=== PATIENT | male | born 1935 | race Caucasian/White ===

== ENCOUNTER 2016-06-22 10:40 | Observation (INO) ==
[2016-06-22 11:25] LABS: Basophils # 0.1 K/mcL (0.0-0.2); Basophils % 0.8 %; Eosinophils # 0.2 K/mcL (0.0-0.6); Hemoglobin 16.1 g/dL (12.9-16.9); Immature Granulocytes % 0.3 % (0-4); Lymphocytes # 1.7 K/mcL (0.6-4.6); Lymphocytes % 19.3 %; Mean Corpuscular HGB Conc 32.9 g/dL (31.6-35.5); Mean Corpuscular Hemoglobin 30.7 pg (28.0-33.3); Mean Corpuscular Volume 93.3 fL (83.0-100.0); Mean Platelet Volume 8.8 fL (9.4-12.4); Monocytes # 0.8 K/mcL (0.0-1.3); Monocytes % 9.1 %; Platelet Count 219 K/mcL (140-400); Red Blood Count 5.25 M/mcL (4.19-5.50); Red Cell Distribution Width 11.6 % (11.5-14.5); Segmented Neutrophils % 68.5 %
[2016-06-22 11:36] LABS: BUN/Creatinine Ratio 17 (6-26); Blood Urea Nitrogen 17 mg/dL (8-26); Calcium 9.7 mg/dL (8.6-10.8); Carbon Dioxide 25 mEq/L (19-29); Chloride 101 mEq/L (98-109); Glucose 120 mg/dL (70-99); Osmolality,Calculated 287 (280-300); Potassium 4.3 mEq/L (3.5-4.5); Sodium 137 mEq/L (136-145); eGFR For African Americans > 60 (> 60); eGFR For Non-African Americans > 60 (> 60)
--- NOTE | 2016-06-22 12:37 | Emergency Department Note ---
Disposition Clinical Impression: Lower extremity edema Qualifiers: Laterality: bilateral Qualified Code(s): R60.0 - Localized edema COPD (chronic obstructive pulmonary disease) Qualifiers: COPD type: COPD with acute exacerbation Qualified Code(s): J44.1 - Chronic obstructive pulmonary disease with (acute) exacerbation Disposition: Admitted As Inpatient Condition: Good Time of Disposition: 12:46 General Adult HPI - General Chief complaint: ED Extremity Problem,Nontraumatic Stated complaint: leg swelling, chest pain Time Seen by Provider: 06/22/16 10:50 Source: EMS Limitations: no limitations Nursing Notes Reviewed: Yes Vital Signs Reviewed: Yes - History of Present Illness HPI Narrative: Male patient with a one-week history of swelling to his legs and increasing shortness of breath. Patient does have a history of COPD. He states he did have an episode yesterday of chest pain that was an ache in his chest. It is resolved at this time. He wears oxygen at home and has had an increasing demand for oxygen recently. He states he is also had a 9 pound weight gain over the past couple months. He has noticed that the swelling in his legs has been more predominantly in his left lower extremity. Pain Scale: 0 - Related Data Home Medications Medication Instructions Recorded Confirmed Albuterol Sulfate [Proair 2 puff IH Q4H PRN 03/03/15 06/22/16 Respiclick] Ascorbic Acid [Vitamin C] 500 mg PO DAILY 03/03/15 06/22/16 Beclomethasone Diprop 40mcg [QVAR 1 puff IH BID 03/03/15 06/22/16 40 mcg] Cholecalciferol (Vitamin D3) 1,000 unit PO DAILY 03/03/15 06/22/16 [Vitamin D3] Lisinopril [Zestril] 5 mg PO DAILY 03/03/15 06/22/16 Simvastatin [Zocor] 40 mg PO QPM 03/03/15 06/22/16 Tiotropium [Spiriva] 1 cap IH DAILY 03/03/15 06/22/16 Vitamin E (Dl,Tocopheryl Acet) 400 unit PO DAILY 03/03/15 06/22/16 [Vitamin E] Ciclopirox [Loprox] 1 appl TP 3XW 06/22/16 06/22/16 Clobetasol Propionate [Cormax] 1 drop TP DAILY 06/22/16 06/22/16 Previous Rx's Medication Instructions Recorded Carvedilol [Coreg] 25 mg PO BID #60 tablet 03/06/15 Fluticasone Propionate Nasal 50 mcg NS BID #1 bottle 03/06/15 [Flonase] Benzonatate [Tessalon] 200 mg PO TID PRN #30 capsule 03/20/16 PredniSONE [Prednisone] 60 mg PO DAILY 5 Days 03/20/16 Allergies Allergy/AdvReac Type Severity Reaction Status Date / Time Penicillins [PCN] Allergy Rash Verified 03/03/15 19:12 hydrocodone AdvReac Severe Agitated Verified 03/03/15 19:12 Constitutional: Denies: fever, chills, weakness ENT ED: Denies: ear pain, throat pain Cardiovascular: Reports: chest pain (1 episode yesterday of chest pressure in the center of his chest.). Denies: palpitations, syncope Respiratory: Reports: dyspnea (Increasing shortness of breath over the past week.). Denies: cough, wheezes Gastrointestinal: Denies: abdominal pain, nausea, vomiting, diarrhea, hematemesis, hematochezia Genitourinary: Denies: urgency, dysuria, frequency, hematuria, testicular mass Musculoskeletal: Reports: other (Swelling to lower extremities left greater than right.). Denies: back pain, neck pain Integumentary: Denies: rash, lesions Neurological: Denies: headache, weakness Past Medical History - Past Medical History Medical history: Reports: CHF, COPD, coronary artery disease, CVA, hyperlipidemia, hypertension, other Surgical history: Reports: cholecystectomy, other (pilonodal cyst) Psychiatric history: Reports: no psych history - Social History Smoking Status: Former smoker Smokeless Tobacco Status: No Alcohol use: Reports: occasionally Drug use: Reports: none Physical Exam - General Limitations: no limitations General appearance: alert, in no apparent distress - Head Head exam: atraumatic, normocephalic, normal inspection - Eye Eye exam: Present: normal appearance, PERRL, EOMI. Absent: scleral icterus - ENT ENT exam: normal exam, normal oropharynx, mucous membranes moist - Neck Neck exam: Present: normal inspection, full ROM, trachea midline. Absent: meningismus, lymphadenopathy - Chest Chest inspection: Present: normal inspection, symmetric chest wall rise. Absent : tenderness - Respiratory Respiratory exam: Present: normal lung sounds bilaterally. Absent: respiratory distress - Cardiovascular Cardiovascular exam: Present: regular rate, normal rhythm, normal heart sounds - Abdominal Exam Abdominal exam: Present: soft, Non-Tender, normal bowel sounds, other ( Increasing abdominal girth. No fluid wave.). Absent: organomegaly - Extremities Exam Extremities exam: Present: full ROM, normal capillary refill, pedal edema ( Bilaterally. Left greater than right.). Absent: tenderness, calf tenderness - Back Exam Back exam: Present: normal inspection, full ROM. Absent: tenderness, CVA tenderness (R), CVA tenderness (L) - Neurological Exam Neurological exam: Present: alert, oriented X3, normal gait - Psychiatric Psychiatric exam: Present: normal affect, normal mood - Skin Skin exam: Present: warm, dry, intact, normal color. Absent: rash, cyanosis, erythema Course Course Narrative: Well-appearing male patient resting comfortably in bed complaining of an increasing shortness of breath over the past week. He states that he does wear oxygen at home but has had to increase his amounts. He states that he gets increasing shortness of breath whenever he is walking at all. He states he has noted a recent 9 pound weight gain. He states that he was diagnosed at urgent care with possible CHF and was given Lasix. He does have an outpatient echo scheduled. He states that he has had increasing pedal edema. The daughter in the room states that his left leg was swollen about 3 times a size of his right leg yesterday. There is approximately the same size today however he does have bilateral pedal edema. His lung sounds are clear he denies any chest pain at this time states he did have one episode yesterday of chest pain while resting at home. Does have a history of stent placement. Patient's chest x-ray is clear. There are no signs of pneumonia. His lung sounds are clear as well. We will admit patient for COPD exacerbation possible new diagnosis of congestive heart failure. He is agreeable to this. He states he has not had any fevers or chills while he is at home. He states he does get pneumonia approximately once a year and was concerned that this was a pneumonia developing. Vital Signs Temperature 97.4 F L 06/22/16 10:42 Pulse Rate 58 06/22/16 10:42 Respiratory Rate 18 06/22/16 10:42 Blood Pressure 166/84 06/22/16 10:42 O2 Sat by Pulse Oximetry 94 06/22/16 10:42 Temperature 97.4 F L 06/22/16 10:42 Pulse Rate 53 06/22/16 12:15 Respiratory Rate 18 06/22/16 10:42 Blood Pressure 143/67 06/22/16 12:15 O2 Sat by Pulse Oximetry 95 06/22/16 12:15 Oxygen Delivery Oxygen Delivery Nasal Cannula Medical Decision Making - Medical Records Medical records reviewed: Yes I reviewed the patient's medical records. - Lab Data Lab results reviewed: Yes I reviewed the patient's lab results. Result diagrams: 06/22/16 11:19 06/22/16 11:19 Lab Results 06/22/16 06/22/16 06/22/16 Range/Units 11:19 11:19 11:19 WBC 8.8 (4.3-11.1) K/mcL RBC 5.25 (4.19-5.50) M/mcL Hgb 16.1 (12.9-16.9) g/dL Hct 49.0 (37.5-50.1) % MCV 93.3 (83.0-100.0) fL MCH 30.7 (28.0-33.3) pg MCHC 32.9 (31.6-35.5) g/dL RDW 11.6 (11.5-14.5) % Plt Count 219 (140-400) K/mcL MPV 8.8 L (9.4-12.4) fL Immature Gran % 0.3 (0-4) % Seg Neutrophils % 68.5 % Lymphocytes % 19.3 % Monocytes % 9.1 % Eosinophils % 2.0 % Basophils % 0.8 % Neutrophils # 6.0 (1.6-8.9) K/mcL Lymphocytes # 1.7 (0.6-4.6) K/mcL Monocytes # 0.8 (0.0-1.3) K/mcL Eosinophils # 0.2 (0.0-0.6) K/mcL Basophils # 0.1 (0.0-0.2) K/mcL Sodium 137 (136-145) mEq/L Potassium 4.3 (3.5-4.5) mEq/L Chloride 101 (98-109) mEq/L Carbon Dioxide 25 (19-29) mEq/L BUN 17 (8-26) mg/dL Creatinine 0.98 (0.72-1.25) mg/dL Est GFR ( Amer) > 60 (> 60) Est GFR (Non-Af Amer) > 60 (> 60) BUN/Creatinine Ratio 17 (6-26) Glucose 120 H (70-99) mg/dL Calculated Osmolality 287 (280-300) Calcium 9.7 (8.6-10.8) mg/dL Troponin I 0.00 (0-0.03) ng/mL B-Natriuretic Peptide (0-100) pg/mL 06/22/16 Range/Units 11:19 WBC (4.3-11.1) K/mcL RBC (4.19-5.50) M/mcL Hgb (12.9-16.9) g/dL Hct (37.5-50.1) % MCV (83.0-100.0) fL MCH (28.0-33.3) pg MCHC (31.6-35.5) g/dL RDW (11.5-14.5) % Plt Count (140-400) K/mcL MPV (9.4-12.4) fL Immature Gran % (0-4) % Seg Neutrophils % % Lymphocytes % % Monocytes % % Eosinophils % % Basophils % % Neutrophils # (1.6-8.9) K/mcL Lymphocytes # (0.6-4.6) K/mcL Monocytes # (0.0-1.3) K/mcL Eosinophils # (0.0-0.6) K/mcL Basophils # (0.0-0.2) K/mcL Sodium (136-145) mEq/L Potassium (3.5-4.5) mEq/L Chloride (98-109) mEq/L Carbon Dioxide (19-29) mEq/L BUN (8-26) mg/dL Creatinine (0.72-1.25) mg/dL Est GFR ( Amer) (> 60) Est GFR (Non-Af Amer) (> 60) BUN/Creatinine Ratio (6-26) Glucose (70-99) mg/dL Calculated Osmolality (280-300) Calcium (8.6-10.8) mg/dL Troponin I (0-0.03) ng/mL B-Natriuretic Peptide 129 H (0-100) pg/mL - Radiology Data Radiology results reviewed: Yes I reviewed the patient's radiology results. Chest X-Ray 06/22/16 11:09 IMPRESSION: Low lung volumes with bibasilar atelectasis. No acute cardiopulmonary disease. D/ / Nathen Robles MD / Nathen Robles MD Interpreting Provider: Nathen Robles MD - EKG Data EKG #1 EKG attestation: Yes I reviewed and interpreted this EKG. EKG results narrative: Sinus bradycardia at a rate of 57. There is a first-degree AV block. TX interval was 256. Tenriism is 85. QT is 417. QTC is 411. There is no ST elevation or depression noted. There are no significant changes from his previous EKG dated 03/03/2015. Attestation Statement - Attestation Attestation: I examined this patient and my medical decision-making was reviewed with the INDUSTRIAL ORGANIZATIONAL PSYCHOLOGIST/PA/Advanced Practice Nurse/Resident Physician. I agree with the documented findings, disposition and treatment plan as described except to the extent set forth below. Emergency department with any shortness of breath and leg swelling. Onset a few days ago. Patient recently diagnosed with CHF and is awaiting outpatient workup. No cough or fever. On examination he has some mild 1-2+ pitting edema in his legs. Lungs clear. Plan. Patient's EKG is unchanged. He does have some CHF but appears to be new. Patient admitted for further workup of this.
--- NOTE | 2016-06-22 15:54 | Internal Med History&Physical ---
Date of Encounter: 06/22/16 Time of Encounter: 15:47 Assessment and Plan (1) GARDUNO (dyspnea on exertion) Current visit: Yes Status: Acute He has h/o COPD however, reports worsening bilateral lower leg swelling . will order ECHO to r/o CHF, no echo in the system. will keep on IV lasix for now, was taking oral at home. On exam the left foot looks slightly more swollen than the right however it does not look that bad. Chest x-ray does not show any evidence of pulmonary edema. No calf tenderness,less likely DVT. Titrate oxygen to maintain saturation 90-92% (2) HTN (hypertension) Current visit: No Status: Chronic Blood pressure is stable, continue home medications. Qualifiers: Hypertension type: essential hypertension Qualified Code(s): I10 - Essential (primary) hypertension (3) Hyperlipidemia Current visit: No Status: Chronic Qualifiers: Hyperlipidemia type: unspecified Qualified Code(s): E78.5 - Hyperlipidemia , unspecified (4) CVA (cerebral vascular accident) Current visit: No Status: Chronic Qualifiers: CVA mechanism: unspecified Qualified Code(s): I63.9 - Cerebral infarction, unspecified (5) COPD (chronic obstructive pulmonary disease) Current visit: Yes Status: Acute Nontender acute respiratory distress, his symptoms has not look like COPD exacerbation. He takes spiriva daily, we will continue that. He reports that he has not needed rescue inhaler, will keep albuterol prn Qualifiers: COPD type: COPD with acute exacerbation Qualified Code(s): J44.1 - Chronic obstructive pulmonary disease with (acute) exacerbation Internal Medicine - H&P: HPI Chief complaint: sob and leg swelling Admitted From: Home Plans for Post Hospital Care: Home History of present illness: Mr. 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 Patient does have a history of COPD. He states he did have an episode yesterday of chest pain on the left side that was mild and went away by itself. He states he is also had a 9 pound weight gain over the past couple months. He has noticed that the swelling in his legs has been more predominantly in his left lower extremity, denies any pain or trauma. HE denies any chest pain now, the doctor by the bedside reports that the swelling isolated was much worse yesterday. He does take oral Lasix at home, has not had an echo for the last 7-8 years, and has no history of CHF given his recent symptoms, the family is concerned patient might have CHF. Past Med Surg Social Fam HX - Past Medical History Medical history: CHF, COPD, coronary artery disease, CVA, hyperlipidemia, hypertension, other Psychiatric history: no psych history - Past Surgical History Surgical History: cholecystectomy, other - Social History Smoking Status: Former smoker Smokeless Tobacco Status: No Alcohol use: occasionally Drug use: none - Family History Mother Family Member Ethnicity: Non- Living Status: Hx Family Cardiac Disorders: Yes Hx Family Cancer: Yes Internal Medicine - H&P: Meds Albuterol Sulfate [Proair Respiclick] 2 puff IH Q4H PRN 03/03/15 [History] Ascorbic Acid [Vitamin C] 500 mg PO DAILY 03/03/15 [History] Beclomethasone Diprop 40mcg [QVAR 40 mcg] 1 puff IH BID 03/03/15 [History] Cholecalciferol (Vitamin D3) [Vitamin D3] 1,000 unit PO DAILY 03/03/15 [History] Lisinopril [Zestril] 5 mg PO DAILY 03/03/15 [History] Simvastatin [Zocor] 40 mg PO QPM 03/03/15 [History] Tiotropium [Spiriva] 1 cap IH DAILY 03/03/15 [History] Vitamin E (Dl,Tocopheryl Acet) [Vitamin E] 400 unit PO DAILY 03/03/15 [History] Carvedilol [Coreg] 25 mg PO BID #60 tablet 03/06/15 [Rx] Fluticasone Propionate Nasal [Flonase] 50 mcg NS BID #1 bottle 03/06/15 [Rx] Benzonatate [Tessalon] 200 mg PO TID PRN #30 capsule 03/20/16 [Rx] PredniSONE [Prednisone] 60 mg PO DAILY 5 Days 03/20/16 [Rx] Ciclopirox [Loprox] 1 appl TP 3XW 06/22/16 [History] Clobetasol Propionate [Cormax] 1 drop TP DAILY 06/22/16 [History] Allergies Penicillins [PCN] Allergy (Verified 03/03/15 19:12) Rash hydrocodone Adverse Reaction (Severe, Verified 03/03/15 19:12) Agitated Family also states this makes patient act differently. All Systems PM: A 10-system review of systems was performed and is negative for pertinent findings except as documented above in the HPI. - Constitutional Vitals: Temp Pulse Resp BP Pulse Ox 97.7 F 61 18 116/63 90 06/22/16 15:10 06/22/16 15:10 06/22/16 15:10 06/22/16 15:10 06/22/16 15:10 General appearance: Present: A&O X 3, no acute distress Exam: - Head Head exam: atraumatic, normocephalic, normal inspection - Eye Eye exam: Present: normal appearance, PERRL, EOMI. Absent: scleral icterus - ENT ENT exam: normal exam, normal oropharynx, mucous membranes moist - Neck Neck exam: Present: normal inspection, full ROM, trachea midline. Absent: meningismus, lymphadenopathy - Respiratory Respiratory exam: Present: normal lung sounds bilaterally. Absent: respiratory distress - Cardiovascular Cardiovascular exam: Present: regular rate, normal rhythm, normal heart sounds - Abdominal Exam Abdominal exam: Present: soft, Non-Tender, normal bowel sounds, other ( Increasing abdominal girth. No fluid wave.). Absent: organomegaly - Extremities Exam Extremities exam: Present: full ROM, normal capillary refill, pedal edema ( Bilaterally. Left greater than right.). Absent: tenderness, calf tenderness - Back Exam Back exam: Present: normal inspection, full ROM. Absent: tenderness, CVA tenderness (R), CVA tenderness (L) - Neurological Exam Neurological exam: Present: alert, oriented X3, normal gait - Psychiatric Psychiatric exam: Present: normal affect, normal mood - Skin Skin exam: Present: warm, dry, intact, normal color. Absent: rash, cyanosis, erythema Internal Med - H&P Results - Labs CBC & Chem 7: 06/22/16 11:19 06/22/16 11:19
[2016-06-22] MEDS ORDERED: Naloxone 0.4 MG/ML INJ IVP PRN (16:15)
[2016-06-22] MEDS: Beclomethasone 40mcg MDI IH SCH (22:08)
[2016-06-22] MEDS ORDERED: Ibuprofen 600 MG TABLET PO ONE (23:01)
[2016-06-22] MEDS ORDERED: Melatonin 3 MG TABLET PO PRN (23:01)
[2016-06-23 05:36] LABS: Basophils # 0.1 K/mcL (0.0-0.2); Basophils % 0.9 %; Eosinophils # 0.3 K/mcL (0.0-0.6); Eosinophils % 3.3 %; Hematocrit 43.6 % (37.5-50.1); Hemoglobin 14.6 g/dL (12.9-16.9); Immature Granulocytes % 0.4 % (0-4); Lymphocytes % 21.6 %; Mean Corpuscular HGB Conc 33.5 g/dL (31.6-35.5); Mean Corpuscular Hemoglobin 31.5 pg (28.0-33.3); Mean Platelet Volume 9.3 fL (9.4-12.4); Monocytes # 0.8 K/mcL (0.0-1.3); Monocytes % 8.7 %; Platelet Count 213 K/mcL (140-400); Red Blood Count 4.64 M/mcL (4.19-5.50); Red Cell Distribution Width 11.9 % (11.5-14.5); Segmented Neutrophils % 65.1 %
[2016-06-23 06:00] LABS: BUN/Creatinine Ratio 21 (6-26); Blood Urea Nitrogen 18 mg/dL (8-26); Calcium 9.2 mg/dL (8.6-10.8); Carbon Dioxide 26 mEq/L (19-29); Chloride 102 mEq/L (98-109); Cholesterol 93 mg/dL (< 200); Glucose 104 mg/dL (70-99); HDL Cholesterol 31 mg/dL (40-59); LDL Cholesterol,Calculated 48 mg/dL (0-99); Magnesium 1.9 mg/dL (1.6-2.6); Osmolality,Calculated 288 (280-300); Phosphorous 4.5 mg/dL (2.3-4.7); Potassium 4.2 mEq/L (3.5-4.5); Sodium 138 mEq/L (136-145); Triglycerides 69 mg/dL (< 150); eGFR For African Americans > 60 (> 60); eGFR For Non-African Americans > 60 (> 60)
--- NOTE | 2016-06-23 06:53 | Electrocardiograph Report ---
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
[2016-06-23] MEDS: Beclomethasone 40mcg MDI IH SCH (07:49)
[2016-06-23] MEDS ORDERED: Furosemide 40 MG/4 ML VIAL IVP SCH (09:00)
[2016-06-23] MEDS ORDERED: Ascorbic Acid 500 MG TABLET PO SCH (09:00)
--- NOTE | 2016-06-23 09:04 | Internal Med Progress Note ---
Date of Encounter: 06/23/16 Time of Encounter: 08:50 - Assessment and plan (1) GARDUNO (dyspnea on exertion) Current Visit: Yes Status: Acute (2) COPD (chronic obstructive pulmonary disease) Current Visit: Yes Status: Acute Qualifiers: COPD type: COPD with acute exacerbation Qualified Code(s): J44.1 - Chronic obstructive pulmonary disease with (acute) exacerbation (3) HTN (hypertension) Current Visit: No Status: Chronic Qualifiers: Hypertension type: essential hypertension Qualified Code(s): I10 - Essential (primary) hypertension (4) CVA (cerebral vascular accident) Current Visit: No Status: Chronic Qualifiers: CVA mechanism: unspecified Qualified Code(s): I63.9 - Cerebral infarction, unspecified (5) Hyperlipidemia Current Visit: No Status: Chronic Qualifiers: Hyperlipidemia type: unspecified Qualified Code(s): E78.5 - Hyperlipidemia , unspecified - Time Spent With Patient less than 15 minutes - Constitutional Vitals: Temp Pulse Resp BP Pulse Ox 98.0 F 60 16 122/66 90 06/23/16 07:22 06/23/16 07:22 06/23/16 07:53 06/23/16 07:22 06/23/16 07:53 General appearance: Present: cooperative, A&O X 3, pleasant, no acute distress - Head Head exam: Present: normal inspection - Eye Eye exam: Present: normal appearance, conjuntiva pink - ENT ENT exam: Present: mucous membranes moist, normal exam, normal external ear exam - Neck Neck exam general surgery: Present: normal inspection. Absent: lymphadenopathy , tenderness - Respiratory Respiratory exam: Present: decreased breath sounds, rhonchi, wheezes. Absent: accessory muscle use, chest wall tenderness, respiratory distress - Cardiovascular Cardiovascular exam: Present: RRR, +S1, +S2. Absent: diastolic murmur, systolic murmur - Expanded Cardiovascular Exam Peripheral pulses: 1+: Dorsalis Pedis (L) PM, Dorsalis Pedis (R) PM - GI/Abdominal GI/Abdominal exam: Present: distended, firm, normal bowel sounds. Absent: tenderness - Extremities Exam Extremities exam: Present: pedal edema, warm, radial pulses palpable and symetrical. Absent: tenderness - Neurological Exam Neurological exam: Present: alert, oriented X3, no focal deficits, strengths equal and symetr throughout. Absent: facial droop, speech deficit Internal Medicine: Result - Labs CBC & Chem 7: 06/23/16 04:31 06/23/16 04:31 Labs: Short CBC 06/23/16 Range/Units 04:31 WBC 9.3 (4.3-11.1) K/mcL Hgb 14.6 D (12.9-16.9) g/dL Hct 43.6 (37.5-50.1) % Plt Count 213 (140-400) K/mcL Neutrophils # 6.0 (1.6-8.9) K/mcL BMP 06/23/16 04:31 Sodium 138 Potassium 4.2 Chloride 102 Carbon Dioxide 26 BUN 18 Creatinine 0.84 Glucose 104 H Calcium 9.2 Consult Discharge Plan - Plan Referrals: Mis Barrientos CNP [Partnered Physician] - 06/28/16 1:25 pm
[2016-06-23] MEDS ORDERED: Tiotropium 18 MCG inhalation IH SCH (10:00)
[2016-06-23] MEDS: Albuterol 2.5 MG/3 ML NEBULIZER IH SCH ×3 (10:12→15:45)
[2016-06-23 11:02] VITALS: BP 112/68
--- NOTE | 2016-06-23 13:08 | ECHO - Doppler Report ---
Echocardiogram Name: Elkin Sapp Date of Study: 06/22/2016 Date: 1935 Ht: 70.0 in Medical Record#: [id number] Age: 80 Wt: 220.0 lb Gender: Male BSA: 2.17 Order #: [id number] Location: [facility] Room #: 3B13 Reading Physician: Aris Waller DO, KORIN, KHUSHI FANG Float Builder: Darline Iyer Ordering Physician: Issa Finley MD Primary Physician: Dex Higuera MD Indications: Congestive heart failure Impressions: LVEF 55%. Not all LV segments were well visualized, but overall LV function appearss normal. Mild concentric left ventricular hypertrophy. Mild left ventricular diastolic dysfunction. Not well visualized. Grossly, right ventricular function appears normal. Moderate pulmonary hypertension. No significant valvular dysfunction. Findings: Study Quality * Technically sub-optimal due to poor echocardiographic windows. ECG Findings * Normal sinus rhythm. Left Ventricle * LVEF 55%. * Not all LV segments were well visualized, but overall LV function appearss normal. * Mild concentric left ventricular hypertrophy. * Mild left ventricular diastolic dysfunction. Right Ventricle * Not well visualized. Grossly, right ventricular function appears normal. Left Atrium * Mildly dilated left atrium. Right Atrium * Mildly dilated right atrium. Interatrial Septum * Interatrial septum not well evaluated. Aortic Valve * Trileaflet aortic valve with normal function. * No aortic stenosis. * Trace aortic regurgitation. Mitral Valve * Mildly thickened mitral valve leaflets. * Trace mitral regurgitation. * No mitral stenosis. Tricuspid Valve * Normal tricuspid valve structure and function. * Trace tricuspid regurgitation. * Moderate pulmonary hypertension. Pulmonic Valve * Pulmonic valve not well visualized. * Trace pulmonic regurgitation. Aorta * Normally sized aortic root. Pericardium * The pericardium appears normal. Pulmonary Artery * Pulmonary artery not well visualized. History Hypertension Hypercholesteremia Years 45 Packs 3 History of CAD/PTCA Measurements: BP: 116/ 63 2D Normal Values RVIDd: 4.50 cm <2.7 cm IVSd: 1.40 cm 0.6 - 1.0 cm LVIDd: 4.20 cm 3.7 - 5.6 cm LVPWd: 1.40 cm 0.6 - 1.1 cm LVIDs: 3.00 cm 1.5 - 3.6 cm AO: 3.10 cm < 4.0 cm LA: 5.10 cm 2.0 - 4.0cm %FS: 28.60 cm >25 % LA volume: 43 Mitral Valve Peak E:.70 m/sec Peak A:.74 m/sec E/A Ratio:1 Peak E' Lat Ari:4.78 cm/s Peak E' Med Ari:5.09 cm/s E/E' Lat Ratio:14.7 E/E' Med Ratio:13.8 Tricuspid Valve TV Regurg Peak Grad: 43.00mmHg TV Regurg Peak Ari: 3.26m/sec Updated by Aris Waller DO, KORIN, ANNALISA, KHUSHI on 06/23/2016 1:01:41 PM electronically signed on 06/23/2016 1:02:02 PM with status of Final Wall Motion Zhao: 1=Normal, 2=Hypokinesis, 3=Akinesis, 4=Dyskinesis, 5=Aneurysmal, 6=Hyperkinetic, X=Not Visualized (Blank)=Missing
--- NOTE | 2016-06-23 14:53 | Discharge Summary ---
Date of Encounter: 06/23/16 Time of Encounter: 08:15 - Discharge Diagnosis (1) GARDUNO (dyspnea on exertion) Priority: Primary Status: Acute Comments: Patient reports increasing shortness of breath over the last week with increased use of his home oxygen. He presented to the emergency room yesterday with increasing shortness of breath increasing lower extremity edema, left worse than right. He has COPD and was treated within the last week with Levaquin 500 mg by mouth, prednisone, and Lasix taper. He just finished his Levaquin yesterday. He says he is not any better. Chest x-ray is negative for any acute cardiopulmonary disease. His troponin was negative 1. He does have rhonchi and wheezing posteriorly in all proctor. I gave him albuterol treatment and said that he felt better afterwards. I asked him if he would like to have a nebulizer breathing treatments at home and he said he was not interested. The prescriptions were obtained and sent by the social work supervisor in case he changes his mind. His echocardiogram today shows normal LV function with ejection fraction of 55% . Mild left ventricular hypertrophy and mild diastolic dysfunction. With moderate pulmonary hypertension. I talked to the patient about spending the night for diuresis and he says that he needs to get home to his whom he cares for. They live in assisted living and he has had to make arrangements for her to be cared for. I will send him home on Lasix. He also has the prescription for the albuterol in case he needs it. His BNP is only slightly elevated at 129. He has no white count and has had no fever, no tachycardia, and is normotensive. (2) COPD (chronic obstructive pulmonary disease) Priority: Secondary Status: Chronic Comments: Patient has been treated with Lasix a tapering dose outpatient. He was also treated with prednisone and Levaquin. He did not feel that he is any better presented to the emergency room last night for increasing edema and increasing GARDUNO. He was somewhat wheezy posteriorly and I gave him albuterol treatment and he said that it did help, primary nurse said that the wheezing seemed better. I asked him. He interested in having a nebulizer and albuterol at home and he said he was not. The prescriptions are available to him if he should so desire and would like to start using them. Patient says that he has an albuterol inhaler at home that he does not use. He will continue his Spiriva and Qvar at home. He also wears home O2 2 L at night to sleep and if needed during the day. He reports he has been using his oxygen more frequently over the last week or so. Qualifiers: COPD type: COPD with acute exacerbation Qualified Code(s): J44.1 - Chronic obstructive pulmonary disease with (acute) exacerbation (3) HTN (hypertension) Priority: Secondary Status: Chronic Comments: Chronic. Continue home medications. Patient has been normotensive Qualifiers: Hypertension type: essential hypertension Qualified Code(s): I10 - Essential (primary) hypertension (4) CVA (cerebral vascular accident) Priority: Secondary Status: Chronic Comments: Chronic. Qualifiers: CVA mechanism: unspecified Qualified Code(s): I63.9 - Cerebral infarction, unspecified (5) Hyperlipidemia Priority: Secondary Status: Chronic Comments: Chronic. Continue Zocor Qualifiers: Hyperlipidemia type: unspecified Qualified Code(s): E78.5 - Hyperlipidemia , unspecified - Discharge Medications Prescriptions: Furosemide [Lasix] 20 mg PO DAILY #7 tablet Home Medications: Albuterol Sulfate [Proair Respiclick] 2 puff IH Q4H PRN 03/03/15 [History] Ascorbic Acid [Vitamin C] 500 mg PO DAILY 03/03/15 [History] Beclomethasone Diprop 40mcg [QVAR 40 mcg] 1 puff IH BID 03/03/15 [History] Cholecalciferol (Vitamin D3) [Vitamin D3] 1,000 unit PO DAILY 03/03/15 [History] Lisinopril [Zestril] 5 mg PO DAILY 03/03/15 [History] Simvastatin [Zocor] 40 mg PO QPM 03/03/15 [History] Tiotropium [Spiriva] 1 cap IH DAILY 03/03/15 [History] Vitamin E (Dl,Tocopheryl Acet) [Vitamin E] 400 unit PO DAILY 03/03/15 [History] Carvedilol [Coreg] 25 mg PO BID #60 tablet 03/06/15 [Rx] Fluticasone Propionate Nasal [Flonase] 50 mcg NS BID #1 bottle 03/06/15 [Rx] Benzonatate [Tessalon] 200 mg PO TID PRN #30 capsule 03/20/16 [Rx] PredniSONE 60 mg PO DAILY 5 Days 03/20/16 [Rx] Ciclopirox [Loprox] 1 appl TP 3XW 06/22/16 [History] Clobetasol Propionate [Cormax] 1 drop TP DAILY 06/22/16 [History] Furosemide [Lasix] 20 mg PO DAILY #7 tablet 06/23/16 [Rx] Allergies/Adverse Reactions: Allergies Penicillins [PCN] Allergy (Verified 03/03/15 19:12) Rash hydrocodone Adverse Reaction (Severe, Verified 03/03/15 19:12) Agitated Family also states this makes patient act differently. Procedures/tests Complete & Pending: Procedures Performed prior 72 hours Category Date Time Status EV echocardiogram Routine Y 06/22/16 16:16 Completed Date of admission: 06/22/16 12:58 Primary care physician: Dex Higuera Jr, MD Consults: 06/22/16 14:28 Consult to Crate Maker [CONS] Routine Reason for SW Consult: 80, primary caregiver of at home. Discharging clinician: Becki Roque Anticipated date of discharge: 06/23/16 - Patient Status Disposition: Home, Self-Care Condition: Good Functional capacity at discharge: independent ambulation Overall status at discharge: patient is progressing back to baseline - Discharge Instructions Follow Up With: Mis Barrientos CNP [Partnered Physician] - 06/28/16 1:25 pm Additional Instructions: Follow up with Kamila Barrientos within the next week for a follow up appointment Take your Lasix every morning Finish your prednisone if you have not already Return to the ER as needed for any other problems or concerns or if your condition changes for the worse. - Diet and Activity Activity: increase activity as tolerated, wear oxygen at night Diet: advance to your usual diet Hospital course: Mr. Sapp is a 80 year old male - Time Spent with Patient Total time spent providing and/or coordinating discharge services: - Constitutional Vitals: Temp Pulse Resp BP Pulse Ox 97.7 F 54 14 112/68 93 06/23/16 11:01 06/23/16 11:01 06/23/16 11:01 06/23/16 11:01 06/23/16 11:01 General appearance: Present: A&O X 3, no acute distress
--- NOTE | 2016-06-26 08:54 | Physician Discharge Referral ---
Home Health/Hosp Referral Info Transfer to: Home Health Provider in Charge Post Discharge: PCP - Diagnosis (1) GARDUNO (dyspnea on exertion) Priority: Secondary Status: Acute (2) COPD (chronic obstructive pulmonary disease) Priority: Primary Status: Chronic (3) HTN (hypertension) Priority: Secondary Status: Chronic (4) CVA (cerebral vascular accident) Priority: Secondary Status: Chronic (5) Hyperlipidemia Priority: Secondary Status: Chronic - Respiratory Orders Oxygen / L per min Smoking Cessation: Smoking cessation has been advised. For more information, call the [place] Tobacco Quit Line at 7-967-ZHAW-NOW. - Diet/Nutrition Diet/Nutrition Orders: Regular - Activity Activity Orders: Up ad marcela - Services Needed Following services are medically necessary services: Nursing, Home Health Aide, Physical Therapy, Occupational Therapy - Transfer Medications Prescriptions: Furosemide [Lasix] 20 mg PO DAILY #7 tablet Home Medications: Albuterol Sulfate [Proair Respiclick] 2 puff IH Q4H PRN 03/03/15 [History] Ascorbic Acid [Vitamin C] 500 mg PO DAILY 03/03/15 [History] Beclomethasone Diprop 40mcg [QVAR 40 mcg] 1 puff IH BID 03/03/15 [History] Cholecalciferol (Vitamin D3) [Vitamin D3] 1,000 unit PO DAILY 03/03/15 [History] Lisinopril [Zestril] 5 mg PO DAILY 03/03/15 [History] Simvastatin [Zocor] 40 mg PO QPM 03/03/15 [History] Tiotropium [Spiriva] 1 cap IH DAILY 03/03/15 [History] Vitamin E (Dl,Tocopheryl Acet) [Vitamin E] 400 unit PO DAILY 03/03/15 [History] Carvedilol [Coreg] 25 mg PO BID #60 tablet 03/06/15 [Rx] Fluticasone Propionate Nasal [Flonase] 50 mcg NS BID #1 bottle 03/06/15 [Rx] Benzonatate [Tessalon] 200 mg PO TID PRN #30 capsule 03/20/16 [Rx] PredniSONE 60 mg PO DAILY 5 Days 03/20/16 [Rx] Ciclopirox [Loprox] 1 appl TP 3XW 06/22/16 [History] Clobetasol Propionate [Cormax] 1 drop TP DAILY 04/13/17 [History] Furosemide [Lasix] 20 mg PO DAILY #7 tablet 06/23/16 [Rx] Allergies/Adverse Reactions: Allergies Penicillins [PCN] Allergy (Verified 03/03/15 19:12) Rash hydrocodone Adverse Reaction (Severe, Verified 03/03/15 19:12) Agitated Family also states this makes patient act differently. Certification: Further, I certify that my clinical findings support that this patient is homebound (i.e. absences from home require considerable and taxing effort and are for medical reasons or evangelical services or infrequently or short duration when for other reasons) because: Homebound Reason: Severity of cardiac or pulmonary status limits activity tolerance Attestation: My signature below is to certify that this patient is under my care and that I, or nurse practitioner, or a physician's purchasing administrative assistant working with me, has a face-to -face encounter with this patient.
== END 2016-06-23 16:22 | disposition home health service (06) ==
LOC: 3BNU 10:40 → EMEROO 10:40 → 3BNU 14:03
PROVIDERS: ADMIT Internal Medicine Endocrinology, Diabetes & Metabolism; ATTEND Registered Nurse

== ENCOUNTER 2017-04-27 10:49 | Inpatient (IN) ==
[2017-04-27] MEDS ORDERED: Ipratropium/Albuterol Neb 3 ML IH ONE (11:05)
--- NOTE | 2017-04-27 11:13 | Emergency Department Note ---
Disposition Clinical Impression: Community acquired pneumonia, Thoracic spine fracture, CHF exacerbation Disposition: Admitted As Inpatient Condition: Fair Referrals: Dex Higuera Jr, MD [Partnered Physician] - Forms: ED Satisfaction Letter General Adult HPI - General Chief complaint: ED Shortness of Breath/Dyspnea Stated complaint: shortness of breath Time Seen by Provider: 04/27/17 10:59 Source: EMS Limitations: no limitations Nursing Notes Reviewed: Yes Vital Signs Reviewed: Yes - History of Present Illness HPI Narrative: 81 y/o male who was diagnosed with pneumonia approximately 7 days ago. He denies improvement in his symptoms and has been worsening. He reports cough and shortness of breath with productive sputum. Hx of COPD, CHF, CAD. Hx of a stent many years ago. No blood thinners. Denies knowing if he has had a fever. Denies LE edema, but admits that he just feel "swollen". He admits to coughing fits at home which is causing pain in his ribs bilaterally and his back. No falls. No syncope. Radiation: non-radiation Pain Severity: moderate Pain Scale: 8 Consistency: intermittent Improves with: nothing Worsens with: other (coughing) Associated symptoms: Reports: denies other symptoms Treatments Prior to Arrival: none - Related Data Home Medications Medication Instructions Recorded Confirmed Albuterol Sulfate [Proair 2 puff IH Q4H PRN 03/03/15 12/20/16 Respiclick] Ascorbic Acid [Vitamin C] 500 mg PO DAILY 03/03/15 12/20/16 Cholecalciferol (Vitamin D3) 1,000 unit PO DAILY 03/03/15 12/20/16 [Vitamin D3] Simvastatin [Zocor] 40 mg PO QPM 03/03/15 12/20/16 Aspirin Enteric Coated [Aspirin EC] 81 mg PO 3XW 04/27/17 04/27/17 Cranberry 500 mg PO DAILY 04/27/17 04/27/17 Furosemide [Lasix] 40 mg PO BID 04/27/17 04/27/17 Losartan [Cozaar] 25 mg PO DAILY 04/27/17 04/27/17 Multivitamin [One Daily Essential] 1 each PO DAILY 04/27/17 04/27/17 Umeclidinium [place] [Incruse 62.5 mcg IH DAILY 04/27/17 04/27/17 Ellipta] Previous Rx's Medication Instructions Recorded Carvedilol [Coreg] 25 mg PO BID #60 tablet 03/06/15 Levofloxacin [Levaquin] 500 mg PO DAILY #7 tablet 12/22/16 Allergies Allergy/AdvReac Type Severity Reaction Status Date / Time Penicillins [PCN] Allergy Rash Verified 03/03/15 19:12 hydrocodone AdvReac Severe Agitated Verified 03/03/15 19:12 Oxycodone AdvReac See Verified 04/27/17 15:46 Comments All systems ED: reviewed and negative except as stated. ENT ED: Denies: throat pain Respiratory: Reports: cough, dyspnea Gastrointestinal: Denies: abdominal pain Integumentary: Denies: rash Past Medical History - Past Medical History Medical history: Reports: CHF, COPD, coronary artery disease, CVA, hypertension , other Surgical history: Reports: cholecystectomy, other Psychiatric history: Reports: no psych history - Social History Smoking Status: Former smoker Smokeless Tobacco Status: No Alcohol use: Reports: occasionally Drug use: Reports: none Physical Exam - General Limitations: no limitations General appearance: alert, in no apparent distress - Head Head exam: atraumatic - Eye Eye exam: Present: normal appearance, PERRL - ENT ENT exam: normal exam - Neck Neck exam: Present: normal inspection - Chest Chest inspection: Present: normal inspection - Respiratory Respiratory exam: Present: other (coarse rhonchi bilaterally). Absent: accessory muscle use - Cardiovascular Cardiovascular exam: Present: regular rate, normal rhythm - Abdominal Exam Abdominal exam: Present: soft, other (no pain on palpation, mild distension) - Extremities Exam Extremities exam: Present: pedal edema (1+ bilateral) - Neurological Exam Neurological exam: Present: alert, oriented X3 - Skin Skin exam: Present: warm, dry Course Course Narrative: He does wear O2 at home. 2liters as needed. EMS gave 125mg of Solumedrol. Will give duonebs here and get CXR and labs. His symptoms are not consistent with PE as he had initial URI onset which led to pneumonia, and he has just had no improvement after levaquin. CT shows potentially unstable acute thoracic spine fracture. I called and spoke with Dr Holloway who will come in and see the patient. He has no weakness or sensation changes in the LE. Able to ambulate. Dr Holloway requests an MRI and additional spine CT scan. He requests admission due to potential unstable fracture. Spoke with Dr Xie who accepts the patient for admission. Vital Signs Temperature 97.8 F 04/27/17 10:50 Pulse Rate 72 04/27/17 10:50 Respiratory Rate 24 04/27/17 10:50 Blood Pressure 136/108 04/27/17 10:50 O2 Sat by Pulse Oximetry 90 04/27/17 10:50 Temperature 97.8 F 04/27/17 10:50 Pulse Rate 72 04/27/17 10:50 Respiratory Rate 22 04/27/17 11:21 Blood Pressure 136/108 04/27/17 10:50 O2 Sat by Pulse Oximetry 95 04/27/17 13:25 Oxygen Delivery Oxygen Delivery Nasal Cannula Medical Decision Making - Medical Records Medical records reviewed: Yes I reviewed the patient's medical records. - Lab Data Lab results reviewed: Yes I reviewed the patient's lab results. Result diagrams: 04/27/17 11:15 04/27/17 11:15 Lab Results 04/27/17 04/27/17 04/27/17 Range/Units 11:15 11:15 11:15 WBC 10.9 (4.3-11.1) K/mcL RBC 5.07 (4.19-5.50) M/mcL Hgb 15.7 (12.9-16.9) g/dL Hct 48.2 (37.5-50.1) % MCV 95.1 (83.0-100.0) fL MCH 31.0 (28.0-33.3) pg MCHC 32.6 (31.6-35.5) g/dL RDW 11.9 (11.5-14.5) % Plt Count 286 (140-400) K/mcL MPV 8.9 L (9.4-12.4) fL Immature Gran % 0.7 (0-4) % Seg Neutrophils % 69.9 % Lymphocytes % 15.6 % Monocytes % 9.7 % Eosinophils % 3.4 % Basophils % 0.7 % Neutrophils # 7.6 (1.6-8.9) K/mcL Lymphocytes # 1.7 (0.6-4.6) K/mcL Monocytes # 1.1 (0.0-1.3) K/mcL Eosinophils # 0.4 (0.0-0.6) K/mcL Basophils # 0.1 (0.0-0.2) K/mcL Sodium 138 (136-145) mEq/L Potassium 4.1 (3.5-5.1) mEq/L Chloride 102 (98-107) mEq/L Carbon Dioxide 28 (23-29) mEq/L BUN 32 H (8-23) mg/dL Creatinine 1.18 (0.70-1.30) mg/dL Est GFR ( Amer) > 60 (> 60) Est GFR (Non-Af Amer) 59 L (> 60) BUN/Creatinine Ratio 27 H (6-26) Glucose 127 H (70-105) mg/dL Calculated Osmolality 294 (280-300) Calcium 9.8 (8.6-10.3) mg/dL Troponin I < 0.03 (< 0.04) ng/mL B-Natriuretic Peptide (Less than 100) pg/mL 04/27/17 Range/Units 11:15 WBC (4.3-11.1) K/mcL RBC (4.19-5.50) M/mcL Hgb (12.9-16.9) g/dL Hct (37.5-50.1) % MCV (83.0-100.0) fL MCH (28.0-33.3) pg MCHC (31.6-35.5) g/dL RDW (11.5-14.5) % Plt Count (140-400) K/mcL MPV (9.4-12.4) fL Immature Gran % (0-4) % Seg Neutrophils % % Lymphocytes % % Monocytes % % Eosinophils % % Basophils % % Neutrophils # (1.6-8.9) K/mcL Lymphocytes # (0.6-4.6) K/mcL Monocytes # (0.0-1.3) K/mcL Eosinophils # (0.0-0.6) K/mcL Basophils # (0.0-0.2) K/mcL Sodium (136-145) mEq/L Potassium (3.5-5.1) mEq/L Chloride (98-107) mEq/L Carbon Dioxide (23-29) mEq/L BUN (8-23) mg/dL Creatinine (0.70-1.30) mg/dL Est GFR ( Amer) (> 60) Est GFR (Non-Af Amer) (> 60) BUN/Creatinine Ratio (6-26) Glucose (70-105) mg/dL Calculated Osmolality (280-300) Calcium (8.6-10.3) mg/dL Troponin I (< 0.04) ng/mL B-Natriuretic Peptide 107 H (Less than 100) pg/mL - Radiology Data Radiology results reviewed: Yes I reviewed the patient's radiology results. - EKG Data EKG #1 EKG attestation: Yes I reviewed and interpreted this EKG. EKG shows normal: sinus rhythm Rate: normal Rhythm: NSR T wave inversions noted in: III Interpretation: other (T wave inversion is chronic. Unchanged)
--- NOTE | 2017-04-27 11:19 | Emergency Department Note ---
Disposition Clinical Impression: Thoracic spine fracture Community acquired pneumonia Qualifiers: Laterality: unspecified laterality Qualified Code(s): J18.9 - Pneumonia, unspecified organism Disposition: Admitted As Inpatient Condition: Fair Referrals: Dex Higuera Jr, MD [Primary Care Provider] - Forms: ED Satisfaction Letter General Adult HPI - General Chief complaint: ED Shortness of Breath/Dyspnea Stated complaint: shortness of breath Time Seen by Provider: 04/27/17 10:59 Source: EMS Limitations: no limitations Nursing Notes Reviewed: Yes Vital Signs Reviewed: Yes - History of Present Illness Pain Scale: 8 - Related Data Home Medications Medication Instructions Recorded Confirmed Albuterol Sulfate [Proair 2 puff IH Q4H PRN 03/03/15 12/20/16 Respiclick] Ascorbic Acid [Vitamin C] 500 mg PO DAILY 03/03/15 12/20/16 Beclomethasone Diprop 40mcg [QVAR 1 puff IH BID 03/03/15 12/20/16 40 mcg] Cholecalciferol (Vitamin D3) 1,000 unit PO DAILY 03/03/15 12/20/16 [Vitamin D3] Lisinopril [Zestril] 5 mg PO DAILY 03/03/15 12/20/16 Simvastatin [Zocor] 40 mg PO QPM 03/03/15 12/20/16 Tiotropium [Spiriva] 1 cap IH DAILY 03/03/15 12/20/16 Vitamin E (Dl,Tocopheryl Acet) 400 unit PO DAILY 03/03/15 12/20/16 [Vitamin E] Furosemide [Lasix] 40 mg PO BID 12/20/16 12/20/16 Previous Rx's Medication Instructions Recorded Carvedilol [Coreg] 25 mg PO BID #60 tablet 03/06/15 Aspirin Enteric Coated [Aspirin EC] 81 mg PO DAILY tablet.dr 12/22/16 GuaiFENesin ER [Mucinex] 600 mg PO BID PRN #60 tbbp.12hr 12/22/16 Levofloxacin [Levaquin] 500 mg PO DAILY #7 tablet 12/22/16 Allergies Allergy/AdvReac Type Severity Reaction Status Date / Time Penicillins [PCN] Allergy Rash Verified 03/03/15 19:12 hydrocodone AdvReac Severe Agitated Verified 03/03/15 19:12 Past Medical History - Past Medical History Medical history: Reports: CHF, COPD, coronary artery disease, CVA, hypertension , other Surgical history: Reports: cholecystectomy, other Psychiatric history: Reports: no psych history - Social History Smoking Status: Former smoker Smokeless Tobacco Status: No Alcohol use: Reports: occasionally Drug use: Reports: none Physical Exam - General Limitations: no limitations General appearance: alert, in no apparent distress Course Vital Signs Temperature 97.8 F 04/27/17 10:50 Pulse Rate 72 04/27/17 10:50 Respiratory Rate 24 04/27/17 10:50 Blood Pressure 136/108 04/27/17 10:50 O2 Sat by Pulse Oximetry 90 04/27/17 10:50 Temperature 97.8 F 04/27/17 10:50 Pulse Rate 72 04/27/17 10:50 Respiratory Rate 22 04/27/17 11:21 Blood Pressure 136/108 04/27/17 10:50 O2 Sat by Pulse Oximetry 95 04/27/17 13:25 Oxygen Delivery Oxygen Delivery Nasal Cannula Medical Decision Making - MDM Narrative Medical decision making narrative: This documentation is done with the assistance of Dragon dictation. Despite efforts made to ensure accuracy, there may be inaccuracies in frit mixer or spelling and typographical errors. I examined this patient and my medical decision-making was reviewed with the Resident Physician. I agree with the documented findings, disposition and treatment plan as described except to the extent set forth below. Patient seen and evaluated by Dr. Luna and myself, I agree with his evaluation and management plan, supervise care the patient's stay. Patient presents today with about 7 days of cough and shortness of breath. He is currently on Levaquin and finished his last pill today. I do not see any prednisone. He has breathing treatments at home with his family is not certain he uses. Uncertain if he had flu immunizations or not. He does have a history of CHF. We will rule him out for pneumonia and COPD which he does not have and CHF. He is in agreement with this plan. + Chest X-Ray 04/27/17 11:04 IMPRESSION: No acute process. Mild cardiomegaly with associated mild right lower lobe atelectasis D/ / Evan Pritchett MD / Evan Pritchett MD Interpreting Provider: Evan Pritchett MD Chest X-Ray 04/27/17 11:04 IMPRESSION: No acute process. Mild cardiomegaly with associated mild right lower lobe atelectasis D/ / Evan Pritchett MD / Evan Pritchett MD Interpreting Provider: Evan Pritchett MD Chest CTA 04/27/17 12:29 IMPRESSION: Motion compromised examination without evidence of pulmonary embolism, as discussed. No evidence of acute pulmonary process. New fracture of the thoracic spine involving the T7 and T8 vertebral bodies, also appearing to involve the posterior elements. There is associated disruption of the anterior longitudinal ligament and widening of the T7-8 intervertebral disc spacing. This potential critical result was called by Dr. Abel Dial MD to Froilan A Luna on 04/27/2017 at 14:23. The appearance of the thoracic spine raises question of ankylosing spondylitis. D/ / Abel Dial MD / Abel Dial MD Interpreting Provider: Abel Dial MD 1415 hrs.: Spoke with spine, to see the patient emergency department to determine best disposition. 1530 hrs.: Patient was seen by spine in the emergency department. They would like a dedicated CT of his thoracic spine and an MR. They want him admitted to hospital service with him consulting. Orders are placed. We will speak with hospitalist for admission. - Lab Data Result diagrams: 04/27/17 11:15 04/27/17 11:15 Lab Results 04/27/17 04/27/17 04/27/17 Range/Units 11:15 11:15 11:15 WBC 10.9 (4.3-11.1) K/mcL RBC 5.07 (4.19-5.50) M/mcL Hgb 15.7 (12.9-16.9) g/dL Hct 48.2 (37.5-50.1) % MCV 95.1 (83.0-100.0) fL MCH 31.0 (28.0-33.3) pg MCHC 32.6 (31.6-35.5) g/dL RDW 11.9 (11.5-14.5) % Plt Count 286 (140-400) K/mcL MPV 8.9 L (9.4-12.4) fL Immature Gran % 0.7 (0-4) % Seg Neutrophils % 69.9 % Lymphocytes % 15.6 % Monocytes % 9.7 % Eosinophils % 3.4 % Basophils % 0.7 % Neutrophils # 7.6 (1.6-8.9) K/mcL Lymphocytes # 1.7 (0.6-4.6) K/mcL Monocytes # 1.1 (0.0-1.3) K/mcL Eosinophils # 0.4 (0.0-0.6) K/mcL Basophils # 0.1 (0.0-0.2) K/mcL Sodium 138 (136-145) mEq/L Potassium 4.1 (3.5-5.1) mEq/L Chloride 102 (98-107) mEq/L Carbon Dioxide 28 (23-29) mEq/L BUN 32 H (8-23) mg/dL Creatinine 1.18 (0.70-1.30) mg/dL Est GFR ( Amer) > 60 (> 60) Est GFR (Non-Af Amer) 59 L (> 60) BUN/Creatinine Ratio 27 H (6-26) Glucose 127 H (70-105) mg/dL Calculated Osmolality 294 (280-300) Calcium 9.8 (8.6-10.3) mg/dL Troponin I < 0.03 (< 0.04) ng/mL B-Natriuretic Peptide (Less than 100) pg/mL 04/27/17 Range/Units 11:15 WBC (4.3-11.1) K/mcL RBC (4.19-5.50) M/mcL Hgb (12.9-16.9) g/dL Hct (37.5-50.1) % MCV (83.0-100.0) fL MCH (28.0-33.3) pg MCHC (31.6-35.5) g/dL RDW (11.5-14.5) % Plt Count (140-400) K/mcL MPV (9.4-12.4) fL Immature Gran % (0-4) % Seg Neutrophils % % Lymphocytes % % Monocytes % % Eosinophils % % Basophils % % Neutrophils # (1.6-8.9) K/mcL Lymphocytes # (0.6-4.6) K/mcL Monocytes # (0.0-1.3) K/mcL Eosinophils # (0.0-0.6) K/mcL Basophils # (0.0-0.2) K/mcL Sodium (136-145) mEq/L Potassium (3.5-5.1) mEq/L Chloride (98-107) mEq/L Carbon Dioxide (23-29) mEq/L BUN (8-23) mg/dL Creatinine (0.70-1.30) mg/dL Est GFR ( Amer) (> 60) Est GFR (Non-Af Amer) (> 60) BUN/Creatinine Ratio (6-26) Glucose (70-105) mg/dL Calculated Osmolality (280-300) Calcium (8.6-10.3) mg/dL Troponin I (< 0.04) ng/mL B-Natriuretic Peptide 107 H (Less than 100) pg/mL
[2017-04-27 11:32] LABS: Basophils # 0.1 K/mcL (0.0-0.2); Basophils % 0.7 %; Eosinophils # 0.4 K/mcL (0.0-0.6); Eosinophils % 3.4 %; Hematocrit 48.2 % (37.5-50.1); Hemoglobin 15.7 g/dL (12.9-16.9); Immature Granulocytes % 0.7 % (0-4); Lymphocytes # 1.7 K/mcL (0.6-4.6); Lymphocytes % 15.6 %; Mean Corpuscular HGB Conc 32.6 g/dL (31.6-35.5); Mean Corpuscular Volume 95.1 fL (83.0-100.0); Mean Platelet Volume 8.9 fL (9.4-12.4); Monocytes # 1.1 K/mcL (0.0-1.3); Monocytes % 9.7 %; Neutrophils # 7.6 K/mcL (1.6-8.9); Platelet Count 286 K/mcL (140-400); Red Blood Count 5.07 M/mcL (4.19-5.50); Red Cell Distribution Width 11.9 % (11.5-14.5); Segmented Neutrophils % 69.9 %
[2017-04-27 11:48] LABS: BUN/Creatinine Ratio 27 (6-26); Blood Urea Nitrogen 32 mg/dL (8-23); Calcium 9.8 mg/dL (8.6-10.3); Carbon Dioxide 28 mEq/L (23-29); Chloride 102 mEq/L (98-107); Glucose 127 mg/dL (70-105); Osmolality,Calculated 294 (280-300); Potassium 4.1 mEq/L (3.5-5.1); Sodium 138 mEq/L (136-145); eGFR For African Americans > 60 (> 60); eGFR For Non-African Americans 59 (> 60)
[2017-04-27] MEDS ORDERED: *HR* FentaNYL (PF) 100 MCG/2 ML VIAL IVP ONE ×5 (11:54→21:32)
[2017-04-27] MEDS ORDERED: 0.9 % Sodium Chloride 1,000 ML IVC ONE (12:23)
[2017-04-27] MEDS ORDERED: Furosemide 40 MG/4 ML VIAL IVP ONE (16:18)
[2017-04-27] MEDS ORDERED: Naloxone 0.4 MG/ML INJ IVP PRN ×2 (17:11)
[2017-04-27] MEDS ORDERED: Ipratropium/Albuterol Neb 3 ML IH PRN (17:22)
--- NOTE | 2017-04-27 18:20 | Internal Med History&Physical ---
Date of Encounter: 04/27/17 Time of Encounter: 16:30 Assessment and Plan (1) Community acquired pneumonia Current visit: Yes Status: Acute Pt has been treated recently and still on po levaquin to finish a 14 day course. No fever or leukocytosis now. Still cough with some sputum. - Closely monitor pt with oximetry - Finish the 14 day abx course - Robitusin DM for cough Qualifiers: Laterality: right Lung location: upper lobe of lung Qualified Code(s): J18.1 - Lobar pneumonia, unspecified organism (2) Thoracic spine fracture Current visit: Yes Status: Acute CTA shows T7 and T8 fracture. - Cont pain control - Orthopedic was consulted, recommendation will be followed. Qualifiers: Thoracic vertebra fracture level: T7 Fracture type: closed Fracture morphology: unspecified fracture morphology Fracture healing: with routine healing Qualified Code(s): S22.069D - Unspecified fracture of T7-T8 vertebra, subsequent encounter for fracture with routine healing (3) DVT prophylaxis Current visit: No Status: Acute EPCD (4) CAD (coronary artery disease) Current visit: No Status: Chronic Denies chest pain. Cont home med asa, coreg and statin Qualifiers: Coronary Disease-Associated Artery/Lesion type: [place] artery [place] vs. transplanted heart: [place] heart Associated angina: without angina Qualified Code(s): I25.10 - Atherosclerotic heart disease of [place] coronary artery without angina pectoris (5) COPD (chronic obstructive pulmonary disease) Current visit: No Status: Chronic No wheezing. Cont home medication, oxygen therapy and duoneb PRN Qualifiers: COPD type: emphysema Emphysema type: unspecified Qualified Code(s): J43.9 - Emphysema, unspecified (6) CVA (cerebral vascular accident) Current visit: No Status: Chronic Hx of hemorrhagic CVA. Careful for anticoagulation. Closely monitor BP. Qualifiers: CVA mechanism: unspecified Qualified Code(s): I63.9 - Cerebral infarction, unspecified (7) Chronic alcohol abuse Current visit: No Status: Chronic Pt said he drink 1-3 glasses of wine every day. Will place him on CIWA protocol (8) CHF (congestive heart failure) Current visit: Yes Status: Acute Appears euvolemic now. BNP 107. Will cont home meds. Qualifiers: Heart failure type: diastolic Heart failure chronicity: chronic Qualified Code(s): I50.32 - Chronic diastolic (congestive) heart failure Internal Medicine - H&P: HPI Chief complaint: SOB Admitted From: Home Plans for Post Hospital Care: Home History of present illness: Mr. Sapp is a 81 year old male with Hx of COPD, CHF, CAD s/p stent, HTN, Hx of hemorrhagic CVA, recent pneumonia still on po levaquin, present to ER for SOB. Pt actually has back pain for about 10 days which makes him hard to cough. Pt denies back injury. He said he has pain on back and ribs and shoulder blade whenever he has cough and sneeze. Pt denies fever or chest pain. He has chronic cough with COPD. He use oxygen during night at home. In ER, CTA has been done, which shows no PE but T7 and T8 compression fracture. Orthopedic consult was called by ER and Dr Holloway saw pt in ER. Recommend T-spine CT and MRI. Pt was admitted for further management. Past Med Surg Social Fam HX - Past Medical History Medical history: CHF, COPD, coronary artery disease, CVA, hypertension, other Psychiatric history: no psych history - Past Surgical History Surgical History: cholecystectomy, other - Social History Smoking Status: Former smoker Smokeless Tobacco Status: No Alcohol use: occasionally Drug use: none - Family History Father Family Member Ethnicity: Non- Living Status: Hx Family Cardiac Disorders: Yes ([place]) Brother Family Member Ethnicity: Non- Living Status: Still Living Sister Family Member Ethnicity: Non- Living Status: Still Living Mother Family Member Ethnicity: Non- Living Status: Hx Family Cardiac Disorders: Yes Hx Family Cancer: Yes Hx Family Neurologic Disorders: Yes (Alzheimer's disease) Internal Medicine - H&P: Meds Albuterol Sulfate [Proair Respiclick] 2 puff IH Q4H PRN 03/03/15 [History] Ascorbic Acid [Vitamin C] 500 mg PO DAILY 03/03/15 [History] Cholecalciferol (Vitamin D3) [Vitamin D3] 1,000 unit PO DAILY 03/03/15 [History] Simvastatin [Zocor] 40 mg PO QPM 03/03/15 [History] Carvedilol [Coreg] 25 mg PO BID #60 tablet 03/06/15 [Rx] Levofloxacin [Levaquin] 500 mg PO DAILY #7 tablet 12/22/16 [Rx] Aspirin Enteric Coated [Aspirin EC] 81 mg PO 3XW 04/27/17 [History] Cranberry 500 mg PO DAILY 04/27/17 [History] Furosemide [Lasix] 40 mg PO BID 04/27/17 [History] Losartan [Cozaar] 25 mg PO DAILY 04/27/17 [History] Multivitamin [One Daily Essential] 1 each PO DAILY 04/27/17 [History] Umeclidinium [place] [Incruse Ellipta] 62.5 mcg IH DAILY 04/27/17 [History] 3 Allergy/AdvReac Type Severity Reaction Status Date / Time Penicillins [PCN] Allergy Rash Verified 03/03/15 19:12 hydrocodone AdvReac Severe Agitated Verified 03/03/15 19:12 Oxycodone AdvReac See Verified 04/27/17 15:46 Comments All Systems PM: A 10-system review of systems was performed and is negative for pertinent findings except as documented above in the HPI. - Constitutional Vitals: Temp Pulse Resp BP Pulse Ox 97.8 F 72 20 157/82 95 04/27/17 10:50 04/27/17 10:50 04/27/17 17:00 04/27/17 17:00 04/27/17 13:25 General appearance: Present: A&O X 3, no acute distress, answers questions appropriately - Head Head exam: Present: atraumatic, normocephalic - Eye Eye exam: Present: PERRL, conjuntiva pink, sclera anicteric Pupils: Present: PERRL - Neck Neck exam general surgery: Present: supple, trachea midline. Absent: lymphadenopathy - Respiratory Respiratory exam: Present: CTAB. Absent: accessory muscle use, rales, rhonchi, wheezes Additional comments: Coarse breath sound B/L - Cardiovascular Cardiovascular exam: Present: RRR, +S1, +S2. Absent: diastolic murmur, gallop, rubs, systolic murmur - GI/Abdominal GI/Abdominal exam: Present: normal bowel sounds, soft, no peritoneal signs. Absent: distended, tenderness - Extremities Exam Extremities exam: Present: warm, radial pulses palpable and symmetrical. Absent : calf tenderness, cyanotic, pedal edema - Neurological Exam Neurological exam: Present: CN II-XII intact, oriented X3, no focal deficits. Absent: pronater drift, facial droop, speech deficit - Skin Skin exam: Present: dry, intact Internal Med - H&P Results - Labs CBC & Chem 7: 04/27/17 11:15 04/27/17 11:15 - EKG Data -: EKG Interpreted by Myself (Q wave on III and AVF. T inversion on lead III. unchanged with 12/20/16) EKG shows normal: sinus rhythm Rate: normal
[2017-04-27] MEDS: Furosemide 40 MG TABLET PO SCH (18:40)
[2017-04-27] MEDS: *HR* Morphine Immed Rel 30 MG TABLET PO PRN (18:42)
[2017-04-27] MEDS ORDERED: *HR* LORazepam 2 MG/ML VIAL IVP PRN (18:43)
--- NOTE | 2017-04-27 20:46 | Event Note ---
Date of Encounter: 04/27/17 Time of Encounter: 20:30 Pt has one episode of chest pain, pressure like, with nausea, subside by itself. EKG done, no significant change with previous one. - Cont cardiac monitoring - Will track 3 sets of troponin - Will repeat Echo in AM. - As pt possibly needs surgery, consult cardio for risk evaluation.
[2017-04-27] MEDS ORDERED: Lactulose Oral Soln 20 GM/30 ML UDC PO ONE (20:48)
[2017-04-28] MEDS: *HR* Morphine Immed Rel 30 MG TABLET PO PRN ×3 (00:54→21:08)
[2017-04-28 03:22] LABS: Basophils % 0.1 %; Hematocrit 45.8 % (37.5-50.1); Immature Granulocytes % 0.6 % (0-4); Lymphocytes % 6.8 %; Mean Corpuscular HGB Conc 32.8 g/dL (31.6-35.5); Mean Corpuscular Volume 94.6 fL (83.0-100.0); Monocytes % 6.7 %; Neutrophils # 12.6 K/mcL (1.6-8.9); Platelet Count 268 K/mcL (140-400); Red Blood Count 4.84 M/mcL (4.19-5.50); Red Cell Distribution Width 11.7 % (11.5-14.5); Segmented Neutrophils % 85.8 %
[2017-04-28 03:27] LABS: INR 1.1; Prothrombin Time 12.3 Seconds (9.4-12.1)
[2017-04-28 03:43] LABS: BUN/Creatinine Ratio 34 (6-26); Blood Urea Nitrogen 34 mg/dL (8-23); Calcium 9.4 mg/dL (8.6-10.3); Carbon Dioxide 27 mEq/L (23-29); Chloride 103 mEq/L (98-107); Glucose 177 mg/dL (70-105); Osmolality,Calculated 300 (280-300); Potassium 4.2 mEq/L (3.5-5.1); Sodium 139 mEq/L (136-145); eGFR For African Americans > 60 (> 60); eGFR For Non-African Americans > 60 (> 60)
[2017-04-28] MEDS ORDERED: Perflutren Lipid Microsphere 1.3 ML in 0.9 % Sodium Chloride 8.7 ML IVP ONE (09:01)
[2017-04-28] MEDS: (Umeclidinium Bromide [Incruse Ellipta] 62.5 MCG) IH SCH (10:02)
[2017-04-28] MEDS: levoFLOXacin 500 MG TABLET PO SCH ×2 (10:20→11:01)
[2017-04-28] MEDS: Ascorbic Acid 500 MG TABLET PO SCH (10:23)
[2017-04-28] MEDS: Multivit/Ca/Min/Fe/FA 1 TAB TABLET PO SCH (10:23)
[2017-04-28] MEDS: Cholecalciferol (D-3) 1,000 UNIT TABLET PO SCH (10:23)
[2017-04-28] MEDS: Thiamine (B-1) 100 MG TABLET PO SCH (10:24)
[2017-04-28] MEDS: Folic Acid 1 MG TABLET PO SCH (10:24)
[2017-04-28] MEDS: Furosemide 40 MG TABLET PO SCH ×3 (10:24→15:52)
--- NOTE | 2017-04-28 10:47 | Internal Med Progress Note ---
Date of Encounter: 04/28/17 Time of Encounter: 10:44 - Assessment and plan (1) Thoracic spine fracture Current Visit: Yes Status: Acute Assessment and plan: - CT and MR revealed T7-T8 compressive fracture. - Ortho consulted and back brace ordered and pt instructed to wear when out of bed. Qualifiers: Thoracic vertebra fracture level: T7 Fracture type: closed Fracture morphology: unspecified fracture morphology Fracture healing: with routine healing Qualified Code(s): S22.069D - Unspecified fracture of T7-T8 vertebra, subsequent encounter for fracture with routine healing (2) CAD (coronary artery disease) Current Visit: No Status: Chronic Assessment and plan: - had one time chest pain last night, troponin negative x2. EKG normal without acute changes. - likely related to thoracic spine fracture. - cardiology consulted and plan to repeat ECHO. risk evaluation for surgery. appreciate help. - continue home meds including asa for now. - Qualifiers: Coronary Disease-Associated Artery/Lesion type: [place] artery [place] vs. transplanted heart: [place] heart Associated angina: without angina Qualified Code(s): I25.10 - Atherosclerotic heart disease of [place] coronary artery without angina pectoris (3) Community acquired pneumonia Current Visit: No Status: Chronic Assessment and plan: - continue 14 day course of abx. Qualifiers: Laterality: right Lung location: upper lobe of lung Qualified Code(s): J18.1 - Lobar pneumonia, unspecified organism (4) Hyperlipidemia Current Visit: No Status: Chronic Assessment and plan: - continue home meds. Qualifiers: Hyperlipidemia type: unspecified Qualified Code(s): E78.5 - Hyperlipidemia , unspecified (5) CVA (cerebral vascular accident) Current Visit: No Status: Chronic Assessment and plan: - stable, no neuro deficit. Qualifiers: CVA mechanism: unspecified Qualified Code(s): I63.9 - Cerebral infarction, unspecified (6) COPD (chronic obstructive pulmonary disease) Current Visit: No Status: Chronic Assessment and plan: - stable and continue home meds. Qualifiers: COPD type: emphysema Emphysema type: unspecified Qualified Code(s): J43.9 - Emphysema, unspecified (7) Diastolic CHF Current Visit: No Status: Chronic Assessment and plan: - euvolemic, continue home meds. Qualifiers: Heart failure chronicity: chronic Qualified Code(s): I50.32 - Chronic diastolic (congestive) heart failure - Time Spent With Patient Greater than 35 minutes - Subjective Interval history: Pt resting in bed. He has no chest pain, sob, or cough. He has no fever, chills , or night sweats. - Constitutional Vitals: Temp Pulse Resp BP Pulse Ox 97.4 F L 72 18 157/90 90 04/28/17 07:02 04/28/17 07:02 04/28/17 07:02 04/28/17 07:02 04/28/17 09:55 General appearance: Present: A&O X 3, no acute distress, answers questions appropriately Exam: Gen.: Vitals noted. No acute distress. AAOx3. Hot to the touch and somewhat diaphoretic HEENT: PERRL/EOMI, oropharynx clear, Normocephalic, atraumatic Neck: Supple. No adenopathy. Cardiac: RRR but rapid, no murmur, +S1/S2 Pulmonary: CTA bilaterally, no wheezes, rales or rhonchi, equal chest expansion Abdomen: soft, nontender, BS noted, no guarding. Vertical incision scar present midline from prior partial colectomy Back: Nontender throughout. MSK: ROM intact, no joint swelling noted Skin: Erythema with excoriations present over her trunk which patient says is new at time of examination and is concerned about allergic reaction Extremities: no BLE edema, nontender calf, no cyanosis or clubbing Neuro: A&Ox3, moves all extremities, no focal deficits Internal Medicine: Result - Labs CBC & Chem 7: 04/28/17 03:00 04/28/17 03:00 Labs: Short CBC 04/28/17 Range/Units 03:00 WBC 14.7 H (4.3-11.1) K/mcL Hgb 15.0 (12.9-16.9) g/dL Hct 45.8 (37.5-50.1) % Plt Count 268 (140-400) K/mcL Neutrophils # 12.6 H (1.6-8.9) K/mcL BMP 04/28/17 03:00 Sodium 139 Potassium 4.2 Chloride 103 Carbon Dioxide 27 BUN 34 H Creatinine 0.99 Glucose 177 H Calcium 9.4 Cardiac Enzymes 04/27/17 04/28/17 04/28/17 Range/Units 21:06 03:00 09:11 Troponin I < 0.03 < 0.03 < 0.03 (< 0.04) ng/mL - ABG Interpretation ABG results: PT/INR, D-dimer PT 12.3 Seconds (9.4-12.1) H 04/28/17 03:00 - Impressions Impressions Pelvis X-Ray 04/27/17 17:53 IMPRESSION: No definite fracture on a limited exam. D/ / Nguyễn Tipton MD / Nguyễn Tipton MD Interpreting Provider: Nguyễn Tipton MD - VTE Documentation of Mechanical Device: Intermittent pneumatic compression device Consult Discharge Plan - Plan Referrals: Dex Higuera Jr, MD [Primary Care Provider] -
--- NOTE | 2017-04-28 12:34 | Cardiology Consult Note ---
Date of Encounter: 04/28/17 Time of Encounter: 12:30 Assessment and Plan (1) Preop cardiovascular exam Current Visit: Yes Status: Acute Patient represents at least a moderate risk candidate for this orthopedic/spine surgery (if it is to be done). He is elderly with reduced functional capacity and ECG is abnormal (but not unchanged from previous. ECG demonstrates an age indeterminate inferior MN and possible prior anterior MN. He denies prior cardiac issues. Prior TTE 06/2016 - normal LVEF. Repeat TTE pending. Recommend an ischemic evalution prior to surgery (if it is to be done, surgical consult pending). (2) Abnormal ECG Current Visit: Yes Status: Acute Discussion w patient/family: The assessment and plan as outlined above was discussed with the patient and/or family members who expressed understanding and agreement. All questions were answered. Thank you for involving us in the care of your patient. Please call with any questions. History of Present Illness Consult date: 04/28/17 Requesting physician: Terrance Duong Consult reason: Preop Chief complaint: Dyspnea History of present illness: Mr. Sapp is a 81 year old male who originally presented with complaints of dyspnea for about one week. Reports recently started on antibiotics for pneumonia. Reported pain with coughing. CT performed in ER - No acute process, T7/8 compression fracture noted. Consultation requested for possibly surgery. Patient lives at [place]. Reports able to do minor things, help with . No obvious exertional chest pain, but does report recent pain next to scapula with coughing. Denies prior history of heart disease - states he has never required a LHC. ECG abnormal - prior inferior infarct, possible prior anterior infarct. Past Med Surg Social Fam HX - Past Medical History Medical history: CHF, COPD, coronary artery disease, CVA, hypertension, other Psychiatric history: no psych history - Past Surgical History Surgical History: cholecystectomy, other - Social History Smoking Status: Former smoker Smokeless Tobacco Status: No Alcohol use: occasionally Drug use: none - Family History Father Family Member Ethnicity: Non- Living Status: Hx Family Cardiac Disorders: Yes ([place]) Brother Family Member Ethnicity: Non- Living Status: Still Living Sister Family Member Ethnicity: Non- Living Status: Still Living Mother Family Member Ethnicity: Non- Living Status: Hx Family Cardiac Disorders: Yes Hx Family Cancer: Yes Hx Family Neurologic Disorders: Yes (Alzheimer's disease) Medications and Allergies Albuterol Sulfate [Proair Respiclick] 2 puff IH Q4H PRN 03/03/15 [History] Ascorbic Acid [Vitamin C] 500 mg PO DAILY 03/03/15 [History] Cholecalciferol (Vitamin D3) [Vitamin D3] 1,000 unit PO DAILY 03/03/15 [History] Simvastatin [Zocor] 40 mg PO QPM 03/03/15 [History] Carvedilol [Coreg] 25 mg PO BID #60 tablet 03/06/15 [Rx] Levofloxacin [Levaquin] 500 mg PO DAILY #7 tablet 12/22/16 [Rx] Aspirin Enteric Coated [Aspirin EC] 81 mg PO 3XW 04/27/17 [History] Cranberry 500 mg PO DAILY 04/27/17 [History] Furosemide [Lasix] 40 mg PO BID 04/27/17 [History] Losartan [Cozaar] 25 mg PO DAILY 04/27/17 [History] Multivitamin [One Daily Essential] 1 each PO DAILY 04/27/17 [History] Umeclidinium [place] [Incruse Ellipta] 62.5 mcg IH DAILY 04/27/17 [History] 3 Allergy/AdvReac Type Severity Reaction Status Date / Time Penicillins [PCN] Allergy Rash Verified 03/03/15 19:12 hydrocodone AdvReac Severe Agitated Verified 03/03/15 19:12 Oxycodone AdvReac See Verified 04/27/17 15:46 Comments All Systems Review: A 10-system review of systems was performed and is negative for pertinent findings except as documented above in the HPI. - Cardiovascular Cardiovascular: as per HPI, chest pain at rest (Reproducible with coughing. ) Physical Examination Vital Signs, Last 4 Hours Pulse Ox 04/28/17 09:55 90 General: Conversant, No Apparent Distress, Other (Elderly) HEENT: Atraumatic, Normocephaly, Mucus Membranes Moist Neck: No JVD, Normal carotid pulses Cardiac: Other (Distant, no obvious murmurs) Lungs: Normal Breath Sounds, No Wheeze, Rales, Rhonchi, Other (Shallow) Neuro: Alert and responsive, No focal deficits noted Abdomen: Soft, Non-Tender, Other (Obese) Skin: No rashes noted on visualized skin Musculoskeletal: No Chest Wall Tenderness Extremities: No Clubbing, No Cyanosis, No Edema Results 04/28/17 03:00 04/28/17 03:00 Lab Results 04/27/17 04/28/17 04/28/17 21:06 03:00 03:00 WBC 14.7 H Hgb 15.0 Hct 45.8 Plt Count 268 INR 1.1 Sodium Potassium Chloride Carbon Dioxide BUN Creatinine Glucose Calcium Troponin I < 0.03 04/28/17 04/28/17 04/28/17 03:00 03:00 09:11 WBC Hgb Hct Plt Count INR Sodium 139 Potassium 4.2 Chloride 103 Carbon Dioxide 27 BUN 34 H Creatinine 0.99 Glucose 177 H Calcium 9.4 Troponin I < 0.03 < 0.03 - Imaging and Cardiology Echo: pending - EKG Interpretation EKG results cardiology: personally reviewed Consult Discharge Plan - Plan Referrals: Dex Higuera Jr, MD [Primary Care Provider] -
[2017-04-29 01:26] LABS: Basophils # 0.1 K/mcL (0.0-0.2); Basophils % 0.5 %; Eosinophils # 0.1 K/mcL (0.0-0.6); Eosinophils % 0.8 %; Hematocrit 45.6 % (37.5-50.1); Hemoglobin 14.5 g/dL (12.9-16.9); Immature Granulocytes % 0.6 % (0-4); Lymphocytes # 1.6 K/mcL (0.6-4.6); Mean Corpuscular HGB Conc 31.8 g/dL (31.6-35.5); Mean Corpuscular Volume 97.4 fL (83.0-100.0); Mean Platelet Volume 8.9 fL (9.4-12.4); Monocytes % 6.9 %; Neutrophils # 11.9 K/mcL (1.6-8.9); Platelet Count 257 K/mcL (140-400); Red Blood Count 4.68 M/mcL (4.19-5.50); Red Cell Distribution Width 11.9 % (11.5-14.5); Segmented Neutrophils % 80.2 %
[2017-04-29 01:35] LABS: INR 1.2; Prothrombin Time 12.6 Seconds (9.4-12.1)
[2017-04-29 01:44] LABS: BUN/Creatinine Ratio 38 (6-26); Blood Urea Nitrogen 42 mg/dL (8-23); Calcium 9.3 mg/dL (8.6-10.3); Carbon Dioxide 33 mEq/L (23-29); Chloride 102 mEq/L (98-107); Glucose 130 mg/dL (70-105); Osmolality,Calculated 300 (280-300); Potassium 4.3 mEq/L (3.5-5.1); Sodium 139 mEq/L (136-145); eGFR For African Americans > 60 (> 60); eGFR For Non-African Americans > 60 (> 60)
[2017-04-29] MEDS: *HR* Morphine Immed Rel 30 MG TABLET PO PRN ×2 (06:03→13:38)
[2017-04-29] MEDS: Furosemide 40 MG TABLET PO SCH ×2 (09:08→17:08)
[2017-04-29] MEDS: Folic Acid 1 MG TABLET PO SCH (09:08)
[2017-04-29] MEDS: levoFLOXacin 500 MG TABLET PO SCH (09:08)
[2017-04-29] MEDS: Ascorbic Acid 500 MG TABLET PO SCH (09:08)
[2017-04-29] MEDS: Thiamine (B-1) 100 MG TABLET PO SCH (09:08)
[2017-04-29] MEDS: Cholecalciferol (D-3) 1,000 UNIT TABLET PO SCH (09:08)
[2017-04-29] MEDS: Multivit/Ca/Min/Fe/FA 1 TAB TABLET PO SCH ×2 (09:08→09:16)
[2017-04-29] MEDS: (Umeclidinium Bromide [Incruse Ellipta] 62.5 MCG) IH SCH (09:09)
--- NOTE | 2017-04-29 11:46 | Cardiology Progress Note ---
Date of Encounter: 04/29/17 Time of Encounter: 08:45 Assessment and Plan (1) Preop cardiovascular exam Current Visit: Yes Status: Acute Per cardiology: -Patient represents at least a moderate risk candidate for this orthopedic/ spine surgery (if it is to be done). -He is elderly with reduced functional capacity and ECG is abnormal (but not unchanged from previous. -ECG demonstrates an age indeterminate inferior AK and possible prior anterior AK. -He denies prior cardiac issues. -Prior TTE 06/2016 - normal LVEF. -Repeat TTE with LVEf 60-65%, moderate concentric LVH, mild diastolic dysufnction, severely dilated left atrium, no significant valvular dysfunction, all wall segments with normal motion. -Recommend an ischemic evalution prior to surgery (if it is to be done, surgical consult pending). -Will make NPO after midnight for possible ischemic evaluation in am pending surgical evaluation. Discussion w patient/family: The assessment and plan as outlined above was discussed with the patient who expressed understanding and agreement. All questions were answered. Thank you for involving us in the care of your patient. Please call with any questions. Discussed and reviewed with Subjective Principal diagnosis: vertebral fracture Interval history: Patient denies chest pain. Reports shortness of breath. Objective Vital Signs, Last 4 Hours Temp Pulse Resp BP Pulse Ox 04/29/17 11:30 97.6 F 65 18 100/62 92 04/29/17 07:57 98.0 F 65 93 110/70 18 General: Conversant, No Apparent Distress HEENT: Atraumatic, Normocephaly, Mucus Membranes Moist Neck: No JVD, Normal carotid pulses Cardiac: Reg Rate and Rhythm, Normal S1 and S2, No Murmur Lungs: Other (Lung sounds coarse throughout) Neuro: Alert and responsive, No focal deficits noted Abdomen: Soft, Non-Tender Skin: No rashes noted on visualized skin Musculoskeletal: No Chest Wall Tenderness Extremities: No Clubbing, No Cyanosis, No Edema, Normal Pulses Results 04/29/17 01:13 04/29/17 01:13 Lab Results Impressions Echocardiogram 04/28/17 20:47 Impressions: LVEF 60-65%. Normal LV chamber size and function. Moderate concentric left ventricular hypertrophy. Mild left ventricular diastolic dysfunction. Right ventricle not well visualized. Grossly normal function. Severely dilated left atrium. No significant valvular dysfunction. No evidence of pulmonary hypertension. Left Ventricular Wall Motion: Rest Echo Findings All wall segments showed normal motion. Findings: Study Quality * Technically adequate exam. ECG Findings * Normal sinus rhythm. Left Ventricle * LVEF 60-65%. * Normal LV chamber size and function. * Moderate concentric left ventricular hypertrophy. * Mild left ventricular diastolic dysfunction. Right Ventricle * Right ventricle not well visualized. Grossly normal function. Left Atrium * Severely dilated left atrium. Right Atrium * Mildly dilated right atrium. Interatrial Septum * Interatrial septum not well evaluated. Aortic Valve * Trileaflet aortic valve with normal function. * No aortic regurgitation. * No aortic stenosis. Mitral Valve * Normal mitral valve structure and function. * No mitral regurgitation. * No mitral stenosis. Tricuspid Valve * Normal tricuspid valve structure and function. * Trace tricuspid regurgitation. * No evidence of pulmonary hypertension. Pulmonic Valve * Normal pulmonic valve structure and function. * No pulmonic regurgitation. Aorta * Normally sized aortic root. Pericardium * The pericardium appears normal. IVC * Normal IVC dimensions and inspiratory collapse. Pulmonary Artery * Normal visualized portions of the main pulmonary artery. Active Medications Acetaminophen (Tylenol) 650 mg PO Q6HR PRN PRN Reason: Mild Pain/Fever Stop: 10/27/17 17:12 Albuterol/Ipratropium (Duoneb) 3 ml IH [id number] PRN PRN Reason: Shortness Of Breath/Wheezing Stop: 10/27/17 17:23 Ascorbic Acid (Vitamin C) 500 mg PO DAILY [facility] Stop: 10/28/17 09:01 Last Admin: 04/29/17 09:08 Dose: 500 mg Aspirin (Aspirin Ec) 81 mg PO 3XW ROMAN Stop: 10/30/17 09:01 Carvedilol (Coreg) 25 mg PO BID [facility] PRN Reason: Protocol Stop: 10/27/17 21:01 Last Admin: 04/29/17 09:08 Dose: 25 mg Docusate Sodium (Colace) 100 mg PO BID [facility]AN PRN Reason: Protocol Stop: 10/27/17 21:01 Last Admin: 04/29/17 09:08 Dose: 100 mg Folic Acid (Folic Acid) 1 mg PO DAILY [facility] Stop: 10/28/17 09:01 Last Admin: 04/29/17 09:08 Dose: 1 mg Furosemide (Lasix) 40 mg PO BIDDIURETIC [facility]AN Stop: 10/27/17 17:31 Last Admin: 04/29/17 09:08 Dose: 40 mg Guaifenesin (Robitussin/Dm) 10 ml PO Q6HR [facility] Stop: 10/27/17 18:01 Last Admin: 04/29/17 06:02 Dose: 10 ml Hydralazine HCl (Hydralazine) 10 mg IVP Q6HR PRN PRN Reason: Hypertension Stop: 10/27/17 18:46 Levofloxacin (Levaquin) 500 mg PO DAILY [facility] PRN Reason: Protocol Stop: 05/02/17 09:01 Last Admin: 04/29/17 09:08 Dose: 500 mg Lorazepam (Ativan) 1 mg IVP Q1H PRN PRN Reason: Alcohol Withdrawal Stop: 10/27/17 18:44 Lorazepam (Ativan) 2 mg IVP Q4HR PRN PRN Reason: CIWA Score of 10-21 Stop: 10/27/17 18:44 Losartan Potassium (Cozaar) 25 mg PO DAILY [facility]AN PRN Reason: Protocol Stop: 10/27/17 17:31 Last Admin: 04/29/17 09:09 Dose: 25 mg Morphine Sulfate (Morphine Sulfate) 30 mg PO Q6HR PRN PRN Reason: Moderate to Severe Pain Stop: 10/27/17 17:19 Last Admin: 04/29/17 06:03 Dose: 30 mg Multivitamins/Calcium (Thera M Plus) 1 tab PO DAILY [facility] Stop: 10/28/17 09:01 Last Admin: 04/29/17 09:16 Dose: Not Given Naloxone HCl (Narcan) 0.4 mg IVP Q2MIN PRN PRN Reason: Opioid Reversal Stop: 10/27/17 17:12 Pharmacy Profile Note (Patient Taking Own Medication) 0 each IH DAILY [facility] Stop: 10/28/17 09:01 Last Admin: 04/29/17 09:09 Dose: Not Given Simvastatin (Zocor) 40 mg PO QPM ROMAN PRN Reason: Protocol Stop: 10/27/17 18:01 Last Admin: 04/28/17 15:52 Dose: 40 mg Thiamine HCl (Vitamin B-1) 100 mg PO DAILY [facility] Stop: 10/28/17 09:01 Last Admin: 04/29/17 09:08 Dose: 100 mg Vitamin D (Vitamin D) 1,000 unit PO DAILY [facility] Stop: 10/28/17 09:01 Last Admin: 04/29/17 09:08 Dose: 1,000 unit Laboratory Tests 04/27/17 04/27/17 04/28/17 11:15 21:06 03:00 WBC Hgb Creatinine Troponin I < 0.03 < 0.03 < 0.03 04/28/17 04/29/17 04/29/17 09:11 01:13 01:13 WBC 14.8 H Hgb 14.5 Creatinine 1.10 Troponin I < 0.03 - Imaging and Cardiology Chest Xray: report reviewed Echo: report reviewed - EKG Interpretation EKG results cardiology: other (Telemetry reviewed with average HR previous 12 hours noted to be 67, SR. PVCs and PACs noted.) - VTE Documentation of Mechanical Device: Intermittent pneumatic compression device Consult Discharge Plan - Plan Referrals: Dex Higuera Jr, MD [Primary Care Provider] -
[2017-04-29] MEDS: Lactulose Oral Soln 20 GM/30 ML UDC PO SCH (14:32)
--- NOTE | 2017-04-29 14:55 | Internal Med Progress Note ---
Date of Encounter: 04/29/17 Time of Encounter: 12:00 - Assessment and plan (1) Thoracic spine fracture Current Visit: Yes Status: Acute Assessment and plan: -CT and MR revealed T7-T8 compressive fracture. -Ortho consulted and back brace ordered and pt instructed to wear when out of bed. -Patient will be further evaluated for potential surgical intervention Qualifiers: Thoracic vertebra fracture level: T7 Fracture type: closed Fracture morphology: unspecified fracture morphology Fracture healing: with routine healing Qualified Code(s): S22.069D - Unspecified fracture of T7-T8 vertebra, subsequent encounter for fracture with routine healing (2) Community acquired pneumonia Current Visit: No Status: Chronic Assessment and plan: -Will continue IV Levaquin Qualifiers: Laterality: right Lung location: upper lobe of lung Qualified Code(s): J18.1 - Lobar pneumonia, unspecified organism (3) COPD (chronic obstructive pulmonary disease) Current Visit: No Status: Chronic Assessment and plan: -Stable; will continue DuoNeb's. Qualifiers: COPD type: emphysema Emphysema type: unspecified Qualified Code(s): J43.9 - Emphysema, unspecified (4) Diastolic CHF Current Visit: No Status: Chronic Assessment and plan: -Euvolemic; continue home dose of Lasix in addition to ARB, statin and aspirin Qualifiers: Heart failure chronicity: chronic Qualified Code(s): I50.32 - Chronic diastolic (congestive) heart failure (5) Chronic alcohol abuse Current Visit: No Status: Chronic Assessment and plan: -CIWA protocol (6) HTN (hypertension) Current Visit: No Status: Chronic Assessment and plan: -Controlled; continue Cozaar, hydralazine and carvedilol Qualifiers: Hypertension type: essential hypertension Qualified Code(s): I10 - Essential (primary) hypertension (7) HLD (hyperlipidemia) Current Visit: No Status: Chronic Assessment and plan: -Continue statin Qualifiers: Hyperlipidemia type: pure hypercholesterolemia Qualified Code(s): E78.00 - Pure hypercholesterolemia, unspecified; E78.0 - Pure hypercholesterolemia (8) Constipation due to opioid therapy Current Visit: Yes Status: Acute Assessment and plan: -An acute abdominal series ordered but patient unable to lie flat for testing. -Will increase dose of lactulose in addition to discontinuing IV opiate medication; pain control with IV Toradol - Subjective Interval history: Family member who is present at the bedside biggest complaint this morning is his constipation and abdominal distention Patient is a poor historian and unclear of last bowel movement Evaluation by orthopedic surgeon pending to decide management of thoracic fracture - Constitutional Vitals: Temp Pulse Resp BP Pulse Ox 97.6 F 65 18 100/62 92 04/29/17 11:30 04/29/17 11:30 04/29/17 11:30 04/29/17 11:30 04/29/17 11:30 General appearance: Present: A&O X 3, no acute distress, answers questions appropriately - Cardiovascular Cardiovascular exam: Present: RRR, +S1, +S2. Absent: diastolic murmur, gallop, rubs, systolic murmur - GI/Abdominal GI/Abdominal exam: Present: distended. Absent: tenderness Internal Medicine: Result - Labs CBC & Chem 7: 04/29/17 01:13 04/29/17 01:13 Labs: Short CBC 04/29/17 Range/Units 01:13 WBC 14.8 H (4.3-11.1) K/mcL Hgb 14.5 (12.9-16.9) g/dL Hct 45.6 (37.5-50.1) % Plt Count 257 (140-400) K/mcL Neutrophils # 11.9 H (1.6-8.9) K/mcL BMP 04/29/17 01:13 Sodium 139 Potassium 4.3 Chloride 102 Carbon Dioxide 33 H BUN 42 H Creatinine 1.10 Glucose 130 H Calcium 9.3 - ABG Interpretation ABG results: PT/INR, D-dimer PT 12.6 Seconds (9.4-12.1) H 04/29/17 01:13 - VTE Documentation of Mechanical Device: Intermittent pneumatic compression device Consult Discharge Plan - Plan Referrals: Dex Higuera Jr, MD [Primary Care Provider] -
[2017-04-29] MEDS: Ketorolac 30 MG/ML VIAL IVP PRN (17:05)
[2017-04-29] MEDS: *HR* Heparin 5,000 UNIT/ML VIAL SQ SCH (22:04)
[2017-04-30] MEDS: Lactulose Oral Soln 20 GM/30 ML UDC PO SCH (00:48)
[2017-04-30] MEDS ORDERED: Furosemide 20 MG/2 ML VIAL IVP ONE (04:31)
[2017-04-30] MEDS: Ketorolac 30 MG/ML VIAL IVP PRN ×3 (04:52→21:51)
[2017-04-30] MEDS: *HR* Heparin 5,000 UNIT/ML VIAL SQ SCH ×3 (06:36→21:51)
[2017-04-30 09:17] LABS: Basophils # 0.1 K/mcL (0.0-0.2); Basophils % 0.3 %; Eosinophils # 0.1 K/mcL (0.0-0.6); Eosinophils % 0.8 %; Hematocrit 46.9 % (37.5-50.1); Hemoglobin 14.9 g/dL (12.9-16.9); Immature Granulocytes % 0.4 % (0-4); Lymphocytes # 1.4 K/mcL (0.6-4.6); Lymphocytes % 8.5 %; Mean Corpuscular HGB Conc 31.8 g/dL (31.6-35.5); Mean Corpuscular Hemoglobin 31.2 pg (28.0-33.3); Mean Corpuscular Volume 98.1 fL (83.0-100.0); Mean Platelet Volume 8.9 fL (9.4-12.4); Monocytes # 1.1 K/mcL (0.0-1.3); Monocytes % 6.6 %; Neutrophils # 13.3 K/mcL (1.6-8.9); Platelet Count 271 K/mcL (140-400); Red Blood Count 4.78 M/mcL (4.19-5.50); Red Cell Distribution Width 11.8 % (11.5-14.5); Segmented Neutrophils % 83.4 %
[2017-04-30 09:34] LABS: Alanine Aminotransferase 47 Units/L (7-52); Albumin 3.9 g/dL (3.5-5.7); Albumin/Globulin Ratio 1.1 (1.1-2.2); Alkaline Phosphatase 71 Units/L (34-104); Aspartate Amino Transferase 31 Units/L (13-39); BUN/Creatinine Ratio 39 (6-26); Bilirubin,Direct 0.2 mg/dL (0.0-0.2); Bilirubin,Indirect 0.6 mg/dL (0.0-1.2); Bilirubin,Total 0.8 mg/dL (0.3-1.0); Blood Urea Nitrogen 50 mg/dL (8-23); Calcium 9.6 mg/dL (8.6-10.3); Carbon Dioxide 29 mEq/L (23-29); Chloride 100 mEq/L (98-107); Globulin 3.4 g/dL (2.4-3.5); Glucose 108 mg/dL (70-105); Osmolality,Calculated 294 (280-300); Potassium 4.3 mEq/L (3.5-5.1); Sodium 135 mEq/L (136-145); Total Protein 7.3 g/dL (6.4-8.9); eGFR For African Americans > 60 (> 60); eGFR For Non-African Americans 54 (> 60)
[2017-04-30] MEDS: Ascorbic Acid 500 MG TABLET PO SCH ×2 (09:37→10:25)
[2017-04-30] MEDS: Thiamine (B-1) 100 MG TABLET PO SCH ×2 (09:37→10:33)
[2017-04-30] MEDS: levoFLOXacin 500 MG TABLET PO SCH ×2 (09:37→10:03)
[2017-04-30] MEDS: Aspirin Enteric Coated 81 MG Tablet PO SCH ×2 (09:37→10:05)
[2017-04-30] MEDS: Multivit/Ca/Min/Fe/FA 1 TAB TABLET PO SCH (09:37)
[2017-04-30] MEDS: Cholecalciferol (D-3) 1,000 UNIT TABLET PO SCH (09:37)
[2017-04-30] MEDS: Folic Acid 1 MG TABLET PO SCH ×2 (09:37→10:08)
[2017-04-30] MEDS: Furosemide 40 MG TABLET PO SCH (10:24)
[2017-04-30] MEDS: (Umeclidinium Bromide [Incruse Ellipta] 62.5 MCG) IH SCH (11:57)
--- NOTE | 2017-04-30 12:12 | Cardiology Progress Note ---
Date of Encounter: 04/30/17 Time of Encounter: 10:00 Assessment and Plan (1) Preop cardiovascular exam Current Visit: Yes Status: Acute Per cardiology: -Patient represents at least a moderate risk candidate for this orthopedic/ spine surgery (if it is to be done). -He is elderly with reduced functional capacity and ECG is abnormal (but not unchanged from previous. -ECG demonstrates an age indeterminate inferior NV and possible prior anterior NV. -He denies prior cardiac issues. -Prior TTE 06/2016 - normal LVEF. -Repeat TTE with LVEf 60-65%, moderate concentric LVH, mild diastolic dysufnction, severely dilated left atrium, no significant valvular dysfunction, all wall segments with normal motion. -Recommend an ischemic evalution prior to surgery (if it is to be done, surgical consult pending). -Upon my exam this morning, patient was still unsure about surgery. And stated he did not feel that he could lay flat for stress test. Patient was given diet. Upon 's examination, surgery planned. -Will make NPO after midnight. -Will check non-excercise nuclear stress test in am. Of note, may need to be a 2 day stress test. Discussion w patient/family: The assessment and plan as outlined above was discussed with the patient who expressed understanding and agreement. All questions were answered. Thank you for involving us in the care of your patient. Please call with any questions. Discussed and reviewed with Subjective Principal diagnosis: vertebral fracture Interval history: Patient denies chest pain. Reports shortness of breath, states breathing is better today. Objective Vital Signs, Last 4 Hours Pulse Ox 04/30/17 11:17 93 Vital Signs Temperature 97.8 F 04/27/17 10:50 Pulse Rate 72 04/27/17 10:50 Respiratory Rate 24 04/27/17 10:50 Blood Pressure 136/108 04/27/17 10:50 O2 Sat by Pulse Oximetry 90 04/27/17 10:50 Temperature 97.8 F 04/30/17 06:30 Pulse Rate 87 04/30/17 06:30 Respiratory Rate 18 04/30/17 06:30 Blood Pressure 126/78 04/30/17 06:30 O2 Sat by Pulse Oximetry 93 04/30/17 11:17 Oxygen Delivery Oxygen Delivery Room Air General: Conversant, No Apparent Distress HEENT: Atraumatic, Normocephaly, Mucus Membranes Moist Neck: No JVD, Normal carotid pulses Cardiac: Reg Rate and Rhythm, Normal S1 and S2, No Murmur Lungs: Other (Lung sounds coarse throughout) Neuro: Alert and responsive, No focal deficits noted Abdomen: Soft, Non-Tender Skin: No rashes noted on visualized skin Musculoskeletal: No Chest Wall Tenderness Extremities: No Clubbing, No Cyanosis, No Edema, Normal Pulses Results 04/30/17 08:53 04/30/17 08:53 Lab Results Impressions Thoracic Spine X-Ray 04/29/17 15:26 IMPRESSION: 1. Partially visualized fracture through the T8 superior endplate better demonstrated on the recent CT. 2. Bridging syndesmotic fights throughout the thoracic spine. Ankylosis of the bilateral sacroiliac joints previously demonstrated on the PET-CT from 12/23/2014. Findings compatible with a spondyloarthropathy. D/ / Aris Preciado MD / Aris Preciado MD Interpreting Provider: Aris Preciado MD Active Medications Acetaminophen (Tylenol) 650 mg PO Q6HR PRN PRN Reason: Mild Pain/Fever Stop: 10/27/17 17:12 Albuterol/Ipratropium (Duoneb) 3 ml IH [id number] PRN PRN Reason: Shortness Of Breath/Wheezing Stop: 10/27/17 17:23 Last Admin: 04/30/17 04:19 Dose: 3 ml Ascorbic Acid (Vitamin C) 500 mg PO DAILY [facility] Stop: 10/28/17 09:01 Last Admin: 04/30/17 10:25 Dose: Not Given Aspirin (Aspirin Ec) 81 mg PO 3XW ROMAN Stop: 10/30/17 09:01 Last Admin: 04/30/17 10:05 Dose: Not Given Carvedilol (Coreg) 25 mg PO BID ROMAN PRN Reason: Protocol Stop: 10/27/17 21:01 Last Admin: 04/30/17 10:04 Dose: Not Given Docusate Sodium (Colace) 100 mg PO BID ROMAN PRN Reason: Protocol Stop: 10/27/17 21:01 Last Admin: 02/19/18 09:37 Dose: 100 mg Folic Acid (Folic Acid) 1 mg PO DAILY ROMAN Stop: 10/28/17 09:01 Last Admin: 04/30/17 10:08 Dose: Not Given Furosemide (Lasix) 40 mg PO BIDDIURETIC ROMAN Stop: 10/27/17 17:31 Last Admin: 04/30/17 10:24 Dose: Not Given Guaifenesin (Robitussin/Dm) 10 ml PO Q6HR ROMAN Stop: 10/27/17 18:01 Last Admin: 04/30/17 06:36 Dose: 10 ml Heparin Sodium (Porcine) (Heparin) 5,000 unit SQ Q8HCO ROMAN Stop: 10/29/17 22:01 Last Admin: 04/30/17 06:36 Dose: 5,000 unit Hydralazine HCl (Hydralazine) 10 mg IVP Q6HR PRN PRN Reason: Hypertension Stop: 10/27/17 18:46 Ketorolac Tromethamine (Toradol) 30 mg IVP Q6HR PRN PRN Reason: Mild Pain Stop: 05/04/17 14:20 Last Admin: 04/30/17 11:56 Dose: 30 mg Levofloxacin (Levaquin) 500 mg PO DAILY ROMAN PRN Reason: Protocol Stop: 05/02/17 09:01 Last Admin: 04/30/17 10:03 Dose: Not Given Lorazepam (Ativan) 1 mg IVP Q1H PRN PRN Reason: Alcohol Withdrawal Stop: 10/27/17 18:44 Lorazepam (Ativan) 2 mg IVP Q4HR PRN PRN Reason: CIWA Score of 10-21 Stop: 10/27/17 18:44 Losartan Potassium (Cozaar) 25 mg PO DAILY ROMAN PRN Reason: Protocol Stop: 10/27/17 17:31 Last Admin: 04/30/17 10:26 Dose: Not Given Multivitamins/Calcium (Thera M Plus) 1 tab PO DAILY ROMAN Stop: 10/28/17 09:01 Last Admin: 04/30/17 09:37 Dose: 1 tab Naloxone HCl (Narcan) 0.4 mg IVP Q2MIN PRN PRN Reason: Opioid Reversal Stop: 10/27/17 17:12 Pharmacy Profile Note (Patient Taking Own Medication) 0 each IH DAILY ROMAN Stop: 10/28/17 09:01 Last Admin: 04/30/17 11:57 Dose: 1 each Simvastatin (Zocor) 40 mg PO QPM [facility] PRN Reason: Protocol Stop: 10/27/17 18:01 Last Admin: 04/29/17 17:08 Dose: 40 mg Thiamine HCl (Vitamin B-1) 100 mg PO DAILY [facility] Stop: 10/28/17 09:01 Last Admin: 04/30/17 10:33 Dose: Not Given Vitamin D (Vitamin D) 1,000 unit PO DAILY [facility] Stop: 10/28/17 09:01 Last Admin: 04/30/17 09:37 Dose: 1,000 unit Laboratory Tests 04/30/17 04/30/17 08:53 08:53 WBC 15.9 H RBC 4.78 Hgb 14.9 Creatinine 1.27 - Imaging and Cardiology Chest Xray: report reviewed Stress Test: pending Echo: report reviewed - EKG Interpretation EKG results cardiology: other (Telemetry reviewed with average HR previous 12 hours noted to be 72,SR. PVCs and PACs noted.) - VTE Documentation of Mechanical Device: Intermittent pneumatic compression device Consult Discharge Plan - Plan Referrals: Dex Higuera Jr, MD [Primary Care Provider] -
--- NOTE | 2017-04-30 13:44 | Spinal Consult Note ---
Date of Encounter: 04/30/17 Time of Encounter: 07:50 Assessment and Plan (1) Ankylosing spondylitis Current Visit: Yes Status: Chronic On examination he is lying comfortably in bed and a thoracic lumbar orthotic as prescribed. Afebrile vital signs stable. Exam is notable for limited chest expansion, limited range of motion of the thoracic or lumbar spine, tenderness to palpation over the midthoracic region, and a protuberant abdomen which is distended but nontender. He is neurovascularly intact with regard to his bilateral upper and lower extremities. He has no clonus. CT examination of the chest reveals a 3 column T8 thoracic fracture extending from the T7-8 disc space through the pedicles through the posterior elements. There is osseous bridging throughout the thoracolumbar spine consistent with ankylosing spondylitis.. AP pelvis reveals degenerative changes and essentially fused sacroiliac joints consistent with ankylosing spondylitis . AP and lateral views of thoracic spine reveals multilevel degenerative changes in the thoracic fracture at T8 with 3 column involvement. MRI of the thoracic spine reveals a T8 fracture with no significant evidence of thoracic cord stenosis or hematoma. Impression: 1) ankylosing spondylitis 2) unstable thoracic vertebral fracture with 3 column involvement Plan: We are going to obtain additional markers for ankylosing spondylitis including an HLA B 27 marker. The patient has been placed in the thoracic lumbar orthotic and has had warnings and education regarding the unstable nature of his fracture. In this regard I find it reasonable to consider surgery in the form of a at least T5-T11 instrumented posterior thoracic fusion. He will need medical optimization and clearance prior to any surgical intervention. Plan was discussed with patient and 2 daughters present and they are agreeable at this time. Qualifiers: Ankylosing spondylitis location: multiple sites in spine Qualified Code(s) : M45.0 - Ankylosing spondylitis 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 History of Present Illness Chief complaint: Back pain traveling to front of chest HPI: Mr. Sapp is a 81 year old male Who significant the emergency department over the weekend complaining of severe back pain which was also radiating to the anterior thorax. He describes mild trauma only such as coughing and assisting with his spouse who is cared dependent. CT scan in the emergency department revealed a thoracic fractures so he was admitted for definitive management. Additional studies were ordered by the spine service including AP pelvis, MRI, and plain radiographs. Patient is ambulatory but has a number of medical comorbidities and states he has a long history of eye problems as well as limited range of motion in his spine. He denies any fevers or chills or neurologic deficits. Past Med Surg Social Fam HX - Past Medical History Medical history: CHF, COPD, coronary artery disease, CVA, hypertension, other Psychiatric history: no psych history - Past Surgical History Surgical History: cholecystectomy, other - Social History Smoking Status: Former smoker Smokeless Tobacco Status: No Alcohol use: occasionally Drug use: none - Family History Father Family Member Ethnicity: Non- Living Status: Hx Family Cardiac Disorders: Yes ([place]) Brother Family Member Ethnicity: Non- Living Status: Still Living Sister Family Member Ethnicity: Non- Living Status: Still Living Mother Family Member Ethnicity: Non- Living Status: Hx Family Cardiac Disorders: Yes Hx Family Cancer: Yes Hx Family Neurologic Disorders: Yes (Alzheimer's disease) Medications and Allergies Albuterol Sulfate [Proair Respiclick] 2 puff IH Q4H PRN 03/03/15 [History] Ascorbic Acid [Vitamin C] 500 mg PO DAILY 03/03/15 [History] Cholecalciferol (Vitamin D3) [Vitamin D3] 1,000 unit PO DAILY 03/03/15 [History] Simvastatin [Zocor] 40 mg PO QPM 03/03/15 [History] Carvedilol [Coreg] 25 mg PO BID #60 tablet 03/06/15 [Rx] Levofloxacin [Levaquin] 500 mg PO DAILY #7 tablet 12/22/16 [Rx] Aspirin Enteric Coated [Aspirin EC] 81 mg PO 3XW 04/27/17 [History] Cranberry 500 mg PO DAILY 04/27/17 [History] Furosemide [Lasix] 40 mg PO BID 04/27/17 [History] Losartan [Cozaar] 25 mg PO DAILY 04/27/17 [History] Multivitamin [One Daily Essential] 1 each PO DAILY 04/27/17 [History] Umeclidinium [place] [Incruse Ellipta] 62.5 mcg IH DAILY 04/27/17 [History] 3 Allergy/AdvReac Type Severity Reaction Status Date / Time Penicillins [PCN] Allergy Rash Verified 03/03/15 19:12 hydrocodone AdvReac Severe Agitated Verified 03/03/15 19:12 Oxycodone AdvReac See Verified 04/27/17 15:46 Comments Results - Labs Result Diagrams: 04/30/17 08:53 04/30/17 08:53 Labs: Abnormal lab results WBC 15.9 K/mcL (4.3-11.1) H 04/30/17 08:53 MPV 8.9 fL (9.4-12.4) L 04/30/17 08:53 Neutrophils # 13.3 K/mcL (1.6-8.9) H 04/30/17 08:53 ESR 30 mm/hr (0-10) H 04/29/17 15:58 PT 12.6 Seconds (9.4-12.1) H 04/29/17 01:13 Sodium 135 mEq/L (136-145) L 04/30/17 08:53 BUN 50 mg/dL (8-23) H 04/30/17 08:53 Est GFR (Non-Af Amer) 54 (> 60) L 04/30/17 08:53 BUN/Creatinine Ratio 39 (6-26) H 04/30/17 08:53 Glucose 108 mg/dL (70-105) H 04/30/17 08:53 POC Glucose 103 (58-89) H 04/30/17 12:29 B-Natriuretic Peptide 107 pg/mL (Less than 100) H 04/27/17 11:15 H & H 04/30/17 Range/Units 08:53 Hgb 14.9 (12.9-16.9) g/dL Hct 46.9 (37.5-50.1) % All other labs normal. Consult Discharge Plan - Plan Referrals: Dex Higuera Jr, MD [Primary Care Provider] -
[2017-04-30] MEDS ORDERED: Lactulose Oral Soln 20 GM/30 ML UDC PO ONE (15:23)
--- NOTE | 2017-04-30 19:24 | Internal Med Progress Note ---
Date of Encounter: 04/30/17 Time of Encounter: 11:00 - Assessment and plan (1) Thoracic spine fracture Current Visit: Yes Status: Acute Assessment and plan: -CT and MR revealed T7-T8 compressive fracture. -Ortho consulted and back brace ordered and pt instructed to wear when out of bed. -Patient will be further evaluated for potential surgical intervention Qualifiers: Thoracic vertebra fracture level: T7 Fracture type: closed Fracture morphology: unspecified fracture morphology Fracture healing: with routine healing Qualified Code(s): S22.069D - Unspecified fracture of T7-T8 vertebra, subsequent encounter for fracture with routine healing (2) Community acquired pneumonia Current Visit: No Status: Chronic Assessment and plan: -Will continue IV Levaquin Qualifiers: Laterality: right Lung location: upper lobe of lung Qualified Code(s): J18.1 - Lobar pneumonia, unspecified organism (3) COPD (chronic obstructive pulmonary disease) Current Visit: No Status: Chronic Assessment and plan: -Stable; will continue DuoNeb's. Qualifiers: COPD type: emphysema Emphysema type: unspecified Qualified Code(s): J43.9 - Emphysema, unspecified (4) Diastolic CHF Current Visit: No Status: Chronic Assessment and plan: -Euvolemic; continue home dose of Lasix in addition to ARB, statin and aspirin Qualifiers: Heart failure chronicity: chronic Qualified Code(s): I50.32 - Chronic diastolic (congestive) heart failure (5) Chronic alcohol abuse Current Visit: No Status: Chronic Assessment and plan: -CIWA protocol (6) HTN (hypertension) Current Visit: No Status: Chronic Assessment and plan: -Controlled; continue Cozaar, hydralazine and carvedilol Qualifiers: Hypertension type: essential hypertension Qualified Code(s): I10 - Essential (primary) hypertension (7) HLD (hyperlipidemia) Current Visit: No Status: Chronic Assessment and plan: -Continue statin Qualifiers: Hyperlipidemia type: pure hypercholesterolemia Qualified Code(s): E78.00 - Pure hypercholesterolemia, unspecified; E78.0 - Pure hypercholesterolemia (8) Constipation due to opioid therapy Current Visit: Yes Status: Acute Assessment and plan: -An acute abdominal series ordered but patient unable to lie flat for testing. -Acute abdominal series showed stool burden but no obstruction -Will continue lactulose in addition to discontinuing IV opiate medication; pain control with IV Toradol - Subjective Interval history: Patient continues to complain of constipation and abdominal distention Patient is a poor historian and unclear of last bowel movement Evaluation by orthopedic surgeon pending to decide management of thoracic fracture - Constitutional Vitals: Temp Pulse Resp BP Pulse Ox 97.9 F 78 16 147/63 93 04/30/17 16:23 04/30/17 16:23 04/30/17 16:23 04/30/17 16:23 04/30/17 16:23 General appearance: Present: A&O X 3, no acute distress, answers questions appropriately - Respiratory Respiratory exam: Present: CTAB. Absent: accessory muscle use, rales, rhonchi, wheezes - Cardiovascular Cardiovascular exam: Present: RRR, +S1, +S2. Absent: diastolic murmur, gallop, rubs, systolic murmur - GI/Abdominal GI/Abdominal exam: Present: distended Internal Medicine: Result - Labs CBC & Chem 7: 04/30/17 08:53 04/30/17 08:53 Labs: Short CBC 04/30/17 Range/Units 08:53 WBC 15.9 H (4.3-11.1) K/mcL Hgb 14.9 (12.9-16.9) g/dL Hct 46.9 (37.5-50.1) % Plt Count 271 (140-400) K/mcL Neutrophils # 13.3 H (1.6-8.9) K/mcL BMP 04/30/17 08:53 Sodium 135 L Potassium 4.3 Chloride 100 Carbon Dioxide 29 BUN 50 H Creatinine 1.27 Glucose 108 H Calcium 9.6 Liver Function 04/30/17 Range/Units 08:53 Total Bilirubin 0.8 (0.3-1.0) mg/dL Direct Bilirubin 0.2 (0.0-0.2) mg/dL AST 31 (13-39) Units/L ALT 47 (7-52) Units/L Alkaline Phosphatase 71 (34-104) Units/L Albumin 3.9 (3.5-5.7) g/dL - ABG Interpretation ABG results: PT/INR, D-dimer PT 12.6 Seconds (9.4-12.1) H 04/29/17 01:13 - Impressions Impressions KUB X-Ray 04/30/17 08:07 IMPRESSION: Moderate fecal material throughout the colon. No bowel obstruction or pneumoperitoneum. D/ / Perry Spears MD / Perry Spears MD Interpreting Provider: Perry Spears MD - VTE Documentation of Mechanical Device: Intermittent pneumatic compression device Consult Discharge Plan - Plan Referrals: Dex Higuera Jr, MD [Primary Care Provider] -
[2017-05-01] MEDS ORDERED: Ketorolac 30 MG/ML VIAL IVP ONE (01:37)
[2017-05-01] MEDS: *HR* Heparin 5,000 UNIT/ML VIAL SQ SCH ×3 (06:17→20:50)
[2017-05-01] MEDS: Cholecalciferol (D-3) 1,000 UNIT TABLET PO SCH (08:09)
[2017-05-01] MEDS: Multivit/Ca/Min/Fe/FA 1 TAB TABLET PO SCH (08:09)
[2017-05-01] MEDS: Furosemide 40 MG TABLET PO SCH ×2 (08:09→16:59)
[2017-05-01] MEDS: Folic Acid 1 MG TABLET PO SCH (08:09)
[2017-05-01] MEDS: (Umeclidinium Bromide [Incruse Ellipta] 62.5 MCG) IH SCH (08:09)
[2017-05-01] MEDS: levoFLOXacin 500 MG TABLET PO SCH (08:10)
[2017-05-01] MEDS: Thiamine (B-1) 100 MG TABLET PO SCH (08:10)
[2017-05-01] MEDS: Ascorbic Acid 500 MG TABLET PO SCH (08:10)
[2017-05-01] MEDS ORDERED: Ondansetron ODT 4 MG TAB.RAPDIS SL PRN (10:22)
[2017-05-01] MEDS: Ketorolac 30 MG/ML VIAL IVP PRN ×2 (10:32→16:59)
--- NOTE | 2017-05-01 10:43 | Cardiology Progress Note ---
Date of Encounter: 05/01/17 Time of Encounter: 09:30 Assessment and Plan (1) Preop cardiovascular exam Current Visit: Yes Status: Acute Per cardiology: -Patient represents at least a moderate risk candidate for this orthopedic/ spine surgery (if it is to be done). -He is elderly with reduced functional capacity and ECG is abnormal (but not unchanged from previous. -ECG demonstrates an age indeterminate inferior CA and possible prior anterior CA. -He denies prior cardiac issues. -Prior TTE 06/2016 - normal LVEF. -Repeat TTE with LVEf 60-65%, moderate concentric LVH, mild diastolic dysufnction, severely dilated left atrium, no significant valvular dysfunction, all wall segments with normal motion. -Recommend an ischemic evalution prior to surgery. Patient was scheduled for nuclear stress test today, however patient adamantly refused. -Discussed with patient regarding dobutamine stress echo, however patient adamantly refuses. -Again as above, patient is at least a moderate risk candidate for surgery. Discussed with . -Cardiology will sign off. Will set up outpatient follow up. Discussion w patient/family: The assessment and plan as outlined above was discussed with the patient who expressed understanding and agreement. All questions were answered. Thank you for involving us in the care of your patient. Please call with any questions. Discussed and reviewed with Subjective Principal diagnosis: vertebral fracture Interval history: Patient denies chest pain. Reports shortness of breath. Objective Vital Signs, Last 4 Hours Temp Pulse Resp BP Pulse Ox 05/01/17 08:23 91 05/01/17 07:00 97.8 F 64 20 135/72 91 General: Conversant, No Apparent Distress HEENT: Atraumatic, Normocephaly, Mucus Membranes Moist Neck: No JVD, Normal carotid pulses Cardiac: Reg Rate and Rhythm, Normal S1 and S2, No Murmur Lungs: Other (Lung sounds coarse throughout. ) Neuro: Alert and responsive Abdomen: Soft, Non-Tender Skin: No rashes noted on visualized skin Musculoskeletal: No Chest Wall Tenderness Extremities: No Clubbing, No Cyanosis, No Edema, Normal Pulses Results 04/30/17 08:53 04/30/17 08:53 Impressions KUB X-Ray 04/30/17 08:07 IMPRESSION: Moderate fecal material throughout the colon. No bowel obstruction or pneumoperitoneum. D/ / Perry Spears MD / Perry Spears MD Interpreting Provider: Perry Spears MD Active Medications Acetaminophen (Tylenol) 650 mg PO Q6HR PRN PRN Reason: Mild Pain/Fever Stop: 10/27/17 17:12 Albuterol/Ipratropium (Duoneb) 3 ml IH [id number] PRN PRN Reason: Shortness Of Breath/Wheezing Stop: 10/27/17 17:23 Last Admin: 04/30/17 04:19 Dose: 3 ml Ascorbic Acid (Vitamin C) 500 mg PO DAILY ROMAN Stop: 10/28/17 09:01 Last Admin: 05/01/17 08:10 Dose: 500 mg Aspirin (Aspirin Ec) 81 mg PO 3XW ROMAN Stop: 10/30/17 09:01 Last Admin: 04/30/17 10:05 Dose: Not Given Calcium Polycarbophil (Fibercon) 1,250 mg PO DAILY ROMAN Stop: 10/31/17 10:46 Carvedilol (Coreg) 25 mg PO BID ROMAN PRN Reason: Protocol Stop: 10/27/17 21:01 Last Admin: 05/01/17 08:09 Dose: 25 mg Docusate Sodium (Colace) 100 mg PO BID ROMAN PRN Reason: Protocol Stop: 10/27/17 21:01 Last Admin: 05/01/17 08:09 Dose: 100 mg Folic Acid (Folic Acid) 1 mg PO DAILY ROMAN Stop: 10/28/17 09:01 Last Admin: 05/01/17 08:09 Dose: 1 mg Furosemide (Lasix) 40 mg PO BIDDIURETIC ROMAN Stop: 10/27/17 17:31 Last Admin: 05/01/17 08:09 Dose: 40 mg Guaifenesin (Robitussin/Dm) 10 ml PO Q6HR ROMAN Stop: 10/27/17 18:01 Last Admin: 05/01/17 10:33 Dose: 10 ml Heparin Sodium (Porcine) (Heparin) 5,000 unit SQ Q8HCO ROMAN Stop: 10/29/17 22:01 Last Admin: 05/01/17 06:17 Dose: 5,000 unit Hydralazine HCl (Hydralazine) 10 mg IVP Q6HR PRN PRN Reason: Hypertension Stop: 10/27/17 18:46 Ketorolac Tromethamine (Toradol) 30 mg IVP Q6HR PRN PRN Reason: Mild Pain Stop: 05/04/17 14:20 Last Admin: 05/01/17 10:32 Dose: 30 mg Lactulose (Lactulose) 20 gm PO BID ROMAN Stop: 10/31/17 10:46 Levofloxacin (Levaquin) 500 mg PO DAILY ROMAN PRN Reason: Protocol Stop: 05/02/17 09:01 Last Admin: 05/01/17 08:10 Dose: 500 mg Lorazepam (Ativan) 1 mg IVP Q1H PRN PRN Reason: Alcohol Withdrawal Stop: 10/27/17 18:44 Lorazepam (Ativan) 2 mg IVP Q4HR PRN PRN Reason: CIWA Score of 10-21 Stop: 10/27/17 18:44 Losartan Potassium (Cozaar) 25 mg PO DAILY ROMAN PRN Reason: Protocol Stop: 10/27/17 17:31 Last Admin: 05/01/17 08:09 Dose: 25 mg Multivitamins/Calcium (Thera M Plus) 1 tab PO DAILY ROMAN Stop: 10/28/17 09:01 Last Admin: 05/01/17 08:09 Dose: 1 tab Naloxone HCl (Narcan) 0.4 mg IVP Q2MIN PRN PRN Reason: Opioid Reversal Stop: 10/27/17 17:12 Ondansetron HCl (Zofran Odt) 4 mg SL Q6HR PRN PRN Reason: Nausea And Vomiting Stop: 10/31/17 10:23 Last Admin: 05/01/17 10:32 Dose: 4 mg Pharmacy Profile Note (Patient Taking Own Medication) [address] [facility] Stop: 10/28/17 09:01 Last Admin: 05/01/17 08:09 Dose: 1 each Simvastatin (Zocor) 40 mg PO QPM ROMAN PRN Reason: Protocol Stop: 10/27/17 18:01 Last Admin: 04/30/17 16:50 Dose: 40 mg Thiamine HCl (Vitamin B-1) 100 mg PO DAILY ROMAN Stop: 10/28/17 09:01 Last Admin: 05/01/17 08:10 Dose: 100 mg Vitamin D (Vitamin D) 1,000 unit PO DAILY ROMAN Stop: 10/28/17 09:01 Last Admin: 05/01/17 08:09 Dose: 1,000 unit - Imaging and Cardiology Chest Xray: report reviewed Echo: report reviewed - EKG Interpretation EKG results cardiology: other (Telemetry reviewed with average HR previous 12 hours noted to be 71, SR. PVCs and PACs noted.) - VTE Documentation of Mechanical Device: Intermittent pneumatic compression device Consult Discharge Plan - Plan Referrals: Dex Higuera Jr, MD [Primary Care Provider] -
--- NOTE | 2017-05-01 10:44 | Gastroenterology Consult Note ---
<[place] kessler Boogie - Last Filed: 05/01/17 10:53> Date of Encounter: 05/01/17 Time of Encounter: 10:15 - Assessment and plan (2) Constipation due to opioid therapy Status: Acute Assessment and plan: No BM for 5-6 days. Has received one dose of Lactulose and was started on Docusate. Start Lactulose BID until BM, then change to PRN. Start daily fiber supplement. (3) Thoracic spine fracture Status: Acute Qualifiers: Thoracic vertebra fracture level: T7 Fracture type: closed Fracture morphology: unspecified fracture morphology Fracture healing: with routine healing Qualified Code(s): S22.069D - Unspecified fracture of T7-T8 vertebra, subsequent encounter for fracture with routine healing (4) Globus sensation Status: Acute Assessment and plan: Recommend EGD for possible dilation. Pt unwilling to sign consent at this time, states he will think about it. - Time Spent With Patient Total time spent is greater than 50% in coordination of care (as documented) at patient's floor/unit and/or counseling patient: GI History of Present Illness - Data of Consult Patient: new to practice Consult date: 05/01/17 Requesting Physician: Pranav Marte DO - Consult Narrative Reason for consult: Dysphagia History of present illness: Mr. Sapp is a 81 year old male with PMHx of CHF, COPD, CAD, hemorrhagic CVA, HTN, recent pneumonia on Leaquin who presented to the ED with SOB. In ER, CTA has been done, which shows no PE but T7 and T8 compression fracture. Orthopedics was consulted. Surgery has been recommended for thoracic fusion. Pt complains of constipation, and was given one dose of Lactulose, started on Docusate, and IV pain medication was DC'd. He states his last BM was 5-6 days ago. KUB showed moderate fecal material throughout the colon, no obstruction noted. We were consulted to evaluate his dysphagia. Pt reports a globus sensation in esophagus, and feels like food is getting stuck. Procedures: Colonoscopy 01/05/2015 Dr. 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 NSAIDs: ASA Anticoagulation: None Past Med Surg Social Fam HX - Past Medical History Medical history: CHF, COPD, coronary artery disease, CVA, hypertension, other Psychiatric history: no psych history - Past Surgical History Surgical History: cholecystectomy, other - Social History Smoking Status: Former smoker Smokeless Tobacco Status: No Alcohol use: occasionally Drug use: none - Family History Father Family Member Ethnicity: Non- Living Status: Hx Family Cardiac Disorders: Yes ([place]) Brother Family Member Ethnicity: Non- Living Status: Still Living Sister Family Member Ethnicity: Non- Living Status: Still Living Mother Family Member Ethnicity: Non- Living Status: Hx Family Cardiac Disorders: Yes Hx Family Cancer: Yes Hx Family Neurologic Disorders: Yes (Alzheimer's disease) - Gastrointestinal Gastrointestinal: Present: as per HPI - Constitutional Constitutional: as per HPI - EENT Eyes: as per HPI Ears: Present: as per HPI Nose, mouth and throat: Present: as per HPI - Cardiovascular Cardiovascular ROS: Present: as per HPI - Respiratory Respiratory IM: Present: as per HPI - Genitourinary Genitourinary: Absent: change in color, Urinary frequency - Neurological ROS Neurological GI: Present: as per HPI - Hematologic/Lymphatic Hematologic/Lymphatic pediatric: Present: as per HPI - Musculoskeletal Musculoskeletal ROS GI: Present: as per HPI - Integumentary Integumentary GI: Present: as per HPI - Psychiatric ROS Psychiatric GI: Present: as per HPI - Endocrine Endocrine IM: Present: as per HPI - Constitutional Vitals: Temp Pulse Resp BP Pulse Ox 97.8 F 64 20 135/72 91 05/01/17 07:00 05/01/17 07:00 05/01/17 07:00 05/01/17 07:00 05/01/17 08:23 General appearance: Present: cooperative, A&O X 3, no acute distress, answers questions appropriately - Head Head exam: Present: atraumatic, normocephalic - Eye Eye exam: Present: normal appearance, sclera anicteric - ENT ENT exam: Present: mucous membranes dry - Neck Neck exam general surgery: Present: normal inspection, trachea midline - Respiratory Additional comments: Lung sounds coarse throughout - Cardiovascular Cardiovascular exam: Present: RRR, +S1, +S2 - GI/Abdominal GI/Abdominal exam: Present: distended, soft, no peritoneal signs. Absent: firm , guarding, tenderness - Rectal Rectal exam: Present: deferred - Extremities Exam Extremities exam: Present: warm - Neurological Exam Neurological exam: Present: no focal deficits - Psychiatric Psychiatric exam: Present: normal affect, normal mood - Skin Skin exam: Present: dry, intact, normal color, warm Results - Labs CBC & Chem 7: 04/30/17 08:53 04/30/17 08:53 Labs: Last Result ESR 30 mm/hr (0-10) H 04/29/17 15:58 Calcium 9.6 mg/dL (8.6-10.3) 04/30/17 08:53 Troponin I < 0.03 ng/mL (< 0.04) 04/28/17 09:11 Entire Visit Hgb 14.9 g/dL (12.9-16.9) 04/30/17 08:53 Hct 46.9 % (37.5-50.1) 04/30/17 08:53 PT 12.6 Seconds (9.4-12.1) H 04/29/17 01:13 Total Bilirubin 0.8 mg/dL (0.3-1.0) 04/30/17 08:53 AST 31 Units/L (13-39) 04/30/17 08:53 ALT 47 Units/L (7-52) 04/30/17 08:53 - ABG ABG results: PT/INR, D-dimer PT 12.6 Seconds (9.4-12.1) H 04/29/17 01:13 - Impressions Impressions KUB X-Ray 04/30/17 08:07 IMPRESSION: Moderate fecal material throughout the colon. No bowel obstruction or pneumoperitoneum. D/ / Perry Spears MD / Perry Spears MD Interpreting Provider: Perry Spears MD Consult Discharge Plan - Plan Instructions: Heart Failure (DC), Acute Respiratory Distress Syndrome (DC), Chronic Obstructive Pulmonary Disease (DC), Sepsis (DC), Abuse of Alcohol (DC), Abuse of Alcohol (GEN), Chronic Hypertension (DC), Pneumonia (DC) Additional Instructions: Please follow up with Dr. Holloway in 2 weeks as scheduled Please take all medications as prescribed. Referrals: Eric Holloway Jr, MD [Partnered Physician] - Dex Higuera Jr, MD [Primary Care Provider] - 05/10/17 10:00 am Prescriptions: HYDROcodone/Acet 5/325 mg [[place] 5-325 mg] 1 tab PO Q6HR PRN 5 Days #20 tablet PRN Reason: Moderate Pain Docusate [Colace] 100 mg PO BID PRN #60 capsule PRN Reason: Constipation Levofloxacin [Levaquin] 750 mg PO DAILY #4 tablet Pantoprazole Sodium [Protonix] 40 mg PO DAILY #30 tablet. Polyethylene Glycol 3350 [MiraLAX] 17 gm PO BID #60 powd.pack predniSONE [PredniSONE] 40 mg PO TAPER #20 tablet <Ced Browne - Last Filed: 05/20/17 13:52> Date of Encounter: 05/01/17 - Time Spent With Patient Total time spent is greater than 50% in coordination of care (as documented) at patient's floor/unit and/or counseling patient: GI History of Present Illness - Data of Consult Patient: new to practice Requesting Physician: Pranav Marte DO - Consult Narrative History of present illness: Mr. Sapp is a 81 year old male - Constitutional Vitals: Temp Pulse Resp BP Pulse Ox 97.6 F 79 18 94/58 93 05/17/17 11:21 05/17/17 11:21 05/17/17 11:21 05/17/17 11:21 05/17/17 11:21 Results - Labs CBC & Chem 7: 05/16/17 06:08 05/16/17 06:08 Labs: Last Result ESR 30 mm/hr (0-10) H 04/29/17 15:58 Calcium 8.1 mg/dL (8.6-10.3) L 05/16/17 06:08 Troponin I < 0.03 ng/mL (< 0.04) 04/28/17 09:11 Entire Visit Hgb 9.2 g/dL (12.9-16.9) L 05/16/17 06:08 Hct 28.3 % (37.5-50.1) L 05/16/17 06:08 PT 11.1 Seconds (9.4-12.1) 05/08/17 05:33 Total Bilirubin 1.2 mg/dL (0.3-1.0) H 05/01/17 11:00 AST 25 Units/L (13-39) 05/01/17 11:00 ALT 37 Units/L (7-52) 05/01/17 11:00 - ABG ABG results: ABG ABG pH 7.46 pH Units (7.32-7.45) H 05/09/17 09:06 ABG pCO2 46 mmHg (35-45) H 05/09/17 09:06 ABG pO2 85 mmHg (85-104) 05/09/17 09:06 ABG O2 Saturation 97 % (95-98) 05/09/17 09:06 PT/INR, D-dimer PT 11.1 Seconds (9.4-12.1) 05/08/17 05:33 - Attending Attestation Mr. Sapp is a pleasant 81-year-old white male who comes in because of dysphagia and shortness of breath. Back in 2014 he had tubulovillous adenoma on colonoscopy I discussed with the upper endoscopy with him but he was not sure adding oral take some time to think so I told him that as soon as he decided to let his hospitalist know and then we will set him up for an upper endoscopy with dilation off anticoagulation. He will also need a colonoscopy given the fact that he had a tubular villous adenoma 3 years ago - I have personally performed a face to face evaluation on this patient. I have reviewed and agree with the care plan. History and Exam by me shows:a colonoscopy could be performed as an outpatient
[2017-05-01 11:23] LABS: Albumin 3.7 g/dL (3.5-5.7); Bilirubin,Direct 0.2 mg/dL (0.0-0.2); Bilirubin,Total 1.2 mg/dL (0.3-1.0); Globulin 3.6 g/dL (2.4-3.5); Total Protein 7.3 g/dL (6.4-8.9)
[2017-05-01] MEDS: Lactulose Oral Soln 20 GM/30 ML UDC PO SCH ×2 (11:29→20:50)
--- NOTE | 2017-05-01 13:32 | Internal Med Progress Note ---
<Domenico Cruz - Last Filed: 05/01/17 15:39> Date of Encounter: 05/01/17 Time of Encounter: 13:29 - Assessment and plan (1) Thoracic spine fracture Current Visit: Yes Status: Acute Assessment and plan: CT and MR revealed T7-T8 compressive fracture. Orthopedic spine has been consult. Patient has a back brace in place. Due to the patient having respiratory symptoms and becoming hypoxic the patient will be moved to [facility] for increased level of care. Qualifiers: Thoracic vertebra fracture level: T7 Fracture type: closed Fracture morphology: unspecified fracture morphology Fracture healing: with routine healing Qualified Code(s): S22.069D - Unspecified fracture of T7-T8 vertebra, subsequent encounter for fracture with routine healing (2) Hypoxia Current Visit: Yes Status: Acute Assessment and plan: Patient had episode of hypoxia down to 83%. Continue with DuoNeb therapy Continue with oxygen supplementation Chest x-ray showed: Bibasilar volume loss with possible bilateral pleural effusions. Otherwise, stable chest Pulmonology has been consulted. (3) Community acquired pneumonia Current Visit: Yes Status: Chronic Assessment and plan: Per pulmonology we will switch from Levaquin to doxycycline 100 twice a day Due nebs every 4 hours scheduled per pulm Qualifiers: Laterality: right Lung location: upper lobe of lung Qualified Code(s): J18.1 - Lobar pneumonia, unspecified organism (4) HTN (hypertension) Current Visit: No Status: Chronic Assessment and plan: Patient is currently normotensive continue Cozaar, hydralazine and carvedilol Qualifiers: Hypertension type: essential hypertension Qualified Code(s): I10 - Essential (primary) hypertension (5) Hyperlipidemia Current Visit: No Status: Chronic Assessment and plan: continue current medical management Qualifiers: Hyperlipidemia type: unspecified Qualified Code(s): E78.5 - Hyperlipidemia , unspecified (6) Chronic alcohol abuse Current Visit: No Status: Chronic Assessment and plan: Continue with CIWA protocol (7) COPD (chronic obstructive pulmonary disease) Current Visit: No Status: Chronic Assessment and plan: Per pulmonology we will start the patient on Solu-Medrol and schedule DuoNeb's. Continue with supplemental oxygen. Qualifiers: COPD type: emphysema Emphysema type: unspecified Qualified Code(s): J43.9 - Emphysema, unspecified (8) Diastolic CHF Current Visit: No Status: Chronic Assessment and plan: Most recent echo on 04/28/17 showed LVEF 60-65%. Normal LV chamber size and function. Moderate concentric left ventricular hypertrophy. Mild left ventricular diastolic dysfunction. Right ventricle not well visualized. Grossly normal function. Severely dilated left atrium. No significant valvular dysfunction. No evidence of pulmonary hypertension. continue home dose of Lasix in addition to ARB, statin and aspirin Qualifiers: Heart failure chronicity: chronic Qualified Code(s): I50.32 - Chronic diastolic (congestive) heart failure (9) Constipation due to opioid therapy Current Visit: Yes Status: Acute Assessment and plan: Patient has a significant amount of constipation with abdominal pain and distention. Patient has been receiving lactulose in attempt to help with the constipation. Patient will be given an enema in attempt to relieve the constipation. - Subjective Interval history: Patient states that he has having increased shortness of breath due to having bloating from his constipation. Says he feels like is pressing up under his rib cage and not allowing him to take a deep breath. Patient also states that he is having significant back pain related to his T7-T8 compression fracture. - Constitutional Vitals: Temp Pulse Resp BP Pulse Ox 98.0 F 73 18 117/78 91 05/01/17 11:00 05/01/17 11:00 05/01/17 11:00 05/01/17 11:00 05/01/17 11:00 General appearance: Present: A&O X 3, no acute distress, answers questions appropriately - Head Head exam: Present: atraumatic, normocephalic - Neck Neck exam general surgery: Present: full ROM, normal inspection, trachea midline - Respiratory Respiratory exam: Present: rales, wheezes - Cardiovascular Cardiovascular exam: Present: RRR, +S1, +S2. Absent: diastolic murmur, gallop, rubs, systolic murmur - Extremities Exam Extremities exam: Present: pedal edema (Mild peripheral edema) - Neurological Exam Neurological exam: Present: alert, oriented X3, no focal deficits. Absent: facial droop, speech deficit - Psychiatric Psychiatric exam: Present: normal affect, normal mood - Skin Skin exam: Present: dry, intact, warm Internal Medicine: Result - Labs CBC & Chem 7: 05/01/17 13:31 05/01/17 13:31 Labs: Liver Function 05/01/17 Range/Units 11:00 Total Bilirubin 1.2 H (0.3-1.0) mg/dL Direct Bilirubin 0.2 (0.0-0.2) mg/dL AST 25 (13-39) Units/L ALT 37 (7-52) Units/L Alkaline Phosphatase 68 (34-104) Units/L Albumin 3.7 (3.5-5.7) g/dL - ABG Interpretation ABG results: PT/INR, D-dimer PT 12.6 Seconds (9.4-12.1) H 04/29/17 01:13 - VTE Documentation of Mechanical Device: Intermittent pneumatic compression device Consult Discharge Plan - Plan Referrals: Dex Higuera Jr, MD [Primary Care Provider] - <Pranav Marte - Last Filed: 05/01/17 18:29> Date of Encounter: 05/01/17 - Assessment and plan (1) Acute respiratory failure Current Visit: No Status: Acute Qualifiers: Respiratory failure complication: hypoxia Qualified Code(s): J96.01 - Acute respiratory failure with hypoxia (2) Thoracic spine fracture Current Visit: Yes Status: Acute Qualifiers: Thoracic vertebra fracture level: T7 Fracture type: closed Fracture morphology: other fracture Fracture healing: with routine healing Qualified Code(s): S22.068D - Other fracture of T7-T8 thoracic vertebra, subsequent encounter for fracture with routine healing (3) CHF (congestive heart failure) Current Visit: Yes Status: Chronic Qualifiers: Heart failure type: diastolic Heart failure chronicity: chronic Qualified Code(s): I50.32 - Chronic diastolic (congestive) heart failure (4) Constipation due to opioid therapy Current Visit: Yes Status: Acute (5) Ankylosing spondylitis Current Visit: Yes Status: Suspected Qualifiers: Ankylosing spondylitis location: multiple sites in spine Qualified Code(s) : M45.0 - Ankylosing spondylitis 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 transplanted heart: [place] heart Associated angina: without angina Qualified Code(s): I25.10 - Atherosclerotic heart disease of [place] coronary artery without angina pectoris (7) HTN (hypertension) Current Visit: No Status: Chronic Qualifiers: Hypertension type: essential hypertension Qualified Code(s): I10 - Essential (primary) hypertension - Constitutional Vitals: Temp Pulse Resp BP Pulse Ox 97.7 F 78 18 135/75 90 05/01/17 15:47 05/01/17 15:47 05/01/17 15:47 05/01/17 15:47 05/01/17 15:47 Internal Medicine: Result - Labs CBC & Chem 7: 05/01/17 13:31 05/01/17 13:31 Labs: Short CBC 05/01/17 Range/Units 13:31 WBC 18.5 H (4.3-11.1) K/mcL Hgb 14.8 (12.9-16.9) g/dL Hct 45.9 (37.5-50.1) % Plt Count 280 (140-400) K/mcL Neutrophils # 17.4 H (1.6-8.9) K/mcL BMP 05/01/17 13:31 Sodium 135 L Potassium 4.4 Chloride 98 Carbon Dioxide 29 BUN 57 H Creatinine 1.10 Glucose 157 H Calcium 10.0 Liver Function 05/01/17 Range/Units 11:00 Total Bilirubin 1.2 H (0.3-1.0) mg/dL Direct Bilirubin 0.2 (0.0-0.2) mg/dL AST 25 (13-39) Units/L ALT 37 (7-52) Units/L Alkaline Phosphatase 68 (34-104) Units/L Albumin 3.7 (3.5-5.7) g/dL - ABG Interpretation ABG results: PT/INR, D-dimer PT 12.6 Seconds (9.4-12.1) H 04/29/17 01:13 - Impressions Impressions Chest X-Ray 05/01/17 13:15 IMPRESSION: Bibasilar volume loss with possible bilateral pleural effusions. Otherwise, stable chest D/ / Lake Nickerson MD / Lake Nickerson MD Interpreting Provider: [place] Nickerson MD - Attending Attestation I examined this patient and my medical decision-making was reviewed with the Resident Physician on 05/01/17. I agree with the documented findings, disposition and treatment plan as described except to the extent set forth below. Mr Sapp is currently admitted for acute thoracic spine fracture. His course is now complicated by constipation and hypoxia. He remains moderate to high risk due to potential for worsening clinical status. Mr Sapp is very distended. He is having more respiratory issues. No fever. Some pain persists. Feels he needs to have BM. Exam Alert. Mod distress at this time Mucus membranes dry Heart reg Lungs with diffuse wheeze Abd distended and soft. BS heard I/P 1. Hypoxic resp failure - appreciate pulm input. 2. Thoracic spine fracture 3. Constipation Further diagnoses and plan as above.
--- NOTE | 2017-05-01 13:38 | Pulmonology Consult Note ---
Date of Encounter: 05/01/17 Time of Encounter: 13:00 Assessment and Plan (1) Acute and chronic respiratory failure Current Visit: Yes Status: Acute Patient has worsening of Acute on chronic hypoxic respiratory failure multifactorial worsening V/Q mismatch due to COPD exacerbation complicated by splinting of diaphragm with atelectasis . will treat as COPD exacerbation and encouraged to use incentive spirometry as it help to reduce the risk of postoperative respiratory failure if this fails patient might benefit from BIPAP at night and during the day time sitting up doing incentive spirometry as able . Qualifiers: Qualified Code(s): J96.21 - Acute and chronic respiratory failure with hypoxia (2) COPD exacerbation Current Visit: Yes Status: Acute Patient has increased wheezing with worsening V/Q mismatch will do scheduled bronchodilators will add ICS/LABA will start on IV solumedrol if oxygenation or gas exchange worsens will need BIPAP . (3) Pneumonia Current Visit: Yes Status: Acute Will change antibiotic to IV Doxycycline Qualifiers: Lung location: unspecified part of lung Qualified Code(s): J18.9 - Pneumonia, unspecified organism History of Present Illness Consult date: 05/01/17 Requesting physician: Pranav Marte Reason for consult: dyspnea, COPD (hypoxic respiratory failure ), other Chief complaint: Back pain , shortness of breadth History of present illness: 81 year old male is a known patient to our outpatient Pulmonary service has severe O2 dependent COPD doesnt have frequent exacerbation initially he came to the hospital for for worsening for cough and sputum production treated as CAP with Levofloxacin he had a CTA to rule out PE which showed a unstable compression fracture of thoracic spine patient was medically optimized before surgery pulmonary was consulted as he developed worsening of his chronic hypoxic respiratory failure , according to patient he could not make a deep cough and constipation also making abdomen bloated , has severe back pain that prevents him to use incentive spirometry , also he is having increased shortness of breadth could not bring sputum out because of back pain , denies any chest pain or palpitations complains of bloating of abdomen and constipation . Past Med Surg Social Fam HX - Past Medical History Medical history: CHF, COPD, coronary artery disease, CVA, hypertension, other Psychiatric history: no psych history - Past Surgical History Surgical History: cholecystectomy, other - Social History Smoking Status: Former smoker Smokeless Tobacco Status: No Alcohol use: occasionally Drug use: none - Family History Father Family Member Ethnicity: Non- Living Status: Hx Family Cardiac Disorders: Yes (PR) Brother Family Member Ethnicity: Non- Living Status: Still Living Sister Family Member Ethnicity: Non- Living Status: Still Living Mother Family Member Ethnicity: Non- Living Status: Hx Family Cardiac Disorders: Yes Hx Family Cancer: Yes Hx Family Neurologic Disorders: Yes (Alzheimer's disease) Medications and Allergies Albuterol Sulfate [Proair Respiclick] 2 puff IH Q4H PRN 03/03/15 [History] Ascorbic Acid [Vitamin C] 500 mg PO DAILY 03/03/15 [History] Cholecalciferol (Vitamin D3) [Vitamin D3] 1,000 unit PO DAILY 03/03/15 [History] Simvastatin [Zocor] 40 mg PO QPM 03/03/15 [History] Carvedilol [Coreg] 25 mg PO BID #60 tablet 03/06/15 [Rx] Levofloxacin [Levaquin] 500 mg PO DAILY #7 tablet 12/22/16 [Rx] Aspirin Enteric Coated [Aspirin EC] 81 mg PO 3XW 04/27/17 [History] Cranberry 500 mg PO DAILY 04/27/17 [History] Furosemide [Lasix] 40 mg PO BID 04/27/17 [History] Losartan [Cozaar] 25 mg PO DAILY 04/27/17 [History] Multivitamin [One Daily Essential] 1 each PO DAILY 04/27/17 [History] Umeclidinium [place] [Incruse Ellipta] 62.5 mcg IH DAILY 04/27/17 [History] 3 Allergy/AdvReac Type Severity Reaction Status Date / Time Penicillins [PCN] Allergy Rash Verified 03/03/15 19:12 hydrocodone AdvReac Severe Agitated Verified 03/03/15 19:12 acetaminophen [From Percocet] AdvReac See Verified 04/30/17 18:53 Comments Oxycodone AdvReac See Verified 04/27/17 15:46 Comments All Systems: All other systems were reviewed found to be negative except mentioned in HPI Physical Examination Vital Signs: Vital Signs, Last 4 Hours Temp Pulse Resp BP Pulse Ox 05/01/17 11:00 98.0 F 73 18 117/78 91 Effort: mildly labored Auscultation: bilateral: diminished breath sounds (more on the left sided ), wheezes Gastrointestinal: hypoactive bowel sounds Musculoskeletal: no deformities Results - Laboratory Findings CBC and BMP: 05/01/17 13:31 05/01/17 13:31 PT/INR, D-dimer PT 12.6 Seconds (9.4-12.1) H 04/29/17 01:13 Abnormal lab findings: Abnormal lab results WBC 15.9 K/mcL (4.3-11.1) H 04/30/17 08:53 MPV 8.9 fL (9.4-12.4) L 04/30/17 08:53 Neutrophils # 13.3 K/mcL (1.6-8.9) H 04/30/17 08:53 ESR 30 mm/hr (0-10) H 04/29/17 15:58 PT 12.6 Seconds (9.4-12.1) H 04/29/17 01:13 Sodium 135 mEq/L (136-145) L 04/30/17 08:53 BUN 50 mg/dL (8-23) H 04/30/17 08:53 Est GFR (Non-Af Amer) 54 (> 60) L 04/30/17 08:53 BUN/Creatinine Ratio 39 (6-26) H 04/30/17 08:53 Glucose 108 mg/dL (70-105) H 04/30/17 08:53 POC Glucose 103 (58-89) H 04/30/17 12:29 Total Bilirubin 1.2 mg/dL (0.3-1.0) H 05/01/17 11:00 B-Natriuretic Peptide 107 pg/mL (Less than 100) H 04/27/17 11:15 Globulin 3.6 g/dL (2.4-3.5) H 05/01/17 11:00 Albumin/Globulin Ratio 1.0 (1.1-2.2) L 05/01/17 11:00 - Clinical Findings Intake & Output: Intake & Output 04/30/17 05/01/17 05/01/17 23:59 07:59 15:59 Intake Total 400 / 400 Output Total 750 / 750 100 / 100 Balance -350 / -350 -100 / -100 Consult Discharge Plan - Plan Referrals: Dex Higuera Jr, MD [Primary Care Provider] -
[2017-05-01 13:48] LABS: Basophils % 0.2 %; Eosinophils % 0.1 %; Hematocrit 45.9 % (37.5-50.1); Hemoglobin 14.8 g/dL (12.9-16.9); Immature Granulocytes % 0.6 % (0-4); Lymphocytes # 0.3 K/mcL (0.6-4.6); Lymphocytes % 1.8 %; Mean Corpuscular HGB Conc 32.2 g/dL (31.6-35.5); Mean Corpuscular Hemoglobin 30.9 pg (28.0-33.3); Mean Corpuscular Volume 95.8 fL (83.0-100.0); Monocytes # 0.7 K/mcL (0.0-1.3); Monocytes % 3.6 %; Neutrophils # 17.4 K/mcL (1.6-8.9); Platelet Count 280 K/mcL (140-400); Red Blood Count 4.79 M/mcL (4.19-5.50); Red Cell Distribution Width 11.6 % (11.5-14.5); Segmented Neutrophils % 93.7 %
[2017-05-01 14:01] LABS: BUN/Creatinine Ratio 52 (6-26); Blood Urea Nitrogen 57 mg/dL (8-23); Carbon Dioxide 29 mEq/L (23-29); Chloride 98 mEq/L (98-107); Glucose 157 mg/dL (70-105); Osmolality,Calculated 299 (280-300); Potassium 4.4 mEq/L (3.5-5.1); Sodium 135 mEq/L (136-145); eGFR For African Americans > 60 (> 60); eGFR For Non-African Americans > 60 (> 60)
[2017-05-01] MEDS ORDERED: Milk and Molasses Enema 200 ML RC ONE (14:23)
[2017-05-01] MEDS: Acetaminophen 325 MG TABLET PO PRN ×2 (14:46→20:50)
[2017-05-01] MEDS: MethylPREDNISolone 40 MG/ML VIAL IVP SCH (15:01)
[2017-05-01] MEDS: Ipratropium/Albuterol Neb 3 ML IH SCH ×2 (16:59→20:08)
[2017-05-01] MEDS: Doxycycline 100 MG in 0.9 % Sodium Chloride Mini Bag 100 ML IVPB SCH (17:00)
[2017-05-01] MEDS: Budesonide/Formoterol 160/4.5 MDI IH SCH (20:08)
[2017-05-02] MEDS: MethylPREDNISolone 40 MG/ML VIAL IVP SCH ×3 (00:01→16:32)
[2017-05-02] MEDS: Ketorolac 30 MG/ML VIAL IVP PRN ×4 (00:02→20:45)
[2017-05-02] MEDS: Ipratropium/Albuterol Neb 3 ML IH SCH ×7 (00:30→23:18)
[2017-05-02] MEDS: Acetaminophen 325 MG TABLET PO PRN ×2 (04:29→07:54)
[2017-05-02 05:10] LABS: Basophils % 0.2 %; Hematocrit 44.7 % (37.5-50.1); Hemoglobin 14.5 g/dL (12.9-16.9); Immature Granulocytes % 0.6 % (0-4); Lymphocytes # 0.3 K/mcL (0.6-4.6); Lymphocytes % 1.9 %; Mean Corpuscular HGB Conc 32.4 g/dL (31.6-35.5); Mean Corpuscular Hemoglobin 30.9 pg (28.0-33.3); Mean Corpuscular Volume 95.3 fL (83.0-100.0); Mean Platelet Volume 9.3 fL (9.4-12.4); Monocytes # 0.8 K/mcL (0.0-1.3); Monocytes % 4.9 %; Neutrophils # 14.4 K/mcL (1.6-8.9); Platelet Count 298 K/mcL (140-400); Red Blood Count 4.69 M/mcL (4.19-5.50); Red Cell Distribution Width 11.8 % (11.5-14.5); Segmented Neutrophils % 92.4 %
[2017-05-02 05:27] LABS: BUN/Creatinine Ratio 59 (6-26); Blood Urea Nitrogen 66 mg/dL (8-23); Calcium 9.9 mg/dL (8.6-10.3); Carbon Dioxide 29 mEq/L (23-29); Chloride 100 mEq/L (98-107); Glucose 179 mg/dL (70-105); Osmolality,Calculated 306 (280-300); Potassium 4.3 mEq/L (3.5-5.1); Sodium 136 mEq/L (136-145); eGFR For African Americans > 60 (> 60); eGFR For Non-African Americans > 60 (> 60)
[2017-05-02] MEDS ORDERED: Bacitracin 50,000 UNIT, Polymyxin B Sulfate 500,000 UNIT, Sodium Chloride IRRigation 1,... IR ONE (06:00)
[2017-05-02] MEDS: Doxycycline 100 MG in 0.9 % Sodium Chloride Mini Bag 100 ML IVPB SCH ×2 (06:40→16:33)
[2017-05-02] MEDS: *HR* Heparin 5,000 UNIT/ML VIAL SQ SCH ×3 (06:40→20:45)
[2017-05-02] MEDS: Folic Acid 1 MG TABLET PO SCH (07:54)
[2017-05-02] MEDS: Multivit/Ca/Min/Fe/FA 1 TAB TABLET PO SCH (07:54)
[2017-05-02] MEDS: Thiamine (B-1) 100 MG TABLET PO SCH (07:54)
[2017-05-02] MEDS: Cholecalciferol (D-3) 1,000 UNIT TABLET PO SCH (07:54)
[2017-05-02] MEDS: Lactulose Oral Soln 20 GM/30 ML UDC PO SCH ×2 (07:54→20:44)
[2017-05-02] MEDS: Aspirin Enteric Coated 81 MG Tablet PO SCH (07:54)
[2017-05-02] MEDS: Furosemide 40 MG TABLET PO SCH ×2 (07:55→16:33)
[2017-05-02] MEDS: Ascorbic Acid 500 MG TABLET PO SCH (07:55)
[2017-05-02] MEDS: Budesonide/Formoterol 160/4.5 MDI IH SCH ×2 (08:04→20:14)
--- NOTE | 2017-05-02 09:27 | Internal Med Progress Note ---
<Domenico Cruz - Last Filed: 05/02/17 13:11> Date of Encounter: 05/02/17 Time of Encounter: 09:25 - Assessment and plan (1) Thoracic spine fracture Current Visit: Yes Status: Acute Assessment and plan: CT and MR revealed T7-T8 compressive fracture. Orthopedic spine has been consulted. Once the patient is medically optimized we will notify orthopedic spine. Patient has a back brace in place. Qualifiers: Encounter type: subsequent encounter Thoracic vertebra fracture level: T7 Fracture type: closed Fracture morphology: other fracture Fracture healing : with routine healing Qualified Code(s): S22.068D - Other fracture of T7-T8 thoracic vertebra, subsequent encounter for fracture with routine healing (2) Hypoxia Current Visit: Yes Status: Acute Assessment and plan: Patient had episode of hypoxia down to 83%. Continue with DuoNeb therapy Continue with oxygen supplementation Chest x-ray showed: Bibasilar volume loss with possible bilateral pleural effusions. Otherwise, stable chest Pulmonology has been consulted. (3) Community acquired pneumonia Current Visit: Yes Status: Chronic Assessment and plan: Per pulmonology we will switch from Levaquin to doxycycline 100 twice a day Due nebs every 4 hours scheduled per pulm Qualifiers: Laterality: right Lung location: upper lobe of lung Qualified Code(s): J18.1 - Lobar pneumonia, unspecified organism (4) HTN (hypertension) Current Visit: No Status: Chronic Assessment and plan: Patient is currently normotensive continue Cozaar, hydralazine and carvedilol Qualifiers: Hypertension type: essential hypertension Qualified Code(s): I10 - Essential (primary) hypertension (5) Hyperlipidemia Current Visit: No Status: Chronic Assessment and plan: continue current medical management Qualifiers: Hyperlipidemia type: unspecified Qualified Code(s): E78.5 - Hyperlipidemia , unspecified (6) Chronic alcohol abuse Current Visit: No Status: Chronic Assessment and plan: Continue with CIWA protocol (7) COPD (chronic obstructive pulmonary disease) Current Visit: No Status: Chronic Assessment and plan: Per pulmonology we will start the patient on Solu-Medrol and schedule DuoNeb's. Continue with supplemental oxygen. Qualifiers: COPD type: emphysema Emphysema type: unspecified Qualified Code(s): J43.9 - Emphysema, unspecified (8) Diastolic CHF Current Visit: No Status: Chronic Assessment and plan: Most recent echo on 04/28/17 showed LVEF 60-65%. Normal LV chamber size and function. Moderate concentric left ventricular hypertrophy. Mild left ventricular diastolic dysfunction. Right ventricle not well visualized. Grossly normal function. Severely dilated left atrium. No significant valvular dysfunction. No evidence of pulmonary hypertension. continue home dose of Lasix in addition to ARB, statin and aspirin Qualifiers: Heart failure chronicity: chronic Qualified Code(s): I50.32 - Chronic diastolic (congestive) heart failure (9) Constipation due to opioid therapy Current Visit: Yes Status: Acute Assessment and plan: Patient has a significant amount of constipation with abdominal pain and distention. Patient has been receiving lactulose in attempt to help with the constipation. KUB will be obtained Possible mag cit to help with passage of stool. - Subjective Interval history: Patient states that he has having increased shortness of breath due to having bloating from his constipation. States that he had a bowel movement yesterday and during that night which seemed to helps a little bit. However he states that his abdomen still feels distended. Patient also states that he is having significant back pain related to his T7-T8 compression fracture. - Constitutional Vitals: Temp Pulse Resp BP Pulse Ox 97.8 F 77 16 103/92 88 05/02/17 07:15 05/02/17 07:15 05/02/17 08:06 05/02/17 07:15 05/02/17 08:06 General appearance: Present: mild distress, A&O X 3, answers questions appropriately - Neck Neck exam general surgery: Present: full ROM, normal inspection, trachea midline - Respiratory Respiratory exam: Present: rhonchi (On the right) - Cardiovascular Cardiovascular exam: Present: RRR, +S1, +S2. Absent: diastolic murmur, gallop, rubs, systolic murmur - GI/Abdominal GI/Abdominal exam: Present: distended, tenderness (mild diffuse tenderness) - Extremities Exam Extremities exam: Present: pedal edema (1+ pitting edema in bilateral lower extremities ) - Back Exam Additional comments: Patient is currently in a back brace. - Neurological Exam Neurological exam: Present: alert, oriented X3, no focal deficits. Absent: facial droop, speech deficit - Psychiatric Psychiatric exam: Present: normal affect, normal mood - Skin Skin exam: Present: dry, intact, warm Internal Medicine: Result - Labs CBC & Chem 7: 05/02/17 04:32 05/02/17 04:32 Labs: Short CBC 05/01/17 05/02/17 Range/Units 13:31 04:32 WBC 18.5 H 15.6 H (4.3-11.1) K/mcL Hgb 14.8 14.5 (12.9-16.9) g/dL Hct 45.9 44.7 (37.5-50.1) % Plt Count 280 298 (140-400) K/mcL Neutrophils # 17.4 H 14.4 H (1.6-8.9) K/mcL BMP 05/01/17 05/02/17 13:31 04:32 Sodium 135 L 136 Potassium 4.4 4.3 Chloride 98 100 Carbon Dioxide 29 29 BUN 57 H 66 H Creatinine 1.10 1.12 Glucose 157 H 179 H Calcium 10.0 9.9 Liver Function 05/01/17 Range/Units 11:00 Total Bilirubin 1.2 H (0.3-1.0) mg/dL Direct Bilirubin 0.2 (0.0-0.2) mg/dL AST 25 (13-39) Units/L ALT 37 (7-52) Units/L Alkaline Phosphatase 68 (34-104) Units/L Albumin 3.7 (3.5-5.7) g/dL - ABG Interpretation ABG results: PT/INR, D-dimer PT 12.6 Seconds (9.4-12.1) H 04/29/17 01:13 - Impressions Impressions Chest X-Ray 05/01/17 13:15 IMPRESSION: Bibasilar volume loss with possible bilateral pleural effusions. Otherwise, stable chest D/ / Lake Nickerson MD / Lake Nickerson MD Interpreting Provider: Lake Nickerson MD - VTE Documentation of Mechanical Device: Intermittent pneumatic compression device Consult Discharge Plan - Plan Instructions: Heart Failure (DC), Acute Respiratory Distress Syndrome (DC), Chronic Obstructive Pulmonary Disease (DC), Sepsis (DC), Abuse of Alcohol (DC), Abuse of Alcohol (GEN), Chronic Hypertension (DC), Pneumonia (DC) Referrals: Dex Higuera Jr, MD [Primary Care Provider] - 05/10/17 10:00 am <Pranav Marte - Last Filed: 05/02/17 18:20> Date of Encounter: 05/02/17 - Assessment and plan (1) Acute respiratory failure Current Visit: No Status: Acute Qualifiers: Respiratory failure complication: hypoxia Qualified Code(s): J96.01 - Acute respiratory failure with hypoxia (2) Thoracic spine fracture Current Visit: Yes Status: Acute Qualifiers: Encounter type: subsequent encounter Thoracic vertebra fracture level: T7 Fracture type: closed Fracture morphology: other fracture Fracture healing : with routine healing Qualified Code(s): S22.068D - Other fracture of T7-T8 thoracic vertebra, subsequent encounter for fracture with routine healing (3) CHF (congestive heart failure) Current Visit: Yes Status: Chronic Qualifiers: Heart failure type: diastolic Heart failure chronicity: chronic Qualified Code(s): I50.32 - Chronic diastolic (congestive) heart failure (4) Constipation due to opioid therapy Current Visit: Yes Status: Acute (5) Ankylosing spondylitis Current Visit: Yes Status: Suspected Qualifiers: Ankylosing spondylitis location: multiple sites in spine Qualified Code(s) : M45.0 - Ankylosing spondylitis 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 transplanted heart: [place] heart Associated angina: without angina Qualified Code(s): I25.10 - Atherosclerotic heart disease of [place] coronary artery without angina pectoris (7) HTN (hypertension) Current Visit: No Status: Chronic Qualifiers: Hypertension type: essential hypertension Qualified Code(s): I10 - Essential (primary) hypertension - Constitutional Vitals: Temp Pulse Resp BP Pulse Ox 97.6 F 74 18 151/76 89 05/02/17 15:32 05/02/17 15:32 05/02/17 15:44 05/02/17 15:32 05/02/17 15:44 Internal Medicine: Result - Labs CBC & Chem 7: 05/02/17 04:32 05/02/17 04:32 Labs: Short CBC 05/02/17 Range/Units 04:32 WBC 15.6 H (4.3-11.1) K/mcL Hgb 14.5 (12.9-16.9) g/dL Hct 44.7 (37.5-50.1) % Plt Count 298 (140-400) K/mcL Neutrophils # 14.4 H (1.6-8.9) K/mcL BMP 05/02/17 04:32 Sodium 136 Potassium 4.3 Chloride 100 Carbon Dioxide 29 BUN 66 H Creatinine 1.12 Glucose 179 H Calcium 9.9 - ABG Interpretation ABG results: PT/INR, D-dimer PT 12.6 Seconds (9.4-12.1) H 04/29/17 01:13 - Impressions Impressions KUB X-Ray 05/02/17 09:33 IMPRESSION: Nonobstructed bowel-gas pattern. D/ /02/2017 14:49:42 Britni Barton MD / [email or web address] Interpreting Provider: Britni Barton MD - Attending Attestation I examined this patient and my medical decision-making was reviewed with the Resident Physician on 05/02/17. I agree with the documented findings, disposition and treatment plan as described except to the extent set forth below. Mr Sapp is currently admitted for acute thoracic fracture. He continues to have significant respiratory issues and constipation. He remains moderate to high risk due to potential for worsening clinical and respiratory status. Mr Sapp continues to have abdominal bloating. He has had some bowel movement but not significant. No fever or chills. Having pain in his back but not taking pain meds due to constipation. He is unable to take a deep breath due to pain and abdominal bloating. No cough. Exam Alert. Mod distress due to dyspnea and bloating Mucus membranes dry Heart reg and distant Lungs diminished. No wheeze Abd distended. Soft. Nontender KUB - no obstructive pattern. I/P 1. Constipation - try magnesium citrate today 2. hypoxia Further diagnoses and plan as above. Try Ultram for pain.
[2017-05-02] MEDS: (Umeclidinium Bromide [Incruse Ellipta] 62.5 MCG) IH SCH (09:50)
[2017-05-02] MEDS: traMADol 50 MG TABLET PO PRN (16:39)
[2017-05-02 18:11] LABS: ABG Base Excess 4 mEq/L (-2 to 3); ABG HCO3 30 mEq/L (21-27); ABG Oxygen Saturation 91 % (95-98); ABG PCO2 49 mmHg (35-45); ABG PO2 62 mmHg (85-104); ABG TCO2 32 mEq/L (20-26)
[2017-05-02] MEDS: *HR* LORazepam 2 MG/ML VIAL IVP PRN (20:46)
--- NOTE | 2017-05-02 23:55 | Pulmonology Progress Note ---
Date of Encounter: 05/02/17 Time of Encounter: 16:00 Assessment and Plan (1) Acute and chronic respiratory failure Current Visit: Yes Status: Acute Patient has worsening of Acute on chronic hypoxic respiratory failure multifactorial worsening V/Q mismatch due to COPD exacerbation complicated by splinting of diaphragm with atelectasis . will treat as COPD exacerbation and encouraged to use incentive spirometry as it help to reduce the risk of postoperative respiratory failure if this fails patient might benefit from BIPAP at night and during the day time sitting up doing incentive spirometry as able . 05/02 will add BIPAP 02/14 if he tolerates will add more pressure support with EPAP with ABG shows Chronic hypercapnia Because of his extensive pulmonary history he has moderate to High risk for postoperative respiratory failure Qualifiers: Respiratory failure complication: hypoxia and hypercapnia Qualified Code(s) : J96.21 - Acute and chronic respiratory failure with hypoxia; J96.22 - Acute and chronic respiratory failure with hypercapnia; J96.22 - Acute and chronic respiratory failure with hypercapnia; J96.22 - Acute and chronic respiratory failure with hypercapnia (2) COPD exacerbation Current Visit: Yes Status: Acute To continue to treat with bronchodilators and steroids (3) Pneumonia Current Visit: Yes Status: Acute To continue current regimen of antibiotics Qualifiers: Lung location: unspecified part of lung Qualified Code(s): J18.9 - Pneumonia, unspecified organism Subjective Principal diagnosis: vertebral fracture Objective PUL Vital signs: Last Vital Signs Temp 97.5 F L 05/02/17 20:31 Pulse 85 05/02/17 20:31 Resp 22 05/02/17 23:18 BP 130/99 05/02/17 20:31 Pulse Ox 92 05/02/17 23:18 Results - Laboratory Findings CBC and BMP: 05/02/17 04:32 05/02/17 04:32 ABG ABG pH 7.40 pH Units (7.32-7.45) 05/02/17 17:53 ABG pCO2 49 mmHg (35-45) H 05/02/17 17:53 ABG pO2 62 mmHg (85-104) L 05/02/17 17:53 ABG O2 Saturation 91 % (95-98) L 05/02/17 17:53 PT/INR, D-dimer PT 12.6 Seconds (9.4-12.1) H 04/29/17 01:13 Abnormal lab findings: Abnormal lab results WBC 15.6 K/mcL (4.3-11.1) H 05/02/17 04:32 MPV 9.3 fL (9.4-12.4) L 05/02/17 04:32 Neutrophils # 14.4 K/mcL (1.6-8.9) H 05/02/17 04:32 Lymphocytes # 0.3 K/mcL (0.6-4.6) L 05/02/17 04:32 ESR 30 mm/hr (0-10) H 04/29/17 15:58 PT 12.6 Seconds (9.4-12.1) H 04/29/17 01:13 ABG pCO2 49 mmHg (35-45) H 05/02/17 17:53 ABG pO2 62 mmHg (85-104) L 05/02/17 17:53 ABG HCO3 30 mEq/L (21-27) H 05/02/17 17:53 ABG Total CO2 32 mEq/L (20-26) H 05/02/17 17:53 ABG O2 Saturation 91 % (95-98) L 05/02/17 17:53 ABG Base Excess 4 mEq/L (-2 to 3) H 05/02/17 17:53 BUN 66 mg/dL (8-23) H 05/02/17 04:32 BUN/Creatinine Ratio 59 (6-26) H 05/02/17 04:32 Glucose 179 mg/dL (70-105) H 05/02/17 04:32 POC Glucose 103 (58-89) H 04/30/17 12:29 Calculated Osmolality 306 (280-300) H 05/02/17 04:32 Total Bilirubin 1.2 mg/dL (0.3-1.0) H 05/01/17 11:00 B-Natriuretic Peptide 198 pg/mL (Less than 100) H 05/01/17 13:31 Globulin 3.6 g/dL (2.4-3.5) H 05/01/17 11:00 Albumin/Globulin Ratio 1.0 (1.1-2.2) L 05/01/17 11:00 - Microbiology Findings Microbiology Findings: Microbiology, Last 48 Hours 05/01/17 15:08 Sputum Culture - Preliminary Sputum - Clinical Findings Intake & Output: Intake & Output 05/02/17 05/02/17 05/02/17 07:59 15:59 23:59 Intake Total 100 / 100 0 / 0 Output Total 125 / 125 Balance -25 / -25 0 / 0 - VTE Documentation of Mechanical Device: Graduated compression elastic hosiery Consult Discharge Plan - Plan Instructions: Heart Failure (DC), Acute Respiratory Distress Syndrome (DC), Chronic Obstructive Pulmonary Disease (DC), Sepsis (DC), Abuse of Alcohol (DC), Abuse of Alcohol (GEN), Chronic Hypertension (DC), Pneumonia (DC) Referrals: Dex Higuera Jr, MD [Primary Care Provider] - 05/10/17 10:00 am
[2017-05-03] MEDS: MethylPREDNISolone 40 MG/ML VIAL IVP SCH ×3 (00:12→17:43)
[2017-05-03 03:39] LABS: Basophils % 0.1 %; Hematocrit 42.7 % (37.5-50.1); Hemoglobin 13.9 g/dL (12.9-16.9); Immature Granulocytes % 0.7 % (0-4); Lymphocytes # 0.8 K/mcL (0.6-4.6); Lymphocytes % 4.6 %; Mean Corpuscular HGB Conc 32.6 g/dL (31.6-35.5); Mean Corpuscular Volume 95.1 fL (83.0-100.0); Mean Platelet Volume 9.1 fL (9.4-12.4); Monocytes % 6.2 %; Neutrophils # 14.5 K/mcL (1.6-8.9); Platelet Count 291 K/mcL (140-400); Red Blood Count 4.49 M/mcL (4.19-5.50); Red Cell Distribution Width 11.9 % (11.5-14.5); Segmented Neutrophils % 88.4 %
[2017-05-03 04:00] LABS: BUN/Creatinine Ratio 73 (6-26); Blood Urea Nitrogen 71 mg/dL (8-23); Calcium 9.5 mg/dL (8.6-10.3); Carbon Dioxide 29 mEq/L (23-29); Chloride 103 mEq/L (98-107); Glucose 179 mg/dL (70-105); Osmolality,Calculated 313 (280-300); Potassium 4.2 mEq/L (3.5-5.1); Sodium 139 mEq/L (136-145); eGFR For African Americans > 60 (> 60); eGFR For Non-African Americans > 60 (> 60)
[2017-05-03] MEDS: Ipratropium/Albuterol Neb 3 ML IH SCH ×6 (04:19→23:32)
[2017-05-03] MEDS: Doxycycline 100 MG in 0.9 % Sodium Chloride Mini Bag 100 ML IVPB SCH ×2 (06:54→17:42)
[2017-05-03] MEDS: traMADol 50 MG TABLET PO PRN ×3 (06:54→21:31)
[2017-05-03] MEDS: *HR* Heparin 5,000 UNIT/ML VIAL SQ SCH ×3 (06:54→21:32)
[2017-05-03] MEDS: Budesonide/Formoterol 160/4.5 MDI IH SCH ×2 (07:39→20:35)
--- NOTE | 2017-05-03 08:02 | Internal Med Progress Note ---
<Domenico Cruz - Last Filed: 05/03/17 09:30> Date of Encounter: 05/03/17 Time of Encounter: 08:00 - Assessment and plan (1) Thoracic spine fracture Current Visit: Yes Status: Acute Assessment and plan: CT and MR revealed T7-T8 compressive fracture. Orthopedic spine has been consulted. Once the patient is medically optimized we will notify orthopedic spine. Patient has a back brace in place. Qualifiers: Encounter type: subsequent encounter Thoracic vertebra fracture level: T7 Fracture type: closed Fracture morphology: other fracture Fracture healing : with routine healing Qualified Code(s): S22.068D - Other fracture of T7-T8 thoracic vertebra, subsequent encounter for fracture with routine healing (2) Hypoxia Current Visit: Yes Status: Acute Assessment and plan: Patient had episode of hypoxia down to 83%. Continue with DuoNeb therapy Continue with oxygen supplementation Chest x-ray showed: Bibasilar volume loss with possible bilateral pleural effusions. Otherwise, stable chest Pulmonology has been consulted. Pulmonology has recommended BiPAP for this patient. Patient has improved from a respiratory standpoint since being on the BiPAP. (3) COPD (chronic obstructive pulmonary disease) Current Visit: No Status: Chronic Assessment and plan: Per pulmonology we will start the patient on Solu-Medrol and schedule DuoNeb's. Continue with supplemental oxygen. Continue with BiPAP per pulmonology recommendations. Qualifiers: COPD type: emphysema Emphysema type: unspecified Qualified Code(s): J43.9 - Emphysema, unspecified (4) Community acquired pneumonia Current Visit: Yes Status: Chronic Assessment and plan: Continue doxycycline 100 twice a day Continue Duonebs every 4 hours scheduled Qualifiers: Laterality: right Lung location: upper lobe of lung Qualified Code(s): J18.1 - Lobar pneumonia, unspecified organism (5) HTN (hypertension) Current Visit: No Status: Chronic Assessment and plan: Patient is currently normotensive continue Cozaar, hydralazine and carvedilol Qualifiers: Hypertension type: essential hypertension Qualified Code(s): I10 - Essential (primary) hypertension (6) Hyperlipidemia Current Visit: No Status: Chronic Assessment and plan: continue current medical management Qualifiers: Hyperlipidemia type: unspecified Qualified Code(s): E78.5 - Hyperlipidemia , unspecified (7) Chronic alcohol abuse Current Visit: No Status: Chronic Assessment and plan: Continue with CIWA protocol (8) Diastolic CHF Current Visit: No Status: Chronic Assessment and plan: Most recent echo on 04/28/17 showed LVEF 60-65%. Normal LV chamber size and function. Moderate concentric left ventricular hypertrophy. Mild left ventricular diastolic dysfunction. Right ventricle not well visualized. Grossly normal function. Severely dilated left atrium. No significant valvular dysfunction. No evidence of pulmonary hypertension. continue home dose of Lasix in addition to ARB, statin and aspirin Qualifiers: Heart failure chronicity: chronic Qualified Code(s): I50.32 - Chronic diastolic (congestive) heart failure (9) Constipation due to opioid therapy Current Visit: Yes Status: Acute Assessment and plan: Patient has a significant amount of constipation with abdominal pain and distention. Patient has been receiving lactulose in attempt to help with the constipation. KUB showed nonobstructive bowel gas pattern without significant stool burden. Magnesium citrate was given yesterday which provided some relief to the patient and states that he did have a bowel movement after receiving the magnesium citrate. Will be given methylnaltrexone to help with opiod induced contipation. (10) DVT prophylaxis Current Visit: Yes Status: Acute Assessment and plan: Patient is receiving heparin 5000 units SQ q8h - Subjective Interval history: Patient states that he is feeling somewhat better today. States that being on the BiPAP seemed to help his breathing. He is still having some abdominal discomfort and distention. However he does state that he has had a small bowel movement which has mildly improved his abdominal symptoms. Patient's states that he is still having back discomfort due to his thoracic spine fracture. - Constitutional Vitals: Temp Pulse Resp BP Pulse Ox 98.1 F 73 26 135/84 92 05/03/17 07:16 05/03/17 07:16 05/03/17 07:40 05/03/17 07:40 05/03/17 07:40 General appearance: Present: A&O X 3, no acute distress, answers questions appropriately - Head Head exam: Present: atraumatic, normocephalic - Neck Neck exam general surgery: Present: full ROM, normal inspection, trachea midline - Respiratory Respiratory exam: Present: wheezes (Bilaterally) Additional comments: Patient was currently on BiPAP - Cardiovascular Cardiovascular exam: Present: RRR, +S1, +S2. Absent: diastolic murmur, gallop, rubs, systolic murmur - GI/Abdominal GI/Abdominal exam: Present: distended, tenderness (Diffuse mild), no peritoneal signs - Extremities Exam Extremities exam: Present: pedal edema (1+ pitting edema bilateral lower extremities) Additional comments: SCDs were in place. - Back Exam Additional comments: Patient is currently in a back brace due to thoracic spine fracture. - Neurological Exam Neurological exam: Present: alert, oriented X3, no focal deficits. Absent: facial droop, speech deficit - Psychiatric Psychiatric exam: Present: normal affect, normal mood - Skin Skin exam: Present: dry, intact, warm Internal Medicine: Result - Labs CBC & Chem 7: 05/03/17 03:17 05/03/17 03:17 Labs: Short CBC 05/03/17 Range/Units 03:17 WBC 16.4 H (4.3-11.1) K/mcL Hgb 13.9 (12.9-16.9) g/dL Hct 42.7 (37.5-50.1) % Plt Count 291 (140-400) K/mcL Neutrophils # 14.5 H (1.6-8.9) K/mcL BMP 05/03/17 03:17 Sodium 139 Potassium 4.2 Chloride 103 Carbon Dioxide 29 BUN 71 H Creatinine 0.97 Glucose 179 H Calcium 9.5 - ABG Interpretation ABG results: ABG ABG pH 7.40 pH Units (7.32-7.45) 05/02/17 17:53 ABG pCO2 49 mmHg (35-45) H 05/02/17 17:53 ABG pO2 62 mmHg (85-104) L 05/02/17 17:53 ABG O2 Saturation 91 % (95-98) L 05/02/17 17:53 PT/INR, D-dimer PT 12.6 Seconds (9.4-12.1) H 04/29/17 01:13 - Impressions Impressions KUB X-Ray 05/02/17 09:33 IMPRESSION: Nonobstructed bowel-gas pattern. D/ / 05/02/2017 14:49:42 Britni Barton MD / earnold Interpreting Provider: Britni Barton MD - VTE Documentation of Mechanical Device: Graduated compression elastic hosiery Consult Discharge Plan - Plan Instructions: Heart Failure (DC), Acute Respiratory Distress Syndrome (DC), Chronic Obstructive Pulmonary Disease (DC), Sepsis (DC), Abuse of Alcohol (DC), Abuse of Alcohol (GEN), Chronic Hypertension (DC), Pneumonia (DC) Referrals: Dex Higuera Jr, MD [Primary Care Provider] - 05/10/17 10:00 am <Pranav Marte - Last Filed: 05/03/17 19:03> Date of Encounter: 05/03/17 - Assessment and plan (1) Acute respiratory failure Current Visit: No Status: Acute Qualifiers: Respiratory failure complication: hypoxia Qualified Code(s): J96.01 - Acute respiratory failure with hypoxia (2) Constipation due to opioid therapy Current Visit: Yes Status: Acute (3) CHF (congestive heart failure) Current Visit: Yes Status: Chronic Qualifiers: Heart failure type: diastolic Heart failure chronicity: chronic Qualified Code(s): I50.32 - Chronic diastolic (congestive) heart failure (4) Thoracic spine fracture Current Visit: Yes Status: Acute Qualifiers: Encounter type: subsequent encounter Thoracic vertebra fracture level: T7 Fracture type: closed Fracture morphology: other fracture Fracture healing : with routine healing Qualified Code(s): S22.068D - Other fracture of T7-T8 thoracic vertebra, subsequent encounter for fracture with routine healing (5) Ankylosing spondylitis Current Visit: Yes Status: Suspected Qualifiers: Ankylosing spondylitis location: multiple sites in spine Qualified Code(s) : M45.0 - 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 transplanted heart: [place] heart Associated angina: without angina Qualified Code(s): I25.10 - Atherosclerotic heart disease of [place] coronary artery without angina pectoris (7) HTN (hypertension) Current Visit: No Status: Chronic Qualifiers: Hypertension type: essential hypertension Qualified Code(s): I10 - Essential (primary) hypertension - Constitutional Vitals: Temp Pulse Resp BP Pulse Ox 98.6 F 69 16 126/81 95 05/03/17 15:15 05/03/17 15:15 05/03/17 15:15 05/03/17 15:15 05/03/17 15:15 Internal Medicine: Result - Labs CBC & Chem 7: 05/03/17 03:17 05/03/17 03:17 Labs: Short CBC 05/03/17 Range/Units 03:17 WBC 16.4 H (4.3-11.1) K/mcL Hgb 13.9 (12.9-16.9) g/dL Hct 42.7 (37.5-50.1) % Plt Count 291 (140-400) K/mcL Neutrophils # 14.5 H (1.6-8.9) K/mcL BMP 05/03/17 03:17 Sodium 139 Potassium 4.2 Chloride 103 Carbon Dioxide 29 BUN 71 H Creatinine 0.97 Glucose 179 H Calcium 9.5 - ABG Interpretation ABG results: ABG ABG pH 7.40 pH Units (7.32-7.45) 05/02/17 17:53 ABG pCO2 49 mmHg (35-45) H 05/02/17 17:53 ABG pO2 62 mmHg (85-104) L 05/02/17 17:53 ABG O2 Saturation 91 % (95-98) L 05/02/17 17:53 PT/INR, D-dimer PT 12.6 Seconds (9.4-12.1) H 04/29/17 01:13 - Attending Attestation I examined this patient and my medical decision-making was reviewed with the Resident Physician on 05/03/17. I agree with the documented findings, disposition and treatment plan as described except to the extent set forth below. Mr Sapp is currently admitted for thoracic fracture and respiratory failure. He is beginning to have some issues with alcohol withdrawal. He remains moderate to high risk due to potential for worsening clinical status. Mr Sapp just got Ativan and is resting. He has had some bowel movements but not significant. No CP. Still on high flow oxygen. No fever or chills. Exam Alert Comfortable Mucus membranes dry Heart distant Lungs with rhonchi Abd distended but soft I/P 1. Resp failure 2. Constipation - try Relistor Further diagnoses and plan as above.
[2017-05-03] MEDS: Lactulose Oral Soln 20 GM/30 ML UDC PO SCH ×2 (08:59→21:32)
[2017-05-03] MEDS: Acetaminophen 325 MG TABLET PO PRN (08:59)
[2017-05-03] MEDS: Folic Acid 1 MG TABLET PO SCH (08:59)
[2017-05-03] MEDS: Cholecalciferol (D-3) 1,000 UNIT TABLET PO SCH (09:00)
[2017-05-03] MEDS: Multivit/Ca/Min/Fe/FA 1 TAB TABLET PO SCH (09:00)
[2017-05-03] MEDS: Thiamine (B-1) 100 MG TABLET PO SCH (09:00)
[2017-05-03] MEDS: Ascorbic Acid 500 MG TABLET PO SCH (09:00)
[2017-05-03] MEDS: Furosemide 40 MG TABLET PO SCH ×2 (09:00→17:43)
[2017-05-03] MEDS: (Umeclidinium Bromide [Incruse Ellipta] 62.5 MCG) IH SCH (09:01)
[2017-05-03] MEDS ORDERED: Methylnaltrexone 12 MG/0.6 ML SYRINGE SQ ONE (09:18)
--- NOTE | 2017-05-03 11:47 | Pulmonology Progress Note ---
Date of Encounter: 05/03/17 Time of Encounter: 11:30 Assessment and Plan (1) Acute and chronic respiratory failure Current Visit: Yes Status: Acute Patient has worsening of Acute on chronic hypoxic respiratory failure multifactorial worsening V/Q mismatch due to COPD exacerbation complicated by splinting of diaphragm with atelectasis . will treat as COPD exacerbation and encouraged to use incentive spirometry as it help to reduce the risk of postoperative respiratory failure if this fails patient might benefit from BIPAP at night and during the day time sitting up doing incentive spirometry as able . 05/02 will add BIPAP 02/14 if he tolerates will add more pressure support with EPAP with ABG shows Chronic hypercapnia Because of his extensive pulmonary history he has moderate to High risk for postoperative respiratory failure 05/03 Patient tolerated the BIPAP ok will continue tonight and day time prn , encouraged him to do the incentive spirometry Continue O2 supplementation to keep SPO2 around 90% Qualifiers: Respiratory failure complication: hypoxia and hypercapnia Qualified Code(s) : J96.21 - Acute and chronic respiratory failure with hypoxia; J96.22 - Acute and chronic respiratory failure with hypercapnia; J96.22 - Acute and chronic respiratory failure with hypercapnia; J96.22 - Acute and chronic respiratory failure with hypercapnia (2) COPD exacerbation Current Visit: Yes Status: Acute To continue to treat with bronchodilators and steroids . Counseled the family he can be cleared under moderate to high risk for post operative respiratory failure high might need post operative mechanical ventilation . (3) Pneumonia Current Visit: Yes Status: Acute To continue current regimen of antibiotics . Discussed with family answered all questions discussed the plan with the primary team. Qualifiers: Lung location: unspecified part of lung Qualified Code(s): J18.9 - Pneumonia, unspecified organism Subjective Principal diagnosis: vertebral fracture Interval history: Patient says symptoms are not much different he passed bowel movements he feels the tummy feels less tight , his breathing is the same he is not able to cough much because of the pain due to vertebral fracture denies any chest pain or tightness . Wore BIPAP that helped little bit but says he didnt like the BIPAP but willing to try . Objective PUL Vital signs: Last Vital Signs Temp 98.1 F 05/03/17 07:16 Pulse 73 05/03/17 07:16 Resp 22 05/03/17 11:06 BP 135/84 05/03/17 07:40 Pulse Ox 91 05/03/17 11:06 Auscultation: bilateral: diminished breath sounds, rales (scattered ) Gastrointestinal: hypoactive bowel sounds, other (slightly distended ) Gait: other (sitting in the bed has a spinal brace ) Results - Laboratory Findings CBC and BMP: 05/03/17 03:17 05/03/17 03:17 ABG ABG pH 7.40 pH Units (7.32-7.45) 05/02/17 17:53 ABG pCO2 49 mmHg (35-45) H 05/02/17 17:53 ABG pO2 62 mmHg (85-104) L 05/02/17 17:53 ABG O2 Saturation 91 % (95-98) L 05/02/17 17:53 PT/INR, D-dimer PT 12.6 Seconds (9.4-12.1) H 04/29/17 01:13 Abnormal lab findings: Abnormal lab results WBC 16.4 K/mcL (4.3-11.1) H 05/03/17 03:17 MPV 9.1 fL (9.4-12.4) L 05/03/17 03:17 Neutrophils # 14.5 K/mcL (1.6-8.9) H 05/03/17 03:17 ESR 30 mm/hr (0-10) H 04/29/17 15:58 PT 12.6 Seconds (9.4-12.1) H 04/29/17 01:13 ABG pCO2 49 mmHg (35-45) H 05/02/17 17:53 ABG pO2 62 mmHg (85-104) L 05/02/17 17:53 ABG HCO3 30 mEq/L (21-27) H 05/02/17 17:53 ABG Total CO2 32 mEq/L (20-26) H 05/02/17 17:53 ABG O2 Saturation 91 % (95-98) L 05/02/17 17:53 ABG Base Excess 4 mEq/L (-2 to 3) H 05/02/17 17:53 BUN 71 mg/dL (8-23) H 05/03/17 03:17 BUN/Creatinine Ratio 73 (6-26) H 05/03/17 03:17 Glucose 179 mg/dL (70-105) H 05/03/17 03:17 POC Glucose 103 (58-89) H 04/30/17 12:29 Calculated Osmolality 313 (280-300) H 05/03/17 03:17 Total Bilirubin 1.2 mg/dL (0.3-1.0) H 05/01/17 11:00 B-Natriuretic Peptide 198 pg/mL (Less than 100) H 05/01/17 13:31 Globulin 3.6 g/dL (2.4-3.5) H 05/01/17 11:00 Albumin/Globulin Ratio 1.0 (1.1-2.2) L 05/01/17 11:00 - Microbiology Findings Microbiology Findings: Microbiology, Last 48 Hours 05/01/17 15:08 Sputum Culture - Preliminary Sputum - Clinical Findings Intake & Output: Intake & Output 05/02/17 05/03/17 05/03/17 23:59 07:59 15:59 Intake Total 100 / 100 120 / 120 Output Total 200 / 200 Balance 100 / 100 -80 / -80 - VTE Documentation of Mechanical Device: Intermittent pneumatic compression device Consult Discharge Plan - Plan Instructions: Heart Failure (DC), Acute Respiratory Distress Syndrome (DC), Chronic Obstructive Pulmonary Disease (DC), Sepsis (DC), Abuse of Alcohol (DC), Abuse of Alcohol (GEN), Chronic Hypertension (DC), Pneumonia (DC) Referrals: Dex Higuera Jr, MD [Primary Care Provider] - 05/10/17 10:00 am
[2017-05-03] MEDS: *HR* LORazepam 2 MG/ML VIAL IVP PRN (13:37)
--- NOTE | 2017-05-03 21:26 | Spine Progress Note ---
Date of Encounter: 05/03/17 Time of Encounter: 21:24 - Assessment and Plan (1) Ankylosing spondylitis Current Visit: Yes Status: Suspected On examination he is lying comfortably in bed and a thoracic lumbar orthotic as prescribed. Afebrile vital signs stable. Exam is notable for limited chest expansion, limited range of motion of the thoracic or lumbar spine, tenderness to palpation over the midthoracic region, and a protuberant abdomen which is distended but nontender. He is neurovascularly intact with regard to his bilateral upper and lower extremities. He has no clonus. CT examination of the chest reveals a 3 column T8 thoracic fracture extending from the T7-8 disc space through the pedicles through the posterior elements. There is osseous bridging throughout the thoracolumbar spine consistent with ankylosing spondylitis.. AP pelvis reveals degenerative changes and essentially fused sacroiliac joints consistent with ankylosing spondylitis . AP and lateral views of thoracic spine reveals multilevel degenerative changes in the thoracic fracture at T8 with 3 column involvement. MRI of the thoracic spine reveals a T8 fracture with no significant evidence of thoracic cord stenosis or hematoma. Impression: 1) ankylosing spondylitis 2) unstable thoracic vertebral fracture with 3 column involvement Plan: We are going to obtain additional markers for ankylosing spondylitis including an HLA B 27 marker. The patient has been placed in the thoracic lumbar orthotic and has had warnings and education regarding the unstable nature of his fracture. In this regard I find it reasonable to consider surgery in the form of a at least T5-T11 instrumented posterior thoracic fusion. He will need medical optimization and clearance prior to any surgical intervention. Plan was discussed with patient and 2 daughters present and they are agreeable at this time. Qualifiers: Ankylosing spondylitis location: multiple sites in spine Qualified Code(s) : M45.0 - Ankylosing spondylitis 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 Subjective Principal diagnosis: vertebral fracture Interval history: The patient has known ankylosing spondylitis with a chance type fracture which is unstable. Recommendations been surgical intervention but we are awaiting medical optimization and clearance. The Cardiology service has been consult today and does not feel the patient needs any urgent cardiac intervention. Patient is now trying to get improvement in his pulmonary status prior to elective surgery. His baseline oxygenation required treatments have gone from a room air to now 6 L via nasal cannula. He is he is being treated for pneumonia. Pulmonary services on board. If his respiratory status improves over the weekend we will plan elective multilevel thoracic fusion on Sunday. This will presume his white count is no longer trending upward and his respiratory status remains stable and/or improved. Objective Vital signs: Vital Signs Temp Pulse Resp BP Pulse Ox 05/03/17 20:00 97.9 F 71 16 165/88 94 05/03/17 19:58 18 92 05/03/17 15:15 98.6 F 69 16 126/81 95 05/03/17 15:00 23 97 05/03/17 11:48 97.9 F 67 15 118/77 92 05/03/17 11:06 22 91 05/03/17 09:24 92 05/03/17 07:40 26 135/84 92 05/03/17 07:16 98.1 F 73 16 135/84 92 05/03/17 04:48 98.2 F 70 16 148/79 93 05/03/17 04:20 25 113/95 94 05/02/17 23:49 98.7 F 79 16 113/95 97 05/02/17 23:18 22 92 Intake and Output 05/03/17 05/03/17 05/03/17 07:59 15:59 23:59 Intake Total 220 / 220 280 / 280 Output Total 200 / 200 800 / 800 Balance -520 / -520 Intake: IV Fluids 100 / 100 100 / 100 Doxycycline 100 MG In 0.9 % 100 / 100 100 / 100 Sodium Chloride (Mini-Bag +) 100 ML @ 100 mls/hr IVPB Q12HR [facility] Rx#:[id number] Oral 120 / 120 180 / 180 Output: Urine 200 / 200 800 / 800 Other: Meal Breakfast Percent of Meal Consumed 0% Stool Size Small Large Stool Consistency loose loose liquid Stool Color Brown Brown # Bowel Movements 1 # Bowel Movement Diapers 1 1 - Labs CBC & BMP: 05/03/17 03:17 05/03/17 03:17 Labs: Abnormal lab results WBC 16.4 K/mcL (4.3-11.1) H 05/03/17 03:17 MPV 9.1 fL (9.4-12.4) L 05/03/17 03:17 Neutrophils # 14.5 K/mcL (1.6-8.9) H 05/03/17 03:17 ESR 30 mm/hr (0-10) H 04/29/17 15:58 PT 12.6 Seconds (9.4-12.1) H 04/29/17 01:13 ABG pCO2 49 mmHg (35-45) H 05/02/17 17:53 ABG pO2 62 mmHg (85-104) L 05/02/17 17:53 ABG HCO3 30 mEq/L (21-27) H 05/02/17 17:53 ABG Total CO2 32 mEq/L (20-26) H 05/02/17 17:53 ABG O2 Saturation 91 % (95-98) L 05/02/17 17:53 ABG Base Excess 4 mEq/L (-2 to 3) H 05/02/17 17:53 BUN 71 mg/dL (8-23) H 05/03/17 03:17 BUN/Creatinine Ratio 73 (6-26) H 05/03/17 03:17 Glucose 179 mg/dL (70-105) H 05/03/17 03:17 POC Glucose 103 (58-89) H 04/30/17 12:29 Calculated Osmolality 313 (280-300) H 05/03/17 03:17 Total Bilirubin 1.2 mg/dL (0.3-1.0) H 05/01/17 11:00 B-Natriuretic Peptide 198 pg/mL (Less than 100) H 05/01/17 13:31 Globulin 3.6 g/dL (2.4-3.5) H 05/01/17 11:00 Albumin/Globulin Ratio 1.0 (1.1-2.2) L 05/01/17 11:00 Consult Discharge Plan - Plan Instructions: Heart Failure (DC), Acute Respiratory Distress Syndrome (DC), Chronic Obstructive Pulmonary Disease (DC), Sepsis (DC), Abuse of Alcohol (DC), Abuse of Alcohol (GEN), Chronic Hypertension (DC), Pneumonia (DC) Referrals: Dex Higuera Jr, MD [Primary Care Provider] - 05/10/17 10:00 am
[2017-05-04] MEDS: Acetaminophen 325 MG TABLET PO PRN ×4 (00:40→21:23)
[2017-05-04] MEDS: MethylPREDNISolone 40 MG/ML VIAL IVP SCH ×3 (00:47→15:18)
[2017-05-04] MEDS: Ipratropium/Albuterol Neb 3 ML IH SCH ×6 (03:26→23:34)
[2017-05-04] MEDS: traMADol 50 MG TABLET PO PRN ×3 (04:42→18:29)
[2017-05-04 05:29] LABS: Basophils % 0.1 %; Hematocrit 40.7 % (37.5-50.1); Hemoglobin 13.2 g/dL (12.9-16.9); Immature Granulocytes % 0.9 % (0-4); Lymphocytes # 0.6 K/mcL (0.6-4.6); Lymphocytes % 3.5 %; Mean Corpuscular HGB Conc 32.4 g/dL (31.6-35.5); Mean Corpuscular Volume 95.5 fL (83.0-100.0); Mean Platelet Volume 9.4 fL (9.4-12.4); Monocytes # 1.1 K/mcL (0.0-1.3); Monocytes % 6.8 %; Neutrophils # 14.4 K/mcL (1.6-8.9); Platelet Count 317 K/mcL (140-400); Red Blood Count 4.26 M/mcL (4.19-5.50); Red Cell Distribution Width 12.2 % (11.5-14.5); Segmented Neutrophils % 88.7 %
[2017-05-04 05:44] LABS: BUN/Creatinine Ratio 68 (6-26); Blood Urea Nitrogen 53 mg/dL (8-23); Calcium 9.2 mg/dL (8.6-10.3); Carbon Dioxide 33 mEq/L (23-29); Chloride 102 mEq/L (98-107); Glucose 150 mg/dL (70-105); Osmolality,Calculated 309 (280-300); Potassium 4.1 mEq/L (3.5-5.1); Sodium 141 mEq/L (136-145); eGFR For African Americans > 60 (> 60); eGFR For Non-African Americans > 60 (> 60)
[2017-05-04] MEDS: *HR* Heparin 5,000 UNIT/ML VIAL SQ SCH ×3 (06:22→20:07)
[2017-05-04] MEDS: Doxycycline 100 MG in 0.9 % Sodium Chloride Mini Bag 100 ML IVPB SCH ×2 (06:23→18:07)
--- NOTE | 2017-05-04 07:48 | Electrocardiograph Report ---
[place] [id number] Test Date: 2017-04-27 Pat Name: Elkin Sapp Department: 104 Room: 2NE24 Gender: M [employer] Aide: : 1935 Requested By: Javier Anderson Order Number: [id number] Reading MD: Aris Waller DO Measurements Intervals [place] Rate: 72 P: IA: 0 QRS: 18 QRSD: 79 T: -7 QT: 389 QTc: 413 Interpretive Statements SINUS RHYTHM LOW QRS VOLTAGE IN PRECORDIAL LEADS POSSIBLE ANTERIOR MYOCARDIAL INFARCTION, OF INDETERMINATE AGE NONSPECIFIC INFERIOR ST-T CHANGES Electronically Signed On 05-04-2017 7:46:42 EST by Aris Waller DO
[2017-05-04] MEDS: Budesonide/Formoterol 160/4.5 MDI IH SCH ×2 (08:06→19:46)
[2017-05-04] MEDS: Furosemide 40 MG TABLET PO SCH ×2 (08:11→18:08)
--- NOTE | 2017-05-04 09:09 | Internal Med Progress Note ---
<Domenico Cruz - Last Filed: 05/04/17 13:29> Date of Encounter: 05/04/17 Time of Encounter: 09:07 - Assessment and plan (1) Thoracic spine fracture Current Visit: Yes Status: Acute Assessment and plan: CT and MR revealed T7-T8 compressive fracture. Orthopedic spine has been consulted. I called and spoke with Dr. Baron yesterday and he stated that due to the patient's respiratory status patient is high risk and does not feel that surgery is appropriate at this time. We will update Dr. Baron if the patient has any interval improvement from a respiratory standpoint. Patient has a back brace in place. Qualifiers: Encounter type: subsequent encounter Thoracic vertebra fracture level: T7 Fracture type: closed Fracture morphology: other fracture Fracture healing : with routine healing Qualified Code(s): S22.068D - Other fracture of T7-T8 thoracic vertebra, subsequent encounter for fracture with routine healing (2) Hypoxia Current Visit: Yes Status: Acute Assessment and plan: Patient had episode of hypoxia down to 83%. Continue with DuoNeb therapy Continue with oxygen supplementation Chest x-ray showed: Bibasilar volume loss with possible bilateral pleural effusions. Otherwise, stable chest Pulmonology has been consulted. Pulmonology has recommended BiPAP for this patient. Patient has improved from a respiratory standpoint since being on the BiPAP. (3) COPD (chronic obstructive pulmonary disease) Current Visit: No Status: Chronic Assessment and plan: Per pulmonology we will start the patient on Solu-Medrol and schedule DuoNeb's. Continue with supplemental oxygen. Continue with BiPAP per pulmonology recommendations. Qualifiers: COPD type: emphysema Emphysema type: unspecified Qualified Code(s): J43.9 - Emphysema, unspecified (4) Community acquired pneumonia Current Visit: Yes Status: Chronic Assessment and plan: Continue doxycycline 100 twice a day Continue Duonebs every 4 hours scheduled Qualifiers: Laterality: right Lung location: upper lobe of lung Qualified Code(s): J18.1 - Lobar pneumonia, unspecified organism (5) HTN (hypertension) Current Visit: No Status: Chronic Assessment and plan: Patient is currently normotensive continue Cozaar, hydralazine and carvedilol Qualifiers: Hypertension type: essential hypertension Qualified Code(s): I10 - Essential (primary) hypertension (6) Hyperlipidemia Current Visit: No Status: Chronic Assessment and plan: continue current medical management Qualifiers: Hyperlipidemia type: unspecified Qualified Code(s): E78.5 - Hyperlipidemia , unspecified (7) Chronic alcohol abuse Current Visit: No Status: Chronic Assessment and plan: Continue with CIWA protocol If the patient becomes more agitated he may need to be paced on a precedex drip and transfered to for a higher level of care (8) Diastolic CHF Current Visit: No Status: Chronic Assessment and plan: Most recent echo on 04/28/17 showed LVEF 60-65%. Normal LV chamber size and function. Moderate concentric left ventricular hypertrophy. Mild left ventricular diastolic dysfunction. Right ventricle not well visualized. Grossly normal function. Severely dilated left atrium. No significant valvular dysfunction. No evidence of pulmonary hypertension. continue home dose of Lasix in addition to ARB, statin and aspirin Qualifiers: Heart failure chronicity: chronic Qualified Code(s): I50.32 - Chronic diastolic (congestive) heart failure (9) Constipation due to opioid therapy Current Visit: Yes Status: Acute Assessment and plan: Patient has a significant amount of constipation with abdominal pain and distention. Patient has been receiving lactulose in attempt to help with the constipation. KUB showed nonobstructive bowel gas pattern without significant stool burden. Was methylnaltrexone to help with opiod induced contipation. Patient did have a large bowel movement per nursing. Patient states that he has had minimal relief of his distention. We will repeat a KUB today due to the patient being unable to lay flat for a CT scan. (10) Abdominal discomfort Current Visit: Yes Status: Acute Assessment and plan: Likely secondary to pain referred from back pain vs constipation Patient is unable to lay flat for a ct scan. Repeat KUB will be obtained. (11) Leukocytosis Current Visit: Yes Status: Acute Assessment and plan: Likely secondary to being on steroids. WBC was trending downward until placed on for his COPD Qualifiers: Leukocytosis type: unspecified Qualified Code(s): D72.829 - Elevated white blood cell count, unspecified (12) DVT prophylaxis Current Visit: Yes Status: Acute Assessment and plan: Patient is receiving heparin 5000 units SQ q8h - Subjective Interval history: Patient states that he is feeling somewhat better today. States that his breathing has improved a little bit. He is still having some abdominal discomfort and distention. However he does state that he has had a small bowel movement which has provided minimal relief of his distention and discomfort. Patient's states that he is still having back discomfort due to his thoracic spine fracture. - Constitutional Vitals: Temp Pulse Resp BP Pulse Ox 97.8 F 77 20 147/67 96 05/04/17 06:36 05/04/17 06:36 05/04/17 08:08 05/04/17 06:36 05/04/17 08:08 General appearance: Present: A&O X 3, no acute distress, answers questions appropriately - Head Head exam: Present: atraumatic, normocephalic - Neck Neck exam general surgery: Present: full ROM, normal inspection, trachea midline - Respiratory Respiratory exam: Present: CTAB Additional comments: Patient has mildly increased work of breathing, still on high flow nasal cannula oxygen. - Cardiovascular Cardiovascular exam: Present: RRR, +S1, +S2. Absent: diastolic murmur, gallop, rubs, systolic murmur - GI/Abdominal GI/Abdominal exam: Present: diminished bowel sounds, distended, soft, tenderness (Patient describes as diffuse discomfort but not really tender to palpation.), no peritoneal signs - Extremities Exam Extremities exam: Present: pedal edema (1+ pitting edema in bilateral lower extremities.) - Back Exam Additional comments: Patient is currently in a back brace due to a T7-T8 fracture. - Neurological Exam Neurological exam: Present: alert, oriented X3, no focal deficits. Absent: facial droop, speech deficit - Psychiatric Psychiatric exam: Present: normal affect, normal mood - Skin Skin exam: Present: dry, intact, warm Internal Medicine: Result - Labs CBC & Chem 7: 05/04/17 04:24 05/04/17 04:24 Labs: Short CBC 05/04/17 Range/Units 04:24 WBC 16.2 H (4.3-11.1) K/mcL Hgb 13.2 (12.9-16.9) g/dL Hct 40.7 (37.5-50.1) % Plt Count 317 (140-400) K/mcL Neutrophils # 14.4 H (1.6-8.9) K/mcL BMP 05/04/17 04:24 Sodium 141 Potassium 4.1 Chloride 102 Carbon Dioxide 33 H BUN 53 H Creatinine 0.78 Glucose 150 H Calcium 9.2 - ABG Interpretation ABG results: ABG ABG pH 7.40 pH Units (7.32-7.45) 05/02/17 17:53 ABG pCO2 49 mmHg (35-45) H 05/02/17 17:53 ABG pO2 62 mmHg (85-104) L 05/02/17 17:53 ABG O2 Saturation 91 % (95-98) L 05/02/17 17:53 PT/INR, D-dimer PT 12.6 Seconds (9.4-12.1) H 04/29/17 01:13 - VTE Documentation of Mechanical Device: Intermittent pneumatic compression device Consult Discharge Plan - Plan Instructions: Heart Failure (DC), Acute Respiratory Distress Syndrome (DC), Chronic Obstructive Pulmonary Disease (DC), Sepsis (DC), Abuse of Alcohol (DC), Abuse of Alcohol (GEN), Chronic Hypertension (DC), Pneumonia (DC) Referrals: Dex Higuera Jr, MD [Primary Care Provider] - 05/10/17 10:00 am <Pranav Marte - Last Filed: 05/04/17 17:15> Date of Encounter: 05/04/17 - Assessment and plan (1) Acute respiratory failure Current Visit: No Status: Acute Qualifiers: Respiratory failure complication: hypoxia Qualified Code(s): J96.01 - Acute respiratory failure with hypoxia (2) Constipation due to opioid therapy Current Visit: Yes Status: Acute (3) CHF (congestive heart failure) Current Visit: Yes Status: Chronic Qualifiers: Heart failure type: diastolic Heart failure chronicity: chronic Qualified Code(s): I50.32 - Chronic diastolic (congestive) heart failure (4) Thoracic spine fracture Current Visit: Yes Status: Acute Qualifiers: Encounter type: subsequent encounter Thoracic vertebra fracture level: T7 Fracture type: closed Fracture morphology: other fracture Fracture healing : with routine healing Qualified Code(s): S22.068D - Other fracture of T7-T8 thoracic vertebra, subsequent encounter for fracture with routine healing (5) Ankylosing spondylitis Current Visit: Yes Status: Suspected Qualifiers: Ankylosing spondylitis location: multiple sites in spine Qualified Code(s) : M45.0 - Ankylosing 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 transplanted heart: [place] heart Associated angina: without angina Qualified Code(s): I25.10 - Atherosclerotic heart disease of [place] coronary artery without angina pectoris (7) HTN (hypertension) Current Visit: No Status: Chronic Qualifiers: Hypertension type: essential hypertension Qualified Code(s): I10 - Essential (primary) hypertension - Constitutional Vitals: Temp Pulse Resp BP Pulse Ox 97.8 F 83 16 140/79 92 05/04/17 16:16 05/04/17 16:16 05/04/17 16:59 05/04/17 16:16 05/04/17 16:59 Internal Medicine: Result - Labs CBC & Chem 7: 05/04/17 04:24 05/04/17 04:24 Labs: Short CBC 05/04/17 Range/Units 04:24 WBC 16.2 H (4.3-11.1) K/mcL Hgb 13.2 (12.9-16.9) g/dL Hct 40.7 (37.5-50.1) % Plt Count 317 (140-400) K/mcL Neutrophils # 14.4 H (1.6-8.9) K/mcL BMP 05/04/17 04:24 Sodium 141 Potassium 4.1 Chloride 102 Carbon Dioxide 33 H BUN 53 H Creatinine 0.78 Glucose 150 H Calcium 9.2 - ABG Interpretation ABG results: ABG ABG pH 7.40 pH Units (7.32-7.45) 05/02/17 17:53 ABG pCO2 49 mmHg (35-45) H 05/02/17 17:53 ABG pO2 62 mmHg (85-104) L 05/02/17 17:53 ABG O2 Saturation 91 % (95-98) L 05/02/17 17:53 PT/INR, D-dimer PT 12.6 Seconds (9.4-12.1) H 04/29/17 01:13 - Impressions Impressions KUB X-Ray 05/04/17 10:06 IMPRESSION: Limited examination secondary to patient positioning. Nonobstructive bowel gas pattern. D/ / Nathen Robles MD / Nathen Robles MD Interpreting Provider: Nathen Robles MD - Attending Attestation I examined this patient and my medical decision-making was reviewed with the Resident Physician on 05/04/17. I agree with the documented findings, disposition and treatment plan as described except to the extent set forth below. Mr Sapp is currently admitted for hypoxia and thoracic spine fracture. He remains moderate to high risk due to potential for worsening clinical status. Mr Sapp has had some anxiety today and has responded to Ativan for CIWA. Still with abd distention but has had BMs. No fever or chills. WBC elevated but on steroids. Still on intermittent bipap. Exam Alert. Mod resp distress at times. Mucus membranes dry Heart distant Lungs diminished Abd distended and soft. Nontender I/P 1. Hypoxia 2. Thoracic spine fracture Further diagnoses and plan as above. He has had 7 days of IV abx - stopped today. Recheck labs in AM
[2017-05-04] MEDS: Lactulose Oral Soln 20 GM/30 ML UDC PO SCH ×2 (09:34→20:07)
[2017-05-04] MEDS: Multivit/Ca/Min/Fe/FA 1 TAB TABLET PO SCH (09:35)
[2017-05-04] MEDS: Thiamine (B-1) 100 MG TABLET PO SCH (09:35)
[2017-05-04] MEDS: Aspirin Enteric Coated 81 MG Tablet PO SCH (09:35)
[2017-05-04] MEDS: Folic Acid 1 MG TABLET PO SCH (09:36)
[2017-05-04] MEDS: Ascorbic Acid 500 MG TABLET PO SCH (09:36)
[2017-05-04] MEDS: Cholecalciferol (D-3) 1,000 UNIT TABLET PO SCH (09:36)
[2017-05-04] MEDS: (Umeclidinium Bromide [Incruse Ellipta] 62.5 MCG) IH SCH ×2 (10:13→18:28)
[2017-05-04] MEDS: *HR* LORazepam 2 MG/ML VIAL IVP PRN ×2 (13:30→21:18)
--- NOTE | 2017-05-04 22:11 | Pulmonology Progress Note ---
Date of Encounter: 05/04/17 Time of Encounter: 16:30 Assessment and Plan (1) Acute and chronic respiratory failure Current Visit: Yes Status: Acute Patient has worsening of Acute on chronic hypoxic respiratory failure multifactorial worsening V/Q mismatch due to COPD exacerbation complicated by splinting of diaphragm with atelectasis . will treat as COPD exacerbation and encouraged to use incentive spirometry as it help to reduce the risk of postoperative respiratory failure if this fails patient might benefit from BIPAP at night and during the day time sitting up doing incentive spirometry as able . 05/02 will add BIPAP 02/14 if he tolerates will add more pressure support with EPAP with ABG shows Chronic hypercapnia Because of his extensive pulmonary history he has moderate to High risk for postoperative respiratory failure 05/03 Patient tolerated the BIPAP ok will continue tonight and day time prn , encouraged him to do the incentive spirometry Continue O2 supplementation to keep SPO2 around 90% 05/04 To continue BIPAP encouraged to use Incentive spirometry after he gets a dose of pain medication Qualifiers: Respiratory failure complication: hypoxia and hypercapnia Qualified Code(s) : J96.21 - Acute and chronic respiratory failure with hypoxia; J96.22 - Acute and chronic respiratory failure with hypercapnia; J96.22 - Acute and chronic respiratory failure with hypercapnia; J96.22 - Acute and chronic respiratory failure with hypercapnia (2) COPD exacerbation Current Visit: Yes Status: Acute To continue to treat with bronchodilators and steroids . Counseled the family he can be cleared under moderate to high risk for post operative respiratory failure high might need post operative mechanical ventilation . (3) Pneumonia Current Visit: Yes Status: Acute To continue current regimen of antibiotics . Discussed with family answered all questions discussed the plan with the primary team. 05/04 To complete 7 day course of antibiotics Qualifiers: Lung location: unspecified part of lung Qualified Code(s): J18.9 - Pneumonia, unspecified organism Subjective Principal diagnosis: vertebral fracture Interval history: Patient says symptoms are not much different he passed bowel movements he feels the tummy feels less tight , his breathing is the same he is not able to cough much because of the pain due to vertebral fracture denies any chest pain or tightness . Wore BIPAP that helped little bit but says he didnt like the BIPAP but willing to try . 05/04 . Patient says his breathing still the same , his cough causes back pain able to use BIPAP in the night Objective PUL Vital signs: Last Vital Signs Temp 97.7 F 05/04/17 18:57 Pulse 80 05/04/17 18:57 Resp 18 05/04/17 19:46 BP 145/64 05/04/17 18:57 Pulse Ox 92 05/04/17 19:46 General appearance: other (some back pain ) Effort: mildly labored Auscultation: bilateral: diminished breath sounds (bilateral bibasilar diminished breadth s) Gastrointestinal: hypoactive bowel sounds Results - Laboratory Findings CBC and BMP: 05/04/17 04:24 05/04/17 04:24 ABG ABG pH 7.40 pH Units (7.32-7.45) 05/02/17 17:53 ABG pCO2 49 mmHg (35-45) H 05/02/17 17:53 ABG pO2 62 mmHg (85-104) L 05/02/17 17:53 ABG O2 Saturation 91 % (95-98) L 05/02/17 17:53 PT/INR, D-dimer PT 12.6 Seconds (9.4-12.1) H 04/29/17 01:13 Abnormal lab findings: Abnormal lab results WBC 16.2 K/mcL (4.3-11.1) H 05/04/17 04:24 Neutrophils # 14.4 K/mcL (1.6-8.9) H 05/04/17 04:24 ESR 30 mm/hr (0-10) H 04/29/17 15:58 PT 12.6 Seconds (9.4-12.1) H 04/29/17 01:13 ABG pCO2 49 mmHg (35-45) H 05/02/17 17:53 ABG pO2 62 mmHg (85-104) L 05/02/17 17:53 ABG HCO3 30 mEq/L (21-27) H 05/02/17 17:53 ABG Total CO2 32 mEq/L (20-26) H 05/02/17 17:53 ABG O2 Saturation 91 % (95-98) L 05/02/17 17:53 ABG Base Excess 4 mEq/L (-2 to 3) H 05/02/17 17:53 Carbon Dioxide 33 mEq/L (23-29) H 05/04/17 04:24 BUN 53 mg/dL (8-23) H 05/04/17 04:24 BUN/Creatinine Ratio 68 (6-26) H 05/04/17 04:24 Glucose 150 mg/dL (70-105) H 05/04/17 04:24 POC Glucose 103 (58-89) H 04/30/17 12:29 Calculated Osmolality 309 (280-300) H 05/04/17 04:24 Total Bilirubin 1.2 mg/dL (0.3-1.0) H 05/01/17 11:00 B-Natriuretic Peptide 198 pg/mL (Less than 100) H 05/01/17 13:31 Globulin 3.6 g/dL (2.4-3.5) H 05/01/17 11:00 Albumin/Globulin Ratio 1.0 (1.1-2.2) L 05/01/17 11:00 - Microbiology Findings Microbiology Findings: Microbiology, Last 48 Hours 05/01/17 15:08 Sputum Culture - Final Sputum - Clinical Findings Intake & Output: Intake & Output 05/04/17 05/04/17 05/04/17 07:59 15:59 23:59 Intake Total 220 / 220 240 / 240 1158 / 1158 Output Total 595 / 595 425 / 425 300 / 300 Balance -375 / -375 -185 / -185 858 / 858 Weight 103.5 kg 103.5 kg - VTE Documentation of Mechanical Device: Intermittent pneumatic compression device Consult Discharge Plan - Plan Instructions: Heart Failure (DC), Acute Respiratory Distress Syndrome (DC), Chronic Obstructive Pulmonary Disease (DC), Sepsis (DC), Abuse of Alcohol (DC), Abuse of Alcohol (GEN), Chronic Hypertension (DC), Pneumonia (DC) Referrals: Dex Higuera Jr, MD [Primary Care Provider] - 05/10/17 10:00 am
[2017-05-05] MEDS: MethylPREDNISolone 40 MG/ML VIAL IVP SCH ×3 (01:00→16:49)
[2017-05-05] MEDS: Ipratropium/Albuterol Neb 3 ML IH SCH ×6 (03:56→23:31)
[2017-05-05] MEDS: Acetaminophen 325 MG TABLET PO PRN ×2 (04:28→15:44)
[2017-05-05] MEDS: Doxycycline 100 MG in 0.9 % Sodium Chloride Mini Bag 100 ML IVPB SCH ×2 (04:58→16:49)
[2017-05-05 04:59] LABS: Basophils % 0.2 %; Hematocrit 43.2 % (37.5-50.1); Immature Granulocytes % 1.4 % (0-4); Lymphocytes # 0.7 K/mcL (0.6-4.6); Mean Corpuscular HGB Conc 32.4 g/dL (31.6-35.5); Mean Corpuscular Volume 95.8 fL (83.0-100.0); Mean Platelet Volume 9.3 fL (9.4-12.4); Monocytes % 5.8 %; Platelet Count 311 K/mcL (140-400); Red Blood Count 4.51 M/mcL (4.19-5.50); Segmented Neutrophils % 88.6 %
[2017-05-05] MEDS: *HR* Heparin 5,000 UNIT/ML VIAL SQ SCH ×3 (05:00→23:01)
[2017-05-05 05:20] LABS: BUN/Creatinine Ratio 54 (6-26); Blood Urea Nitrogen 37 mg/dL (8-23); Calcium 9.4 mg/dL (8.6-10.3); Carbon Dioxide 31 mEq/L (23-29); Chloride 100 mEq/L (98-107); Glucose 199 mg/dL (70-105); Osmolality,Calculated 302 (280-300); Sodium 139 mEq/L (136-145); eGFR For African Americans > 60 (> 60); eGFR For Non-African Americans > 60 (> 60)
[2017-05-05] MEDS: Budesonide/Formoterol 160/4.5 MDI IH SCH ×2 (07:43→20:21)
[2017-05-05] MEDS: Ascorbic Acid 500 MG TABLET PO SCH (09:08)
[2017-05-05] MEDS: Cholecalciferol (D-3) 1,000 UNIT TABLET PO SCH (09:08)
[2017-05-05] MEDS: Folic Acid 1 MG TABLET PO SCH (09:08)
[2017-05-05] MEDS: Thiamine (B-1) 100 MG TABLET PO SCH (09:08)
[2017-05-05] MEDS: Multivit/Ca/Min/Fe/FA 1 TAB TABLET PO SCH (09:09)
[2017-05-05] MEDS: Furosemide 40 MG TABLET PO SCH ×2 (09:09→15:44)
[2017-05-05] MEDS: Lactulose Oral Soln 20 GM/30 ML UDC PO SCH (09:09)
--- NOTE | 2017-05-05 12:06 | Internal Med Progress Note ---
Date of Encounter: 05/05/17 Time of Encounter: 10:50 - Assessment and plan (1) Acute respiratory failure Current Visit: No Status: Acute Assessment and plan: Starting to wean down oxygen amount - currently on 8 liters Will most likely remain on ventilator following surgery due to restrictive lung disease and current issues. Qualifiers: Respiratory failure complication: hypoxia Qualified Code(s): J96.01 - Acute respiratory failure with hypoxia (2) Constipation due to opioid therapy Current Visit: Yes Status: Acute Assessment and plan: Now having some loose stools with the lactulose Will hold lactulose for now (3) CHF (congestive heart failure) Current Visit: Yes Status: Chronic Assessment and plan: Currently asymptomatic Continue current meds Qualifiers: Heart failure type: diastolic Heart failure chronicity: chronic Qualified Code(s): I50.32 - Chronic diastolic (congestive) heart failure (4) Thoracic spine fracture Current Visit: Yes Status: Acute Assessment and plan: CT and MR revealed T7-T8 compressive fracture. Orthopedic spine has been consulted. Awaiting final plans regarding surgery. 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 transplanted heart: [place] heart Associated angina: without angina Qualified Code(s): I25.10 - Atherosclerotic heart disease of [place] coronary artery without angina pectoris (7) HTN (hypertension) Current Visit: No Status: Chronic Assessment and plan: Patient is currently normotensive continue Cozaar, hydralazine and carvedilol Qualifiers: Hypertension type: essential hypertension Qualified Code(s): I10 - Essential (primary) hypertension - Subjective Interval history: Mr Sapp is currently admitted for acute fracture T7-8. He now has issues with respiratory status and abdominal distention. He remains moderate to high risk due to potential for worsening clinical status. Mr Sapp is resting comfortably at this time. His oxygen has decreased to 8liters at this time and he is 90%. Continues to have pain in his back. Has had some loose stool as well. No fever or chills. WBC elevated but on steroids. - Constitutional Vitals: Temp Pulse Resp BP Pulse Ox 97.9 F 68 20 151/90 93 05/05/17 11:01 05/05/17 11:01 05/05/17 11:45 05/05/17 11:01 05/05/17 11:45 General appearance: Present: A&O X 3, answers questions appropriately - Head Head exam: Present: normocephalic - Eye Eye exam: Present: conjuntiva pink - ENT ENT exam: Present: mucous membranes dry - Respiratory Respiratory exam: Present: decreased breath sounds, rhonchi. Absent: wheezes - Cardiovascular Cardiovascular exam: Present: distant heart sounds, RRR - GI/Abdominal GI/Abdominal exam: Present: distended, hypoactive bowel sounds, soft. Absent: tenderness - Extremities Exam Extremities exam: Present: warm. Absent: tenderness - Neurological Exam Neurological exam: Present: alert, oriented X3 - Skin Skin exam: Present: warm. Absent: rash Internal Medicine: Result - Labs CBC & Chem 7: 05/05/17 04:16 05/05/17 04:16 Labs: Short CBC 05/05/17 Range/Units 04:16 WBC 16.9 H (4.3-11.1) K/mcL Hgb 14.0 (12.9-16.9) g/dL Hct 43.2 (37.5-50.1) % Plt Count 311 (140-400) K/mcL Neutrophils # 15.0 H (1.6-8.9) K/mcL BMP 05/05/17 04:16 Sodium 139 Potassium 4.0 Chloride 100 Carbon Dioxide 31 H BUN 37 H Creatinine 0.69 L Glucose 199 H Calcium 9.4 - ABG Interpretation ABG results: ABG ABG pH 7.40 pH Units (7.32-7.45) 05/02/17 17:53 ABG pCO2 49 mmHg (35-45) H 05/02/17 17:53 ABG pO2 62 mmHg (85-104) L 05/02/17 17:53 ABG O2 Saturation 91 % (95-98) L 05/02/17 17:53 PT/INR, D-dimer PT 12.6 Seconds (9.4-12.1) H 04/29/17 01:13 - Impressions Impressions KUB X-Ray 05/04/17 10:06 IMPRESSION: Limited examination secondary to patient positioning. Nonobstructive bowel gas pattern. D/ / Nathen Robles MD / Nathen Robles MD Interpreting Provider: Nathen Robles MD - VTE Documentation of Mechanical Device: Intermittent pneumatic compression device Consult Discharge Plan - Plan Instructions: Heart Failure (DC), Acute Respiratory Distress Syndrome (DC), Chronic Obstructive Pulmonary Disease (DC), Sepsis (DC), Abuse of Alcohol (DC), Abuse of Alcohol (GEN), Chronic Hypertension (DC), Pneumonia (DC) Referrals: Dex Higuera Jr, MD [Primary Care Provider] - 05/10/17 10:00 am
--- NOTE | 2017-05-05 12:11 | Pulmonology Progress Note ---
Date of Encounter: 05/05/17 Time of Encounter: 12:00 Assessment and Plan (1) Acute and chronic respiratory failure Current Visit: Yes Status: Acute Patient has worsening of Acute on chronic hypoxic respiratory failure multifactorial worsening V/Q mismatch due to COPD exacerbation complicated by splinting of diaphragm with atelectasis . will treat as COPD exacerbation and encouraged to use incentive spirometry as it help to reduce the risk of postoperative respiratory failure if this fails patient might benefit from BIPAP at night and during the day time sitting up doing incentive spirometry as able . 05/02 will add BIPAP 02/14 if he tolerates will add more pressure support with EPAP with ABG shows Chronic hypercapnia Because of his extensive pulmonary history he has moderate to High risk for postoperative respiratory failure 05/03 Patient tolerated the BIPAP ok will continue tonight and day time prn , encouraged him to do the incentive spirometry Continue O2 supplementation to keep SPO2 around 90% 05/04 To continue BIPAP encouraged to use Incentive spirometry after he gets a dose of pain medication 05/05 -To continue diuresis patient O2 requirements coming down encourage sitting and to use incentive Spirometry after 1/2 hr after pain medications . Qualifiers: Respiratory failure complication: hypoxia and hypercapnia Qualified Code(s) : J96.21 - Acute and chronic respiratory failure with hypoxia; J96.22 - Acute and chronic respiratory failure with hypercapnia; J96.22 - Acute and chronic respiratory failure with hypercapnia; J96.22 - Acute and chronic respiratory failure with hypercapnia (2) COPD exacerbation Current Visit: Yes Status: Acute To continue to treat with bronchodilators and steroids . Counseled the family he can be cleared under moderate to high risk for post operative respiratory failure high might need post operative mechanical ventilation . If Patient is scheduled for OR sunday will recommend scheduled Q4 bronchodilators , need RT to encourage patient incentive spirometry with pain control this will reduce the risk of Post operative respiratory failure . To continue steroids . Will continue diuresis as tolerated (3) Pneumonia Current Visit: Yes Status: Acute To continue current regimen of antibiotics . Discussed with family answered all questions discussed the plan with the primary team. 05/04 To complete 7 day course of antibiotics 05/05 To complete the course of antibiotics Qualifiers: Pneumonia type: due to unspecified organism Lung location: unspecified part of lung Qualified Code(s): J18.9 - Pneumonia, unspecified organism Subjective Principal diagnosis: vertebral fracture Interval history: Patient says symptoms are not much different he passed bowel movements he feels the tummy feels less tight , his breathing is the same he is not able to cough much because of the pain due to vertebral fracture denies any chest pain or tightness . Wore BIPAP that helped little bit but says he didnt like the BIPAP but willing to try . 05/04 . Patient says his breathing still the same , his cough causes back pain able to use BIPAP in the night 05/05 sitting in the chair feeling better his O2 requirements are coming down , still has back pain , tummy feeling less tight denies any chest pain , still not able to take a deep breadth because of back pain . Objective PUL Vital signs: Last Vital Signs Temp 97.9 F 05/05/17 11:01 Pulse 68 05/05/17 11:01 Resp 20 05/05/17 11:45 BP 151/90 05/05/17 11:01 Pulse Ox 93 05/05/17 11:45 Auscultation: bilateral: diminished breath sounds (bilateral basilar diminished breadth sounds ), wheezes (minimal scattered wheezes ) Results - Laboratory Findings CBC and BMP: 05/05/17 04:16 05/05/17 04:16 ABG ABG pH 7.40 pH Units (7.32-7.45) 05/02/17 17:53 ABG pCO2 49 mmHg (35-45) H 05/02/17 17:53 ABG pO2 62 mmHg (85-104) L 05/02/17 17:53 ABG O2 Saturation 91 % (95-98) L 05/02/17 17:53 PT/INR, D-dimer PT 12.6 Seconds (9.4-12.1) H 04/29/17 01:13 Abnormal lab findings: Abnormal lab results WBC 16.9 K/mcL (4.3-11.1) H 05/05/17 04:16 MPV 9.3 fL (9.4-12.4) L 05/05/17 04:16 Neutrophils # 15.0 K/mcL (1.6-8.9) H 05/05/17 04:16 ESR 30 mm/hr (0-10) H 04/29/17 15:58 PT 12.6 Seconds (9.4-12.1) H 04/29/17 01:13 ABG pCO2 49 mmHg (35-45) H 05/02/17 17:53 ABG pO2 62 mmHg (85-104) L 05/02/17 17:53 ABG HCO3 30 mEq/L (21-27) H 05/02/17 17:53 ABG Total CO2 32 mEq/L (20-26) H 05/02/17 17:53 ABG O2 Saturation 91 % (95-98) L 05/02/17 17:53 ABG Base Excess 4 mEq/L (-2 to 3) H 05/02/17 17:53 Carbon Dioxide 31 mEq/L (23-29) H 05/05/17 04:16 BUN 37 mg/dL (8-23) H 05/05/17 04:16 Creatinine 0.69 mg/dL (0.70-1.30) L 05/05/17 04:16 BUN/Creatinine Ratio 54 (6-26) H 05/05/17 04:16 Glucose 199 mg/dL (70-105) H 05/05/17 04:16 POC Glucose 103 (58-89) H 04/30/17 12:29 Calculated Osmolality 302 (280-300) H 05/05/17 04:16 Total Bilirubin 1.2 mg/dL (0.3-1.0) H 05/01/17 11:00 B-Natriuretic Peptide 198 pg/mL (Less than 100) H 05/01/17 13:31 Globulin 3.6 g/dL (2.4-3.5) H 05/01/17 11:00 Albumin/Globulin Ratio 1.0 (1.1-2.2) L 05/01/17 11:00 - Microbiology Findings Microbiology Findings: Microbiology, Last 48 Hours 05/01/17 15:08 Sputum Culture - Final Sputum - Clinical Findings Intake & Output: Intake & Output 05/04/17 05/05/17 05/05/17 23:59 07:59 15:59 Intake Total 1277 / 1277 360 / 360 0 / 0 Output Total 300 / 300 400 / 400 375 / 375 Balance 977 / 977 -40 / -40 -375 / -375 - VTE Documentation of Mechanical Device: Intermittent pneumatic compression device Consult Discharge Plan - Plan Instructions: Heart Failure (DC), Acute Respiratory Distress Syndrome (DC), Chronic Obstructive Pulmonary Disease (DC), Sepsis (DC), Abuse of Alcohol (DC), Abuse of Alcohol (GEN), Chronic Hypertension (DC), Pneumonia (DC) Referrals: Dex Higuera Jr, MD [Primary Care Provider] - 05/10/17 10:00 am
[2017-05-05] MEDS: traMADol 50 MG TABLET PO PRN ×2 (13:27→23:01)
[2017-05-05] MEDS: *HR* LORazepam 2 MG/ML VIAL IVP PRN (15:44)
[2017-05-05] MEDS: *HR* FentaNYL (PF) 100 MCG/2 ML VIAL IVP PRN (16:51)
[2017-05-06] MEDS: Acetaminophen 325 MG TABLET PO PRN ×2 (00:32→15:11)
[2017-05-06] MEDS: MethylPREDNISolone 40 MG/ML VIAL IVP SCH ×3 (01:05→18:13)
[2017-05-06] MEDS: *HR* LORazepam 2 MG/ML VIAL IVP PRN ×2 (01:33→12:54)
[2017-05-06] MEDS: Ipratropium/Albuterol Neb 3 ML IH SCH ×5 (04:06→20:55)
[2017-05-06] MEDS: Doxycycline 100 MG in 0.9 % Sodium Chloride Mini Bag 100 ML IVPB SCH ×2 (05:53→18:13)
[2017-05-06] MEDS: *HR* Heparin 5,000 UNIT/ML VIAL SQ SCH ×3 (05:54→20:25)
[2017-05-06] MEDS: Budesonide/Formoterol 160/4.5 MDI IH SCH ×2 (07:42→20:55)
[2017-05-06 07:55] LABS: BUN/Creatinine Ratio 45 (6-26); Blood Urea Nitrogen 31 mg/dL (8-23); Calcium 9.1 mg/dL (8.6-10.3); Carbon Dioxide 33 mEq/L (23-29); Chloride 99 mEq/L (98-107); Glucose 182 mg/dL (70-105); Osmolality,Calculated 297 (280-300); Sodium 138 mEq/L (136-145); eGFR For African Americans > 60 (> 60); eGFR For Non-African Americans > 60 (> 60)
[2017-05-06 07:58] LABS: Hematocrit 41.6 % (37.5-50.1); Hemoglobin 13.3 g/dL (12.9-16.9); Mean Corpuscular Hemoglobin 30.6 pg (28.0-33.3); Mean Corpuscular Volume 95.6 fL (83.0-100.0); Mean Platelet Volume 9.5 fL (9.4-12.4); Platelet Count 306 K/mcL (140-400); Red Blood Count 4.35 M/mcL (4.19-5.50); Red Cell Distribution Width 11.9 % (11.5-14.5)
[2017-05-06] MEDS: Ascorbic Acid 500 MG TABLET PO SCH (08:54)
[2017-05-06] MEDS: *HR* FentaNYL (PF) 100 MCG/2 ML VIAL IVP PRN ×3 (08:55→18:14)
[2017-05-06] MEDS: Cholecalciferol (D-3) 1,000 UNIT TABLET PO SCH (08:55)
[2017-05-06] MEDS: Furosemide 40 MG TABLET PO SCH (08:55)
[2017-05-06] MEDS: Thiamine (B-1) 100 MG TABLET PO SCH (08:55)
[2017-05-06] MEDS: Folic Acid 1 MG TABLET PO SCH (08:55)
[2017-05-06] MEDS: Multivit/Ca/Min/Fe/FA 1 TAB TABLET PO SCH (08:55)
[2017-05-06] MEDS: (Umeclidinium Bromide [Incruse Ellipta] 62.5 MCG) IH SCH (09:06)
[2017-05-06] MEDS: traMADol 50 MG TABLET PO PRN ×2 (12:26→20:43)
--- NOTE | 2017-05-06 12:56 | Internal Med Progress Note ---
Date of Encounter: 05/06/17 Time of Encounter: 10:30 - Assessment and plan (1) Acute respiratory failure Current Visit: No Status: Acute Assessment and plan: Weaning oxygen down. On steroids at this time Will increase diuresis to see if this helps as well. Qualifiers: Respiratory failure complication: hypoxia Qualified Code(s): J96.01 - Acute respiratory failure with hypoxia (2) Constipation due to opioid therapy Current Visit: Yes Status: Acute Assessment and plan: Lactulose on hold Monitor bowel movements - may need restarted. (3) CHF (congestive heart failure) Current Visit: Yes Status: Chronic Assessment and plan: Will increase lasix to push diuresis and see if this helps respiratory status. Qualifiers: Heart failure type: diastolic Heart failure chronicity: acute on chronic Qualified Code(s): I50.33 - Acute on chronic diastolic (congestive) heart failure (4) Thoracic spine fracture Current Visit: Yes Status: Acute Assessment and plan: CT and MR revealed T7-T8 compressive fracture. Orthopedic spine has been consulted. Awaiting final plans regarding surgery. Qualifiers: Encounter type: subsequent encounter Thoracic vertebra fracture level: T7 Fracture type: closed Fracture morphology: other fracture Fracture healing : with routine healing Qualified Code(s): S22.068D - Other fracture of T7-T8 thoracic vertebra, subsequent encounter for fracture with routine healing (5) Ankylosing spondylitis Current Visit: Yes Status: Suspected Assessment and plan: Chronic issue Qualifiers: Ankylosing spondylitis location: multiple sites in spine Qualified Code(s) : M45.0 - Ankylosing spondylitis 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 (6) CAD (coronary artery disease) Current Visit: No Status: Chronic Assessment and plan: Chronic issue Qualifiers: Coronary Disease-Associated Artery/Lesion type: [place] artery [place] vs. transplanted heart: [place] heart Associated angina: without angina Qualified Code(s): I25.10 - Atherosclerotic heart disease of [place] coronary artery without angina pectoris (7) HTN (hypertension) Current Visit: No Status: Chronic Assessment and plan: Patient is currently normotensive continue Cozaar, hydralazine and carvedilol Qualifiers: Hypertension type: essential hypertension Qualified Code(s): I10 - Essential (primary) hypertension (8) Neutrophilic leukocytosis Current Visit: Yes Status: Acute Assessment and plan: Related to steroids. - Subjective Interval history: Mr Sapp is currently admitted for acute fracture T7-8. He now has issues with respiratory status and abdominal distention. He remains moderate to high risk due to potential for worsening clinical status. Mr Sapp is comfortable currently. Having more pain today and getting pain meds. Breathing has been up and down - was down to 6 liters yesterday and back up to 10 today. No fever or chills. No CP. Abd still distended but bowels moving. - Constitutional Vitals: Temp Pulse Resp BP Pulse Ox 98.5 F 68 16 161/93 90 05/06/17 11:53 05/06/17 11:53 05/06/17 11:53 05/06/17 11:53 05/06/17 11:53 General appearance: Present: A&O X 3, answers questions appropriately - Head Head exam: Present: normocephalic - Eye Eye exam: Present: conjuntiva pink - ENT ENT exam: Present: mucous membranes dry - Respiratory Respiratory exam: Present: decreased breath sounds, rhonchi, wheezes. Absent: rales - Cardiovascular Cardiovascular exam: Present: RRR. Absent: tachycardia - GI/Abdominal GI/Abdominal exam: Present: distended, soft. Absent: tenderness - Extremities Exam Extremities exam: Present: warm. Absent: tenderness - Neurological Exam Neurological exam: Present: alert, oriented X3 - Skin Skin exam: Present: warm. Absent: rash Internal Medicine: Result - Labs CBC & Chem 7: 05/06/17 06:33 05/06/17 06:33 Labs: Short CBC 05/06/17 Range/Units 06:33 WBC 17.3 H (4.3-11.1) K/mcL Hgb 13.3 (12.9-16.9) g/dL Hct 41.6 (37.5-50.1) % Plt Count 306 (140-400) K/mcL BMP 05/06/17 06:33 Sodium 138 Potassium 4.0 Chloride 99 Carbon Dioxide 33 H BUN 31 H Creatinine 0.69 L Glucose 182 H Calcium 9.1 - ABG Interpretation ABG results: ABG ABG pH 7.40 pH Units (7.32-7.45) 05/02/17 17:53 ABG pCO2 49 mmHg (35-45) H 05/02/17 17:53 ABG pO2 62 mmHg (85-104) L 05/02/17 17:53 ABG O2 Saturation 91 % (95-98) L 05/02/17 17:53 PT/INR, D-dimer PT 12.6 Seconds (9.4-12.1) H 04/29/17 01:13 - Impressions Impressions KUB X-Ray 05/02/17 09:33 IMPRESSION: Nonobstructed bowel-gas pattern. D/ / 05/02/2017 14:49:42 Britni Barton MD / earnold Interpreting Provider: Britni Barton MD - VTE Documentation of Mechanical Device: Intermittent pneumatic compression device Consult Discharge Plan - Plan Instructions: Heart Failure (DC), Acute Respiratory Distress Syndrome (DC), Chronic Obstructive Pulmonary Disease (DC), Sepsis (DC), Abuse of Alcohol (DC), Abuse of Alcohol (GEN), Chronic Hypertension (DC), Pneumonia (DC) Referrals: Dex Higuera Jr, MD [Primary Care Provider] - 05/10/17 10:00 am
[2017-05-06] MEDS: Furosemide 40 MG/4 ML VIAL IVP SCH ×2 (13:18→20:25)
--- NOTE | 2017-05-06 15:24 | Pulmonology Progress Note ---
Date of Encounter: 05/06/17 Time of Encounter: 11:30 Assessment and Plan (1) Acute and chronic respiratory failure Current Visit: Yes Status: Acute Patient has worsening of Acute on chronic hypoxic respiratory failure multifactorial worsening V/Q mismatch due to COPD exacerbation complicated by splinting of diaphragm with atelectasis . will treat as COPD exacerbation and encouraged to use incentive spirometry as it help to reduce the risk of postoperative respiratory failure if this fails patient might benefit from BIPAP at night and during the day time sitting up doing incentive spirometry as able . 05/02 will add BIPAP 02/14 if he tolerates will add more pressure support with EPAP with ABG shows Chronic hypercapnia Because of his extensive pulmonary history he has moderate to High risk for postoperative respiratory failure 05/03 Patient tolerated the BIPAP ok will continue tonight and day time prn , encouraged him to do the incentive spirometry Continue O2 supplementation to keep SPO2 around 90% 05/04 To continue BIPAP encouraged to use Incentive spirometry after he gets a dose of pain medication 05/05 -To continue diuresis patient O2 requirements coming down encourage sitting and to use incentive Spirometry after 1/2 hr after pain medications . 05/06 -To continue diuresis according to primary team to continue schedule bronchodilators before surgery . Qualifiers: Respiratory failure complication: hypoxia and hypercapnia Qualified Code(s) : J96.21 - Acute and chronic respiratory failure with hypoxia; J96.22 - Acute and chronic respiratory failure with hypercapnia; J96.22 - Acute and chronic respiratory failure with hypercapnia; J96.22 - Acute and chronic respiratory failure with hypercapnia (2) COPD exacerbation Current Visit: Yes Status: Acute To continue to treat with bronchodilators and steroids . Counseled the family he can be cleared under moderate to high risk for post operative respiratory failure high might need post operative mechanical ventilation . If Patient is scheduled for OR sunday will recommend scheduled Q4 bronchodilators , need RT to encourage patient incentive spirometry with pain control this will reduce the risk of Post operative respiratory failure . To continue steroids . Will continue diuresis as tolerated Patient is cleared for surgery under Moderate to High risk of Postoperative respiratory failure . Explained patient and family he might need the BIPAP or Invaseive ventilation after the surgery (3) Pneumonia Current Visit: Yes Status: Acute To continue current regimen of antibiotics . Discussed with family answered all questions discussed the plan with the primary team. 05/04 To complete 7 day course of antibiotics 05/05 To complete the course of antibiotics 05/06 Can stop the antibitoics after today's dose Qualifiers: Pneumonia type: due to unspecified organism Laterality: unspecified laterality Lung location: unspecified part of lung Qualified Code(s): J18.9 - Pneumonia, unspecified organism Subjective Principal diagnosis: vertebral fracture Interval history: Patient says symptoms are not much different he passed bowel movements he feels the tummy feels less tight , his breathing is the same he is not able to cough much because of the pain due to vertebral fracture denies any chest pain or tightness . Wore BIPAP that helped little bit but says he didnt like the BIPAP but willing to try . 05/04 . Patient says his breathing still the same , his cough causes back pain able to use BIPAP in the night 05/05 sitting in the chair feeling better his O2 requirements are coming down , still has back pain , tummy feeling less tight denies any chest pain , still not able to take a deep breadth because of back pain . 05/06 Patient says he is slightly better he is lying in bed says his back pain adequately controlled Objective PUL Vital signs: Last Vital Signs Temp 98.5 F 05/06/17 11:53 Pulse 68 05/06/17 11:53 Resp 16 05/06/17 11:53 BP 161/93 05/06/17 11:53 Pulse Ox 90 05/06/17 11:53 Auscultation: bilateral: diminished breath sounds (basilar diminished ), wheezes (scattered wheezes ) Results - Laboratory Findings CBC and BMP: 05/06/17 06:33 05/06/17 06:33 ABG ABG pH 7.40 pH Units (7.32-7.45) 05/02/17 17:53 ABG pCO2 49 mmHg (35-45) H 05/02/17 17:53 ABG pO2 62 mmHg (85-104) L 05/02/17 17:53 ABG O2 Saturation 91 % (95-98) L 05/02/17 17:53 PT/INR, D-dimer PT 12.6 Seconds (9.4-12.1) H 04/29/17 01:13 Abnormal lab findings: Abnormal lab results WBC 17.3 K/mcL (4.3-11.1) H 05/06/17 06:33 Neutrophils # 15.0 K/mcL (1.6-8.9) H 05/05/17 04:16 ESR 30 mm/hr (0-10) H 04/29/17 15:58 PT 12.6 Seconds (9.4-12.1) H 04/29/17 01:13 ABG pCO2 49 mmHg (35-45) H 05/02/17 17:53 ABG pO2 62 mmHg (85-104) L 05/02/17 17:53 ABG HCO3 30 mEq/L (21-27) H 05/02/17 17:53 ABG Total CO2 32 mEq/L (20-26) H 05/02/17 17:53 ABG O2 Saturation 91 % (95-98) L 05/02/17 17:53 ABG Base Excess 4 mEq/L (-2 to 3) H 05/02/17 17:53 Carbon Dioxide 33 mEq/L (23-29) H 05/06/17 06:33 BUN 31 mg/dL (8-23) H 05/06/17 06:33 Creatinine 0.69 mg/dL (0.70-1.30) L 05/06/17 06:33 BUN/Creatinine Ratio 45 (6-26) H 05/06/17 06:33 Glucose 182 mg/dL (70-105) H 05/06/17 06:33 POC Glucose 103 (58-89) H 04/30/17 12:29 Total Bilirubin 1.2 mg/dL (0.3-1.0) H 05/01/17 11:00 B-Natriuretic Peptide 198 pg/mL (Less than 100) H 05/01/17 13:31 Globulin 3.6 g/dL (2.4-3.5) H 05/01/17 11:00 Albumin/Globulin Ratio 1.0 (1.1-2.2) L 05/01/17 11:00 - Clinical Findings Intake & Output: Intake & Output 05/05/17 05/06/17 05/06/17 23:59 07:59 15:59 Intake Total 2357 / 2357 350 / 350 120 / 120 Output Total 300 / 300 320 / 320 775 / 775 Balance 2056 / 2056 30 / 30 -655 / -655 - VTE Documentation of Mechanical Device: Intermittent pneumatic compression device Consult Discharge Plan - Plan Instructions: Heart Failure (DC), Acute Respiratory Distress Syndrome (DC), Chronic Obstructive Pulmonary Disease (DC), Sepsis (DC), Abuse of Alcohol (DC), Abuse of Alcohol (GEN), Chronic Hypertension (DC), Pneumonia (DC) Referrals: Dex Higuera Jr, MD [Primary Care Provider] - 05/10/17 10:00 am
[2017-05-07] MEDS: MethylPREDNISolone 40 MG/ML VIAL IVP SCH ×4 (00:05→23:34)
[2017-05-07] MEDS: *HR* FentaNYL (PF) 100 MCG/2 ML VIAL IVP PRN ×2 (00:06→09:20)
[2017-05-07] MEDS: Ipratropium/Albuterol Neb 3 ML IH SCH ×6 (00:40→22:08)
[2017-05-07 05:09] LABS: BUN/Creatinine Ratio 44 (6-26); Blood Urea Nitrogen 33 mg/dL (8-23); Calcium 9.3 mg/dL (8.6-10.3); Carbon Dioxide 32 mEq/L (23-29); Chloride 97 mEq/L (98-107); Glucose 198 mg/dL (70-105); Osmolality,Calculated 295 (280-300); Sodium 136 mEq/L (136-145); eGFR For African Americans > 60 (> 60); eGFR For Non-African Americans > 60 (> 60)
[2017-05-07 05:54] LABS: Hematocrit 42.6 % (37.5-50.1); Hemoglobin 13.9 g/dL (12.9-16.9); Mean Corpuscular HGB Conc 32.6 g/dL (31.6-35.5); Mean Corpuscular Hemoglobin 30.5 pg (28.0-33.3); Mean Corpuscular Volume 93.6 fL (83.0-100.0); Mean Platelet Volume 9.2 fL (9.4-12.4); Platelet Count 309 K/mcL (140-400); Red Blood Count 4.55 M/mcL (4.19-5.50); Red Cell Distribution Width 11.9 % (11.5-14.5)
[2017-05-07] MEDS: *HR* Heparin 5,000 UNIT/ML VIAL SQ SCH ×3 (06:23→20:47)
[2017-05-07] MEDS: Budesonide/Formoterol 160/4.5 MDI IH SCH ×2 (07:50→22:09)
--- NOTE | 2017-05-07 09:26 | Internal Med Progress Note ---
<Tali Cruzn - Last Filed: 05/07/17 13:09> Date of Encounter: 05/07/17 Time of Encounter: 09:24 - Assessment and plan (1) Acute respiratory failure Current Visit: No Status: Acute Assessment and plan: Weaning oxygen as tolerated Continue steroids Continue diuresis to see if this will help the respiratory status Qualifiers: Respiratory failure complication: hypoxia Qualified Code(s): J96.01 - Acute respiratory failure with hypoxia (2) COPD (chronic obstructive pulmonary disease) Current Visit: No Status: Chronic Assessment and plan: Continue Solu-Medrol and scheduled DuoNeb's. Continue with supplemental oxygen. Continue with BiPAP per pulmonology recommendations. Qualifiers: COPD type: emphysema Emphysema type: unspecified Qualified Code(s): J43.9 - Emphysema, unspecified (3) Thoracic spine fracture Current Visit: Yes Status: Acute Assessment and plan: CT and MR revealed T7-T8 compressive fracture. Orthopedic spine has been consulted. Awaiting final plans regarding surgery. Qualifiers: Encounter type: subsequent encounter Thoracic vertebra fracture level: T7 Fracture type: closed Fracture morphology: other fracture Fracture healing : with routine healing Qualified Code(s): S22.068D - Other fracture of T7-T8 thoracic vertebra, subsequent encounter for fracture with routine healing (4) Ankylosing spondylitis Current Visit: Yes Status: Suspected Assessment and plan: Chronic issue Likely contributory to the patients thoracic spine fracture Qualifiers: Ankylosing spondylitis location: multiple sites in spine Qualified Code(s) : M45.0 - Ankylosing spondylitis 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 (5) Diastolic CHF Current Visit: Yes Status: Chronic Assessment and plan: Most recent echo on 04/28/17 showed LVEF 60-65%. Normal LV chamber size and function. Moderate concentric left ventricular hypertrophy. Mild left ventricular diastolic dysfunction. Right ventricle not well visualized. Grossly normal function. Severely dilated left atrium. No significant valvular dysfunction. No evidence of pulmonary hypertension. Will continue with increased lasix dosing to increased diurese to help with respiratory status Qualifiers: Heart failure chronicity: chronic Qualified Code(s): I50.32 - Chronic diastolic (congestive) heart failure (6) Community acquired pneumonia Current Visit: Yes Status: Chronic Assessment and plan: Antibiotics have been discontinued. Qualifiers: Laterality: right Lung location: upper lobe of lung Qualified Code(s): J18.1 - Lobar pneumonia, unspecified organism (7) HTN (hypertension) Current Visit: No Status: Chronic Assessment and plan: Patient is currently normotensive continue Cozaar, hydralazine and carvedilol Qualifiers: Hypertension type: essential hypertension Qualified Code(s): I10 - Essential (primary) hypertension (8) Hyperlipidemia Current Visit: No Status: Chronic Assessment and plan: continue current medical management Qualifiers: Hyperlipidemia type: unspecified Qualified Code(s): E78.5 - Hyperlipidemia , unspecified (9) Chronic alcohol abuse Current Visit: No Status: Chronic Assessment and plan: Continue with CIWA protocol If the patient becomes more agitated he may need to be paced on a precedex drip and transfered to for a higher level of care (10) Constipation due to opioid therapy Current Visit: Yes Status: Acute Assessment and plan: Lactulose on hold Monitor bowel movements - may need restarted. (11) Neutrophilic leukocytosis Current Visit: Yes Status: Acute Assessment and plan: Likely secondary to Steroids (12) CAD (coronary artery disease) Current Visit: No Status: Chronic Assessment and plan: Chronic issue Qualifiers: Coronary Disease-Associated Artery/Lesion type: mcgrath artery [place] vs. transplanted heart: mcgrath heart Associated angina: without angina Qualified Code(s): I25.10 - Atherosclerotic heart disease of mcgrath coronary artery without angina pectoris (13) DVT prophylaxis Current Visit: Yes Status: Acute Assessment and plan: Patient is receiving heparin 5000 units SQ q8h - Subjective Interval history: Patient states that he has improved some. States that he feels like his breathing has improved however he has not been paying attention to how much oxygen he is requiring. Patient states that his abdomen is feeling better but is still somewhat distended. Upon seeing this patient today he felt like he was about ready to have a bowel movement this morning. It is brought to my attention by nursing that the family may wish to have the patient transferred to another facility. Upon talking to the patient he said that Dr. Holloway was his doctor and was waiting for him to decide whether or not he needed to be transferred or not. We will await the recommendations of Dr. Holloway. - Constitutional Vitals: Temp Pulse Resp BP Pulse Ox 97.7 F 72 18 173/93 92 05/07/17 07:34 05/07/17 07:34 05/07/17 07:52 05/07/17 07:34 05/07/17 07:52 General appearance: Present: A&O X 3, answers questions appropriately - Head Head exam: Present: atraumatic, normocephalic - Neck Neck exam general surgery: Present: full ROM, normal inspection, trachea midline - Respiratory Respiratory exam: Present: rales (bilaterally) - Cardiovascular Cardiovascular exam: Present: RRR, +S1, +S2. Absent: diastolic murmur, gallop, rubs, systolic murmur - GI/Abdominal GI/Abdominal exam: Present: distended, soft, no peritoneal signs. Absent: tenderness - Extremities Exam Extremities exam: Present: pedal edema (1+ pitting edema bilateral lower extremities.) - Back Exam Additional comments: Patient is currently in a back brace. - Neurological Exam Neurological exam: Present: alert, oriented X3, no focal deficits. Absent: facial droop, speech deficit - Psychiatric Psychiatric exam: Present: normal affect, normal mood - Skin Skin exam: Present: dry, intact, warm Internal Medicine: Result - Labs CBC & Chem 7: 05/07/17 04:32 05/07/17 04:32 Labs: Short CBC 05/07/17 Range/Units 04:32 WBC 18.4 H (4.3-11.1) K/mcL Hgb 13.9 (12.9-16.9) g/dL Hct 42.6 (37.5-50.1) % Plt Count 309 (140-400) K/mcL [facility] 05/07/17 04:32 Sodium 136 Potassium 4.0 Chloride 97 L Carbon Dioxide 32 H BUN 33 H Creatinine 0.75 Glucose 198 H Calcium 9.3 - ABG Interpretation ABG results: ABG ABG pH 7.40 pH Units (7.32-7.45) 05/02/17 17:53 ABG pCO2 49 mmHg (35-45) H 05/02/17 17:53 ABG pO2 62 mmHg (85-104) L 05/02/17 17:53 ABG O2 Saturation 91 % (95-98) L 05/02/17 17:53 PT/INR, D-dimer PT 12.6 Seconds (9.4-12.1) H 04/29/17 01:13 - Impressions Impressions Chest X-Ray 05/06/17 17:55 IMPRESSION: Stable small layering bilateral pleural effusions with bibasilar opacity may reflect atelectasis or pneumonia if the patient has fever or leukocytosis. D/ / Mic Paramr / Mic Parmar Interpreting Provider: Mic Parmar - VTE Documentation of Mechanical Device: Intermittent pneumatic compression device Consult Discharge Plan - Plan Instructions: Heart Failure (DC), Acute Respiratory Distress Syndrome (DC), Chronic Obstructive Pulmonary Disease (DC), Sepsis (DC), Abuse of Alcohol (DC), Abuse of Alcohol (GEN), Chronic Hypertension (DC), Pneumonia (DC) Referrals: Dex Higuera Jr, MD [Primary Care Provider] - 05/10/17 10:00 am <Pranav Marte - Last Filed: 05/07/17 18:14> Date of Encounter: 05/07/17 - Assessment and plan (1) Acute respiratory failure Current Visit: No Status: Acute Qualifiers: Respiratory failure complication: hypoxia Qualified Code(s): J96.01 - Acute respiratory failure with hypoxia (2) Constipation due to opioid therapy Current Visit: Yes Status: Acute (3) CHF (congestive heart failure) Current Visit: Yes Status: Chronic Qualifiers: Heart failure type: diastolic Heart failure chronicity: acute on chronic Qualified Code(s): I50.33 - Acute on chronic diastolic (congestive) heart failure (4) Thoracic spine fracture Current Visit: Yes Status: Acute Qualifiers: Encounter type: subsequent encounter Thoracic vertebra fracture level: T7 Fracture type: closed Fracture morphology: other fracture Fracture healing : with routine healing Qualified Code(s): S22.068D - Other fracture of T7-T8 thoracic vertebra, subsequent encounter for fracture with routine healing (5) Ankylosing spondylitis Current Visit: Yes Status: Suspected Qualifiers: Ankylosing spondylitis location: multiple sites in spine Qualified Code(s) : M45.0 - Ankylosing spondylitis 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 (6) CAD (coronary artery disease) Current Visit: No Status: Chronic Qualifiers: Coronary Disease-Associated Artery/Lesion type: mcgrath artery [place] vs. transplanted heart: mcgrath heart Associated angina: without angina Qualified Code(s): I25.10 - Atherosclerotic heart disease of [place] coronary artery without angina pectoris (7) HTN (hypertension) Current Visit: No Status: Chronic Qualifiers: Hypertension type: essential hypertension Qualified Code(s): I10 - Essential (primary) hypertension (8) Neutrophilic leukocytosis Current Visit: Yes Status: Acute - Constitutional Vitals: Temp Pulse Resp BP Pulse Ox 98 F 71 18 177/89 91 05/07/17 14:52 05/07/17 14:52 05/07/17 16:11 05/07/17 14:52 05/07/17 16:11 Internal Medicine: Result - Labs CBC & Chem 7: 05/07/17 04:32 05/07/17 04:32 Labs: Short CBC 05/07/17 Range/Units 04:32 WBC 18.4 H (4.3-11.1) K/mcL Hgb 13.9 (12.9-16.9) g/dL Hct 42.6 (37.5-50.1) % Plt Count 309 (140-400) K/mcL [facility] 05/07/17 04:32 Sodium 136 Potassium 4.0 Chloride 97 L Carbon Dioxide 32 H BUN 33 H Creatinine 0.75 Glucose 198 H Calcium 9.3 - ABG Interpretation ABG results: ABG ABG pH 7.40 pH Units (7.32-7.45) 05/02/17 17:53 ABG pCO2 49 mmHg (35-45) H 05/02/17 17:53 ABG pO2 62 mmHg (85-104) L 05/02/17 17:53 ABG O2 Saturation 91 % (95-98) L 05/02/17 17:53 PT/INR, D-dimer PT 12.6 Seconds (9.4-12.1) H 04/29/17 01:13 - Impressions Impressions Chest X-Ray 05/06/17 17:55 IMPRESSION: Stable small layering bilateral pleural effusions with bibasilar opacity may reflect atelectasis or pneumonia if the patient has fever or leukocytosis. D/ / Mic Parmar / Mic Parmar Interpreting Provider: Mic Parmar - Attending Attestation I examined this patient and my medical decision-making was reviewed with the Resident Physician on 05/07/17. I agree with the documented findings, disposition and treatment plan as described except to the extent set forth below. Mr Sapp is currently admitted for thoracic fracture and hypoxemia. He remains moderate to high risk due to potential for worsening clinical status. Mr Sapp is sitting on edge of bed. No fever or chills. Says he is breathing somewhat better today. Still with a lot of pain. Exam alert Mod distress Mucus membranes dry Heart reg Decreased breath sounds Abd distended but soft I/P 1. Hypoxia 2. Thoracic fracture Further diagnoses and plan as above.
[2017-05-07] MEDS: Cholecalciferol (D-3) 1,000 UNIT TABLET PO SCH (09:34)
[2017-05-07] MEDS: Aspirin Enteric Coated 81 MG Tablet PO SCH (09:34)
[2017-05-07] MEDS: Thiamine (B-1) 100 MG TABLET PO SCH (09:34)
[2017-05-07] MEDS: Multivit/Ca/Min/Fe/FA 1 TAB TABLET PO SCH (09:34)
[2017-05-07] MEDS: traMADol 50 MG TABLET PO PRN ×3 (09:34→20:56)
[2017-05-07] MEDS: Ascorbic Acid 500 MG TABLET PO SCH (09:34)
[2017-05-07] MEDS: Furosemide 40 MG/4 ML VIAL IVP SCH ×2 (09:35→17:49)
[2017-05-07] MEDS: Folic Acid 1 MG TABLET PO SCH (09:35)
[2017-05-07] MEDS: (Umeclidinium Bromide [Incruse Ellipta] 62.5 MCG) IH SCH (09:36)
--- NOTE | 2017-05-07 09:50 | Pulmonology Progress Note ---
Date of Encounter: 05/07/17 Time of Encounter: 08:00 Assessment and Plan (1) Acute and chronic respiratory failure Current Visit: Yes Status: Resolved Patient is feeling much better and to continue noninvasive ventilation when necessary and she is tolerating that at night and patient qualified. Keep SPO2 around 90%. Qualifiers: Respiratory failure complication: hypoxia and hypercapnia Qualified Code(s) : J96.21 - Acute and chronic respiratory failure with hypoxia; J96.22 - Acute and chronic respiratory failure with hypercapnia; J96.22 - Acute and chronic respiratory failure with hypercapnia; J96.22 - Acute and chronic respiratory failure with hypercapnia (2) COPD exacerbation Current Visit: Yes Status: Resolved Patient is feeling better and can be on oral taper steroids with bronchodilators. Patient was advised to follow up with her primary care and she is discharged and offered to her outpatient follow-up if she is interested with pulmonary clinic. Please call for any questions on follow-up when necessary. (3) Pneumonia Current Visit: Yes Status: Acute Patient can be changed to oral antibiotic when she is discharged. Qualifiers: Pneumonia type: due to unspecified organism Laterality: unspecified laterality Lung location: unspecified part of lung Qualified Code(s): J18.9 - Pneumonia, unspecified organism (4) Suspected sleep apnea Current Visit: Yes Status: Suspected I have advised patient she probably will need a sleep study as outpatient, but she is not interested. Patient will be on noninvasive ventilation. Subjective Principal diagnosis: vertebral fracture Interval history: Patient is feeling much better and she is feeling her breathing has improved Objective PUL Vital signs: Last Vital Signs Temp 97.7 F 05/07/17 07:34 Pulse 72 05/07/17 07:34 Resp 18 05/07/17 07:52 BP 173/93 05/07/17 07:34 Pulse Ox 92 05/07/17 07:52 General appearance: no acute distress Eyes: nonicteric ENT: oropharynx moist Mallampati (class): 4 Neck: supple Effort: normal Auscultation: bilateral: diminished breath sounds Percussion: bilateral: not dull Cardiovascular: regular rate and rhythm Gastrointestinal: normoactive bowel sounds, non-distended Extremities: no cyanosis, edema normal mental status, non-focal exam mood appropriate Results - Laboratory Findings CBC and BMP: 05/07/17 04:32 05/07/17 04:32 ABG ABG pH 7.40 pH Units (7.32-7.45) 05/02/17 17:53 ABG pCO2 49 mmHg (35-45) H 05/02/17 17:53 ABG pO2 62 mmHg (85-104) L 05/02/17 17:53 ABG O2 Saturation 91 % (95-98) L 05/02/17 17:53 PT/INR, D-dimer PT 12.6 Seconds (9.4-12.1) H 04/29/17 01:13 Abnormal lab findings: Abnormal lab results WBC 18.4 K/mcL (4.3-11.1) H 05/07/17 04:32 MPV 9.2 fL (9.4-12.4) L 05/07/17 04:32 Neutrophils # 15.0 K/mcL (1.6-8.9) H 05/05/17 04:16 ESR 30 mm/hr (0-10) H 04/29/17 15:58 PT 12.6 Seconds (9.4-12.1) H 04/29/17 01:13 ABG pCO2 49 mmHg (35-45) H 05/02/17 17:53 ABG pO2 62 mmHg (85-104) L 05/02/17 17:53 ABG HCO3 30 mEq/L (21-27) H 05/02/17 17:53 ABG Total CO2 32 mEq/L (20-26) H 05/02/17 17:53 ABG O2 Saturation 91 % (95-98) L 05/02/17 17:53 ABG Base Excess 4 mEq/L (-2 to 3) H 05/02/17 17:53 Chloride 97 mEq/L (98-107) L 05/07/17 04:32 Carbon Dioxide 32 mEq/L (23-29) H 05/07/17 04:32 BUN 33 mg/dL (8-23) H 05/07/17 04:32 BUN/Creatinine Ratio 44 (6-26) H 05/07/17 04:32 Glucose 198 mg/dL (70-105) H 05/07/17 04:32 POC Glucose 103 (58-89) H 04/30/17 12:29 Total Bilirubin 1.2 mg/dL (0.3-1.0) H 05/01/17 11:00 B-Natriuretic Peptide 198 pg/mL (Less than 100) H 05/01/17 13:31 Globulin 3.6 g/dL (2.4-3.5) H 05/01/17 11:00 Albumin/Globulin Ratio 1.0 (1.1-2.2) L 05/01/17 11:00 - Clinical Findings Intake & Output: Intake & Output 05/06/17 05/07/17 05/07/17 23:59 07:59 15:59 Intake Total 480 / 480 360 / 360 Output Total 1200 / 1200 300 / 300 Balance -720 / -720 -300 / -300 360 / 360 Weight 104.2 kg - VTE Documentation of Mechanical Device: Intermittent pneumatic compression device Consult Discharge Plan - Plan Instructions: Heart Failure (DC), Acute Respiratory Distress Syndrome (DC), Chronic Obstructive Pulmonary Disease (DC), Sepsis (DC), Abuse of Alcohol (DC), Abuse of Alcohol (GEN), Chronic Hypertension (DC), Pneumonia (DC) Referrals: Dex Higuera Jr, MD [Primary Care Provider] - 05/10/17 10:00 am
--- NOTE | 2017-05-07 11:08 | Spine Progress Note ---
Date of Encounter: 05/07/17 Time of Encounter: 11:04 - Assessment and Plan (1) Ankylosing spondylitis Current Visit: Yes Status: Suspected On examination he is lying comfortably in bed and a thoracic lumbar orthotic as prescribed. Afebrile vital signs stable. Exam is notable for limited chest expansion, limited range of motion of the thoracic or lumbar spine, tenderness to palpation over the midthoracic region, and a protuberant abdomen which is distended but nontender. He is neurovascularly intact with regard to his bilateral upper and lower extremities. He has no clonus. CT examination of the chest reveals a 3 column T8 thoracic fracture extending from the T7-8 disc space through the pedicles through the posterior elements. There is osseous bridging throughout the thoracolumbar spine consistent with ankylosing spondylitis.. AP pelvis reveals degenerative changes and essentially fused sacroiliac joints consistent with ankylosing spondylitis . AP and lateral views of thoracic spine reveals multilevel degenerative changes in the thoracic fracture at T8 with 3 column involvement. MRI of the thoracic spine reveals a T8 fracture with no significant evidence of thoracic cord stenosis or hematoma. Impression: 1) ankylosing spondylitis 2) unstable thoracic vertebral fracture with 3 column involvement Plan: We are going to obtain additional markers for ankylosing spondylitis including an HLA B 27 marker. The patient has been placed in the thoracic lumbar orthotic and has had warnings and education regarding the unstable nature of his fracture. In this regard I find it reasonable to consider surgery in the form of a at least T5-T11 instrumented posterior thoracic fusion. He will need medical optimization and clearance prior to any surgical intervention. Plan was discussed with patient and 2 daughters present and they are agreeable at this time. Qualifiers: Ankylosing spondylitis location: multiple sites in spine Qualified Code(s) : M45.0 - Ankylosing spondylitis 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 Subjective Principal diagnosis: vertebral fracture Interval history: The patient has known ankylosing spondylitis with a chance type fracture which is unstable. Recommendations been surgical intervention but we are awaiting medical optimization and clearance. Clinically, the patient has improved and is the best I have seen him since admission. He has gone from 12 L oxygen requirement down to 6 L. He seems much less labored and he is trending towards his baseline status. There was no interval worsening of his chest x-ray. Pulmonology notes also confirms he is improving. Therefore I find it reasonable to consider surgical intervention for his unstable 3 column fracture of the thoracic spine in the form of an instrumented posterior spinal fusion T4- T11. Levels may change or be expanded intraoperatively depending on the stability of his fixation. Risks benefits possible complications and alternatives were fully discussed and the patient would like to proceed. The patient is aware that he may require extended stay in the intensive care unit and prolonged intubation. He understands there are significant risks with the procedure including but would like to proceed. The option of continued bracing was discussed that he would prefer operative treatment. Objective Vital signs: Vital Signs Temp Pulse Resp BP Pulse Ox 05/07/17 07:52 18 92 05/07/17 07:34 97.7 F 72 18 173/93 92 05/07/17 05:41 97.6 F 74 17 170/89 93 05/07/17 04:53 16 92 05/07/17 00:40 19 172/87 95 05/06/17 23:43 97.8 F 68 18 172/87 93 05/06/17 21:30 97.5 F L 69 17 155/88 92 05/06/17 21:00 93 05/06/17 20:55 18 91 05/06/17 20:40 93 05/06/17 18:11 81 18 155/81 90 05/06/17 15:54 16 93 05/06/17 11:53 98.5 F 68 16 161/93 90 05/06/17 11:08 16 91 Intake and Output 05/06/17 05/07/17 05/07/17 23:59 07:59 15:59 Intake Total 480 / 480 360 / 360 Output Total 1200 / 1200 300 / 300 150 / 150 Balance -720 / -720 -300 / -300 210 / 210 Intake: Oral 480 / 480 360 / 360 Output: Urine 1200 / 1200 300 / 300 150 / 150 Other: Meal Dinner Breakfast Percent of Meal Consumed 50% 5% Weight 104.2 kg Patient Weight 05/07/17 23:59 Weight 104.2 kg - Labs CBC & BMP: 05/07/17 04:32 05/07/17 04:32 Labs: Abnormal lab results WBC 18.4 K/mcL (4.3-11.1) H 05/07/17 04:32 MPV 9.2 fL (9.4-12.4) L 05/07/17 04:32 Neutrophils # 15.0 K/mcL (1.6-8.9) H 05/05/17 04:16 ESR 30 mm/hr (0-10) H 04/29/17 15:58 PT 12.6 Seconds (9.4-12.1) H 04/29/17 01:13 ABG pCO2 49 mmHg (35-45) H 05/02/17 17:53 ABG pO2 62 mmHg (85-104) L 05/02/17 17:53 ABG HCO3 30 mEq/L (21-27) H 05/02/17 17:53 ABG Total CO2 32 mEq/L (20-26) H 05/02/17 17:53 ABG O2 Saturation 91 % (95-98) L 05/02/17 17:53 ABG Base Excess 4 mEq/L (-2 to 3) H 05/02/17 17:53 Chloride 97 mEq/L (98-107) L 05/07/17 04:32 Carbon Dioxide 32 mEq/L (23-29) H 05/07/17 04:32 BUN 33 mg/dL (8-23) H 05/07/17 04:32 BUN/Creatinine Ratio 44 (6-26) H 05/07/17 04:32 Glucose 198 mg/dL (70-105) H 05/07/17 04:32 POC Glucose 103 (58-89) H 04/30/17 12:29 Total Bilirubin 1.2 mg/dL (0.3-1.0) H 05/01/17 11:00 B-Natriuretic Peptide 198 pg/mL (Less than 100) H 05/01/17 13:31 Globulin 3.6 g/dL (2.4-3.5) H 05/01/17 11:00 Albumin/Globulin Ratio 1.0 (1.1-2.2) L 05/01/17 11:00 Consult Discharge Plan - Plan Instructions: Heart Failure (DC), Acute Respiratory Distress Syndrome (DC), Chronic Obstructive Pulmonary Disease (DC), Sepsis (DC), Abuse of Alcohol (DC), Abuse of Alcohol (GEN), Chronic Hypertension (DC), Pneumonia (DC) Referrals: Dex Higuera Jr, MD [Primary Care Provider] - 05/10/17 10:00 am
[2017-05-07] MEDS ORDERED: *HR* FentaNYL (PF) 100 MCG/2 ML VIAL IVP PRN (11:59)
[2017-05-07] MEDS: *HR* HYDROmorphone 2 MG TABLET PO PRN ×2 (13:15→21:47)
--- NOTE | 2017-05-07 19:24 | Anesthesia Evaluation PreOp ---
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,RUE and RLE), Other (suspected ankylosing spondylitis) Other Medical History: Denies Any Significant HX Anesthesia History: No Prior Anesthetic Complications, Past Anesthesia Alcohol Use: occasionally (H/O heavy use in past) Drug use: none Medications and Allergies Albuterol Sulfate [Proair Respiclick] 2 puff IH Q4H PRN 03/03/15 [History] Ascorbic Acid [Vitamin C] 500 mg PO DAILY 03/03/15 [History] Cholecalciferol (Vitamin D3) [Vitamin D3] 1,000 unit PO DAILY 03/03/15 [History] Simvastatin [Zocor] 40 mg PO QPM 03/03/15 [History] Carvedilol [Coreg] 25 mg PO BID #60 tablet 03/06/15 [Rx] Levofloxacin [Levaquin] 500 mg PO DAILY #7 tablet 12/22/16 [Rx] Aspirin Enteric Coated [Aspirin EC] 81 mg PO 3XW 04/27/17 [History] Cranberry 500 mg PO DAILY 04/27/17 [History] Furosemide [Lasix] 40 mg PO BID 04/27/17 [History] Losartan [Cozaar] 25 mg PO DAILY 04/27/17 [History] Multivitamin [One Daily Essential] 1 each PO DAILY 04/27/17 [History] Umeclidinium [place] [Incruse Ellipta] 62.5 mcg IH DAILY 04/27/17 [History] 3 Allergy/AdvReac Type Severity Reaction Status Date / Time Penicillins [PCN] Allergy Rash Verified 03/03/15 19:12 hydrocodone AdvReac Severe Agitated Verified 03/03/15 19:12 acetaminophen [From Percocet] AdvReac See Verified 04/30/17 18:53 Comments Oxycodone AdvReac See Verified 04/27/17 15:46 Comments - Meds/Allergy Pre-op Review Medications Reviewed: Yes Allergies Reviewed: Yes Beta Blockers on Current Med List: Yes If Beta Blockers taken, Date/Time (Last Dose taken): 05/07/2017 at 1749 Anesthesia Results - Labs 05/07/17 04:32 05/07/17 04:32 - Imaging EKG: report reviewed (04/27/2017 SINUS RHYTHM LOW QRS VOLTAGE IN PRECORDIAL LEADS POSSIBLE ANTERIOR MYOCARDIAL INFARCTION, OF INDETERMINATE AGE NONSPECIFIC INFERIOR ST-T CHANGES) Additional studies: 05/06/2017 SINGLE VIEW OF THE CHEST FINDINGS: There stable small layering bilateral pleural effusions with bibasilar opacity. No pneumothorax is seen. Cardiac and mediastinal contours are stable. No acute osseous abnormality is identified. XR/XR chest 1V IMPRESSION: Stable small layering bilateral pleural effusions with bibasilar opacity may reflect atelectasis or pneumonia if the patient has fever or leukocytosis. 04/28/2017 Echo Impressions: LVEF 60-65%. Normal LV chamber size and function. Moderate concentric left ventricular hypertrophy. Mild left ventricular diastolic dysfunction. Right ventricle not well visualized. Grossly normal function. Severely dilated left atrium. No significant valvular dysfunction. No evidence of pulmonary hypertension. Anesthesia Exam Vital Signs/O2 Sat/Glucose, Most Recent Temp Pulse Resp BP Pulse Ox 98 F 71 18 177/89 91 05/07/17 14:52 05/07/17 14:52 05/07/17 16:11 05/07/17 14:52 05/07/17 16:11 Blood Glucose* 103 Height: 5'8''/1.73 m Weight: 229 lbs/104.2 kg NPO (# of Hours): 8 - HEENT Pupil (Motor): EOMI Mallampati: III (limited neck ROM) Teeth: Normal Oral Opening: Greater than 3 - SEWER INSPECTOR LOC: Oriented SEWER INSPECTOR Motor: Normal LUE, Normal LLE, Deficit RUE, Deficit RLE, Deficit Face ( right side) SEWER INSPECTOR Sensory: Normal: LUE, LLE, Face, Deficit: RUE (numbness/tingling in hand), RLE (numbness/tingling in foot) - Cardiac Rhythm: Regular Murmur: None - Pulmonary Breath Sounds: bilateral Rales (diminished BS) Respiratory Effort: Symmetrical Anesthesia Assess/Plan ASA Score: 4 (Patient and family understand that pt is at increased risk for perioperative complications including myocardial infarct, arrhythmias, CVA, post op vent support/ICU stay, and . Patient and family wish to proceed.) Modified M[place]he Scale for Level of Consciousness: Cooperative, oriented, and tranquil Anesthetic Plan: General Monitoring Plan: Standard Monitors Recovery Plan: ICU
[2017-05-07] MEDS: Acetaminophen 325 MG TABLET PO PRN (20:47)
[2017-05-08] MEDS: Ipratropium/Albuterol Neb 3 ML IH SCH ×8 (00:27→23:20)
[2017-05-08] MEDS: *HR* Heparin 5,000 UNIT/ML VIAL SQ SCH ×3 (05:16→20:16)
[2017-05-08] MEDS ORDERED: Bacitracin 50,000 UNIT, Polymyxin B Sulfate 500,000 UNIT, Sodium Chloride IRRigation 1,... IR ONE (06:00)
[2017-05-08 06:29] LABS: Prothrombin Time 11.1 Seconds (9.4-12.1)
[2017-05-08 06:31] LABS: Activated Partial Thrombo Time 23.1 Seconds (26.0-36.0)
[2017-05-08 06:42] LABS: BUN/Creatinine Ratio 46 (6-26); Blood Urea Nitrogen 33 mg/dL (8-23); Calcium 9.4 mg/dL (8.6-10.3); Carbon Dioxide 33 mEq/L (23-29); Chloride 97 mEq/L (98-107); Glucose 184 mg/dL (70-105); Osmolality,Calculated 296 (280-300); Potassium 4.2 mEq/L (3.5-5.1); Sodium 137 mEq/L (136-145); eGFR For African Americans > 60 (> 60); eGFR For Non-African Americans > 60 (> 60)
[2017-05-08 06:43] LABS: Basophils # 0.1 K/mcL (0.0-0.2); Basophils % 0.4 %; Hematocrit 43.4 % (37.5-50.1); Hemoglobin 14.1 g/dL (12.9-16.9); Immature Granulocytes % 2.7 % (0-4); Lymphocytes # 0.9 K/mcL (0.6-4.6); Lymphocytes % 4.7 %; Mean Corpuscular HGB Conc 32.5 g/dL (31.6-35.5); Mean Corpuscular Hemoglobin 30.8 pg (28.0-33.3); Mean Corpuscular Volume 94.8 fL (83.0-100.0); Mean Platelet Volume 9.2 fL (9.4-12.4); Monocytes # 0.7 K/mcL (0.0-1.3); Monocytes % 3.6 %; Neutrophils # 17.2 K/mcL (1.6-8.9); Platelet Count 323 K/mcL (140-400); Red Blood Count 4.58 M/mcL (4.19-5.50); Red Cell Distribution Width 11.8 % (11.5-14.5); Segmented Neutrophils % 88.6 %
[2017-05-08] MEDS: Budesonide/Formoterol 160/4.5 MDI IH SCH ×2 (08:02→20:31)
[2017-05-08] MEDS: *HR* HYDROmorphone 2 MG TABLET PO PRN ×5 (09:44→23:03)
[2017-05-08] MEDS: Thiamine (B-1) 100 MG TABLET PO SCH (09:44)
[2017-05-08] MEDS: Folic Acid 1 MG TABLET PO SCH (09:45)
[2017-05-08] MEDS: Furosemide 40 MG/4 ML VIAL IVP SCH (09:45)
[2017-05-08] MEDS: Multivit/Ca/Min/Fe/FA 1 TAB TABLET PO SCH (09:45)
[2017-05-08] MEDS: Ascorbic Acid 500 MG TABLET PO SCH (09:45)
[2017-05-08] MEDS: MethylPREDNISolone 40 MG/ML VIAL IVP SCH ×3 (09:46→23:03)
[2017-05-08] MEDS: Cholecalciferol (D-3) 1,000 UNIT TABLET PO SCH (09:47)
[2017-05-08] MEDS: (Umeclidinium Bromide [Incruse Ellipta] 62.5 MCG) IH SCH (10:08)
[2017-05-08] MEDS: traMADol 50 MG TABLET PO PRN (11:56)
[2017-05-08] MEDS: Acetaminophen 325 MG TABLET PO PRN (11:56)
--- NOTE | 2017-05-08 16:11 | Internal Med Progress Note ---
Date of Encounter: 05/08/17 Time of Encounter: 16:09 - Assessment and plan (1) Acute respiratory failure Current Visit: No Status: Acute Assessment and plan: Weaning oxygen as tolerated Continue steroids Will discontinue IV Lasix 40 mg BID and change to PO Lasix 40 mg BID. 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 transplanted heart: [place] heart Associated angina: without angina Qualified Code(s): I25.10 - Atherosclerotic heart disease of [place] coronary artery without angina pectoris (4) Chronic alcohol abuse Current Visit: No Status: Chronic Assessment and plan: Continue with CIWA protocol If the patient becomes more agitated he may need to be paced on a precedex drip and transfered to for a higher level of care (5) Community acquired pneumonia Current Visit: Yes Status: Chronic Assessment and plan: Antibiotics have been discontinued. Qualifiers: Laterality: right Lung location: upper lobe of lung Qualified Code(s): J18.1 - Lobar pneumonia, unspecified organism (6) Constipation due to opioid therapy Current Visit: Yes Status: Acute Assessment and plan: Lactulose on hold Monitor bowel movements - may need restarted. (7) COPD (chronic obstructive pulmonary disease) Current Visit: No Status: Chronic Assessment and plan: Continue Solu-Medrol and scheduled DuoNeb's. Continue with supplemental oxygen. Continue with BiPAP per pulmonology recommendations. Qualifiers: COPD type: emphysema Emphysema type: unspecified Qualified Code(s): J43.9 - Emphysema, unspecified (8) Diastolic CHF Current Visit: Yes Status: Chronic Assessment and plan: Most recent echo on 04/28/17 showed LVEF 60-65%. Normal LV chamber size and function. Moderate concentric left ventricular hypertrophy. Mild left ventricular diastolic dysfunction. Right ventricle not well visualized. Grossly normal function. Severely dilated left atrium. No significant valvular dysfunction. No evidence of pulmonary hypertension. Will continue with increased lasix dosing to increased diurese to help with respiratory status. Currently on 40 mg IV BID. Home dose is 40 mg PO BID. Qualifiers: Heart failure chronicity: chronic Qualified Code(s): I50.32 - Chronic diastolic (congestive) heart failure (9) HTN (hypertension) Current Visit: No Status: Chronic Assessment and plan: Patient is currently normotensive continue Cozaar, hydralazine and carvedilol Qualifiers: Hypertension type: essential hypertension Qualified Code(s): I10 - Essential (primary) hypertension (10) Hyperlipidemia Current Visit: No Status: Chronic Assessment and plan: continue current medical management Qualifiers: Hyperlipidemia type: unspecified Qualified Code(s): E78.5 - Hyperlipidemia , unspecified (11) Neutrophilic leukocytosis Current Visit: Yes Status: Acute Assessment and plan: Likely secondary to Steroids (12) Thoracic spine fracture Current Visit: Yes Status: Acute Assessment and plan: CT and MR revealed T7-T8 compressive fracture. Orthopedic spine has been consulted. Surgery scheduled for tomorrow AM Qualifiers: Encounter type: subsequent encounter Thoracic vertebra fracture level: T7 Fracture type: closed Fracture morphology: other fracture Fracture healing : with routine healing Qualified Code(s): S22.068D - Other fracture of T7-T8 thoracic vertebra, subsequent encounter for fracture with routine healing (13) DVT prophylaxis Current Visit: Yes Status: Acute Assessment and plan: Patient is receiving heparin 5000 units SQ q8h - Subjective Interval history: No complaints, no acute events. - Constitutional Vitals: Temp Pulse Resp BP Pulse Ox 97.9 F 66 17 145/74 92 05/08/17 15:00 05/08/17 15:00 05/08/17 15:00 05/08/17 15:00 05/08/17 15:00 General appearance: Present: A&O X 3, answers questions appropriately Exam: - Head Head exam: Present: atraumatic, normocephalic - Neck Neck exam general surgery: Present: full ROM, normal inspection, trachea midline - Respiratory Respiratory exam: Present: rales (bilaterally) - Cardiovascular Cardiovascular exam: Present: RRR, +S1, +S2. Absent: diastolic murmur, gallop, rubs, systolic murmur - GI/Abdominal GI/Abdominal exam: Present: distended, soft, no peritoneal signs. Absent: tenderness - Extremities Exam Extremities exam: Present: pedal edema (1+ pitting edema bilateral lower extremities.) - Back Exam Additional comments: Patient is currently in a back brace. - Neurological Exam Neurological exam: Present: alert, oriented X3, no focal deficits. Absent: facial droop, speech deficit - Psychiatric Psychiatric exam: Present: normal affect, normal mood - Skin Skin exam: Present: dry, intact, warm Internal Medicine: Result - Labs CBC & Chem 7: 05/08/17 05:33 05/08/17 05:33 Labs: Short CBC 05/08/17 Range/Units 05:33 WBC 19.4 H (4.3-11.1) K/mcL Hgb 14.1 (12.9-16.9) g/dL Hct 43.4 (37.5-50.1) % Plt Count 323 (140-400) K/mcL Neutrophils # 17.2 H (1.6-8.9) K/mcL BMP 05/08/17 05:33 Sodium 137 Potassium 4.2 Chloride 97 L Carbon Dioxide 33 H BUN 33 H Creatinine 0.71 Glucose 184 H Calcium 9.4 - ABG Interpretation ABG results: ABG ABG pH 7.40 pH Units (7.32-7.45) 05/02/17 17:53 ABG pCO2 49 mmHg (35-45) H 05/02/17 17:53 ABG pO2 62 mmHg (85-104) L 05/02/17 17:53 ABG O2 Saturation 91 % (95-98) L 05/02/17 17:53 PT/INR, D-dimer PT 11.1 Seconds (9.4-12.1) 05/08/17 05:33 - VTE Documentation of Mechanical Device: Intermittent pneumatic compression device Consult Discharge Plan - Plan Instructions: Heart Failure (DC), Acute Respiratory Distress Syndrome (DC), Chronic Obstructive Pulmonary Disease (DC), Sepsis (DC), Abuse of Alcohol (DC), Abuse of Alcohol (GEN), Chronic Hypertension (DC), Pneumonia (DC) Referrals: Dex Higuera Jr, MD [Primary Care Provider] - 05/10/17 10:00 am
[2017-05-08] MEDS ORDERED: Furosemide 40 MG TABLET PO SCH (17:00)
[2017-05-09] MEDS: *HR* HYDROmorphone 2 MG TABLET PO PRN (01:12)
[2017-05-09] MEDS: Ipratropium/Albuterol Neb 3 ML IH SCH ×6 (03:36→23:21)
[2017-05-09] MEDS: *HR* Heparin 5,000 UNIT/ML VIAL SQ SCH (05:29)
[2017-05-09] MEDS ORDERED: Bacitracin 50,000 UNIT, Polymyxin B Sulfate 500,000 UNIT, Sodium Chloride IRRigation 1,... IR ONE ×2 (06:00→12:15)
[2017-05-09 06:03] LABS: Basophils # 0.1 K/mcL (0.0-0.2); Basophils % 0.4 %; Hematocrit 44.1 % (37.5-50.1); Hemoglobin 14.5 g/dL (12.9-16.9); Immature Granulocytes % 2.7 % (0-4); Lymphocytes % 4.7 %; Mean Corpuscular HGB Conc 32.9 g/dL (31.6-35.5); Mean Corpuscular Hemoglobin 30.7 pg (28.0-33.3); Mean Corpuscular Volume 93.2 fL (83.0-100.0); Mean Platelet Volume 8.9 fL (9.4-12.4); Monocytes # 0.7 K/mcL (0.0-1.3); Monocytes % 3.5 %; Neutrophils # 18.6 K/mcL (1.6-8.9); Platelet Count 336 K/mcL (140-400); Red Blood Count 4.73 M/mcL (4.19-5.50); Red Cell Distribution Width 11.8 % (11.5-14.5); Segmented Neutrophils % 88.7 %
[2017-05-09 06:08] LABS: BUN/Creatinine Ratio 47 (6-26); Blood Urea Nitrogen 35 mg/dL (8-23); Calcium 9.2 mg/dL (8.6-10.3); Carbon Dioxide 36 mEq/L (23-29); Chloride 96 mEq/L (98-107); Glucose 181 mg/dL (70-105); Osmolality,Calculated 295 (280-300); Potassium 4.8 mEq/L (3.5-5.1); Sodium 136 mEq/L (136-145); eGFR For African Americans > 60 (> 60); eGFR For Non-African Americans > 60 (> 60)
[2017-05-09] MEDS ORDERED: Heparin 1,000 UNITS/500 mL 500 ML ONE (06:55)
[2017-05-09] MEDS ORDERED: Ondansetron 4 MG/2 ML VIAL ONE (06:57)
[2017-05-09] MEDS ORDERED: Dexamethasone 4 MG/ML VIAL ONE ×2 (06:57→11:21)
[2017-05-09] MEDS ORDERED: Lidocaine -MPF 2% 2 ML VIAL ONE (06:57)
[2017-05-09] MEDS ORDERED: *HR* Succinylcholine 200 MG/10 ML VIAL IVP ONE (06:57)
[2017-05-09] MEDS ORDERED: *HR* Rocuronium Bromide 50 MG/5 ML VIAL ONE (06:57)
[2017-05-09] MEDS ORDERED: *HR* Phenylephrine 10 MG/ML VIAL ONE (06:57)
[2017-05-09] MEDS ORDERED: *HR* Propofol 200 MG/20 ML VIAL IVP ONE (07:01)
[2017-05-09] MEDS ORDERED: *HR* FentaNYL (PF) 100 MCG/2 ML VIAL ONE (07:02)
[2017-05-09] MEDS ORDERED: *HR* Remifentanil 2 MG VIAL IVP ONE ×2 (07:19→11:58)
[2017-05-09] MEDS ORDERED: Ipratropium/Albuterol Neb 3 ML ONE (08:22)
[2017-05-09] MEDS ORDERED: Ketamine *HR* 500 MG/10 ML MDV ONE (08:31)
[2017-05-09 09:08] LABS: ABG Base Excess 7 mEq/L (-2 to 3); ABG HCO3 32 mEq/L (21-27); ABG Oxygen Saturation 97 % (95-98); ABG PCO2 46 mmHg (35-45); ABG PH 7.46 pH Units (7.32-7.45); ABG PO2 85 mmHg (85-104); ABG TCO2 34 mEq/L (20-26)
[2017-05-09] MEDS ORDERED: EPHEDrine 50 MG/ML VIAL ONE (09:29)
[2017-05-09] MEDS ORDERED: Albumin Human 5% 25.0 GM/500 ML VIAL ONE (10:01)
[2017-05-09] MEDS ORDERED: *HR* FentaNYL PATCH 25 MCG PATCH TD ONE (10:45)
[2017-05-09] MEDS ORDERED: *HR* EPINEPHrine 1 MG/ML AMPUL ONE (10:58)
[2017-05-09] MEDS ORDERED: SUGAMMADEX SODIUM 500 MG/5 ML VIAL IV ONE (11:00)
[2017-05-09] MEDS: Budesonide/Formoterol 160/4.5 MDI IH SCH (11:13)
[2017-05-09] MEDS ORDERED: Vancomycin 1,000 MG VIAL ONE (12:30)
[2017-05-09] MEDS ORDERED: Furosemide 40 MG/4 ML VIAL ONE (13:25)
[2017-05-09] MEDS ORDERED: Albuterol 2.5 MG/3 ML NEBULIZER IH PRN (13:41)
[2017-05-09] MEDS ORDERED: MORPHINE SUL Oral CONC 10 MG/0.5 ML ORAL.SYG SL PRN (13:41)
[2017-05-09] MEDS ORDERED: Ondansetron 4 MG/2 ML VIAL IVP PRN ×2 (13:41→15:07)
--- NOTE | 2017-05-09 14:42 | Orthopedic Operative Note ---
Date of procedure: 05/09/17 Pre-op diagnosis: Ankylosing spondylitis, unstable 3 column fracture T8 Post-op diagnosis: same Operation/Findings: Instrumented posterior spinal fusion T5-T12: The patient successfully underwent general endotracheal anesthesia. The patient was given antibiotics prior to the start of the procedure. Compression boots and stockings were used for deep vein thrombosis prophylaxis. A Dawkins catheter was placed. Leads for neuro monitoring were placed on the upper and lower extremities. This included the cranium. The neuro monitoring personnel confirmed there were satisfactory readings prior to the start of the procedure. The patient was carefully turned prone on the Ian table. The back was prepped and draped in the usual sterile fashion including the entire thoracic spine.. An incision was was marked and centered over the involved proximal thoracic extending to distal thoracic levels in the mid line. The incision was deepened through the thoracic fascia. Bovie cautery and Espinosa elevators were used to reflect the paraspinal musculature at the lateral extent of the costovertebral joints of the involved levels. Aleah clamps were placed over the spinous processes. An intraoperative lateral fluoroscopy graft was obtained. A conversation was held between the surgeon and radiologist and both confirmed we had the correct operative levels. We then placed pedicle screws in standard fashion with the aid of fluoroscopy and anatomic landmarks. Briefly a starter awl was used. A gearshift was subsequently used to enter the towboat pilot hole via a transpedicular route into the vertebral body. The towboat pilot hole was tapped with an undersized instrument, and subsequently 5.5 x 40 mm pedicle screws were placed bilaterally at the indicated levels. Pedicle screws were placed bilaterally at T5, T6, T7, T9, T10, T11 and T12. We omitted the T8 level secondary to the fracture extending into 3 columns at this level including the pedicle. The screws were tested with the aid of the neurologic monitoring staff via pedicle screw stimulation. All reading suggested there was no significant cortical wall breech. The screws were also evaluated fluoro- graphically and appeared to be in satisfactory position. We obtained some autogenous bone graft from the posterior elements spanning T5-T12.. This bone was minced into fine pieces. We then copiously irrigated the wound. We then decorticated the facet joints of the involved thoracic levels spanning T5-T12 to aid in the posterolateral fusion. We also decorticated the lamina and facet joints of the fracture site to aid and prepare the fusion mass. We placed autograft bone in the facet joints over these regions spanning T5-T12. We then placed contoured rods building in some kyphosis, within the screw heads of the involved T5-T12 levels and locked the lisset/screw construct in standard fashion.. We then closed the wound in layers with 1 Vicryl for the fascia, 2-0 Vicryl. Subcutaneous tissue, and Dermabond was used for skin closure. Sterile dressings were placed over the wound. The patient was turned supine on a hospital bed and extubated. All sponge instruments and needle counts were correct at the end of the procedure. The patient tolerated the procedure well Anesthesia: GETA Surgeon: Eric Holloway Jr Was there an interior design assistant present: No Estimated blood loss (cc): 700 (250 mL Cell Saver returned) Specimen: None Condition: stable Disposition: ICU
[2017-05-09] MEDS ORDERED: Naloxone 0.4 MG/ML INJ IVP PRN (15:07)
[2017-05-09] MEDS ORDERED: Acetaminophen 325 MG TABLET PO PRN (15:07)
[2017-05-09] MEDS ORDERED: *HR* HYDROcodone/Acet 5/325 mg TABLET PO PRN (15:07)
[2017-05-09] MEDS ORDERED: Ipratropium/Albuterol Neb 3 ML IH SCH (16:00)
[2017-05-09] MEDS ORDERED: *HR* OxyCODONE Immed Rel 5 MG TABLET PO PRN (16:00)
[2017-05-09] MEDS ORDERED: Dexmedetomidine HCl 400 MCG/100 ML MLS IVC SCH (16:15)
--- NOTE | 2017-05-09 16:40 | Pulmonology Progress Note ---
<Ron Gomez - Last Filed: 05/09/17 16:55> Date of Encounter: 05/09/17 Time of Encounter: 16:38 Assessment and Plan (1) Acute respiratory failure Current Visit: No Status: Acute Secondary to community acquired pneumonia, COPD exacerbation. Completed antibiotic course for CAP. CXR overall improved from previous however shows Requires BiPap resupiratory support. [place]ine DuoNebs, Symbicort, SoluMedrol, Incentive spirometry Qualifiers: Respiratory failure complication: hypoxia Qualified Code(s): J96.01 - Acute respiratory failure with hypoxia (2) Community acquired pneumonia Current Visit: Yes Status: Chronic Patient completed antibiotic course. Continue to monitor. Plan as above. Qualifiers: Laterality: right Lung location: upper lobe of lung Qualified Code(s): J18.1 - Lobar pneumonia, unspecified organism (3) COPD (chronic obstructive pulmonary disease) Current Visit: No Status: Chronic Plan as above. Qualifiers: COPD type: emphysema Emphysema type: unspecified Qualified Code(s): J43.9 - Emphysema, unspecified (4) Post-op pain Current Visit: Yes Status: Acute Subjective Principal diagnosis: vertebral fracture Interval history: Mr. Sapp returns to the ICU after his T5-T12 spinal fusion surgery. He was a difficult extubation. He arrived to the ICU extubated, on BiPap. Clinically appears to be at his baseline respiratory status. His primary complaint is pain "everywhere." He was admitted 12 days ago is in acute respiratory failure secondary to pneumonia, persistently on BiPap while an inpatient. PMH: CAD, COPD, hx hemorrhagic CVA, EtOH abuse (previously on CIWA protocol), EF preserved CHF Objective PUL Vital signs: Last Vital Signs Temp 98.3 F 05/09/17 15:30 Pulse 80 05/09/17 16:00 Resp 28 05/09/17 16:00 BP 120/60 05/09/17 16:00 Pulse Ox 98 05/09/17 16:00 General appearance: alert, appears uncomfortable Eyes: nonicteric ENT: oropharynx moist Neck: supple Effort: mildly labored Auscultation: bilateral: diminished breath sounds, wheezes, rales Cardiovascular: regular rate and rhythm Gastrointestinal: normoactive bowel sounds, soft, non-tender, non-distended Integumentary: normal Extremities: no cyanosis, no clubbing, pink and warm, pulses normal, no ischemia or petechiae, edema (1+ pitting pedal edema bilaterally) Musculoskeletal: no deformities normal mental status mood appropriate Results - Laboratory Findings CBC and BMP: 05/09/17 05:38 05/09/17 05:38 ABG ABG pH 7.46 pH Units (7.32-7.45) H 05/09/17 09:06 ABG pCO2 46 mmHg (35-45) H 05/09/17 09:06 ABG pO2 85 mmHg (85-104) 05/09/17 09:06 ABG O2 Saturation 97 % (95-98) 05/09/17 09:06 PT/INR, D-dimer PT 11.1 Seconds (9.4-12.1) 05/08/17 05:33 Abnormal lab findings: Abnormal lab results WBC 21.0 K/mcL (4.3-11.1) H 05/09/17 05:38 MPV 8.9 fL (9.4-12.4) L 05/09/17 05:38 Neutrophils # 18.6 K/mcL (1.6-8.9) H 05/09/17 05:38 ESR 30 mm/hr (0-10) H 04/29/17 15:58 APTT 23.1 Seconds (26.0-36.0) L 05/08/17 05:33 ABG pH 7.46 pH Units (7.32-7.45) H 05/09/17 09:06 ABG pCO2 46 mmHg (35-45) H 05/09/17 09:06 ABG HCO3 32 mEq/L (21-27) H 05/09/17 09:06 ABG Total CO2 34 mEq/L (20-26) H 05/09/17 09:06 ABG Base Excess 7 mEq/L (-2 to 3) H 05/09/17 09:06 Chloride 96 mEq/L (98-107) L 05/09/17 05:38 Carbon Dioxide 36 mEq/L (23-29) H 05/09/17 05:38 BUN 35 mg/dL (8-23) H 05/09/17 05:38 BUN/Creatinine Ratio 47 (6-26) H 05/09/17 05:38 Glucose 181 mg/dL (70-105) H 05/09/17 05:38 POC Glucose 199 (58-89) H 05/09/17 16:21 Total Bilirubin 1.2 mg/dL (0.3-1.0) H 05/01/17 11:00 B-Natriuretic Peptide 198 pg/mL (Less than 100) H 05/01/17 13:31 Globulin 3.6 g/dL (2.4-3.5) H 05/01/17 11:00 Albumin/Globulin Ratio 1.0 (1.1-2.2) L 05/01/17 11:00 - Clinical Findings Intake & Output: Intake & Output 05/09/17 05/09/17 05/09/17 07:59 15:59 23:59 Intake Total 500 / 500 Output Total 300 / 300 1650 / 1650 Balance -300 / -300 -1150 / -1150 - VTE Documentation of Mechanical Device: Intermittent pneumatic compression device Consult Discharge Plan - Plan Instructions: Heart Failure (DC), Acute Respiratory Distress Syndrome (DC), Chronic Obstructive Pulmonary Disease (DC), Sepsis (DC), Abuse of Alcohol (DC), Abuse of Alcohol (GEN), Chronic Hypertension (DC), Pneumonia (DC) Referrals: Dex Higuera Jr, MD [Primary Care Provider] - 05/10/17 10:00 am <Craig Acuna - Last Filed: 05/09/17 17:46> Date of Encounter: 05/09/17 Assessment and Plan (1) Acute and chronic respiratory failure Current Visit: Yes Status: Resolved Qualifiers: Respiratory failure complication: hypoxia and hypercapnia Qualified Code(s) : J96.21 - Acute and chronic respiratory failure with hypoxia; J96.22 - Acute and chronic respiratory failure with hypercapnia; J96.22 - Acute and chronic respiratory failure with hypercapnia; J96.22 - Acute and chronic respiratory failure with hypercapnia (2) COPD exacerbation Current Visit: Yes Status: Resolved (3) Pneumonia Current Visit: Yes Status: Acute Qualifiers: Pneumonia type: due to unspecified organism Laterality: unspecified laterality Lung location: unspecified part of lung Qualified Code(s): J18.9 - Pneumonia, unspecified organism (4) Suspected sleep apnea Current Visit: Yes Status: Suspected Objective PUL Vital signs: Last Vital Signs Temp 98.3 F 05/09/17 17:00 Pulse 87 05/09/17 17:00 Resp 28 05/09/17 17:00 BP 92/52 05/09/17 17:00 Pulse Ox 93 05/09/17 17:00 Results - Laboratory Findings CBC and BMP: 05/09/17 05:38 05/09/17 05:38 ABG ABG pH 7.46 pH Units (7.32-7.45) H 05/09/17 09:06 ABG pCO2 46 mmHg (35-45) H 05/09/17 09:06 ABG pO2 85 mmHg (85-104) 05/09/17 09:06 ABG O2 Saturation 97 % (95-98) 05/09/17 09:06 PT/INR, D-dimer PT 11.1 Seconds (9.4-12.1) 05/08/17 05:33 Abnormal lab findings: Abnormal lab results WBC 21.0 K/mcL (4.3-11.1) H 05/09/17 05:38 MPV 8.9 fL (9.4-12.4) L 05/09/17 05:38 Neutrophils # 18.6 K/mcL (1.6-8.9) H 05/09/17 05:38 ESR 30 mm/hr (0-10) H 04/29/17 15:58 APTT 23.1 Seconds (26.0-36.0) L 05/08/17 05:33 ABG pH 7.46 pH Units (7.32-7.45) H 05/09/17 09:06 ABG pCO2 46 mmHg (35-45) H 05/09/17 09:06 ABG HCO3 32 mEq/L (21-27) H 05/09/17 09:06 ABG Total CO2 34 mEq/L (20-26) H 05/09/17 09:06 ABG Base Excess 7 mEq/L (-2 to 3) H 05/09/17 09:06 Chloride 96 mEq/L (98-107) L 05/09/17 05:38 Carbon Dioxide 36 mEq/L (23-29) H 05/09/17 05:38 BUN 35 mg/dL (8-23) H 05/09/17 05:38 BUN/Creatinine Ratio 47 (6-26) H 05/09/17 05:38 Glucose 181 mg/dL (70-105) H 05/09/17 05:38 POC Glucose 199 (58-89) H 05/09/17 16:21 Total Bilirubin 1.2 mg/dL (0.3-1.0) H 05/01/17 11:00 B-Natriuretic Peptide 198 pg/mL (Less than 100) H 05/01/17 13:31 Globulin 3.6 g/dL (2.4-3.5) H 05/01/17 11:00 Albumin/Globulin Ratio 1.0 (1.1-2.2) L 05/01/17 11:00 - Clinical Findings Intake & Output: Intake & Output 05/09/17 05/09/17 05/09/17 07:59 15:59 23:59 Intake Total 500 / 500 Output Total 300 / 300 1650 / 1650 Balance -300 / -300 -1150 / -1150 - Attending Attestation I examined this patient and my medical decision-making was reviewed with the Resident Physician. I agree with the documented findings, disposition and treatment plan as described except to the extent set forth below. Patient seen and examined. Labs, radiology, chart personally reviewed. 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 I have discussed with the anesthesiologist prior to surgery about increasing systemic steroid and checking chest x-ray and postoperatively in ICU patient is doing reasonably well to continue incentive spirometry and noninvasive ventilation with bronchodilators. Pain Control is important. Cardiovascular: stable GI: Nutrition per dietary and GI prophylaxis per routine Heme: DVT prophylaxis per routine ID: Continue antibiotics and plan to de-escalation Renal; urine out put and renal funtion reviewed Endorcine: blood glucose is monitored Lines: all lines checked and no evidence of infections Skin: skin care to prevent pressure ulcers per nursing routine care
[2017-05-09] MEDS: FentaNYL (PF) 1,000 MCG in 0.9 % Sodium Chloride 80 ML IVC SCH (16:46)
[2017-05-09] MEDS: Ringers Solution, Lactated 1,000 ML IVC SCH (16:48)
[2017-05-09] MEDS: Budesonide/Formoterol 80/4.5 MDI IH SCH (19:57)
[2017-05-10] MEDS: methylPREDNISolone 125 MG/2 ML VIAL IVP SCH ×3 (01:26→16:48)
[2017-05-10] MEDS: Ipratropium/Albuterol Neb 3 ML IH SCH ×6 (03:26→23:59)
[2017-05-10 03:57] LABS: Basophils % 0.2 %; Hematocrit 32.6 % (37.5-50.1); Immature Granulocytes % 2.4 % (0-4); Lymphocytes # 0.7 K/mcL (0.6-4.6); Lymphocytes % 3.1 %; Mean Corpuscular HGB Conc 32.8 g/dL (31.6-35.5); Mean Corpuscular Hemoglobin 31.1 pg (28.0-33.3); Mean Corpuscular Volume 94.8 fL (83.0-100.0); Mean Platelet Volume 9.4 fL (9.4-12.4); Monocytes # 1.2 K/mcL (0.0-1.3); Monocytes % 5.4 %; Neutrophils # 20.3 K/mcL (1.6-8.9); Platelet Count 273 K/mcL (140-400); Red Blood Count 3.44 M/mcL (4.19-5.50); Red Cell Distribution Width 11.7 % (11.5-14.5); Segmented Neutrophils % 88.9 %
[2017-05-10 03:58] LABS: Hemoglobin 10.7 g/dL (12.9-16.9)
[2017-05-10 04:03] LABS: BUN/Creatinine Ratio 45 (6-26); Blood Urea Nitrogen 50 mg/dL (8-23); Calcium 8.2 mg/dL (8.6-10.3); Carbon Dioxide 29 mEq/L (23-29); Chloride 102 mEq/L (98-107); Glucose 164 mg/dL (70-105); Osmolality,Calculated 303 (280-300); Potassium 4.2 mEq/L (3.5-5.1); Sodium 138 mEq/L (136-145); eGFR For African Americans > 60 (> 60); eGFR For Non-African Americans > 60 (> 60)
[2017-05-10] MEDS: Ringers Solution, Lactated 1,000 ML IVC SCH ×3 (04:15→12:56)
[2017-05-10] MEDS: FentaNYL (PF) 1,000 MCG in 0.9 % Sodium Chloride 80 ML IVC SCH (08:02)
--- NOTE | 2017-05-10 08:06 | Pulmonology Progress Note ---
<Ron Gomez - Last Filed: 05/10/17 08:12> Date of Encounter: 05/10/17 Time of Encounter: 07:00 Assessment and Plan (1) Acute respiratory failure Current Visit: No Status: Acute Secondary to community acquired pneumonia, COPD exacerbation. Completed antibiotic course for CAP. Weaning BiPap. 6L NC when not on BiPap. Overall improving from yesterday. [place] DuoNebs, Symbicort, SoluMedrol, Incentive spirometry. Qualifiers: Respiratory failure complication: hypoxia Qualified Code(s): J96.01 - Acute respiratory failure with hypoxia (2) Community acquired pneumonia Current Visit: Yes Status: Chronic Patient completed antibiotic course. Continue to monitor. Plan as above. Qualifiers: Laterality: right Lung location: upper lobe of lung Qualified Code(s): J18.1 - Lobar pneumonia, unspecified organism (3) COPD (chronic obstructive pulmonary disease) Current Visit: No Status: Chronic Plan as above. Qualifiers: COPD type: emphysema Emphysema type: unspecified Qualified Code(s): J43.9 - Emphysema, unspecified (4) Post-op pain Current Visit: Yes Status: Acute Wean fentanyl drip to post-op pain regimen per Dr. Baron. Subjective Principal diagnosis: vertebral fracture Interval history: Mr. Sapp is day 1 s/p T5-T12 spinal fusion surgery. He was a difficult extubation post-op. He was admitted 12 days ago is in acute respiratory failure secondary to pneumonia, persistently on BiPap while an inpatient. Hospital day 13/ ICU day 2 No acute events overnight. Patient is being weaned from BiPap; as needed at this time. Currently on 6L NC and without respiratory distress. He is feeling better and without complaints at this time. Post op pain is well controlled. Plan to continue his current regimen and transfer to step down today. Objective PUL Vital signs: Last Vital Signs Temp 98.3 F 05/10/17 05:26 Pulse 77 05/10/17 07:00 Resp 16 05/10/17 06:00 BP 109/60 05/10/17 06:00 Pulse Ox 95 05/10/17 06:00 General appearance: no acute distress, alert Eyes: nonicteric ENT: oropharynx moist Neck: supple Effort: normal Auscultation: bilateral: wheezes (scattered), rales (faint) Cardiovascular: regular rate and rhythm Gastrointestinal: normoactive bowel sounds, soft, non-tender, non-distended Integumentary: normal Extremities: no cyanosis, no edema, no clubbing, pink and warm, pulses normal, no ischemia or petechiae Musculoskeletal: no deformities normal mental status, non-focal exam, pupils equal and round, motor strength normal and symmetric mood appropriate Results - Laboratory Findings CBC and BMP: 05/10/17 03:38 05/10/17 03:38 ABG ABG pH 7.46 pH Units (7.32-7.45) H 05/09/17 09:06 ABG pCO2 46 mmHg (35-45) H 05/09/17 09:06 ABG pO2 85 mmHg (85-104) 05/09/17 09:06 ABG O2 Saturation 97 % (95-98) 05/09/17 09:06 PT/INR, D-dimer PT 11.1 Seconds (9.4-12.1) 05/08/17 05:33 Abnormal lab findings: Abnormal lab results WBC 22.8 K/mcL (4.3-11.1) H 05/10/17 03:38 RBC 3.44 M/mcL (4.19-5.50) L 05/10/17 03:38 Hgb 10.7 g/dL (12.9-16.9) L D 05/10/17 03:38 Hct 32.6 % (37.5-50.1) L 05/10/17 03:38 Neutrophils # 20.3 K/mcL (1.6-8.9) H 05/10/17 03:38 ESR 30 mm/hr (0-10) H 04/29/17 15:58 APTT 23.1 Seconds (26.0-36.0) L 05/08/17 05:33 ABG pH 7.46 pH Units (7.32-7.45) H 05/09/17 09:06 ABG pCO2 46 mmHg (35-45) H 05/09/17 09:06 ABG HCO3 32 mEq/L (21-27) H 05/09/17 09:06 ABG Total CO2 34 mEq/L (20-26) H 05/09/17 09:06 ABG Base Excess 7 mEq/L (-2 to 3) H 05/09/17 09:06 BUN 50 mg/dL (8-23) H 05/10/17 03:38 BUN/Creatinine Ratio 45 (6-26) H 05/10/17 03:38 Glucose 164 mg/dL (70-105) H 05/10/17 03:38 POC Glucose 199 (58-89) H 05/09/17 16:21 Calculated Osmolality 303 (280-300) H 05/10/17 03:38 Calcium 8.2 mg/dL (8.6-10.3) L 05/10/17 03:38 Total Bilirubin 1.2 mg/dL (0.3-1.0) H 05/01/17 11:00 B-Natriuretic Peptide 198 pg/mL (Less than 100) H 05/01/17 13:31 Globulin 3.6 g/dL (2.4-3.5) H 05/01/17 11:00 Albumin/Globulin Ratio 1.0 (1.1-2.2) L 05/01/17 11:00 - Clinical Findings Intake & Output: Intake & Output 05/09/17 05/10/17 05/10/17 23:59 07:59 15:59 Intake Total 1060 / 1060 40 / 40 Output Total 375 / 375 225 / 225 Balance -375 / -375 835 / 835 40 / 40 Weight 97.7 kg - VTE Documentation of Mechanical Device: Graduated compression elastic hosiery Consult Discharge Plan - Plan Instructions: Heart Failure (DC), Acute Respiratory Distress Syndrome (DC), Chronic Obstructive Pulmonary Disease (DC), Sepsis (DC), Abuse of Alcohol (DC), Abuse of Alcohol (GEN), Chronic Hypertension (DC), Pneumonia (DC) Referrals: Dex Higuera Jr, MD [Primary Care Provider] - 05/10/17 10:00 am <Craig Acuna - Last Filed: 05/10/17 17:11> Date of Encounter: 05/10/17 Assessment and Plan (1) Acute and chronic respiratory failure Current Visit: Yes Status: Resolved Qualifiers: Respiratory failure complication: hypoxia and hypercapnia Qualified Code(s) : J96.21 - Acute and chronic respiratory failure with hypoxia; J96.22 - Acute and chronic respiratory failure with hypercapnia; J96.22 - Acute and chronic respiratory failure with hypercapnia; J96.22 - Acute and chronic respiratory failure with hypercapnia (2) COPD exacerbation Current Visit: Yes Status: Resolved (3) Pneumonia Current Visit: Yes Status: Acute Qualifiers: Pneumonia type: due to unspecified organism Laterality: unspecified laterality Lung location: unspecified part of lung Qualified Code(s): J18.9 - Pneumonia, unspecified organism (4) Suspected sleep apnea Current Visit: Yes Status: Suspected Objective PUL Vital signs: Last Vital Signs Temp 97.9 F 05/10/17 15:05 Pulse 61 05/10/17 15:05 Resp 18 05/10/17 15:05 BP 140/64 05/10/17 15:05 Pulse Ox 93 05/10/17 15:05 Results - Laboratory Findings CBC and BMP: 05/10/17 03:38 05/10/17 03:38 ABG ABG pH 7.46 pH Units (7.32-7.45) H 05/09/17 09:06 ABG pCO2 46 mmHg (35-45) H 05/09/17 09:06 ABG pO2 85 mmHg (85-104) 05/09/17 09:06 ABG O2 Saturation 97 % (95-98) 05/09/17 09:06 PT/INR, D-dimer PT 11.1 Seconds (9.4-12.1) 05/08/17 05:33 Abnormal lab findings: Abnormal lab results WBC 22.8 K/mcL (4.3-11.1) H 05/10/17 03:38 RBC 3.44 M/mcL (4.19-5.50) L 05/10/17 03:38 Hgb 10.7 g/dL (12.9-16.9) L D 05/10/17 03:38 Hct 32.6 % (37.5-50.1) L 05/10/17 03:38 Neutrophils # 20.3 K/mcL (1.6-8.9) H 05/10/17 03:38 ESR 30 mm/hr (0-10) H 04/29/17 15:58 APTT 23.1 Seconds (26.0-36.0) L 05/08/17 05:33 ABG pH 7.46 pH Units (7.32-7.45) H 05/09/17 09:06 ABG pCO2 46 mmHg (35-45) H 05/09/17 09:06 ABG HCO3 32 mEq/L (21-27) H 05/09/17 09:06 ABG Total CO2 34 mEq/L (20-26) H 05/09/17 09:06 ABG Base Excess 7 mEq/L (-2 to 3) H 05/09/17 09:06 BUN 50 mg/dL (8-23) H 05/10/17 03:38 BUN/Creatinine Ratio 45 (6-26) H 05/10/17 03:38 Glucose 164 mg/dL (70-105) H 05/10/17 03:38 POC Glucose 221 (58-89) H 05/10/17 11:25 Calculated Osmolality 303 (280-300) H 05/10/17 03:38 Calcium 8.2 mg/dL (8.6-10.3) L 05/10/17 03:38 Total Bilirubin 1.2 mg/dL (0.3-1.0) H 05/01/17 11:00 B-Natriuretic Peptide 198 pg/mL (Less than 100) H 05/01/17 13:31 Globulin 3.6 g/dL (2.4-3.5) H 05/01/17 11:00 Albumin/Globulin Ratio 1.0 (1.1-2.2) L 05/01/17 11:00 - Clinical Findings Intake & Output: Intake & Output 05/10/17 05/10/17 05/10/17 07:59 15:59 23:59 Intake Total 1060 / 1060 1601 / 1601 Output Total 525 / 525 300 / 300 Balance 535 / 535 1301 / 1301 - Attending Attestation I examined this patient and my medical decision-making was reviewed with the Resident Physician. I agree with the documented findings, disposition and treatment plan as described except to the extent set forth below. Patient seen and examined. Labs, radiology, chart personally reviewed. Agree with resident's history and physical, assessment, plan with following comments: UX UI DESIGNER: Patient follows commands, Pulmonary: Acceptable oxygenation and ventilation and continue encouraging incentive spirometry with bronchodilators and systemic steroid. Physical therapy and early mobilization is extremely important. Noninvasive ventilation when necessary and at night if possible. Cardiovascular: stable GI: Nutrition per dietary and GI prophylaxis per routine Heme: DVT prophylaxis per routine Renal; urine out put and renal funtion reviewed Endorcine: blood glucose is monitored Lines: all lines checked and no evidence of infections Skin: skin care to prevent pressure ulcers per nursing routine care Patient remained hemodynamically stable and transferred to the floor
[2017-05-10] MEDS: Budesonide/Formoterol 80/4.5 MDI IH SCH ×2 (08:21→20:32)
[2017-05-10] MEDS ORDERED: (Cranberry [Cranberry] 500 MG) PO SCH (09:00)
[2017-05-10] MEDS ORDERED: D5% in Water 1,000 ML IVC PRN ×2 (10:34→11:23)
[2017-05-10] MEDS ORDERED: *HR* Dextrose 50 % in Water (Syg) 50 ML SYRINGE IVP PRN ×2 (10:34→11:23)
[2017-05-10] MEDS ORDERED: Dextrose Gel 15 GM/37.5 ML TUBE PO PRN ×4 (10:34→11:23)
[2017-05-10] MEDS ORDERED: Naloxone 0.4 MG/ML INJ IVP PRN (11:23)
[2017-05-10] MEDS ORDERED: Ondansetron 4 MG/2 ML VIAL IVP PRN (11:23)
[2017-05-10] MEDS ORDERED: Insulin LISPRO 300 UNITS/3 ML VIAL SQ SCH ×2 (11:30→12:00)
[2017-05-10] MEDS: Insulin LISPRO 300 UNITS/3 ML VIAL SQ SCH ×4 (11:40→16:49)
[2017-05-10] MEDS: *HR* OxyCODONE Immed Rel 5 MG TABLET PO PRN ×3 (12:56→23:04)
--- NOTE | 2017-05-10 13:52 | Spine Progress Note ---
Date of Encounter: 05/10/17 Time of Encounter: 08:10 - Assessment and Plan (1) Ankylosing spondylitis Current Visit: Yes Status: Suspected On examination he is lying comfortably in bed and a thoracic lumbar orthotic as prescribed. Afebrile vital signs stable. Exam is notable for limited chest expansion, limited range of motion of the thoracic or lumbar spine, tenderness to palpation over the midthoracic region, and a protuberant abdomen which is distended but nontender. He is neurovascularly intact with regard to his bilateral upper and lower extremities. He has no clonus. CT examination of the chest reveals a 3 column T8 thoracic fracture extending from the T7-8 disc space through the pedicles through the posterior elements. There is osseous bridging throughout the thoracolumbar spine consistent with ankylosing spondylitis.. AP pelvis reveals degenerative changes and essentially fused sacroiliac joints consistent with ankylosing spondylitis . AP and lateral views of thoracic spine reveals multilevel degenerative changes in the thoracic fracture at T8 with 3 column involvement. MRI of the thoracic spine reveals a T8 fracture with no significant evidence of thoracic cord stenosis or hematoma. Impression: 1) ankylosing spondylitis 2) unstable thoracic vertebral fracture with 3 column involvement Plan: We are going to obtain additional markers for ankylosing spondylitis including an HLA B 27 marker. The patient has been placed in the thoracic lumbar orthotic and has had warnings and education regarding the unstable nature of his fracture. In this regard I find it reasonable to consider surgery in the form of a at least T5-T11 instrumented posterior thoracic fusion. He will need medical optimization and clearance prior to any surgical intervention. Plan was discussed with patient and 2 daughters present and they are agreeable at this time. Qualifiers: Ankylosing spondylitis location: multiple sites in spine Qualified Code(s) : M45.0 - Ankylosing spondylitis 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 Subjective Principal diagnosis: vertebral fracture Interval history: Patient did well overnight from surgery. He is extubated on 6 L O2. Pain is well controlled on fentanyl patch. On physical exam dressing is clean dry and intact. He remains neurovascularly intact with regard to his bilateral upper extremities and lower extremities. He is going to be likely transferred to of regular nursing floor today. Continue antibiotics, mobilization, pain control. Objective Vital signs: Vital Signs Temp Pulse Resp BP Pulse Ox 05/10/17 11:33 98.7 F 82 18 120/85 94 05/10/17 08:24 16 95 05/10/17 08:00 97.4 F L 77 20 154/65 94 05/10/17 07:40 97.6 F 05/10/17 07:00 77 05/10/17 06:00 79 16 109/60 95 05/10/17 05:26 98.3 F 05/10/17 05:00 79 18 135/63 94 05/10/17 04:00 78 18 133/67 92 05/10/17 03:28 18 91 05/10/17 03:00 81 18 119/56 92 05/10/17 02:00 81 16 130/60 92 05/10/17 01:00 78 18 118/56 93 05/10/17 00:00 78 18 109/56 93 05/09/17 23:56 97.6 F 05/09/17 23:24 18 90 05/09/17 23:00 76 18 108/58 90 05/09/17 22:00 74 18 116/74 90 05/09/17 21:03 97.8 F 05/09/17 21:00 84 18 117/55 90 05/09/17 20:02 25 125/109 95 05/09/17 20:00 84 24 133/73 96 05/09/17 19:00 78 22 104/55 94 05/09/17 18:00 82 24 105/56 93 05/09/17 17:00 98.3 F 87 28 92/52 93 05/09/17 16:00 76 28 120/60 98 05/09/17 15:30 98.3 F 78 28 120/64 98 05/09/17 15:15 98.3 F 78 40 115/62 98 05/09/17 15:00 98.3 F 79 39 93/73 98 Intake and Output 05/09/17 05/10/17 05/10/17 23:59 07:59 15:59 Intake Total 1060 / 1060 1601 / 1601 Output Total 375 / 375 525 / 525 300 / 300 Balance -375 / -375 535 / 535 1301 / 1301 Intake: IV Fluids 1060 / 1060 1005 / 1005 FentaNYL (PF) 1,000 MCG In 0.9 60 / 60 40 / 40 % Sodium Chloride 80 ML @ 25 MCG/HR 2.5 mls/hr IVC CONT ROMAN Rx#:[id number] Lactated Ringers 1,000 ML @ 100 1000 / 1000 965 / 965 mls/hr IVC .Q10H ROMAN Rx#: [id number] Oral 596 / 596 Output: Catheter 375 / 375 525 / 525 300 / 300 Urethral ([place]) 300 / 300 Other: Meal Breakfast Percent of Meal Consumed 25% Weight 97.7 kg Blood Glucose* 199 - Labs CBC & BMP: 05/10/17 03:38 05/10/17 03:38 Labs: Abnormal lab results WBC 22.8 K/mcL (4.3-11.1) H 05/10/17 03:38 RBC 3.44 M/mcL (4.19-5.50) L 05/10/17 03:38 Hgb 10.7 g/dL (12.9-16.9) L D 05/10/17 03:38 Hct 32.6 % (37.5-50.1) L 05/10/17 03:38 Neutrophils # 20.3 K/mcL (1.6-8.9) H 05/10/17 03:38 ESR 30 mm/hr (0-10) H 04/29/17 15:58 APTT 23.1 Seconds (26.0-36.0) L 05/08/17 05:33 ABG pH 7.46 pH Units (7.32-7.45) H 05/09/17 09:06 ABG pCO2 46 mmHg (35-45) H 05/09/17 09:06 ABG HCO3 32 mEq/L (21-27) H 05/09/17 09:06 ABG Total CO2 34 mEq/L (20-26) H 05/09/17 09:06 ABG Base Excess 7 mEq/L (-2 to 3) H 05/09/17 09:06 BUN 50 mg/dL (8-23) H 05/10/17 03:38 BUN/Creatinine Ratio 45 (6-26) H 05/10/17 03:38 Glucose 164 mg/dL (70-105) H 05/10/17 03:38 POC Glucose 221 (58-89) H 05/10/17 11:25 Calculated Osmolality 303 (280-300) H 05/10/17 03:38 Calcium 8.2 mg/dL (8.6-10.3) L 05/10/17 03:38 Total Bilirubin 1.2 mg/dL (0.3-1.0) H 05/01/17 11:00 B-Natriuretic Peptide 198 pg/mL (Less than 100) H 05/01/17 13:31 Globulin 3.6 g/dL (2.4-3.5) H 05/01/17 11:00 Albumin/Globulin Ratio 1.0 (1.1-2.2) L 05/01/17 11:00 Consult Discharge Plan - Plan Instructions: Heart Failure (DC), Acute Respiratory Distress Syndrome (DC), Chronic Obstructive Pulmonary Disease (DC), Sepsis (DC), Abuse of Alcohol (DC), Abuse of Alcohol (GEN), Chronic Hypertension (DC), Pneumonia (DC) Referrals: Dex Higuera Jr, MD [Primary Care Provider] - 05/10/17 10:00 am
[2017-05-11] MEDS: methylPREDNISolone 125 MG/2 ML VIAL IVP SCH ×3 (01:50→16:26)
[2017-05-11] MEDS: *HR* HYDROcodone/Acet 5/325 mg TABLET PO PRN (01:51)
[2017-05-11] MEDS: Ipratropium/Albuterol Neb 3 ML IH SCH ×5 (04:44→20:35)
[2017-05-11] MEDS: *HR* OxyCODONE Immed Rel 5 MG TABLET PO PRN ×4 (06:27→22:54)
[2017-05-11] MEDS: Insulin LISPRO 300 UNITS/3 ML VIAL SQ SCH ×6 (07:54→16:26)
[2017-05-11] MEDS: Budesonide/Formoterol 80/4.5 MDI IH SCH ×2 (08:14→20:36)
[2017-05-11] MEDS: Ringers Solution, Lactated 1,000 ML IVC SCH ×2 (09:45→20:21)
[2017-05-11] MEDS: Acetaminophen 325 MG TABLET PO PRN ×2 (09:58→16:33)
--- NOTE | 2017-05-11 09:58 | Internal Med Progress Note ---
Date of Encounter: 05/11/17 Time of Encounter: 09:56 - Assessment and plan (1) Thoracic spine fracture Current Visit: Yes Status: Acute Assessment and plan: CT and MR revealed T7-T8 compressive fracture. Orthopedic spine has been consulted. back fusion on 05/09 Qualifiers: Encounter type: subsequent encounter Thoracic vertebra fracture level: T7 Fracture type: closed Fracture morphology: other fracture Fracture healing : with routine healing Qualified Code(s): S22.068D - Other fracture of T7-T8 thoracic vertebra, subsequent encounter for fracture with routine healing (2) Community acquired pneumonia Current Visit: Yes Status: Chronic Assessment and plan: Antibiotics have been discontinued. Qualifiers: Laterality: right Lung location: upper lobe of lung Qualified Code(s): J18.1 - Lobar pneumonia, unspecified organism (3) HTN (hypertension) Current Visit: No Status: Chronic Assessment and plan: Patient is currently normotensive continue Cozaar, hydralazine and carvedilol Qualifiers: Hypertension type: essential hypertension Qualified Code(s): I10 - Essential (primary) hypertension (4) COPD (chronic obstructive pulmonary disease) Current Visit: No Status: Chronic Assessment and plan: Continue Solu-Medrol and scheduled DuoNeb's. Continue with supplemental oxygen. Continue with BiPAP per pulmonology recommendations. Qualifiers: COPD type: emphysema Emphysema type: unspecified Qualified Code(s): J43.9 - Emphysema, unspecified (5) CAD (coronary artery disease) Current Visit: No Status: Chronic Assessment and plan: Chronic issue Qualifiers: Coronary Disease-Associated Artery/Lesion type: [place] artery [place] vs. transplanted heart: [place] heart Associated angina: without angina Qualified Code(s): I25.10 - Atherosclerotic heart disease of [place] coronary artery without angina pectoris (6) Borderline type 2 diabetes mellitus Current Visit: No Status: Acute (7) Diastolic CHF Current Visit: Yes Status: Chronic Assessment and plan: Most recent echo on 04/28/17 showed LVEF 60-65%. Normal LV chamber size and function. Moderate concentric left ventricular hypertrophy. Mild left ventricular diastolic dysfunction. Right ventricle not well visualized. Grossly normal function. Severely dilated left atrium. No significant valvular dysfunction. No evidence of pulmonary hypertension. Will continue with increased lasix dosing to increased diurese to help with respiratory status. Currently on 40 mg IV BID. Home dose is 40 mg PO BID. Qualifiers: Heart failure chronicity: chronic Qualified Code(s): I50.32 - Chronic diastolic (congestive) heart failure (8) Constipation due to opioid therapy Current Visit: Yes Status: Acute Assessment and plan: check KUB miralax scheduled (9) Ankylosing spondylitis Current Visit: Yes Status: Suspected Assessment and plan: Chronic issue Likely contributory to the patients thoracic spine fracture Qualifiers: Ankylosing spondylitis location: multiple sites in spine Qualified Code(s) : M45.0 - Ankylosing spondylitis 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 (10) Acute and chronic respiratory failure Current Visit: Yes Status: Resolved Assessment and plan: patient has COPD on 3.5 L NC at night and with exertion, at home Qualifiers: Respiratory failure complication: hypoxia and hypercapnia Qualified Code(s) : J96.21 - Acute and chronic respiratory failure with hypoxia; J96.22 - Acute and chronic respiratory failure with hypercapnia; J96.22 - Acute and chronic respiratory failure with hypercapnia; J96.22 - Acute and chronic respiratory failure with hypercapnia (11) Neutrophilic leukocytosis Current Visit: Yes Status: Acute Assessment and plan: Likely secondary to Steroids - Time Spent With Patient 25 - 35 minutes - Subjective Interval history: Mr. Sapp is a 81 year old male with Hx of COPD, CHF, CAD s/p stent, HTN, Hx of hemorrhagic CVA, recent pneumonia still on po levaquin, present to ER for SOB. Pt actually has back pain for about 10 days which makes him hard to cough. Pt denies back injury. He said he has pain on back and ribs and shoulder blade whenever he has cough and sneeze. Pt denies fever or chest pain. He has chronic cough with COPD. He use oxygen during night at home. In ER, CTA has been done, which shows no PE but T7 and T8 compression fracture. Orthopedic consult was called by ER and Dr Holloway saw pt in ER. Recommend T-spine CT and MRI. Pt was admitted for further management. Patient was admitted on April 27 for pneumonia and back pain. He was found T7-T8 fracture. After all medical problem stabilized he went through back surgery on 05/09. He is doing okay on 5 L nasal cannula, he complains pain 7 out of 10 from back. he has no BM for many days - Constitutional Vitals: Temp Pulse Resp BP Pulse Ox 98.0 F 77 18 131/60 95 03/02/18 07:05 05/11/17 07:05 05/11/17 07:05 05/11/17 07:05 05/11/17 07:05 General appearance: Present: A&O X 3, answers questions appropriately Exam: CONSTITUTIONAL: patient appears as an age appropriate male in no acute distress. EYES Clear sclerae, bilateral pupils are equal, reactive to light. EMOI. RESPIRATORY: No accessory muscle use, bilateral clear to auscultation, no wheezing, no crackles/rales. CARDIOVASCULAR: Regular heart rate, normal S1 and S2, no murmurs GASTROINTESTINAL: bowel sounds present, soft, no tenderness. MUSCULOSKELETAL: Joints in normal range of motion, no clubbing, no edema, no cyanosis. Bilateral peripheral pulses 2+. NEUROLOGIC: CN II to XII are grossly intact, no focal neurological deficit. Internal Medicine: Result - Labs CBC & Chem 7: 05/10/17 03:38 05/10/17 03:38 - ABG Interpretation ABG results: ABG ABG pH 7.46 pH Units (7.32-7.45) H 05/09/17 09:06 ABG pCO2 46 mmHg (35-45) H 05/09/17 09:06 ABG pO2 85 mmHg (85-104) 05/09/17 09:06 ABG O2 Saturation 97 % (95-98) 05/09/17 09:06 PT/INR, D-dimer PT 11.1 Seconds (9.4-12.1) 05/08/17 05:33 - VTE Documentation of Mechanical Device: Intermittent pneumatic compression device Consult Discharge Plan - Plan Instructions: Heart Failure (DC), Acute Respiratory Distress Syndrome (DC), Chronic Obstructive Pulmonary Disease (DC), Sepsis (DC), Abuse of Alcohol (DC), Abuse of Alcohol (GEN), Chronic Hypertension (DC), Pneumonia (DC) Referrals: Dex Higuera Jr, MD [Primary Care Provider] - 05/10/17 10:00 am
[2017-05-11 12:05] LABS: Hemoglobin A1C 6.9 %
--- NOTE | 2017-05-11 12:11 | Spine Progress Note ---
Date of Encounter: 05/11/17 Time of Encounter: 12:09 - Assessment and Plan (1) Ankylosing spondylitis Current Visit: Yes Status: Suspected On examination he is lying comfortably in bed and a thoracic lumbar orthotic as prescribed. Afebrile vital signs stable. Exam is notable for limited chest expansion, limited range of motion of the thoracic or lumbar spine, tenderness to palpation over the midthoracic region, and a protuberant abdomen which is distended but nontender. He is neurovascularly intact with regard to his bilateral upper and lower extremities. He has no clonus. CT examination of the chest reveals a 3 column T8 thoracic fracture extending from the T7-8 disc space through the pedicles through the posterior elements. There is osseous bridging throughout the thoracolumbar spine consistent with ankylosing spondylitis.. AP pelvis reveals degenerative changes and essentially fused sacroiliac joints consistent with ankylosing spondylitis . AP and lateral views of thoracic spine reveals multilevel degenerative changes in the thoracic fracture at T8 with 3 column involvement. MRI of the thoracic spine reveals a T8 fracture with no significant evidence of thoracic cord stenosis or hematoma. Impression: 1) ankylosing spondylitis 2) unstable thoracic vertebral fracture with 3 column involvement Plan: We are going to obtain additional markers for ankylosing spondylitis including an HLA B 27 marker. The patient has been placed in the thoracic lumbar orthotic and has had warnings and education regarding the unstable nature of his fracture. In this regard I find it reasonable to consider surgery in the form of a at least T5-T11 instrumented posterior thoracic fusion. He will need medical optimization and clearance prior to any surgical intervention. Plan was discussed with patient and 2 daughters present and they are agreeable at this time. Qualifiers: Ankylosing spondylitis location: multiple sites in spine Qualified Code(s) : M45.0 - Ankylosing spondylitis 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 Subjective Principal diagnosis: vertebral fracture Interval history: Patient doing well. He complains of some back pain which is well controlled. He is not mobilized in some time and is progressing slowly with therapy and needs significant assistance ambulating.. He is extubated and down to 4 L O2 via nasal cannula. On physical exam incision is clean dry and intact. He remains neurovascularly intact with regard to his bilateral upper extremities and lower extremities. Continue antibiotics, mobilization, pain control, plan AP and lateral views of the thoracic spine. Objective Vital signs: Vital Signs Temp Pulse Resp BP Pulse Ox 05/11/17 11:00 98.7 F 87 18 140/82 95 05/11/17 07:05 98.0 F 77 18 131/60 95 05/11/17 04:44 16 96 05/11/17 01:11 98.1 F 74 18 120/72 94 05/11/17 00:35 23 140/65 95 05/11/17 00:00 20 95 05/10/17 20:32 17 93 05/10/17 19:43 98.1 F 79 16 140/65 92 05/10/17 16:44 18 94 05/10/17 15:05 97.9 F 61 18 140/64 93 Intake and Output 05/10/17 05/11/17 05/11/17 23:59 07:59 15:59 Intake Total 1200 / 1200 0 / 0 Output Total 300 / 300 1200 / 1200 Balance 900 / 900 -1200 / -1200 Intake: IV Fluids 1000 / 1000 Lactated Ringers 1,000 ML @ 100 1000 / 1000 mls/hr IVC .Q10H ROMAN Rx#: [id number] Oral 200 / 200 0 / 0 Output: Catheter 300 / 300 1200 / 1200 Other: Meal Dinner Breakfast Percent of Meal Consumed 80% 0% Blood Glucose* 182 178 177 - Labs CBC & BMP: 05/10/17 03:38 05/10/17 03:38 Labs: Abnormal lab results WBC 22.8 K/mcL (4.3-11.1) H 05/10/17 03:38 RBC 3.44 M/mcL (4.19-5.50) L 05/10/17 03:38 Hgb 10.7 g/dL (12.9-16.9) L D 05/10/17 03:38 Hct 32.6 % (37.5-50.1) L 05/10/17 03:38 Neutrophils # 20.3 K/mcL (1.6-8.9) H 05/10/17 03:38 ESR 30 mm/hr (0-10) H 04/29/17 15:58 APTT 23.1 Seconds (26.0-36.0) L 05/08/17 05:33 ABG pH 7.46 pH Units (7.32-7.45) H 05/09/17 09:06 ABG pCO2 46 mmHg (35-45) H 05/09/17 09:06 ABG HCO3 32 mEq/L (21-27) H 05/09/17 09:06 ABG Total CO2 34 mEq/L (20-26) H 05/09/17 09:06 ABG Base Excess 7 mEq/L (-2 to 3) H 05/09/17 09:06 BUN 50 mg/dL (8-23) H 05/10/17 03:38 BUN/Creatinine Ratio 45 (6-26) H 05/10/17 03:38 Glucose 164 mg/dL (70-105) H 05/10/17 03:38 POC Glucose 177 (58-89) H 05/11/17 11:28 Calculated Osmolality 303 (280-300) H 05/10/17 03:38 Calcium 8.2 mg/dL (8.6-10.3) L 05/10/17 03:38 Total Bilirubin 1.2 mg/dL (0.3-1.0) H 05/01/17 11:00 B-Natriuretic Peptide 198 pg/mL (Less than 100) H 05/01/17 13:31 Globulin 3.6 g/dL (2.4-3.5) H 05/01/17 11:00 Albumin/Globulin Ratio 1.0 (1.1-2.2) L 05/01/17 11:00 Consult Discharge Plan - Plan Instructions: Heart Failure (DC), Acute Respiratory Distress Syndrome (DC), Chronic Obstructive Pulmonary Disease (DC), Sepsis (DC), Abuse of Alcohol (DC), Abuse of Alcohol (GEN), Chronic Hypertension (DC), Pneumonia (DC) Referrals: Dex Higuera Jr, MD [Primary Care Provider] - 05/10/17 10:00 am
[2017-05-12] MEDS: Ipratropium/Albuterol Neb 3 ML IH SCH ×7 (00:08→23:55)
[2017-05-12] MEDS: methylPREDNISolone 125 MG/2 ML VIAL IVP SCH ×2 (01:27→08:58)
[2017-05-12] MEDS: Budesonide/Formoterol 80/4.5 MDI IH SCH ×2 (07:31→20:35)
--- NOTE | 2017-05-12 08:26 | Orthopedics Progress Note ---
Date of Encounter: 05/12/17 Time of Encounter: 08:25 Subjective Principal diagnosis: vertebral fracture Interval history: S: Resting in bed comfortably. Pain is well controlled. O: Afebrile, VSS Back dressing is clean, dry, and intact He can grossly flex and extend his ankle and toes The foot is sensate and well perfused A: Posterior thoracic fusion, multilevel (T5 to T12) P: Resume postoperative care Supportive treatment per primary team. Objective Vital signs: Vital Signs Temp Pulse Resp BP Pulse Ox 05/12/17 07:35 98.8 F 73 16 156/63 93 05/12/17 07:34 16 92 05/12/17 04:22 19 95 05/12/17 03:24 97.4 F L 73 16 146/77 95 05/12/17 00:08 17 92 05/12/17 00:00 97.9 F 74 18 129/60 91 05/11/17 20:35 16 91 05/11/17 18:45 97.9 F 71 17 127/75 89 05/11/17 16:19 74 17 99/50 92 05/11/17 15:51 20 89 05/11/17 15:00 98.2 F 65 16 120/48 93 05/11/17 11:00 98.7 F 87 18 140/82 95 Intake and Output 05/11/17 05/12/17 05/12/17 23:59 07:59 15:59 Intake Total 1000 / 1000 Output Total 375 / 375 450 / 450 Balance 625 / 625 -450 / -450 Intake: IV Fluids 1000 / 1000 Lactated Ringers 1,000 ML @ 100 1000 / 1000 mls/hr IVC .Q10H ROMAN Rx#: [id number] Output: Urine 375 / 375 450 / 450 Other: # Voids 2 Blood Glucose* 207 190 - Labs CBC & BMP: 05/10/17 03:38 05/10/17 03:38 Labs: Abnormal lab results WBC 22.8 K/mcL (4.3-11.1) H 05/10/17 03:38 RBC 3.44 M/mcL (4.19-5.50) L 05/10/17 03:38 Hgb 10.7 g/dL (12.9-16.9) L D 05/10/17 03:38 Hct 32.6 % (37.5-50.1) L 05/10/17 03:38 Neutrophils # 20.3 K/mcL (1.6-8.9) H 05/10/17 03:38 ESR 30 mm/hr (0-10) H 04/29/17 15:58 APTT 23.1 Seconds (26.0-36.0) L 05/08/17 05:33 ABG pH 7.46 pH Units (7.32-7.45) H 05/09/17 09:06 ABG pCO2 46 mmHg (35-45) H 05/09/17 09:06 ABG HCO3 32 mEq/L (21-27) H 05/09/17 09:06 ABG Total CO2 34 mEq/L (20-26) H 05/09/17 09:06 ABG Base Excess 7 mEq/L (-2 to 3) H 05/09/17 09:06 BUN 50 mg/dL (8-23) H 05/10/17 03:38 BUN/Creatinine Ratio 45 (6-26) H 05/10/17 03:38 Glucose 164 mg/dL (70-105) H 05/10/17 03:38 POC Glucose 190 (58-89) H 05/12/17 07:37 Hemoglobin A1c 6.9 % (-5.6) H 05/10/17 03:38 Calculated Osmolality 303 (280-300) H 05/10/17 03:38 Calcium 8.2 mg/dL (8.6-10.3) L 05/10/17 03:38 Total Bilirubin 1.2 mg/dL (0.3-1.0) H 05/01/17 11:00 B-Natriuretic Peptide 198 pg/mL (Less than 100) H 05/01/17 13:31 Globulin 3.6 g/dL (2.4-3.5) H 05/01/17 11:00 Albumin/Globulin Ratio 1.0 (1.1-2.2) L 05/01/17 11:00 - VTE Documentation of Mechanical Device: Graduated compression elastic hosiery Consult Discharge Plan - Plan Instructions: Heart Failure (DC), Acute Respiratory Distress Syndrome (DC), Chronic Obstructive Pulmonary Disease (DC), Sepsis (DC), Abuse of Alcohol (DC), Abuse of Alcohol (GEN), Chronic Hypertension (DC), Pneumonia (DC) Referrals: Dex Higuera Jr, MD [Primary Care Provider] - 05/10/17 10:00 am
[2017-05-12 08:42] LABS: BUN/Creatinine Ratio 46 (6-26); Blood Urea Nitrogen 32 mg/dL (8-23); Calcium 8.3 mg/dL (8.6-10.3); Carbon Dioxide 29 mEq/L (23-29); Chloride 104 mEq/L (98-107); Glucose 194 mg/dL (70-105); Magnesium 2.1 mg/dL (1.6-2.6); Osmolality,Calculated 296 (280-300); Potassium 4.8 mEq/L (3.5-5.1); Sodium 137 mEq/L (136-145); eGFR For African Americans > 60 (> 60); eGFR For Non-African Americans > 60 (> 60)
[2017-05-12] MEDS: Insulin LISPRO 300 UNITS/3 ML VIAL SQ SCH ×6 (08:57→17:37)
[2017-05-12 09:57] LABS: Basophils % 0.1 %; Hematocrit 29.6 % (37.5-50.1); Hemoglobin 9.7 g/dL (12.9-16.9); Immature Granulocytes % 2.5 % (0-4); Lymphocytes # 0.6 K/mcL (0.6-4.6); Lymphocytes % 2.3 %; Mean Corpuscular HGB Conc 32.8 g/dL (31.6-35.5); Mean Corpuscular Hemoglobin 30.7 pg (28.0-33.3); Mean Corpuscular Volume 93.7 fL (83.0-100.0); Monocytes % 4.7 %; Neutrophils # 22.1 K/mcL (1.6-8.9); Platelet Count 314 K/mcL (140-400); Red Blood Count 3.16 M/mcL (4.19-5.50); Red Cell Distribution Width 11.6 % (11.5-14.5); Segmented Neutrophils % 90.4 %
[2017-05-12 10:09] LABS: Monocytes # 1.2 K/mcL (0.0-1.3)
[2017-05-12] MEDS ORDERED: Furosemide 20 MG/2 ML VIAL IVP ONE (10:11)
--- NOTE | 2017-05-12 10:19 | Internal Med Progress Note ---
Date of Encounter: 05/12/17 Time of Encounter: 10:14 - Assessment and plan (1) Thoracic spine fracture Current Visit: Yes Status: Acute Assessment and plan: CT and MR revealed T7-T8 compressive fracture. Orthopedic spine has been consulted. back fusion on 05/09 continue pT and OT Qualifiers: Encounter type: subsequent encounter Thoracic vertebra fracture level: T7 Fracture type: closed Fracture morphology: other fracture Fracture healing : with routine healing Qualified Code(s): S22.068D - Other fracture of T7-T8 thoracic vertebra, subsequent encounter for fracture with routine healing (2) Community acquired pneumonia Current Visit: Yes Status: Acute Assessment and plan: Antibiotics have been discontinued. Qualifiers: Laterality: right Lung location: upper lobe of lung Qualified Code(s): J18.1 - Lobar pneumonia, unspecified organism (3) HTN (hypertension) Current Visit: No Status: Chronic Qualifiers: Hypertension type: essential hypertension Qualified Code(s): I10 - Essential (primary) hypertension (4) COPD (chronic obstructive pulmonary disease) Current Visit: No Status: Chronic Assessment and plan: Continue scheduled DuoNeb's. Continue with supplemental oxygen. Continue with BiPAP per pulmonology recommendations. change to oral prednisone no wheezing Qualifiers: COPD type: emphysema Emphysema type: unspecified Qualified Code(s): J43.9 - Emphysema, unspecified (5) CAD (coronary artery disease) Current Visit: No Status: Chronic Assessment and plan: Chronic issue Qualifiers: Coronary Disease-Associated Artery/Lesion type: [place] artery [place] vs. transplanted heart: [place] heart Associated angina: without angina Qualified Code(s): I25.10 - Atherosclerotic heart disease of [place] coronary artery without angina pectoris (6) Borderline type 2 diabetes mellitus Current Visit: No Status: Acute Assessment and plan: on SSI (7) Diastolic CHF Current Visit: Yes Status: Chronic Assessment and plan: Most recent echo on 04/28/17 showed LVEF 60-65%. Normal LV chamber size and function. Moderate concentric left ventricular hypertrophy. Mild left ventricular diastolic dysfunction. Right ventricle not well visualized. Grossly normal function. Severely dilated left atrium. No significant valvular dysfunction. No evidence of pulmonary hypertension. d/c IVF, give IV lasix, resume home dose lasix Qualifiers: Heart failure chronicity: chronic Qualified Code(s): I50.32 - Chronic diastolic (congestive) heart failure (8) Constipation due to opioid therapy Current Visit: Yes Status: Acute Assessment and plan: check KUB miralax scheduled (9) Ankylosing spondylitis Current Visit: Yes Status: Suspected Assessment and plan: Chronic issue Likely contributory to the patients thoracic spine fracture Qualifiers: Ankylosing spondylitis location: multiple sites in spine Qualified Code(s) : M45.0 - Ankylosing spondylitis 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 (10) Acute and chronic respiratory failure Current Visit: Yes Status: Resolved Assessment and plan: patient has COPD on 3.5 L NC at night and with exertion, at home Qualifiers: Respiratory failure complication: hypoxia and hypercapnia Qualified Code(s) : J96.21 - Acute and chronic respiratory failure with hypoxia; J96.22 - Acute and chronic respiratory failure with hypercapnia; J96.22 - Acute and chronic respiratory failure with hypercapnia; J96.22 - Acute and chronic respiratory failure with hypercapnia (11) Neutrophilic leukocytosis Current Visit: Yes Status: Acute Assessment and plan: Likely secondary to Steroids - Subjective Interval history: Mr. Sapp is a 81 year old male with Hx of COPD, CHF, CAD s/p stent, HTN, Hx of hemorrhagic CVA, recent pneumonia still on po levaquin, present to ER for SOB. Pt actually has back pain for about 10 days which makes him hard to cough. Pt denies back injury. He said he has pain on back and ribs and shoulder blade whenever he has cough and sneeze. Pt denies fever or chest pain. He has chronic cough with COPD. He use oxygen during night at home. In ER, CTA has been done, which shows no PE but T7 and T8 compression fracture. Orthopedic consult was called by ER and Dr Holloway saw pt in ER. Recommend T-spine CT and MRI. Pt was admitted for further management. Patient was admitted on April 27 for pneumonia and back pain. He was found T7-T8 fracture. After all medical problem stabilized he went through back surgery on 05/09. He is doing okay on 5 L nasal cannula, he complains pain 7 out of 10 from back. he has no BM for many days KUB reviewed, right sided solid stool patient c/o leg hands and feet swellig, discussed with nurse, d/c IVF, start lasix - Constitutional Vitals: Temp Pulse Resp BP Pulse Ox 98.8 F 73 16 156/63 93 05/12/17 07:35 05/12/17 07:35 05/12/17 07:35 05/12/17 07:35 05/12/17 07:35 General appearance: Present: A&O X 3, pleasant, answers questions appropriately Exam: CONSTITUTIONAL: patient appears as an age appropriate male in no acute distress. EYES Clear sclerae, bilateral pupils are equal, reactive to light. EMOI. RESPIRATORY: No accessory muscle use, bilateral clear to auscultation, no wheezing, no crackles/rales. CARDIOVASCULAR: Regular heart rate, normal S1 and S2, no murmurs GASTROINTESTINAL: bowel sounds present, soft, no tenderness. MUSCULOSKELETAL: Joints in normal range of motion, no clubbing, no edema, no cyanosis. Bilateral peripheral pulses 2+. NEUROLOGIC: CN II to XII are grossly intact, no focal neurological deficit. Internal Medicine: Result - Labs CBC & Chem 7: 05/12/17 08:18 05/12/17 08:18 Labs: Short CBC 05/12/17 Range/Units 08:18 WBC 24.4 H (4.3-11.1) K/mcL Hgb 9.7 L (12.9-16.9) g/dL Hct 29.6 L (37.5-50.1) % Plt Count 314 (140-400) K/mcL BMP 05/12/17 08:18 Sodium 137 Potassium 4.8 Chloride 104 Carbon Dioxide 29 BUN 32 H Creatinine 0.70 Glucose 194 H Calcium 8.3 L - ABG Interpretation ABG results: ABG ABG pH 7.46 pH Units (7.32-7.45) H 05/09/17 09:06 ABG pCO2 46 mmHg (35-45) H 05/09/17 09:06 ABG pO2 85 mmHg (85-104) 05/09/17 09:06 ABG O2 Saturation 97 % (95-98) 05/09/17 09:06 PT/INR, D-dimer PT 11.1 Seconds (9.4-12.1) 05/08/17 05:33 - Impressions Impressions KUB X-Ray 05/11/17 10:23 IMPRESSION: Few mildly dilated loops of small bowel in the left abdomen which are nonspecific and may reflect ileus. Free air . D/ / 05/11/2017 11:15:50 Chrissie Barton MD / audie Interpreting Provider: Chrissie Barton MD - VTE Documentation of Mechanical Device: Graduated compression elastic hosiery Consult Discharge Plan - Plan Instructions: Heart Failure (DC), Acute Respiratory Distress Syndrome (DC), Chronic Obstructive Pulmonary Disease (DC), Sepsis (DC), Abuse of Alcohol (DC), Abuse of Alcohol (GEN), Chronic Hypertension (DC), Pneumonia (DC) Referrals: Dex Higuera Jr, MD [Primary Care Provider] - 05/10/17 10:00 am
[2017-05-12 10:24] LABS: Platelet Estimate Normal (Normal); Toxic Granulation Present (Not Present)
[2017-05-12] MEDS: predniSONE 20 MG TABLET PO SCH (11:00)
[2017-05-12] MEDS: *HR* HYDROcodone/Acet 5/325 mg TABLET PO PRN ×2 (11:13→20:38)
[2017-05-12] MEDS: Furosemide 40 MG TABLET PO SCH (17:38)
[2017-05-13 02:28] LABS: BUN/Creatinine Ratio 44 (6-26); Blood Urea Nitrogen 35 mg/dL (8-23); Calcium 8.6 mg/dL (8.6-10.3); Carbon Dioxide 26 mEq/L (23-29); Chloride 104 mEq/L (98-107); Glucose 131 mg/dL (70-105); Magnesium 2.2 mg/dL (1.6-2.6); Osmolality,Calculated 298 (280-300); Potassium 4.9 mEq/L (3.5-5.1); Sodium 139 mEq/L (136-145); eGFR For African Americans > 60 (> 60); eGFR For Non-African Americans > 60 (> 60)
[2017-05-13] MEDS: Ipratropium/Albuterol Neb 3 ML IH SCH ×5 (04:32→20:29)
[2017-05-13] MEDS: *HR* OxyCODONE Immed Rel 5 MG TABLET PO PRN (04:39)
[2017-05-13] MEDS: Budesonide/Formoterol 80/4.5 MDI IH SCH ×2 (07:24→20:29)
[2017-05-13] MEDS: Insulin LISPRO 300 UNITS/3 ML VIAL SQ SCH ×6 (08:05→17:26)
[2017-05-13] MEDS: predniSONE 20 MG TABLET PO SCH (08:16)
[2017-05-13] MEDS: Furosemide 40 MG TABLET PO SCH ×2 (08:16→17:27)
--- NOTE | 2017-05-13 08:38 | Orthopedics Progress Note ---
Date of Encounter: 05/13/17 Time of Encounter: 08:37 Subjective Principal diagnosis: vertebral fracture Interval history: S: Resting in bed comfortably. Pain is well controlled. O: Afebrile, VSS Back dressing is clean, dry, and intact He can grossly flex and extend his ankle and toes The foot is sensate and well perfused A: Posterior thoracic fusion, multilevel (T5 to T12) P: Resume postoperative care Supportive treatment per primary team. Objective Vital signs: Vital Signs Temp Pulse Resp BP Pulse Ox 05/13/17 07:24 18 92 05/13/17 06:34 98.0 F 75 18 143/67 93 05/13/17 04:46 98.9 F 87 19 152/84 96 05/13/17 04:32 18 95 05/13/17 01:07 98.7 F 91 14 143/86 96 05/12/17 23:55 22 91 05/12/17 20:35 18 94 05/12/17 19:48 98.2 F 56 17 130/87 93 05/12/17 17:10 97.9 F 67 16 138/85 91 05/12/17 15:58 15 99 05/12/17 12:26 98.3 F 78 15 141/60 92 05/12/17 11:15 16 93 Intake and Output 05/12/17 05/13/17 05/13/17 23:59 07:59 15:59 Output Total 1100 / 1100 150 / 150 Balance -1100 / -1100 -150 / -150 Output: Urine 1100 / 1100 150 / 150 Other: Meal Dinner Percent of Meal Consumed 25% # Voids 1 1 Blood Glucose* 285 128 - Labs CBC & BMP: 05/12/17 08:18 05/13/17 00:46 Labs: Abnormal lab results WBC 24.4 K/mcL (4.3-11.1) H 05/12/17 08:18 RBC 3.16 M/mcL (4.19-5.50) L 05/12/17 08:18 Hgb 9.7 g/dL (12.9-16.9) L 05/12/17 08:18 Hct 29.6 % (37.5-50.1) L 05/12/17 08:18 Neutrophils # 22.1 K/mcL (1.6-8.9) H 05/12/17 08:18 Toxic Granulation Present (Not Present) A 05/12/17 08:18 ESR 30 mm/hr (0-10) H 04/29/17 15:58 APTT 23.1 Seconds (26.0-36.0) L 05/08/17 05:33 ABG pH 7.46 pH Units (7.32-7.45) H 05/09/17 09:06 ABG pCO2 46 mmHg (35-45) H 05/09/17 09:06 ABG HCO3 32 mEq/L (21-27) H 05/09/17 09:06 ABG Total CO2 34 mEq/L (20-26) H 05/09/17 09:06 ABG Base Excess 7 mEq/L (-2 to 3) H 05/09/17 09:06 BUN 35 mg/dL (8-23) H 05/13/17 00:46 BUN/Creatinine Ratio 44 (6-26) H 05/13/17 00:46 Glucose 131 mg/dL (70-105) H 05/13/17 00:46 POC Glucose 128 (58-89) H 05/13/17 07:21 Hemoglobin A1c 6.9 % (-5.6) H 05/10/17 03:38 Total Bilirubin 1.2 mg/dL (0.3-1.0) H 05/01/17 11:00 B-Natriuretic Peptide 198 pg/mL (Less than 100) H 05/01/17 13:31 Globulin 3.6 g/dL (2.4-3.5) H 05/01/17 11:00 Albumin/Globulin Ratio 1.0 (1.1-2.2) L 05/01/17 11:00 - VTE Documentation of Mechanical Device: Intermittent pneumatic compression device Consult Discharge Plan - Plan Instructions: Heart Failure (DC), Acute Respiratory Distress Syndrome (DC), Chronic Obstructive Pulmonary Disease (DC), Sepsis (DC), Abuse of Alcohol (DC), Abuse of Alcohol (GEN), Chronic Hypertension (DC), Pneumonia (DC) Referrals: Dex Higuera Jr, MD [Primary Care Provider] - 05/10/17 10:00 am
[2017-05-13] MEDS ORDERED: Furosemide 40 MG TABLET PO SCH (09:00)
[2017-05-13] MEDS: *HR* HYDROcodone/Acet 5/325 mg TABLET PO PRN ×2 (11:43→19:49)
[2017-05-13] MEDS ORDERED: Furosemide 40 MG/4 ML VIAL IVP ONE (17:08)
--- NOTE | 2017-05-13 17:12 | Internal Med Progress Note ---
Date of Encounter: 05/13/17 Time of Encounter: 17:09 - Assessment and plan (1) Thoracic spine fracture Current Visit: Yes Status: Acute Assessment and plan: CT and MR revealed T7-T8 compressive fracture. Orthopedic spine has been consulted. back fusion on 05/09 continue pT and OT SNF placement when ortho is ok doing well, pain is beter controlled Qualifiers: Encounter type: subsequent encounter Thoracic vertebra fracture level: T7 Fracture type: closed Fracture morphology: other fracture Fracture healing : with routine healing Qualified Code(s): S22.068D - Other fracture of T7-T8 thoracic vertebra, subsequent encounter for fracture with routine healing (2) Community acquired pneumonia Current Visit: Yes Status: Acute Assessment and plan: Antibiotics have been discontinued. Qualifiers: Laterality: right Lung location: upper lobe of lung Qualified Code(s): J18.1 - Lobar pneumonia, unspecified organism (3) HTN (hypertension) Current Visit: No Status: Chronic Assessment and plan: Patient is currently normotensive continue Cozaar, hydralazine and carvedilol Qualifiers: Hypertension type: essential hypertension Qualified Code(s): I10 - Essential (primary) hypertension (4) COPD (chronic obstructive pulmonary disease) Current Visit: No Status: Chronic Assessment and plan: Continue scheduled DuoNeb's. Continue with supplemental oxygen. Continue with BiPAP per pulmonology recommendations. change to oral prednisone no wheezing Qualifiers: COPD type: emphysema Emphysema type: unspecified Qualified Code(s): J43.9 - Emphysema, unspecified (5) CAD (coronary artery disease) Current Visit: No Status: Chronic Qualifiers: Coronary Disease-Associated Artery/Lesion type: [place] artery [place] vs. transplanted heart: [place] heart Associated angina: without angina Qualified Code(s): I25.10 - Atherosclerotic heart disease of [place] coronary artery without angina pectoris (6) Borderline type 2 diabetes mellitus Current Visit: No Status: Acute Assessment and plan: on SSI (7) Diastolic CHF Current Visit: Yes Status: Chronic Assessment and plan: Most recent echo on 04/28/17 showed LVEF 60-65%. Normal LV chamber size and function. Moderate concentric left ventricular hypertrophy. Mild left ventricular diastolic dysfunction. Right ventricle not well visualized. Grossly normal function. Severely dilated left atrium. No significant valvular dysfunction. No evidence of pulmonary hypertension. continue home lasix 40 mg BID give extra dose Iv lasix 40 mg today Qualifiers: Heart failure chronicity: chronic Qualified Code(s): I50.32 - Chronic diastolic (congestive) heart failure (8) Constipation due to opioid therapy Current Visit: Yes Status: Acute Assessment and plan: miralax scheduled patient refused to take laxatives, he said he is not eating, he only eats 10-25 % meals (9) Ankylosing spondylitis Current Visit: Yes Status: Suspected Assessment and plan: Chronic issue Likely contributory to the patients thoracic spine fracture Qualifiers: Ankylosing spondylitis location: multiple sites in spine Qualified Code(s) : M45.0 - Ankylosing spondylitis 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 (10) Acute and chronic respiratory failure Current Visit: Yes Status: Resolved Assessment and plan: patient has COPD on 3.5 L NC at night and with exertion, at home Qualifiers: Respiratory failure complication: hypoxia and hypercapnia Qualified Code(s) : J96.21 - Acute and chronic respiratory failure with hypoxia; J96.22 - Acute and chronic respiratory failure with hypercapnia; J96.22 - Acute and chronic respiratory failure with hypercapnia; J96.22 - Acute and chronic respiratory failure with hypercapnia (11) Neutrophilic leukocytosis Current Visit: Yes Status: Acute Assessment and plan: Likely secondary to Steroids - Subjective Interval history: Mr. Sapp is a 81 year old male with Hx of COPD, CHF, CAD s/p stent, HTN, Hx of hemorrhagic CVA, recent pneumonia still on po levaquin, present to ER for SOB. Pt actually has back pain for about 10 days which makes him hard to cough. Pt denies back injury. He said he has pain on back and ribs and shoulder blade whenever he has cough and sneeze. Pt denies fever or chest pain. He has chronic cough with COPD. He use oxygen during night at home. In ER, CTA has been done, which shows no PE but T7 and T8 compression fracture. Orthopedic consult was called by ER and Dr Holloway saw pt in ER. Recommend T-spine CT and MRI. Pt was admitted for further management. Patient was admitted on April 27 for pneumonia and back pain. He was found T7-T8 fracture. After all medical problem stabilized he went through back surgery spine fusion on 05/09. He is doing better, O2 down to 3-4 L nasal cannula, he complains pain 5 out of 10 from back, improved. patient c/o leg hands and feet swelling, discussed with nurse, home lasix was restarted will give extra one dose IV lasix 40 mg, Cr is normal now - Constitutional Vitals: Temp Pulse Resp BP Pulse Ox 98.4 F 61 18 152/80 98 05/13/17 15:39 05/13/17 15:39 05/13/17 15:39 05/13/17 15:39 05/13/17 15:39 General appearance: Present: A&O X 3, pleasant, answers questions appropriately Exam: CONSTITUTIONAL: patient appears as an age appropriate male in no acute distress. EYES Clear sclerae, bilateral pupils are equal, reactive to light. EMOI. RESPIRATORY: No accessory muscle use, bilateral crackles/rales. CARDIOVASCULAR: Regular heart rate, normal S1 and S2, no murmurs GASTROINTESTINAL: bowel sounds present, soft, no tenderness. MUSCULOSKELETAL: Joints in normal range of motion, no clubbing, no edema, no cyanosis. Bilateral peripheral pulses 2+. NEUROLOGIC: CN II to XII are grossly intact, no focal neurological deficit. Internal Medicine: Result - Labs CBC & Chem 7: 05/12/17 08:18 05/13/17 00:46 Labs: BMP 05/13/17 00:46 Sodium 139 Potassium 4.9 Chloride 104 Carbon Dioxide 26 BUN 35 H Creatinine 0.80 Glucose 131 H Calcium 8.6 - ABG Interpretation ABG results: ABG ABG pH 7.46 pH Units (7.32-7.45) H 05/09/17 09:06 ABG pCO2 46 mmHg (35-45) H 05/09/17 09:06 ABG pO2 85 mmHg (85-104) 05/09/17 09:06 ABG O2 Saturation 97 % (95-98) 05/09/17 09:06 PT/INR, D-dimer PT 11.1 Seconds (9.4-12.1) 05/08/17 05:33 - Impressions Impressions Thoracic Spine X-Ray 05/13/17 08:00 IMPRESSION: 1. Fusion hardware in the thoracic spine. 2. Bilateral pleural effusions and cardiomegaly are suggested however sensitivity of this examination is quite limited. D/ / Guille Daniel / Guille Daniel Interpreting Provider: Guille Daniel - VTE Documentation of Mechanical Device: Intermittent pneumatic compression device Consult Discharge Plan - Plan Instructions: Heart Failure (DC), Acute Respiratory Distress Syndrome (DC), Chronic Obstructive Pulmonary Disease (DC), Sepsis (DC), Abuse of Alcohol (DC), Abuse of Alcohol (GEN), Chronic Hypertension (DC), Pneumonia (DC) Referrals: Dex Higuera Jr, MD [Primary Care Provider] - 05/10/17 10:00 am
[2017-05-13] MEDS: Acetaminophen 325 MG TABLET PO PRN (22:21)
[2017-05-14] MEDS: Ipratropium/Albuterol Neb 3 ML IH SCH ×7 (00:19→23:39)
[2017-05-14] MEDS: *HR* HYDROcodone/Acet 5/325 mg TABLET PO PRN ×3 (02:43→21:42)
[2017-05-14] MEDS: Acetaminophen 325 MG TABLET PO PRN (05:54)
[2017-05-14 06:00] LABS: Basophils # 0.1 K/mcL (0.0-0.2); Basophils % 0.3 %; Eosinophils # 0.1 K/mcL (0.0-0.6); Eosinophils % 0.4 %; Hematocrit 29.8 % (37.5-50.1); Hemoglobin 9.9 g/dL (12.9-16.9); Immature Granulocytes % 2.1 % (0-4); Lymphocytes # 1.9 K/mcL (0.6-4.6); Lymphocytes % 7.9 %; Mean Corpuscular HGB Conc 33.2 g/dL (31.6-35.5); Mean Corpuscular Volume 93.4 fL (83.0-100.0); Mean Platelet Volume 9.6 fL (9.4-12.4); Monocytes # 1.8 K/mcL (0.0-1.3); Monocytes % 7.3 %; Neutrophils # 19.5 K/mcL (1.6-8.9); Platelet Count 354 K/mcL (140-400); Red Blood Count 3.19 M/mcL (4.19-5.50); Red Cell Distribution Width 11.6 % (11.5-14.5)
[2017-05-14 06:15] LABS: BUN/Creatinine Ratio 42 (6-26); Blood Urea Nitrogen 38 mg/dL (8-23); Calcium 8.5 mg/dL (8.6-10.3); Carbon Dioxide 30 mEq/L (23-29); Chloride 99 mEq/L (98-107); Glucose 112 mg/dL (70-105); Magnesium 1.9 mg/dL (1.6-2.6); Osmolality,Calculated 292 (280-300); Sodium 136 mEq/L (136-145); eGFR For African Americans > 60 (> 60); eGFR For Non-African Americans > 60 (> 60)
[2017-05-14] MEDS: Insulin LISPRO 300 UNITS/3 ML VIAL SQ SCH ×6 (08:14→17:50)
[2017-05-14] MEDS: Furosemide 40 MG TABLET PO SCH (08:19)
[2017-05-14] MEDS: predniSONE 20 MG TABLET PO SCH (08:20)
[2017-05-14] MEDS: Budesonide/Formoterol 80/4.5 MDI IH SCH ×2 (08:23→20:34)
[2017-05-14] MEDS ORDERED: D5% in 0.45% NACL w KCl 10 MEQ/1,000 ML MLS IVC SCH (09:15)
--- NOTE | 2017-05-14 11:22 | Gastroenterology Progress Note ---
Date of Encounter: 05/14/17 Time of Encounter: 10:35 - Assessment and plan (1) Duodenitis Current Visit: Yes Status: Acute Assessment and plan: CT A/P shows inflammation in the 2nd portion of the duodenum which could represent an ulcer or duodenitis. Plan for EGD tomorrow to r/o esophagitis, gastritis, duodenitis, PUD, MW tear, or AVM. Keep NPO at midnight. (2) Constipation due to opioid therapy Current Visit: Yes Status: Acute Assessment and plan: Continue Miralax BID. Recommend daily fiber supplement. (3) Thoracic spine fracture Current Visit: Yes Status: Acute Qualifiers: Encounter type: subsequent encounter Thoracic vertebra fracture level: T7 Fracture type: closed Fracture morphology: other fracture Fracture healing : with routine healing Qualified Code(s): S22.068D - Other fracture of T7-T8 thoracic vertebra, subsequent encounter for fracture with routine healing - Time Spent With Patient Total time spent is greater than 50% in coordination of care (as documented) at patient's floor/unit and/or counseling patient: - Subjective Interval history: Pt reporting abdominal pain. CT A/P shows inflammation in the 2nd portion of the duodenum which could represent an ulcer or duodenitis. - Constitutional Vitals: Temp Pulse Resp BP Pulse Ox 98.0 F 79 28 106/66 90 05/14/17 10:55 05/14/17 10:55 05/14/17 10:55 05/14/17 10:55 05/14/17 10:55 General appearance: Present: cooperative, A&O X 3, no acute distress, answers questions appropriately - Head Head exam: Present: atraumatic, normocephalic - Eye Eye exam: Present: normal appearance, sclera anicteric - ENT ENT exam: Present: mucous membranes dry - Neck Neck exam general surgery: Present: normal inspection, trachea midline - Respiratory Respiratory exam: Present: decreased breath sounds, rhonchi - Cardiovascular Cardiovascular exam: Present: RRR, +S1, +S2 - GI/Abdominal GI/Abdominal exam: Present: soft, no peritoneal signs. Absent: distended, firm , guarding, tenderness - Rectal Rectal exam: Present: deferred - Extremities Exam Extremities exam: Present: warm - Neurological Exam Neurological exam: Present: no focal deficits - Psychiatric Psychiatric exam: Present: normal affect, normal mood - Skin Skin exam: Present: dry, intact, normal color, warm Results - Labs CBC & Chem 7: 05/14/17 04:30 05/14/17 04:30 Labs: Last Result ESR 30 mm/hr (0-10) H 04/29/17 15:58 Calcium 8.5 mg/dL (8.6-10.3) L 05/14/17 04:30 Troponin I < 0.03 ng/mL (< 0.04) 04/28/17 09:11 Entire Visit Hgb 9.9 g/dL (12.9-16.9) L 05/14/17 04:30 Hct 29.8 % (37.5-50.1) L 05/14/17 04:30 PT 11.1 Seconds (9.4-12.1) 05/08/17 05:33 Total Bilirubin 1.2 mg/dL (0.3-1.0) H 05/01/17 11:00 AST 25 Units/L (13-39) 05/01/17 11:00 ALT 37 Units/L (7-52) 05/01/17 11:00 - ABG ABG results: ABG ABG pH 7.46 pH Units (7.32-7.45) H 05/09/17 09:06 ABG pCO2 46 mmHg (35-45) H 05/09/17 09:06 ABG pO2 85 mmHg (85-104) 05/09/17 09:06 ABG O2 Saturation 97 % (95-98) 05/09/17 09:06 PT/INR, D-dimer PT 11.1 Seconds (9.4-12.1) 05/08/17 05:33 - Impressions Impressions Thoracic Spine X-Ray 05/13/17 08:00 IMPRESSION: 1. Fusion hardware in the thoracic spine. 2. Bilateral pleural effusions and cardiomegaly are suggested however sensitivity of this examination is quite limited. D/ / Guille Daniel / Guille Daniel Interpreting Provider: Guille Daniel Abdomen/Pelvis CT 05/14/17 04:38 IMPRESSION: 1. Inflammation in the 2nd portion of the duodenum could represent ulcer disease or duodenitis. 2. Colonic diverticulosis without scan evidence for diverticulitis. 3. Bibasilar atelectasis versus pneumonia. D/ / Nguyễn Tipton MD / Nguyễn Tipton MD Interpreting Provider: Nguyễn Tipton MD - VTE Documentation of Mechanical Device: Intermittent pneumatic compression device Consult Discharge Plan - Plan Instructions: Heart Failure (DC), Acute Respiratory Distress Syndrome (DC), Chronic Obstructive Pulmonary Disease (DC), Sepsis (DC), Abuse of Alcohol (DC), Abuse of Alcohol (GEN), Chronic Hypertension (DC), Pneumonia (DC) Referrals: Dex Higuera Jr, MD [Primary Care Provider] - 05/10/17 10:00 am
--- NOTE | 2017-05-14 11:56 | Spine Progress Note ---
Date of Encounter: 05/14/17 Time of Encounter: 11:54 - Assessment and Plan (1) Ankylosing spondylitis Current Visit: Yes Status: Suspected On examination he is lying comfortably in bed and a thoracic lumbar orthotic as prescribed. Afebrile vital signs stable. Exam is notable for limited chest expansion, limited range of motion of the thoracic or lumbar spine, tenderness to palpation over the midthoracic region, and a protuberant abdomen which is distended but nontender. He is neurovascularly intact with regard to his bilateral upper and lower extremities. He has no clonus. CT examination of the chest reveals a 3 column T8 thoracic fracture extending from the T7-8 disc space through the pedicles through the posterior elements. There is osseous bridging throughout the thoracolumbar spine consistent with ankylosing spondylitis.. AP pelvis reveals degenerative changes and essentially fused sacroiliac joints consistent with ankylosing spondylitis . AP and lateral views of thoracic spine reveals multilevel degenerative changes in the thoracic fracture at T8 with 3 column involvement. MRI of the thoracic spine reveals a T8 fracture with no significant evidence of thoracic cord stenosis or hematoma. Impression: 1) ankylosing spondylitis 2) unstable thoracic vertebral fracture with 3 column involvement Plan: We are going to obtain additional markers for ankylosing spondylitis including an HLA B 27 marker. The patient has been placed in the thoracic lumbar orthotic and has had warnings and education regarding the unstable nature of his fracture. In this regard I find it reasonable to consider surgery in the form of a at least T5-T11 instrumented posterior thoracic fusion. He will need medical optimization and clearance prior to any surgical intervention. Plan was discussed with patient and 2 daughters present and they are agreeable at this time. Qualifiers: Ankylosing spondylitis location: multiple sites in spine Qualified Code(s) : M45.0 - Ankylosing spondylitis 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 Subjective Principal diagnosis: vertebral fracture Interval history: Patient doing well. He is poorly mobilizing and progressing slowly with therapy and needs significant assistance ambulating. He is being worked up for his abdominal distension. . He is down to 4 L O2 via nasal cannula. On physical exam incision is clean dry and intact. He remains neurovascularly intact with regard to his bilateral upper extremities and lower extremities. Continue antibiotics, mobilization, pain control. Radiographs of the thoracic spine show good position of the hardware. Objective Vital signs: Vital Signs Temp Pulse Resp BP Pulse Ox 05/14/17 10:55 98.0 F 79 28 106/66 90 05/14/17 09:12 87 18 107/64 91 05/14/17 08:23 24 89 05/14/17 07:04 97.7 F 84 30 97/54 91 05/14/17 04:40 22 91 05/14/17 00:20 17 93 05/13/17 23:35 98.8 F 60 16 147/74 92 05/13/17 20:29 21 91 05/13/17 19:19 99.2 F 85 18 124/74 92 05/13/17 15:39 98.4 F 61 18 152/80 98 05/13/17 15:35 18 92 Intake and Output 05/13/17 05/14/17 05/14/17 23:59 07:59 15:59 Intake Total 325 / 325 Output Total 900 / 900 225 / 225 Balance -575 / -575 -225 / -225 Intake: Oral 325 / 325 Output: Urine 900 / 900 225 / 225 Other: Meal Dinner Percent of Meal Consumed 90% Blood Glucose* 163 120 156 - Labs CBC & BMP: 05/14/17 04:30 05/14/17 04:30 Labs: Abnormal lab results WBC 23.8 K/mcL (4.3-11.1) H 05/14/17 04:30 RBC 3.19 M/mcL (4.19-5.50) L 05/14/17 04:30 Hgb 9.9 g/dL (12.9-16.9) L 05/14/17 04:30 Hct 29.8 % (37.5-50.1) L 05/14/17 04:30 Neutrophils # 19.5 K/mcL (1.6-8.9) H 05/14/17 04:30 Monocytes # 1.8 K/mcL (0.0-1.3) H 05/14/17 04:30 Toxic Granulation Present (Not Present) A 05/12/17 08:18 ESR 30 mm/hr (0-10) H 04/29/17 15:58 APTT 23.1 Seconds (26.0-36.0) L 05/08/17 05:33 ABG pH 7.46 pH Units (7.32-7.45) H 05/09/17 09:06 ABG pCO2 46 mmHg (35-45) H 05/09/17 09:06 ABG HCO3 32 mEq/L (21-27) H 05/09/17 09:06 ABG Total CO2 34 mEq/L (20-26) H 05/09/17 09:06 ABG Base Excess 7 mEq/L (-2 to 3) H 05/09/17 09:06 Carbon Dioxide 30 mEq/L (23-29) H 05/14/17 04:30 BUN 38 mg/dL (8-23) H 05/14/17 04:30 BUN/Creatinine Ratio 42 (6-26) H 05/14/17 04:30 Glucose 112 mg/dL (70-105) H 05/14/17 04:30 POC Glucose 163 (58-89) H 05/13/17 20:35 Hemoglobin A1c 6.9 % (-5.6) H 05/10/17 03:38 Calcium 8.5 mg/dL (8.6-10.3) L 05/14/17 04:30 Total Bilirubin 1.2 mg/dL (0.3-1.0) H 05/01/17 11:00 B-Natriuretic Peptide 198 pg/mL (Less than 100) H 05/01/17 13:31 Globulin 3.6 g/dL (2.4-3.5) H 05/01/17 11:00 Albumin/Globulin Ratio 1.0 (1.1-2.2) L 05/01/17 11:00 Consult Discharge Plan - Plan Instructions: Heart Failure (DC), Acute Respiratory Distress Syndrome (DC), Chronic Obstructive Pulmonary Disease (DC), Sepsis (DC), Abuse of Alcohol (DC), Abuse of Alcohol (GEN), Chronic Hypertension (DC), Pneumonia (DC) Referrals: Dex Higuera Jr, MD [Primary Care Provider] - 05/10/17 10:00 am
[2017-05-14] MEDS: Pantoprazole 40 MG VIAL IVP SCH ×2 (12:11→17:54)
[2017-05-14] MEDS ORDERED: Lidocaine -MPF 2% 2 ML VIAL ONE (13:00)
[2017-05-14] MEDS ORDERED: Propofol 500 MG/50 ML INFUS..BTL ONE (13:00)
--- NOTE | 2017-05-14 13:15 | Anesthesia Evaluation PreOp ---
<Quinn Carr Ozzy - Last Filed: 05/14/17 13:13> Date of Encounter: 05/14/17 Time of Encounter: 13:13 - Past History Planned Operation: EGD Cardiac History: HTN Pulmonary History: COPD Alcohol Use: occasionally (H/O heavy use in past) Drug use: none Medications and Allergies Albuterol Sulfate [Proair Respiclick] 2 puff IH Q4H PRN 03/03/15 [History] Ascorbic Acid [Vitamin C] 500 mg PO DAILY 03/03/15 [History] Cholecalciferol (Vitamin D3) [Vitamin D3] 1,000 unit PO DAILY 03/03/15 [History] Simvastatin [Zocor] 40 mg PO QPM 03/03/15 [History] Carvedilol [Coreg] 25 mg PO BID #60 tablet 03/06/15 [Rx] Levofloxacin [Levaquin] 500 mg PO DAILY #7 tablet 12/22/16 [Rx] Aspirin Enteric Coated [Aspirin EC] 81 mg PO 3XW 04/27/17 [History] Cranberry 500 mg PO DAILY 04/27/17 [History] Furosemide [Lasix] 40 mg PO BID 04/27/17 [History] Losartan [Cozaar] 25 mg PO DAILY 04/27/17 [History] Multivitamin [One Daily Essential] 1 each PO DAILY 04/27/17 [History] Umeclidinium [place] [Incruse Ellipta] 62.5 mcg IH DAILY 04/27/17 [History] 3 Allergy/AdvReac Type Severity Reaction Status Date / Time Penicillins [PCN] Allergy Rash Verified 03/03/15 19:12 hydrocodone AdvReac Severe Agitated Verified 03/03/15 19:12 acetaminophen [From Percocet] AdvReac See Verified 04/30/17 18:53 Comments Oxycodone AdvReac See Verified 04/27/17 15:46 Comments Anesthesia Results - Labs 05/14/17 04:30 05/14/17 04:30 <Charo Ventura - Last Filed: 05/14/17 13:30> Date of Encounter: 05/14/17 - Past History Cardiac History: CHF (diastolic CHF) Pulmonary History: Other (oxygen 3.5 L at night, pneumonia) 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 Other Medical History: Diabetes Type II (oral medications only) - Meds/Allergy Pre-op Review Medications Reviewed: Yes Allergies Reviewed: Yes Beta Blockers on Current Med List: Yes If Beta Blockers taken, Date/Time (Last Dose taken): beta genie held due to low blood pressure Anesthesia Results - Labs 05/14/17 04:30 05/14/17 04:30 - Imaging EKG: report reviewed, image reviewed (SINUS RHYTHM LOW QRS VOLTAGE IN PRECORDIAL LEADS POSSIBLE ANTERIOR MYOCARDIAL INFARCTION, OF INDETERMINATE AGE NONSPECIFIC INFERIOR ST-T CHANGES) Additional studies: TTE: EV/EV echocardiogram w enhance Impressions: LVEF 60-65%. Normal LV chamber size and function. Moderate concentric left ventricular hypertrophy. Mild left ventricular diastolic dysfunction. Right ventricle not well visualized. Grossly normal function. Severely dilated left atrium. No significant valvular dysfunction. No evidence of pulmonary hypertension. Anesthesia Exam Last Vital Signs Temp 98.0 F 05/14/17 12:45 Pulse 69 05/14/17 12:45 Resp 22 05/14/17 12:45 BP 134/71 05/14/17 12:45 Pulse Ox 90 05/14/17 12:45 Weight: 98 kg NPO (# of Hours): >> 8 hrs - HEENT Pupil (Motor): Pupils equal, EOMI Mallampati: II Teeth: Poor dentition Oral Opening: Greater than 3 - SOLUTION MAKE UP OPERATOR LOC: Oriented - Cardiac Rhythm: Regular Murmur: None - Pulmonary Breath Sounds: bilateral Clear Respiratory Effort: Symmetrical Anesthesia Assess/Plan ASA Score: 4 Modified [place] Scale for Level of Consciousness: Cooperative, oriented, and tranquil Anesthetic Plan: MAC Monitoring Plan: Standard Monitors Recovery Plan: PACU
[2017-05-14] MEDS: Levofloxacin 750 MG/150 ML 750 MG/150 ML BAG IVPB SCH (15:04)
--- NOTE | 2017-05-14 16:38 | Internal Med Progress Note ---
Date of Encounter: 05/14/17 Time of Encounter: 16:32 - Assessment and plan (1) Duodenal ulcer Current Visit: Yes Status: Acute Assessment and plan: abdominal pain, anorexia, CT showed duodenitis, EGD shsowed duodenal ulcer, placed PPI BID, start clears (2) Thoracic spine fracture Current Visit: Yes Status: Acute Assessment and plan: CT and MR revealed T7-T8 compressive fracture. Orthopedic spine has been consulted. back fusion on 05/09 continue pT and OT SNF placement when ortho is ok doing well, pain is beter controlled Qualifiers: Encounter type: subsequent encounter Thoracic vertebra fracture level: T7 Fracture type: closed Fracture morphology: other fracture Fracture healing : with routine healing Qualified Code(s): S22.068D - Other fracture of T7-T8 thoracic vertebra, subsequent encounter for fracture with routine healing (3) Community acquired pneumonia Current Visit: Yes Status: Acute Assessment and plan: Antibiotics have been discontinued. patient developed productive cough, b/l crackles, CT showed possibel pneumonia levaqin added on 05/14 Qualifiers: Laterality: right Lung location: upper lobe of lung Qualified Code(s): J18.1 - Lobar pneumonia, unspecified organism (4) HTN (hypertension) Current Visit: No Status: Chronic Assessment and plan: Patient is currently normotensive continue Cozaar, hydralazine and carvedilol Qualifiers: Hypertension type: essential hypertension Qualified Code(s): I10 - Essential (primary) hypertension (5) COPD (chronic obstructive pulmonary disease) Current Visit: No Status: Chronic Assessment and plan: Continue scheduled DuoNeb's. Continue with supplemental oxygen. Continue with BiPAP per pulmonology recommendations. change to oral prednisone no wheezing Qualifiers: COPD type: emphysema Emphysema type: unspecified Qualified Code(s): J43.9 - Emphysema, unspecified (6) CAD (coronary artery disease) Current Visit: No Status: Chronic Assessment and plan: Chronic issue Qualifiers: Coronary Disease-Associated Artery/Lesion type: [place] artery [place] vs. transplanted heart: [place] heart Associated angina: without angina Qualified Code(s): I25.10 - Atherosclerotic heart disease of [place] coronary artery without angina pectoris (7) Borderline type 2 diabetes mellitus Current Visit: No Status: Acute Assessment and plan: on SSI (8) Diastolic CHF Current Visit: Yes Status: Chronic Assessment and plan: Most recent echo on 04/28/17 showed LVEF 60-65%. Normal LV chamber size and function. Moderate concentric left ventricular hypertrophy. Mild left ventricular diastolic dysfunction. Right ventricle not well visualized. Grossly normal function. Severely dilated left atrium. No significant valvular dysfunction. No evidence of pulmonary hypertension. continue home lasix 40 mg BID give extra dose Iv lasix 40 mg today Qualifiers: Heart failure chronicity: chronic Qualified Code(s): I50.32 - Chronic diastolic (congestive) heart failure (9) Constipation due to opioid therapy Current Visit: Yes Status: Acute Assessment and plan: miralax scheduled patient refused to take laxatives, he said he is not eating, he only eats 10-25 % meals (10) Ankylosing spondylitis Current Visit: Yes Status: Suspected Assessment and plan: Chronic issue Likely contributory to the patients thoracic spine fracture Qualifiers: Ankylosing spondylitis location: multiple sites in spine Qualified Code(s) : M45.0 - Ankylosing spondylitis 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 (11) Acute and chronic respiratory failure Current Visit: Yes Status: Resolved Assessment and plan: patient has COPD on 3.5 L NC at night and with exertion, at home Qualifiers: Respiratory failure complication: hypoxia and hypercapnia Qualified Code(s) : J96.21 - Acute and chronic respiratory failure with hypoxia; J96.22 - Acute and chronic respiratory failure with hypercapnia; J96.22 - Acute and chronic respiratory failure with hypercapnia; J96.22 - Acute and chronic respiratory failure with hypercapnia (12) Neutrophilic leukocytosis Current Visit: Yes Status: Acute Assessment and plan: Likely secondary to Steroids - Time Spent With Patient Greater than 35 minutes - Subjective Interval history: Mr. Sapp is a 81 year old male with Hx of COPD, CHF, CAD s/p stent, HTN, Hx of hemorrhagic CVA, recent pneumonia still on po levaquin, present to ER for SOB. Pt actually has back pain for about 10 days which makes him hard to cough. Pt denies back injury. He said he has pain on back and ribs and shoulder blade whenever he has cough and sneeze. Pt denies fever or chest pain. He has chronic cough with COPD. He use oxygen during night at home. In ER, CTA has been done, which shows no PE but T7 and T8 compression fracture. Orthopedic consult was called by ER and Dr Holloway saw pt in ER. Recommend T-spine CT and MRI. Pt was admitted for further management. Patient was admitted on April 27 for pneumonia and back pain. He was found T7-T8 fracture. After all medical problem stabilized he went through back surgery spine fusion on 05/09. He is doing better, O2 down to 3-4 L nasal cannula, he complains pain 5 out of 10 from back, improved. patient c/o leg hands and feet swelling, discussed with nurse, home lasix was restarted on 05/13 patient developed abdominal pain last night, CT showed duodenitis. GI was consulted, had EGD done which showed multiple nonbleeding duodenal ulcers GI recommended PPI twice a day - Constitutional Vitals: Temp Pulse Resp BP Pulse Ox 97.5 F L 74 20 118/64 91 05/14/17 16:05 05/14/17 16:05 05/14/17 16:05 05/14/17 16:05 05/14/17 16:05 General appearance: Present: A&O X 3, pleasant, answers questions appropriately Exam: CONSTITUTIONAL: patient appears as an age appropriate male in no acute distress. EYES Clear sclerae, bilateral pupils are equal, reactive to light. EMOI. RESPIRATORY: No accessory muscle use, bilateral clear to auscultation, no wheezing, no crackles/rales. CARDIOVASCULAR: Regular heart rate, normal S1 and S2, no murmurs GASTROINTESTINAL: bowel sounds present, soft, no tenderness. MUSCULOSKELETAL: Joints in normal range of motion, no clubbing, no edema, no cyanosis. Bilateral peripheral pulses 2+. NEUROLOGIC: CN II to XII are grossly intact, no focal neurological deficit. Internal Medicine: Result - Labs CBC & Chem 7: 05/14/17 04:30 05/14/17 04:30 Labs: Short CBC 05/14/17 Range/Units 04:30 WBC 23.8 H (4.3-11.1) K/mcL Hgb 9.9 L (12.9-16.9) g/dL Hct 29.8 L (37.5-50.1) % Plt Count 354 (140-400) K/mcL Neutrophils # 19.5 H (1.6-8.9) K/mcL BMP 05/14/17 04:30 Sodium 136 Potassium 4.0 Chloride 99 Carbon Dioxide 30 H BUN 38 H Creatinine 0.91 Glucose 112 H Calcium 8.5 L - ABG Interpretation ABG results: ABG ABG pH 7.46 pH Units (7.32-7.45) H 05/09/17 09:06 ABG pCO2 46 mmHg (35-45) H 05/09/17 09:06 ABG pO2 85 mmHg (85-104) 05/09/17 09:06 ABG O2 Saturation 97 % (95-98) 05/09/17 09:06 PT/INR, D-dimer PT 11.1 Seconds (9.4-12.1) 05/08/17 05:33 - Impressions Impressions Abdomen/Pelvis CT 05/14/17 04:38 IMPRESSION: 1. Inflammation in the 2nd portion of the duodenum could represent ulcer disease or duodenitis. 2. Colonic diverticulosis without scan evidence for diverticulitis. 3. Bibasilar atelectasis versus pneumonia. D/ / Nguyễn Tipton MD / Nguyễn Tipton MD Interpreting Provider: Nguyễn Tipton MD - VTE Documentation of Mechanical Device: Intermittent pneumatic compression device Consult Discharge Plan - Plan Instructions: Heart Failure (DC), Acute Respiratory Distress Syndrome (DC), Chronic Obstructive Pulmonary Disease (DC), Sepsis (DC), Abuse of Alcohol (DC), Abuse of Alcohol (GEN), Chronic Hypertension (DC), Pneumonia (DC) Referrals: Dex Higuera Jr, MD [Primary Care Provider] - 05/10/17 10:00 am
[2017-05-15] MEDS: Ipratropium/Albuterol Neb 3 ML IH SCH ×6 (04:33→23:45)
[2017-05-15] MEDS: *HR* HYDROcodone/Acet 5/325 mg TABLET PO PRN ×3 (04:46→18:07)
[2017-05-15] MEDS: Pantoprazole 40 MG VIAL IVP SCH ×2 (04:46→16:37)
[2017-05-15 06:42] LABS: Basophils % 0.1 %; Eosinophils # 0.2 K/mcL (0.0-0.6); Eosinophils % 1.1 %; Hematocrit 29.4 % (37.5-50.1); Hemoglobin 9.4 g/dL (12.9-16.9); Immature Granulocytes % 2.4 % (0-4); Lymphocytes # 1.6 K/mcL (0.6-4.6); Lymphocytes % 7.5 %; Mean Corpuscular Hemoglobin 30.4 pg (28.0-33.3); Mean Corpuscular Volume 95.1 fL (83.0-100.0); Mean Platelet Volume 9.1 fL (9.4-12.4); Monocytes # 1.5 K/mcL (0.0-1.3); Monocytes % 6.7 %; Neutrophils # 17.7 K/mcL (1.6-8.9); Platelet Count 333 K/mcL (140-400); Red Blood Count 3.09 M/mcL (4.19-5.50); Red Cell Distribution Width 11.8 % (11.5-14.5); Segmented Neutrophils % 82.2 %
[2017-05-15 06:55] LABS: BUN/Creatinine Ratio 40 (6-26); Blood Urea Nitrogen 33 mg/dL (8-23); Calcium 8.2 mg/dL (8.6-10.3); Carbon Dioxide 30 mEq/L (23-29); Chloride 101 mEq/L (98-107); Glucose 105 mg/dL (70-105); Osmolality,Calculated 290 (280-300); Potassium 3.9 mEq/L (3.5-5.1); Sodium 136 mEq/L (136-145); eGFR For African Americans > 60 (> 60); eGFR For Non-African Americans > 60 (> 60)
[2017-05-15] MEDS: Budesonide/Formoterol 80/4.5 MDI IH SCH ×2 (07:44→19:51)
[2017-05-15] MEDS: predniSONE 20 MG TABLET PO SCH (08:06)
[2017-05-15] MEDS: Insulin LISPRO 300 UNITS/3 ML VIAL SQ SCH ×6 (08:07→16:36)
[2017-05-15] MEDS: Levofloxacin 750 MG/150 ML 750 MG/150 ML BAG IVPB SCH (08:07)
[2017-05-15] MEDS: Megestrol Acetate 400 MG/10 ML UDC PO SCH (12:29)
[2017-05-15] MEDS: Acetaminophen 325 MG TABLET PO PRN ×2 (14:35→20:56)
--- NOTE | 2017-05-15 14:42 | Internal Med Progress Note ---
<Tali Cruzn - Last Filed: 05/15/17 16:22> Date of Encounter: 05/15/17 Time of Encounter: 14:41 - Assessment and plan (1) Peptic ulcer disease Current Visit: Yes Status: Acute Assessment and plan: Patient has multiple ulcers throughout the stomach and duodenum. This was shown on EGD that was performed on 05/14/17 GI has been consulted and is following this patient. (2) Acute respiratory failure Current Visit: No Status: Acute Assessment and plan: Weaning oxygen as tolerated Continue steroids Restart Lasix 40 mg BID. Qualifiers: Respiratory failure complication: hypoxia Qualified Code(s): J96.01 - Acute respiratory failure with hypoxia (3) COPD (chronic obstructive pulmonary disease) Current Visit: No Status: Chronic Assessment and plan: Continue with supplemental oxygen. Continue with BiPAP per pulmonology recommendations. Continue steroids. Restarting lasix due to rhonci bilaterally Qualifiers: COPD type: emphysema Emphysema type: unspecified Qualified Code(s): J43.9 - Emphysema, unspecified (4) Thoracic spine fracture Current Visit: Yes Status: Acute Assessment and plan: CT and MR revealed T7-T8 compressive fracture. Orthopedic spine has been consulted. back fusion on 05/09 continue pT and OT SNF placement when ortho is ok Having some back pain today after rehab. 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 Normal LV chamber size and function. Moderate concentric left ventricular hypertrophy. Mild left ventricular diastolic dysfunction. Right ventricle not well visualized. Grossly normal function. Severely dilated left atrium. No significant valvular dysfunction. No evidence of pulmonary hypertension. continue home lasix 40 mg BID Qualifiers: Heart failure chronicity: chronic Qualified Code(s): I50.32 - Chronic diastolic (congestive) heart failure (7) Community acquired pneumonia Current Visit: Yes Status: Acute Assessment and plan: Antibiotics have been discontinued. CT showed possible pneumonia levaqin added on 05/14 Qualifiers: Laterality: right Lung location: upper lobe of lung Qualified Code(s): J18.1 - Lobar pneumonia, unspecified organism (8) HTN (hypertension) Current Visit: No Status: Chronic Assessment and plan: Patient is currently normotensive continue Cozaar, hydralazine and carvedilol Qualifiers: Hypertension type: essential hypertension Qualified Code(s): I10 - Essential (primary) hypertension (9) Hyperlipidemia Current Visit: No Status: Chronic Assessment and plan: continue current medical management Qualifiers: Hyperlipidemia type: unspecified Qualified Code(s): E78.5 - Hyperlipidemia , unspecified (10) Chronic alcohol abuse Current Visit: No Status: Chronic Assessment and plan: Continue with CIWA protocol If the patient becomes more agitated he may need to be paced on a precedex drip and transfered to for a higher level of care (11) Constipation due to opioid therapy Current Visit: Yes Status: Acute Assessment and plan: miralax scheduled (12) Neutrophilic leukocytosis Current Visit: Yes Status: Acute Assessment and plan: Could be related to possible pneumonia and steroids (13) CAD (coronary artery disease) Current Visit: No Status: Chronic Assessment and plan: Chronic issue Qualifiers: Coronary Disease-Associated Artery/Lesion type: [place] artery [place] vs. transplanted heart: [place] heart Associated angina: without angina Qualified Code(s): I25.10 - Atherosclerotic heart disease of [place] coronary artery without angina pectoris (14) DVT prophylaxis Current Visit: Yes Status: Acute Assessment and plan: SCDs for DVT prophylaxis - Subjective Interval history: Patient states that he has improved some. States that he feels like his breathing has improved however it is not back to his baseline. Patient states that his abdomen is feeling better but is still somewhat distended. Overall the patient states that he is feeling better. He does state that he has been doing rehabilitation and this is cusses back to be somewhat painful as well. - Constitutional Vitals: Temp Pulse Resp BP Pulse Ox 97.9 F 86 18 97/53 95 05/15/17 11:39 05/15/17 11:39 05/15/17 11:39 05/15/17 11:39 05/15/17 11:39 General appearance: Present: A&O X 3, pleasant, answers questions appropriately - Head Head exam: Present: atraumatic, normocephalic - Neck Neck exam general surgery: Present: full ROM, normal inspection, trachea midline - Respiratory Respiratory exam: Present: rhonchi (Bilaterally) - Cardiovascular Cardiovascular exam: Present: RRR, +S1, +S2. Absent: diastolic murmur, gallop, rubs, systolic murmur - GI/Abdominal GI/Abdominal exam: Present: distended, normal bowel sounds, soft, no peritoneal signs. Absent: tenderness - Extremities Exam Additional comments: Nonpitting edema bilateral lower extremities. - Neurological Exam Neurological exam: Present: alert, oriented X3, no focal deficits. Absent: facial droop, speech deficit - Psychiatric Psychiatric exam: Present: normal affect, normal mood - Skin Skin exam: Present: dry, intact, warm Internal Medicine: Result - Labs CBC & Chem 7: 05/15/17 06:23 05/15/17 06:23 Labs: Short CBC 05/15/17 Range/Units 06:23 WBC 21.6 H (4.3-11.1) K/mcL Hgb 9.4 L (12.9-16.9) g/dL Hct 29.4 L (37.5-50.1) % Plt Count 333 (140-400) K/mcL Neutrophils # 17.7 H (1.6-8.9) K/mcL BMP 05/15/17 06:23 Sodium 136 Potassium 3.9 Chloride 101 Carbon Dioxide 30 H BUN 33 H Creatinine 0.83 Glucose 105 Calcium 8.2 L - ABG Interpretation ABG results: ABG ABG pH 7.46 pH Units (7.32-7.45) H 05/09/17 09:06 ABG pCO2 46 mmHg (35-45) H 05/09/17 09:06 ABG pO2 85 mmHg (85-104) 05/09/17 09:06 ABG O2 Saturation 97 % (95-98) 05/09/17 09:06 PT/INR, D-dimer PT 11.1 Seconds (9.4-12.1) 05/08/17 05:33 - VTE Documentation of Mechanical Device: Intermittent pneumatic compression device Consult Discharge Plan - Plan Instructions: Heart Failure (DC), Acute Respiratory Distress Syndrome (DC), Chronic Obstructive Pulmonary Disease (DC), Sepsis (DC), Abuse of Alcohol (DC), Abuse of Alcohol (GEN), Chronic Hypertension (DC), Pneumonia (DC) Referrals: Dex Higuera Jr, MD [Primary Care Provider] - 05/10/17 10:00 am <Pranav aMrte - Last Filed: 05/15/17 19:23> Date of Encounter: 05/15/17 - Assessment and plan (1) Acute respiratory failure Current Visit: No Status: Acute Qualifiers: Respiratory failure complication: hypoxia Qualified Code(s): J96.01 - Acute respiratory failure with hypoxia (2) Thoracic spine fracture Current Visit: Yes Status: Acute Qualifiers: Encounter type: subsequent encounter Thoracic vertebra fracture level: T7 Fracture type: closed Fracture morphology: other fracture Fracture healing : with routine healing Qualified Code(s): S22.068D - Other fracture of T7-T8 thoracic vertebra, subsequent encounter for fracture with routine healing (3) Ankylosing spondylitis Current Visit: Yes Status: Suspected Qualifiers: Ankylosing spondylitis location: multiple sites in spine Qualified Code(s) : M45.0 - Ankylosing spondylitis 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 (4) CAD (coronary artery disease) Current Visit: No Status: Chronic Qualifiers: Coronary Disease-Associated Artery/Lesion type: [place] artery [place] vs. transplanted heart: [place] heart Associated angina: without angina Qualified Code(s): I25.10 - Atherosclerotic heart disease of [place] coronary artery without angina pectoris (5) HTN (hypertension) Current Visit: No Status: Chronic Qualifiers: Hypertension type: essential hypertension Qualified Code(s): I10 - Essential (primary) hypertension (6) Neutrophilic leukocytosis Current Visit: Yes Status: Acute (7) CHF (congestive heart failure) Current Visit: Yes Status: Chronic Qualifiers: Heart failure type: diastolic Heart failure chronicity: acute on chronic Qualified Code(s): I50.33 - Acute on chronic diastolic (congestive) heart failure (8) Duodenal ulcer Current Visit: Yes Status: Acute Assessment and plan: Multiple duodenal ulcers. (9) Constipation due to opioid therapy Current Visit: Yes Status: Acute - Constitutional Vitals: Temp Pulse Resp BP Pulse Ox 98.5 F 79 18 103/63 92 05/15/17 15:43 05/15/17 15:43 05/15/17 16:00 05/15/17 15:43 05/15/17 16:00 Internal Medicine: Result - Labs CBC & Chem 7: 05/15/17 06:23 05/15/17 06:23 Labs: Short CBC 05/15/17 Range/Units 06:23 WBC 21.6 H (4.3-11.1) K/mcL Hgb 9.4 L (12.9-16.9) g/dL Hct 29.4 L (37.5-50.1) % Plt Count 333 (140-400) K/mcL Neutrophils # 17.7 H (1.6-8.9) K/mcL BMP 05/15/17 06:23 Sodium 136 Potassium 3.9 Chloride 101 Carbon Dioxide 30 H BUN 33 H Creatinine 0.83 Glucose 105 Calcium 8.2 L - ABG Interpretation ABG results: ABG ABG pH 7.46 pH Units (7.32-7.45) H 05/09/17 09:06 ABG pCO2 46 mmHg (35-45) H 05/09/17 09:06 ABG pO2 85 mmHg (85-104) 05/09/17 09:06 ABG O2 Saturation 97 % (95-98) 05/09/17 09:06 PT/INR, D-dimer PT 11.1 Seconds (9.4-12.1) 05/08/17 05:33 - Attending Attestation I examined this patient and my medical decision-making was reviewed with the Resident Physician on 05/15/17. I agree with the documented findings, disposition and treatment plan as described except to the extent set forth below. Daily is currently admitted for thoracic fracture s/p repair. He remains moderate to high risk due to potential for worsening clinical status. Mr Daily is up in chair. He feels OK but is having some chest congestion. No fever or chills. Feels tired at this time. Exam Alert Comfortable Mucus membranes dry Heart distant Lungs with scattered rhonchi and no wheeze abd soft I/P 1. Resp failure - improved 2. Thoracic fracture 3. Multiple ulcers. Anticipate d/c soon Further diagnoses and plan as above.
[2017-05-16] MEDS: *HR* HYDROcodone/Acet 5/325 mg TABLET PO PRN ×3 (02:25→22:44)
[2017-05-16] MEDS: Ipratropium/Albuterol Neb 3 ML IH SCH ×6 (04:07→23:15)
[2017-05-16 06:26] LABS: Basophils % 0.1 %; Eosinophils # 0.2 K/mcL (0.0-0.6); Hematocrit 28.3 % (37.5-50.1); Hemoglobin 9.2 g/dL (12.9-16.9); Immature Granulocytes % 1.8 % (0-4); Lymphocytes # 1.5 K/mcL (0.6-4.6); Lymphocytes % 7.4 %; Mean Corpuscular HGB Conc 32.5 g/dL (31.6-35.5); Mean Corpuscular Hemoglobin 30.8 pg (28.0-33.3); Mean Corpuscular Volume 94.6 fL (83.0-100.0); Mean Platelet Volume 9.2 fL (9.4-12.4); Monocytes # 1.4 K/mcL (0.0-1.3); Monocytes % 6.9 %; Neutrophils # 17.2 K/mcL (1.6-8.9); Platelet Count 308 K/mcL (140-400); Red Blood Count 2.99 M/mcL (4.19-5.50); Red Cell Distribution Width 11.9 % (11.5-14.5); Segmented Neutrophils % 82.8 %
[2017-05-16] MEDS: Pantoprazole 40 MG VIAL IVP SCH ×2 (06:40→17:46)
[2017-05-16] MEDS: Acetaminophen 325 MG TABLET PO PRN ×2 (06:40→18:30)
[2017-05-16 06:46] LABS: BUN/Creatinine Ratio 39 (6-26); Blood Urea Nitrogen 32 mg/dL (8-23); Calcium 8.1 mg/dL (8.6-10.3); Carbon Dioxide 28 mEq/L (23-29); Chloride 103 mEq/L (98-107); Glucose 140 mg/dL (70-105); Osmolality,Calculated 293 (280-300); Sodium 137 mEq/L (136-145); eGFR For African Americans > 60 (> 60); eGFR For Non-African Americans > 60 (> 60)
[2017-05-16] MEDS: Budesonide/Formoterol 80/4.5 MDI IH SCH ×2 (08:01→20:00)
[2017-05-16] MEDS: Insulin LISPRO 300 UNITS/3 ML VIAL SQ SCH ×6 (08:30→17:47)
[2017-05-16] MEDS: predniSONE 20 MG TABLET PO SCH (08:32)
[2017-05-16] MEDS: Furosemide 40 MG TABLET PO SCH ×2 (08:32→17:46)
[2017-05-16] MEDS: Levofloxacin 750 MG/150 ML 750 MG/150 ML BAG IVPB SCH (08:32)
[2017-05-16] MEDS: Megestrol Acetate 400 MG/10 ML UDC PO SCH (08:32)
--- NOTE | 2017-05-16 09:56 | Internal Med Progress Note ---
<Domenico Cruz - Last Filed: 05/16/17 12:58> Date of Encounter: 05/16/17 Time of Encounter: 09:54 - Assessment and plan (1) Peptic ulcer disease Current Visit: Yes Status: Acute Assessment and plan: Patient has multiple ulcers throughout the stomach and duodenum. This was shown on EGD that was performed on 05/14/17 GI has been consulted and is following this patient. Plan is to D/C patient to SNF tomorrow. (2) Acute respiratory failure Current Visit: No Status: Acute Assessment and plan: Weaning oxygen as tolerated Continue steroids continue Lasix 40 mg BID. Qualifiers: Respiratory failure complication: hypoxia Qualified Code(s): J96.01 - Acute respiratory failure with hypoxia (3) COPD (chronic obstructive pulmonary disease) Current Visit: No Status: Chronic Assessment and plan: Continue with supplemental oxygen. Continue with BiPAP per pulmonology recommendations. Continue steroids. Qualifiers: COPD type: emphysema Emphysema type: unspecified Qualified Code(s): J43.9 - Emphysema, unspecified (4) Thoracic spine fracture Current Visit: Yes Status: Acute Assessment and plan: CT and MR revealed T7-T8 compressive fracture. Orthopedic spine has been consulted. back fusion on 05/09 continue pT and OT Qualifiers: Encounter type: subsequent encounter Thoracic vertebra fracture level: T7 Fracture type: closed Fracture morphology: other fracture Fracture healing : with routine healing Qualified Code(s): S22.068D - Other fracture of T7-T8 thoracic vertebra, subsequent encounter for fracture with routine healing (5) Ankylosing spondylitis Current Visit: Yes Status: Suspected Assessment and plan: Chronic issue Likely contributory to the patients thoracic spine fracture Qualifiers: Ankylosing spondylitis location: multiple sites in spine Qualified Code(s) : M45.0 - Ankylosing spondylitis 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 (6) Diastolic CHF Current Visit: Yes Status: Chronic Assessment and plan: Most recent echo on 04/28/17 showed LVEF 60-65%. Normal LV chamber size and function. Moderate concentric left ventricular hypertrophy. Mild left ventricular diastolic dysfunction. Right ventricle not well visualized. Grossly normal function. Severely dilated left atrium. No significant valvular dysfunction. No evidence of pulmonary hypertension. continue home lasix 40 mg BID Qualifiers: Heart failure chronicity: chronic Qualified Code(s): I50.32 - Chronic diastolic (congestive) heart failure (7) Community acquired pneumonia Current Visit: Yes Status: Acute Assessment and plan: Antibiotics have been discontinued. CT showed possible pneumonia levaqin added on 05/14 Qualifiers: Laterality: right Lung location: upper lobe of lung Qualified Code(s): J18.1 - Lobar pneumonia, unspecified organism (8) HTN (hypertension) Current Visit: No Status: Chronic Assessment and plan: Patient is currently normotensive continue Cozaar, hydralazine and carvedilol Qualifiers: Hypertension type: essential hypertension Qualified Code(s): I10 - Essential (primary) hypertension (9) Hyperlipidemia Current Visit: No Status: Chronic Assessment and plan: continue current medical management Qualifiers: Hyperlipidemia type: unspecified Qualified Code(s): E78.5 - Hyperlipidemia , unspecified (10) Chronic alcohol abuse Current Visit: No Status: Chronic Assessment and plan: Continue with CIWA protocol If the patient becomes more agitated he may need to be paced on a precedex drip and transfered to for a higher level of care (11) Constipation due to opioid therapy Current Visit: Yes Status: Acute Assessment and plan: miralax scheduled (12) Neutrophilic leukocytosis Current Visit: Yes Status: Acute Assessment and plan: Could be related to possible pneumonia and steroids (13) CAD (coronary artery disease) Current Visit: No Status: Chronic Assessment and plan: Chronic issue Qualifiers: Coronary Disease-Associated Artery/Lesion type: mor[place] artery [place] vs. transplanted heart: morongo heart Associated angina: without angina Qualified Code(s): I25.10 - Atherosclerotic heart disease of mor[place] coronary artery without angina pectoris (14) DVT prophylaxis Current Visit: Yes Status: Acute Assessment and plan: SCDs for DVT prophylaxis - Subjective Interval history: Patient states that he has improved some. States that he feels like his breathing has improved however it is not back to his baseline. Patient states that his abdomen is feeling better but is still somewhat distended. Overall the patient states that he is feeling better. I discussed the patient being discharged today to a rehabilitation center and he does not feel that he is ready to be discharged. He states that he feels like he needs 1 more day. - Constitutional Vitals: Temp Pulse Resp BP Pulse Ox 97.3 F L 76 20 126/71 87 05/16/17 07:33 05/16/17 07:33 05/16/17 08:06 05/16/17 07:33 05/16/17 08:06 General appearance: Present: A&O X 3, pleasant, answers questions appropriately - Head Head exam: Present: atraumatic, normocephalic - Neck Neck exam general surgery: Present: full ROM, normal inspection, trachea midline - Respiratory Respiratory exam: Present: CTAB. Absent: accessory muscle use, rales, rhonchi, wheezes - Cardiovascular Cardiovascular exam: Present: RRR, +S1, +S2. Absent: diastolic murmur, gallop, rubs, systolic murmur - GI/Abdominal GI/Abdominal exam: Present: distended, soft, no peritoneal signs. Absent: tenderness - Extremities Exam Extremities exam: Present: warm. Absent: pedal edema, tenderness - Neurological Exam Neurological exam: Present: alert, oriented X3, no focal deficits. Absent: facial droop, speech deficit - Psychiatric Psychiatric exam: Present: normal affect, normal mood - Skin Skin exam: Present: dry, intact, warm Internal Medicine: Result - Labs CBC & Chem 7: 05/16/17 06:08 05/16/17 06:08 Labs: Short CBC 05/16/17 Range/Units 06:08 WBC 20.7 H (4.3-11.1) K/mcL Hgb 9.2 L (12.9-16.9) g/dL Hct 28.3 L (37.5-50.1) % Plt Count 308 (140-400) K/mcL Neutrophils # 17.2 H (1.6-8.9) K/mcL BMP 05/16/17 06:08 Sodium 137 Potassium 4.0 Chloride 103 Carbon Dioxide 28 BUN 32 H Creatinine 0.83 Glucose 140 H Calcium 8.1 L - ABG Interpretation ABG results: ABG ABG pH 7.46 pH Units (7.32-7.45) H 05/09/17 09:06 ABG pCO2 46 mmHg (35-45) H 05/09/17 09:06 ABG pO2 85 mmHg (85-104) 05/09/17 09:06 ABG O2 Saturation 97 % (95-98) 05/09/17 09:06 PT/INR, D-dimer PT 11.1 Seconds (9.4-12.1) 05/08/17 05:33 - VTE Documentation of Mechanical Device: Graduated compression elastic hosiery Consult Discharge Plan - Plan Instructions: Heart Failure (DC), Acute Respiratory Distress Syndrome (DC), Chronic Obstructive Pulmonary Disease (DC), Sepsis (DC), Abuse of Alcohol (DC), Abuse of Alcohol (GEN), Chronic Hypertension (DC), Pneumonia (DC) Referrals: Dex Higuera Jr, MD [Primary Care Provider] - 05/10/17 10:00 am <Pranav Maret - Last Filed: 05/16/17 18:39> Date of Encounter: 05/16/17 - Assessment and plan (1) Acute respiratory failure Current Visit: No Status: Acute Qualifiers: Respiratory failure complication: hypoxia Qualified Code(s): J96.01 - Acute respiratory failure with hypoxia (2) Thoracic spine fracture Current Visit: Yes Status: Acute Qualifiers: Encounter type: subsequent encounter Thoracic vertebra fracture level: T7 Fracture type: closed Fracture morphology: other fracture Fracture healing : with routine healing Qualified Code(s): S22.068D - Other fracture of T7-T8 thoracic vertebra, subsequent encounter for fracture with routine healing (3) Ankylosing spondylitis Current Visit: Yes Status: Suspected Qualifiers: Ankylosing spondylitis location: multiple sites in spine Qualified Code(s) : M45.0 - Ankylosing spondylitis 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 (4) CAD (coronary artery disease) Current Visit: No Status: Chronic Qualifiers: Coronary Disease-Associated Artery/Lesion type: [place] artery [place] vs. transplanted heart: morongo heart Associated angina: without angina Qualified Code(s): I25.10 - Atherosclerotic heart disease of [place] coronary artery without angina pectoris (5) HTN (hypertension) Current Visit: No Status: Chronic Qualifiers: Hypertension type: essential hypertension Qualified Code(s): I10 - Essential (primary) hypertension (6) Neutrophilic leukocytosis Current Visit: Yes Status: Acute (7) CHF (congestive heart failure) Current Visit: Yes Status: Chronic Qualifiers: Heart failure type: diastolic Heart failure chronicity: acute on chronic Qualified Code(s): I50.33 - Acute on chronic diastolic (congestive) heart failure (8) Duodenal ulcer Current Visit: Yes Status: Acute (9) Constipation due to opioid therapy Current Visit: Yes Status: Acute - Constitutional Vitals: Temp Pulse Resp BP Pulse Ox 97.7 F 77 18 105/62 92 05/16/17 15:40 05/16/17 15:40 05/16/17 16:29 05/16/17 15:40 05/16/17 16:29 Internal Medicine: Result - Labs CBC & Chem 7: 05/16/17 06:08 05/16/17 06:08 Labs: Short CBC 05/16/17 Range/Units 06:08 WBC 20.7 H (4.3-11.1) K/mcL Hgb 9.2 L (12.9-16.9) g/dL Hct 28.3 L (37.5-50.1) % Plt Count 308 (140-400) K/mcL Neutrophils # 17.2 H (1.6-8.9) K/mcL BMP 05/16/17 06:08 Sodium 137 Potassium 4.0 Chloride 103 Carbon Dioxide 28 BUN 32 H Creatinine 0.83 Glucose 140 H Calcium 8.1 L - ABG Interpretation ABG results: ABG ABG pH 7.46 pH Units (7.32-7.45) H 05/09/17 09:06 ABG pCO2 46 mmHg (35-45) H 05/09/17 09:06 ABG pO2 85 mmHg (85-104) 05/09/17 09:06 ABG O2 Saturation 97 % (95-98) 05/09/17 09:06 PT/INR, D-dimer PT 11.1 Seconds (9.4-12.1) 05/08/17 05:33 - Attending Attestation I examined this patient and my medical decision-making was reviewed with the Resident Physician on 05/16/17. I agree with the documented findings, disposition and treatment plan as described except to the extent set forth below. Mr Sapp is currently admitted for thoracic fracture and resp failure. He remains moderate to high risk due to potential worsening of clinical status. Mr Sapp is doing somewhat better at this time. He is breathing a little better today. No fever. Bowels OK. Exam Alert Comfortable Mucus membranes dry Heart reg Some rhonchi heard Abd soft I/P 1. Resp failure 2. Thoracic fracture Further diagnoses and plan as above.
[2017-05-17] MEDS: Ipratropium/Albuterol Neb 3 ML IH SCH ×3 (04:11→11:14)
[2017-05-17] MEDS: *HR* HYDROcodone/Acet 5/325 mg TABLET PO PRN ×2 (05:26→13:24)
[2017-05-17] MEDS: Pantoprazole 40 MG VIAL IVP SCH (05:26)
[2017-05-17] MEDS: Budesonide/Formoterol 80/4.5 MDI IH SCH (07:39)
--- NOTE | 2017-05-17 07:42 | Spine Progress Note ---
Date of Encounter: 05/17/17 Time of Encounter: 07:41 - Assessment and Plan (1) Ankylosing spondylitis Current Visit: Yes Status: Suspected On examination he is lying comfortably in bed and a thoracic lumbar orthotic as prescribed. Afebrile vital signs stable. Exam is notable for limited chest expansion, limited range of motion of the thoracic or lumbar spine, tenderness to palpation over the midthoracic region, and a protuberant abdomen which is distended but nontender. He is neurovascularly intact with regard to his bilateral upper and lower extremities. He has no clonus. CT examination of the chest reveals a 3 column T8 thoracic fracture extending from the T7-8 disc space through the pedicles through the posterior elements. There is osseous bridging throughout the thoracolumbar spine consistent with ankylosing spondylitis.. AP pelvis reveals degenerative changes and essentially fused sacroiliac joints consistent with ankylosing spondylitis . AP and lateral views of thoracic spine reveals multilevel degenerative changes in the thoracic fracture at T8 with 3 column involvement. MRI of the thoracic spine reveals a T8 fracture with no significant evidence of thoracic cord stenosis or hematoma. Impression: 1) ankylosing spondylitis 2) unstable thoracic vertebral fracture with 3 column involvement Plan: We are going to obtain additional markers for ankylosing spondylitis including an HLA B 27 marker. The patient has been placed in the thoracic lumbar orthotic and has had warnings and education regarding the unstable nature of his fracture. In this regard I find it reasonable to consider surgery in the form of a at least T5-T11 instrumented posterior thoracic fusion. He will need medical optimization and clearance prior to any surgical intervention. Plan was discussed with patient and 2 daughters present and they are agreeable at this time. Qualifiers: Ankylosing spondylitis location: multiple sites in spine Qualified Code(s) : M45.0 - Ankylosing spondylitis 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 Subjective Principal diagnosis: vertebral fracture Interval history: Patient doing well. He improved with mobilization and progressing slowly with therapy but needs assistance ambulating. His respiratory status continues to improve. He is down to 3 L O2 via nasal cannula. On physical exam incision is clean dry and intact. He remains neurovascularly intact with regard to his bilateral upper extremities and lower extremities. Continue antibiotics, mobilization, pain control. Okay to discharge from my standpoint to rehabilitation center. Follow-up in 2 weeks. Objective Vital signs: Vital Signs Temp Pulse Resp BP Pulse Ox 05/17/17 04:12 16 93 05/16/17 23:46 98.0 F 78 16 118/78 95 05/16/17 23:17 16 94 05/16/17 20:00 20 92 05/16/17 19:31 97.4 F L 84 113/68 96 05/16/17 16:29 18 92 05/16/17 15:40 97.7 F 77 105/62 93 05/16/17 11:14 18 91 05/16/17 09:53 98.0 F 78 18 93/54 97 05/16/17 08:06 20 87 Intake and Output 05/16/17 05/16/17 05/17/17 15:59 23:59 07:59 Intake Total 480 / 480 240 / 240 Output Total 200 / 200 400 / 400 400 / 400 Balance 280 / 280 -160 / -160 -400 / -400 Intake: Oral 480 / 480 240 / 240 Output: Urine 200 / 200 400 / 400 400 / 400 Other: Meal Lunch Dinner Percent of Meal Consumed 70% 100% Stool Size Copious Stool Consistency loose soft Stool Characteristics Pasty Stool Color Brown Weight 105.1 kg Blood Glucose* 177 220 Patient Weight 05/17/17 23:59 Weight 105.1 kg - Labs CBC & BMP: 05/16/17 06:08 05/16/17 06:08 Labs: Abnormal lab results WBC 20.7 K/mcL (4.3-11.1) H 05/16/17 06:08 RBC 2.99 M/mcL (4.19-5.50) L 05/16/17 06:08 Hgb 9.2 g/dL (12.9-16.9) L 05/16/17 06:08 Hct 28.3 % (37.5-50.1) L 05/16/17 06:08 MPV 9.2 fL (9.4-12.4) L 05/16/17 06:08 Neutrophils # 17.2 K/mcL (1.6-8.9) H 05/16/17 06:08 Monocytes # 1.4 K/mcL (0.0-1.3) H 05/16/17 06:08 Toxic Granulation Present (Not Present) A 05/12/17 08:18 ESR 30 mm/hr (0-10) H 04/29/17 15:58 APTT 23.1 Seconds (26.0-36.0) L 05/08/17 05:33 ABG pH 7.46 pH Units (7.32-7.45) H 05/09/17 09:06 ABG pCO2 46 mmHg (35-45) H 05/09/17 09:06 ABG HCO3 32 mEq/L (21-27) H 05/09/17 09:06 ABG Total CO2 34 mEq/L (20-26) H 05/09/17 09:06 ABG Base Excess 7 mEq/L (-2 to 3) H 05/09/17 09:06 BUN 32 mg/dL (8-23) H 05/16/17 06:08 BUN/Creatinine Ratio 39 (6-26) H 05/16/17 06:08 Glucose 140 mg/dL (70-105) H 05/16/17 06:08 POC Glucose 220 (58-89) H 05/16/17 20:06 Hemoglobin A1c 6.9 % (-5.6) H 05/10/17 03:38 Calcium 8.1 mg/dL (8.6-10.3) L 05/16/17 06:08 Total Bilirubin 1.2 mg/dL (0.3-1.0) H 05/01/17 11:00 B-Natriuretic Peptide 198 pg/mL (Less than 100) H 05/01/17 13:31 Globulin 3.6 g/dL (2.4-3.5) H 05/01/17 11:00 Albumin/Globulin Ratio 1.0 (1.1-2.2) L 05/01/17 11:00 Consult Discharge Plan - Plan Instructions: Heart Failure (DC), Acute Respiratory Distress Syndrome (DC), Chronic Obstructive Pulmonary Disease (DC), Sepsis (DC), Abuse of Alcohol (DC), Abuse of Alcohol (GEN), Chronic Hypertension (DC), Pneumonia (DC) Referrals: Dex Higuera Jr, MD [Primary Care Provider] - 05/10/17 10:00 am
[2017-05-17] MEDS: Insulin LISPRO 300 UNITS/3 ML VIAL SQ SCH ×4 (07:56→11:53)
[2017-05-17] MEDS: predniSONE 20 MG TABLET PO SCH (09:18)
[2017-05-17] MEDS: Furosemide 40 MG TABLET PO SCH (09:18)
[2017-05-17] MEDS: Megestrol Acetate 400 MG/10 ML UDC PO SCH (09:19)
[2017-05-17] MEDS: Levofloxacin 750 MG/150 ML 750 MG/150 ML BAG IVPB SCH (09:26)
--- NOTE | 2017-05-17 09:34 | Discharge Summary ---
<Domenico Cruz - Last Filed: 05/17/17 13:56> - NOTES TO OUTPATIENT PROVIDER Notes to Outpatient Provider: Patient was admitted to the hospital for a thoracic spine fracture which was repaired by Dr. Holloway. Patient is also had recurrent pneumonia and has been treated with antibiotics. The patient will be discharged to an extended care facility for rehabilitation. 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 Qualified Code(s): J43.9 - Emphysema, unspecified (4) Thoracic spine fracture Priority: Primary Status: Acute Qualifiers: Encounter type: subsequent encounter Thoracic vertebra fracture level: T7 Fracture type: closed Fracture morphology: other fracture Fracture healing : with routine healing Qualified Code(s): S22.068D - Other fracture of T7-T8 thoracic vertebra, subsequent encounter for fracture with routine healing (5) Ankylosing spondylitis Priority: Primary Status: Suspected Qualifiers: Ankylosing spondylitis location: multiple sites in spine Qualified Code(s) : M45.0 - Ankylosing spondylitis 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 (6) Diastolic CHF Priority: Secondary Status: Chronic Qualifiers: Heart failure chronicity: chronic Qualified Code(s): I50.32 - Chronic diastolic (congestive) heart failure (7) Community acquired pneumonia Priority: Primary Status: Acute Qualifiers: Laterality: right Lung location: upper lobe of lung Qualified Code(s): J18.1 - Lobar pneumonia, unspecified organism (8) HTN (hypertension) Priority: Secondary Status: Chronic Qualifiers: Hypertension type: essential hypertension Qualified Code(s): I10 - Essential (primary) hypertension (9) Hyperlipidemia Priority: Secondary Status: Chronic Qualifiers: Hyperlipidemia type: unspecified Qualified Code(s): E78.5 - Hyperlipidemia , unspecified (10) Chronic alcohol abuse Priority: Secondary Status: Chronic (11) Constipation due to opioid therapy Priority: Primary Status: Acute (12) Neutrophilic leukocytosis Priority: Primary Status: Acute (13) CAD (coronary artery disease) Priority: Secondary Status: Chronic Qualifiers: Coronary Disease-Associated Artery/Lesion type: [place] artery [place] vs. transplanted heart: [place] heart Associated angina: without angina Qualified Code(s): I25.10 - Atherosclerotic heart disease of [place] coronary artery without angina pectoris (14) DVT prophylaxis Priority: Secondary Status: Acute Hospital course: Mr. Sapp is a 81 year old male that presented to the hospital with a thoracic spine fracture. The patient had some respiratory failure that delayed the patient having surgery. The patient required high flow oxygen, BiPAP, steroids and antibiotics due to having a pneumonia. The patient's respiratory status did improve and the patient underwent a thoracic spine repair by Dr. Holloway. After surgery the patient was found to have a recurrent pneumonia and has been restarted on antibiotics. The patient states that he feels like he has been significantly improving and that his back pain is much more tolerable. He also states that his respiratory status has improved as well. At this time Dr. Holloway feels that is appropriate from a surgery standpoint for the patient to be discharged. Feel that the patient is stable and appropriate for discharge the patient will be discharged to [facility] for rehabilitation. Discharge discussed with: patient - Time Spent with Patient Total time spent providing and/or coordinating discharge services: Greater than 30 minutes (40) - Discharge Medications Prescriptions: HYDROcodone/Acet 5/325 mg [[place] 5-325 mg] 1 tab PO Q6HR PRN 5 Days #20 tablet PRN Reason: Moderate Pain Docusate [Colace] 100 mg PO BID PRN #60 capsule PRN Reason: Constipation Levofloxacin [Levaquin] 750 mg PO DAILY #4 tablet Pantoprazole Sodium [Protonix] 40 mg PO DAILY #30 tablet. Polyethylene Glycol 3350 [MiraLAX] 17 gm PO BID #60 powd.pack predniSONE [PredniSONE] 40 mg PO TAPER #20 tablet Home Medications: Albuterol Sulfate [Proair Respiclick] 2 puff IH Q4H PRN 03/03/15 [History] Ascorbic Acid [Vitamin C] 500 mg PO DAILY 03/03/15 [History] Cholecalciferol (Vitamin D3) [Vitamin D3] 1,000 unit PO DAILY 03/03/15 [History] Simvastatin [Zocor] 40 mg PO QPM 03/03/15 [History] Carvedilol [Coreg] 25 mg PO BID #60 tablet 03/06/15 [Rx] Aspirin Enteric Coated [Aspirin EC] 81 mg PO 3XW 04/27/17 [History] Cranberry 500 mg PO DAILY 04/27/17 [History] Furosemide [Lasix] 40 mg PO BID 04/27/17 [History] Losartan [Cozaar] 25 mg PO DAILY 04/27/17 [History] Multivitamin [One Daily Essential] 1 each PO DAILY 04/27/17 [History] Umeclidinium [place] [Incruse Ellipta] 62.5 mcg IH DAILY 04/27/17 [History] Docusate [Colace] 100 mg PO BID PRN #60 capsule 05/17/17 [Rx] HYDROcodone/Acet 5/325 mg [[place] 5-325 mg] 1 tab PO Q6HR PRN 5 Days #20 tablet 05/17/17 [Rx] Levofloxacin [Levaquin] 750 mg PO DAILY #4 tablet 05/17/17 [Rx] Pantoprazole Sodium [Protonix] 40 mg PO DAILY #30 tablet. 05/17/17 [Rx] Polyethylene Glycol 3350 [MiraLAX] 17 gm PO BID #60 powd.pack 05/17/17 [Rx] predniSONE [PredniSONE] 40 mg PO TAPER #20 tablet 05/17/17 [Rx] Allergies/Adverse Reactions: 3 Allergy/AdvReac Type Severity Reaction Status Date / Time Penicillins [PCN] Allergy Rash Verified 03/03/15 19:12 hydrocodone AdvReac Severe Agitated Verified 03/03/15 19:12 acetaminophen [From Percocet] AdvReac See Verified 04/30/17 18:53 Comments Oxycodone AdvReac See Verified 04/27/17 15:46 Comments Date of admission: 04/27/17 17:27 Primary care physician: Dex Higuera Jr, MD Consults: 04/27/17 20:46 Consult to Cardiology [CONS] Routine Comment: Consulting Provider: Card[facility] [place] Reason for Consult: Pre-surgery risk evaluation, pt has one episode of chest pain Call Completed: No 05/01/17 13:37 Consult to Pulmonology [CONS] Routine Consulting Provider: [facility] [place] Reason for Consult: Hypoxia, Pneumonia and HX of COPD Time Notified: 13:37 Call Completed: Yes 05/09/17 15:07 Consult to Spine Navigator [CONS] [CONS] Routine 05/10/17 12:19 Consult to Physical Therapy [CONS] Routine Comment: Evaluate, develop and implement POC Reason for Consult: s/p surgery 05/10/17 12:20 Consult to Occupational Therapy [CONS] Routine Comment: Evaluate, develop and implement POC Reason for Consult: s/p surgery 05/10/17 18:30 Consult to Main Line Station Engineer [CONS] Routine Reason for SW Consult: Discharge planning 05/14/17 09:02 Consult to Gastroenterology [CONS] Routine Consulting Provider: Dre Woodard Reason for Consult: duodenitis, Dr love Time Notified: 09:03 Call Completed: Yes Discharging clinician: Domenico Cruz Anticipated date of discharge: 05/17/17 - Constitutional Vitals: Temp Pulse Resp BP Pulse Ox 98.1 F 84 16 115/56 93 05/17/17 07:41 05/17/17 07:41 05/17/17 07:44 05/17/17 07:41 05/17/17 07:44 General appearance: Present: A&O X 3, pleasant, answers questions appropriately - Head Head exam: Present: atraumatic, normocephalic - Neck Neck exam general surgery: Present: full ROM, normal inspection, trachea midline - Respiratory Respiratory exam: Present: CTAB. Absent: accessory muscle use, rales, rhonchi, wheezes - Cardiovascular Cardiovascular exam: Present: RRR, +S1, +S2. Absent: diastolic murmur, gallop, rubs, systolic murmur - GI/Abdominal GI/Abdominal exam: Present: distended, soft, no peritoneal signs. Absent: tenderness - Extremities Exam Extremities exam: Present: warm. Absent: pedal edema, tenderness - Neurological Exam Neurological exam: Present: alert, oriented X3, no focal deficits. Absent: facial droop, speech deficit - Psychiatric Psychiatric exam: Present: normal affect, normal mood - Skin Skin exam: Present: dry, intact, warm - Patient Status Disposition: Transfer Inpatient Rehab Fac Condition: Fair Overall status at discharge: patient is progressing back to baseline - Discharge Instructions Instructions: Heart Failure (DC), Acute Respiratory Distress Syndrome (DC), Chronic Obstructive Pulmonary Disease (DC), Sepsis (DC), Abuse of Alcohol (DC), Abuse of Alcohol (GEN), Chronic Hypertension (DC), Pneumonia (DC) Follow Up With: Dex Higuera Jr, MD [Primary Care Provider] - 05/10/17 10:00 am Eric Holloway Jr, MD [Partnered Physician] - Additional Instructions: Please follow up with Dr. Holloway in 2 weeks as scheduled Please take all medications as prescribed. - Diet and Activity Activity: as per physical therapy Diet: advance to your usual diet - VTE Documentation of Mechanical Device: Intermittent pneumatic compression device <Pranav Marte - Last Filed: 05/17/17 18:12> Orders not resulted at time of discharge: Pending orders 05/09/17 10:05 XR fluoroscopy <1 hr [XR] Routine 05/14/17 13:57 CMV Qualitative PCR (pos neg) Routine Herpes Simplex PCR Body Fl Routine Date of Encounter: 05/17/17 - Discharge Diagnosis (1) Thoracic spine fracture Status: Acute Qualifiers: Encounter type: subsequent encounter Thoracic vertebra fracture level: T7 Fracture type: closed Fracture morphology: other fracture Fracture healing : with routine healing Qualified Code(s): S22.068D - Other fracture of T7-T8 thoracic vertebra, subsequent encounter for fracture with routine healing (2) Acute respiratory failure Status: Acute Qualifiers: Respiratory failure complication: hypoxia Qualified Code(s): J96.01 - Acute respiratory failure with hypoxia (3) Ankylosing spondylitis Priority: Secondary Status: Suspected Qualifiers: Ankylosing spondylitis location: multiple sites in spine Qualified Code(s) : M45.0 - Ankylosing spondylitis 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 (4) CAD (coronary artery disease) Status: Chronic Qualifiers: Coronary Disease-Associated Artery/Lesion type: [place] artery [place] vs. transplanted heart: [place] heart Associated angina: without angina Qualified Code(s): I25.10 - Atherosclerotic heart disease of [place] coronary artery without angina pectoris (5) HTN (hypertension) Status: Chronic Qualifiers: Hypertension type: essential hypertension Qualified Code(s): I10 - Essential (primary) hypertension (6) Neutrophilic leukocytosis Priority: Secondary Status: Resolved (7) CHF (congestive heart failure) Priority: Secondary Status: Chronic Qualifiers: Heart failure type: diastolic Heart failure chronicity: acute on chronic Qualified Code(s): I50.33 - Acute on chronic diastolic (congestive) heart failure (8) Duodenal ulcer Priority: Secondary Status: Acute (9) Constipation due to opioid therapy Priority: Secondary Status: Acute Hospital course: Mr. Sapp is a 81 year old male - Time Spent with Patient Total time spent providing and/or coordinating discharge services: 39min Date of admission: 04/27/17 17:27 Primary care physician: Dex Higuera Jr, MD Consults: 04/27/17 20:46 Consult to Cardiology [CONS] Routine Comment: Consulting Provider: Card[facility] [place] Reason for Consult: Pre-surgery risk evaluation, pt has one episode of chest pain Call Completed: No 05/01/17 13:37 Consult to Pulmonology [CONS] Routine Consulting Provider: [facility] [place] Reason for Consult: Hypoxia, Pneumonia and HX of COPD Time Notified: 13:37 Call Completed: Yes 05/09/17 15:07 Consult to Spine Navigator [CONS] [CONS] Routine 05/10/17 12:19 Consult to Physical Therapy [CONS] Routine Comment: Evaluate, develop and implement POC Reason for Consult: s/p surgery 05/10/17 12:20 Consult to Occupational Therapy [CONS] Routine Comment: Evaluate, develop and implement POC Reason for Consult: s/p surgery 05/10/17 18:30 Consult to Main Line Station Engineer [CONS] Routine Reason for SW Consult: Discharge planning 05/14/17 09:02 Consult to Gastroenterology [CONS] Routine Consulting Provider: Gastroenter[facility] [place] Reason for Consult: duodenitis, Dr love Time Notified: 09:03 Call Completed: Yes - Constitutional Vitals: Temp Pulse Resp BP Pulse Ox 97.6 F 79 18 94/58 93 05/17/17 11:21 05/17/17 11:21 05/17/17 11:21 05/17/17 11:21 05/17/17 11:21 - Attending Attestation I examined this patient and my medical decision-making was reviewed with the Resident Physician on 05/17/17. I agree with the documented findings, disposition and treatment plan as described except to the extent set forth below. Mr Sapp has been admitted for acute thoracic spine fracture. He was presumed to have ankylosing spondylitis. He had multiple medical issues including hypoxia, pulmonary edema, probable pneumonia and constipation. He underwent surgery successfully and had slow recovery. He is now afebrile with stable vitals. His breathing has improved overall. He is completing course of abx. He is ready for discharge to rehab. Exam Alert Comfortable at this time Mucus membranes dry Heart distant Lungs with scattered rhonchi Abd soft Plan D/C to SNF today.
--- NOTE | 2017-05-17 09:46 | Physician Discharge Referral ---
ExtendedCare Referral Info Transfer To: [facility] Provider in Charge after Transfer: PCP Institutional Level of Care: Skilled - Diagnosis (1) Peptic ulcer disease Priority: Primary Status: Acute (2) Acute respiratory failure Priority: Primary Status: Acute (3) COPD (chronic obstructive pulmonary disease) Priority: Primary Status: Chronic (4) Thoracic spine fracture Priority: Primary Status: Acute (5) Ankylosing spondylitis Priority: Primary Status: Suspected (6) Diastolic CHF Priority: Secondary Status: Chronic (7) Community acquired pneumonia Priority: Primary Status: Acute (8) HTN (hypertension) Priority: Secondary Status: Chronic (9) Hyperlipidemia Priority: Secondary Status: Chronic (10) Chronic alcohol abuse Priority: Secondary Status: Chronic (11) Constipation due to opioid therapy Priority: Primary Status: Acute (12) Neutrophilic leukocytosis Priority: Primary Status: Acute (13) CAD (coronary artery disease) Priority: Secondary Status: Chronic (14) DVT prophylaxis Priority: Secondary Status: Acute - Transfer Medications Prescriptions: HYDROcodone/Acet 5/325 mg [[place] 5-325 mg] 1 tab PO Q6HR PRN 5 Days #20 tablet PRN Reason: Moderate Pain Docusate [Colace] 100 mg PO BID PRN #60 capsule PRN Reason: Constipation Levofloxacin [Levaquin] 750 mg PO DAILY #4 tablet Pantoprazole Sodium [Protonix] 40 mg PO DAILY #30 tablet. Polyethylene Glycol 3350 [MiraLAX] 17 gm PO BID #60 powd.pack predniSONE [PredniSONE] 40 mg PO TAPER #20 tablet Home Medications: Albuterol Sulfate [Proair Respiclick] 2 puff IH Q4H PRN 03/03/15 [History] Ascorbic Acid [Vitamin C] 500 mg PO DAILY 03/03/15 [History] Cholecalciferol (Vitamin D3) [Vitamin D3] 1,000 unit PO DAILY 03/03/15 [History] Simvastatin [Zocor] 40 mg PO QPM 03/03/15 [History] Carvedilol [Coreg] 25 mg PO BID #60 tablet 03/06/15 [Rx] Aspirin Enteric Coated [Aspirin EC] 81 mg PO 3XW 04/27/17 [History] Cranberry 500 mg PO DAILY 04/27/17 [History] Furosemide [Lasix] 40 mg PO BID 04/27/17 [History] Losartan [Cozaar] 25 mg PO DAILY 04/27/17 [History] Multivitamin [One Daily Essential] 1 each PO DAILY 04/27/17 [History] Umeclidinium [place] [Incruse Ellipta] 62.5 mcg IH DAILY 04/27/17 [History] Docusate [Colace] 100 mg PO BID PRN #60 capsule 05/17/17 [Rx] HYDROcodone/Acet 5/325 mg [[place] 5-325 mg] 1 tab PO Q6HR PRN 5 Days #20 tablet 05/17/17 [Rx] Levofloxacin [Levaquin] 750 mg PO DAILY #4 tablet 05/17/17 [Rx] Pantoprazole Sodium [Protonix] 40 mg PO DAILY #30 tablet.dr 05/17/17 [Rx] Polyethylene Glycol 3350 [MiraLAX] 17 gm PO BID #60 powd.pack 05/17/17 [Rx] predniSONE [PredniSONE] 40 mg PO TAPER #20 tablet 05/17/17 [Rx] Allergies/Adverse Reactions: 3 Allergy/AdvReac Type Severity Reaction Status Date / Time Penicillins [PCN] Allergy Rash Verified 03/03/15 19:12 hydrocodone AdvReac Severe Agitated Verified 03/03/15 19:12 acetaminophen [From Percocet] AdvReac See Verified 04/30/17 18:53 Comments Oxycodone AdvReac See Verified 04/27/17 15:46 Comments - Respiratory Orders Oxygen / L per min (4L [place]) Smoking Cessation: Smoking cessation has been advised. For more information, call the [place] Tobacco Quit Line at 0-254-NLEO-NOW. - Ancillary Orders May use pressure relief devices daily prn - Advance Directives Code Status: Full Code - Rehabiliation Orders Rehab Potential: Good Rehab Orders: Evaluation for Physical Therapy, Evaluation for Occupational Therapy - Treatments Skin tear care topically daily PRN per policy, May check for fecal impaction rectally daily PRN, Fleet enema rectally every other day PRN cleansing purposes - Diet Orders Regular CERTIFICATION: I certify that the transfer of the above named patient to an Extended Care Facility is necessary for the continuing treatment of the diagnosis listed. The above information is true and accurate reflection of patient's current condition. Confidential - Redisclosure prohibited without a patient's written consent.
[2017-05-17] MEDS ORDERED: levoFLOXacin 750 MG TABLET PO SCH (11:15)
[2017-05-17 11:24] VITALS: BP 94/58
[2017-05-17] MEDS: Acetaminophen 325 MG TABLET PO PRN (11:52)
[2017-05-18 14:27] LABS: HSV Source TISSUE
[2017-05-18 15:15] LABS: Cytomegalovirus DNA (PCR) NOT DETECTED
== END 2017-05-17 13:29 | DRG 459 ==
LOC: EMEROO 10:49 → 3NENU 10:49 → SUATTDRO 17:27 → 3NENU 17:37 → 2NENU 05-01 15:34 → ICNU 05-09 12:05 → 3NENU 05-10 15:15
PROVIDERS: ADMIT Internal Medicine; ATTEND Internal Medicine
PROC: ENDOEBX (2017-05-14 13:00)

== ENCOUNTER 2017-05-29 10:20 | Inpatient (IN) ==
[2017-05-29] MEDS ORDERED: Pantoprazole 40 MG VIAL IVP ONE (10:26)
[2017-05-29] MEDS ORDERED: 0.9 % Sodium Chloride 1,000 ML IVC ONE (10:26)
[2017-05-29 11:06] LABS: Basophils % 0.1 %; Eosinophils # 0.2 K/mcL (0.0-0.6); Eosinophils % 1.7 %; Hematocrit 19.3 % (37.5-50.1); Immature Granulocytes % 3.1 % (0-4); Lymphocytes # 0.9 K/mcL (0.6-4.6); Lymphocytes % 8.9 %; Mean Corpuscular HGB Conc 31.1 g/dL (31.6-35.5); Mean Corpuscular Hemoglobin 30.9 pg (28.0-33.3); Mean Corpuscular Volume 99.5 fL (83.0-100.0); Mean Platelet Volume 8.8 fL (9.4-12.4); Monocytes # 0.7 K/mcL (0.0-1.3); Monocytes % 7.2 %; Neutrophils # 7.9 K/mcL (1.6-8.9); Nucleated Red Blood Cells 0.3 /100 WBC (0); Platelet Count 252 K/mcL (140-400); Red Blood Count 1.94 M/mcL (4.19-5.50); Red Cell Distribution Width 14.4 % (11.5-14.5)
[2017-05-29 11:14] LABS: INR 1.1; Prothrombin Time 11.8 Seconds (9.4-12.1)
[2017-05-29 11:17] LABS: Activated Partial Thrombo Time 22.5 Seconds (26.0-36.0)
--- NOTE | 2017-05-29 11:22 | Emergency Department Note ---
Disposition Clinical Impression: Anemia Qualifiers: Anemia type: unspecified type Qualified Code(s): D64.9 - Anemia, unspecified GI bleed Qualifiers: GI bleed type/associated pathology: unspecified gastrointestinal hemorrhage type Qualified Code(s): K92.2 - Gastrointestinal hemorrhage, unspecified Disposition: Admitted As Inpatient Condition: Good Referrals: Dex Higuera Jr, MD [Primary Care Provider] - Forms: ED Satisfaction Letter Time of Disposition: 12:54 GI Bleed HPI - General Chief complaint: ED GI Bleed Stated complaint: anemia Time Seen by Provider: 05/29/17 10:25 Source: patient, EMS Limitations: no limitations Nursing Notes Reviewed: Yes Vital Signs Reviewed: Yes - History of Present Illness HPI Narrative: 81 year old male prsentes to the ED via EMS from [facility] for hgb of 5.9. Vanna states he has never needed a tranfusion in the past although he has been anemia but never this low. Vanna last admission was earlier this month for evaluationg of gastric ulcer which came back (-) for H.pylori per GI after an upper endoscopy. Vanna states that he feels weak and has since febuary and deies bloody stools. He is howveer (+) on hemmocullt test. Vanna dnies nausea, vomitting, chest pain, shortness of breath or bloody emesis/stools. He appears pale - Related Data Home Medications Medication Instructions Recorded Confirmed Albuterol Sulfate [Proair 2 puff IH Q4H PRN 03/03/15 05/29/17 Respiclick] Ascorbic Acid [Vitamin C] 500 mg PO DAILY 03/03/15 05/29/17 Simvastatin [Zocor] 40 mg PO QPM 03/03/15 05/29/17 Aspirin Enteric Coated [Aspirin EC] 81 mg PO 3XW 04/27/17 05/29/17 Cranberry 500 mg PO DAILY 04/27/17 05/29/17 Furosemide [Lasix] 40 mg PO BID 04/27/17 05/29/17 Losartan [Cozaar] 25 mg PO DAILY 04/27/17 05/29/17 Multivitamin [One Daily Essential] 1 each PO DAILY 04/27/17 05/29/17 Umeclidinium [place] [Incruse 62.5 mcg IH DAILY 04/27/17 05/29/17 Ellipta] Acetaminophen [Tylenol] 650 mg PO Q6HR PRN 05/29/17 05/29/17 Ipratropium/Albuterol Neb [Duoneb] 3 ml IH Q6HR PRN 05/29/17 05/29/17 LORazepam [Ativan] 0.5 mg PO BID 05/29/17 05/29/17 Loperamide [Imodium] 2 mg PO Q4HR PRN 05/29/17 05/29/17 Melatonin 10 mg PO HS 05/29/17 05/29/17 Pantoprazole Sodium [Protonix] 40 mg PO BID 05/29/17 05/29/17 predniSONE [PredniSONE] 20 mg PO DAILY 05/29/17 05/29/17 Previous Rx's Medication Instructions Recorded Carvedilol [Coreg] 25 mg PO BID #60 tablet 03/06/15 Docusate [Colace] 100 mg PO BID PRN #60 capsule 05/17/17 HYDROcodone/Acet 5/325 mg [[place] 1 tab PO Q6HR PRN 5 Days #20 tablet 05/17/17 5-325 mg] Polyethylene Glycol 3350 [MiraLAX] 17 gm PO BID #60 powd.pack 05/17/17 Allergies Allergy/AdvReac Type Severity Reaction Status Date / Time Penicillins [PCN] Allergy Rash Verified 05/29/17 10:31 hydrocodone AdvReac Severe Agitated Verified 05/29/17 10:31 Oxycodone AdvReac See Verified 05/29/17 10:31 Comments Constitutional: Reports: weakness. Denies: fever, chills, weight change Eyes: Denies: eye pain, eye discharge, vision change ENT ED: Denies: ear pain, throat pain, dental pain, hearing loss, epistaxis, congestion, dysphagia Cardiovascular: Denies: chest pain, palpitations, dyspnea on exertion, edema, syncope Respiratory: Denies: cough, dyspnea, wheezes, hemoptysis, stridor Gastrointestinal: Denies: abdominal pain, nausea, vomiting, diarrhea, constipation, hematemesis, melena, hematochezia Genitourinary: Denies: urgency, dysuria, frequency, hematuria Musculoskeletal: Denies: back pain, neck pain, arthralgia, myalgia Integumentary: Denies: rash, abrasion, lesions Neurological: Denies: headache, weakness, numbness, paresthesias, confusion, abnormal gait, vertigo Psychiatric: Denies: anxiety, depression, suicidal thoughts, homicidal thoughts , auditory hallucinations, visual hallucinations Endocrine: Denies: fatigue Hematological/Lymphatic: Denies: easy bleeding, easy bruising Allergic/Immunologic: Denies: facial swelling, urticaria Past Medical History - Past Medical History Medical history: Reports: CHF, COPD, coronary artery disease, CVA, hypertension , other Surgical history: Reports: cholecystectomy, other Psychiatric history: Reports: no psych history - Social History Smoking Status: Former smoker Smokeless Tobacco Status: No Alcohol use: Reports: occasionally Drug use: Reports: none Physical Exam - General Limitations: no limitations General appearance: alert, in no apparent distress, other (pale) - Head Head exam: atraumatic, normocephalic, normal inspection - Eye Eye exam: Present: normal appearance, PERRL, EOMI - Expanded Eye Exam Pupils: Bilateral: reactive - ENT ENT exam: normal exam, normal oropharynx, mucous membranes moist - Expanded ENT Exam External ear exam: Present: normal external inspection Mouth exam: Present: normal external inspection Teeth exam: Present: normal inspection Throat exam: Present: normal inspection - Neck Neck exam: Present: normal inspection, full ROM, trachea midline - Chest Chest inspection: Present: normal inspection, symmetric chest wall rise - Respiratory Respiratory exam: Present: normal lung sounds bilaterally - Cardiovascular Cardiovascular exam: Present: regular rate, normal rhythm, normal heart sounds - Abdominal Exam Abdominal exam: Present: soft, Non-Tender. Absent: tenderness, distention, guarding, rebound, rigidity - Rectal Exam Log Inspector present during exam: Yes Rectal exam: Present: normal inspection, normal rectal tone, heme (+) stool, black stool. Absent: bloody stool - Extremities Exam Extremities exam: Present: normal inspection, full ROM. Absent: tenderness, pedal edema - Expanded Upper Extremity Exam Shoulder exam: Present: normal inspection, full ROM Arm exam: Present: normal inspection, full ROM Elbow exam: Present: normal inspection, full ROM Forearm/Wrist exam: Present: normal inspection, full ROM Hand exam: Present: normal inspection, full ROM Vascular exam: Normal: capillary refill, radial pulse - Expanded Lower Extremity Exam Hip/Pelvis exam: Present: normal inspection, full ROM Upper leg exam: Present: normal inspection, full ROM Knee exam: Present: normal inspection, full ROM Lower leg exam: Present: normal inspection, full ROM Ankle exam: Present: normal inspection, full ROM Foot/toe exam: Present: normal inspection, full ROM Neurovascular/Tendon exam: Absent: motor deficit, sensory deficit, tendon deficit - Back Exam Back exam: Present: normal inspection, full ROM. Absent: tenderness - Neurological Exam Neurological exam: Present: alert, oriented X3 - Expanded Neurological Exam Patient oriented to: Present: person, place, time Coma Scale Eye Opening: Spontaneous Coma Scale Motor Response: Obeys Commands Coma Scale Verbal Response: Oriented Coma Scale Total: 15 - Psychiatric Psychiatric exam: Present: normal affect, normal mood - Skin Skin exam: Present: warm, dry, intact, normal color Course Course Narrative: we will do anemia workup and ABCT to rule out perforation and transfuse 2 units. Vanna will be admitted [facility]. - Reevaluation(s) Reevaluation #1: updated vanna and he is agreeable to admission.continued transfusion and IVF therpay Time: 12:53 - Consultations Consultation #1: discussed case with Dr. Haines and he has acepted vanna for admission. Time: 12:53 Vital Signs Temperature 97.9 F 05/29/17 10:23 Pulse Rate 90 05/29/17 10:23 Respiratory Rate 16 05/29/17 10:23 Blood Pressure 115/68 05/29/17 10:23 O2 Sat by Pulse Oximetry 100 05/29/17 10:23 Temperature 97.1 F L 05/29/17 12:39 Pulse Rate 77 05/29/17 12:39 Respiratory Rate 16 05/29/17 12:39 Blood Pressure 72/52 05/29/17 12:39 O2 Sat by Pulse Oximetry 100 05/29/17 12:15 Oxygen Delivery Oxygen Delivery Room Air GI Bleed - Medical Records Medical records reviewed: Yes I reviewed the patient's medical records. - Lab Data Lab results reviewed: Yes I reviewed the patient's lab results. Result diagrams: 05/29/17 10:46 05/29/17 10:46 Lab Results 05/29/17 05/29/17 05/29/17 Range/Units 10:46 10:46 10:46 WBC 10.0 (4.3-11.1) K/mcL RBC 1.94 L (4.19-5.50) M/mcL Hgb 6.0 L* (12.9-16.9) g/dL Hct 19.3 L (37.5-50.1) % MCV 99.5 (83.0-100.0) fL MCH 30.9 (28.0-33.3) pg MCHC 31.1 L (31.6-35.5) g/dL RDW 14.4 (11.5-14.5) % Plt Count 252 (140-400) K/mcL MPV 8.8 L (9.4-12.4) fL Immature Gran % 3.1 (0-4) % Seg Neutrophils % 79.0 % Lymphocytes % 8.9 % Monocytes % 7.2 % Eosinophils % 1.7 % Basophils % 0.1 % Neutrophils # 7.9 (1.6-8.9) K/mcL Lymphocytes # 0.9 (0.6-4.6) K/mcL Monocytes # 0.7 (0.0-1.3) K/mcL Eosinophils # 0.2 (0.0-0.6) K/mcL Basophils # 0.0 (0.0-0.2) K/mcL Nucleated RBCs/100 WBC 0.3 H (0) /100 WBC PT 11.8 (9.4-12.1) Seconds INR 1.1 APTT 22.5 L (26.0-36.0) Seconds Sodium 139 (136-145) mEq/L Potassium 3.7 (3.5-5.1) mEq/L Chloride 102 (98-107) mEq/L Carbon Dioxide 28 (23-29) mEq/L BUN 37 H (8-23) mg/dL Creatinine 0.87 (0.70-1.30) mg/dL Est GFR ( Amer) > 60 (> 60) Est GFR (Non-Af Amer) > 60 (> 60) BUN/Creatinine Ratio 43 H (6-26) Glucose 208 H (70-105) mg/dL POC Glucose (58-89) Calculated Osmolality 303 H (280-300) Lactic Acid (0.5-2.2) mmol/L Calcium 8.2 L (8.6-10.3) mg/dL Total Bilirubin 0.4 (0.3-1.0) mg/dL AST 19 (13-39) Units/L ALT 45 (7-52) Units/L Alkaline Phosphatase 64 (34-104) Units/L Troponin I 0.04 H* (< 0.04) ng/mL Serum Total Protein 5.5 L (6.4-8.9) g/dL Albumin 2.8 L (3.5-5.7) g/dL Globulin 2.7 (2.4-3.5) g/dL Albumin/Globulin Ratio 1.0 L (1.1-2.2) Lipase 77 (11-82) Units/L Blood Type Antibody Screen Crossmatch 05/29/17 05/29/17 05/29/17 Range/Units 10:46 10:46 11:02 WBC (4.3-11.1) K/mcL RBC (4.19-5.50) M/mcL Hgb (12.9-16.9) g/dL Hct (37.5-50.1) % MCV (83.0-100.0) fL MCH (28.0-33.3) pg MCHC (31.6-35.5) g/dL RDW (11.5-14.5) % Plt Count (140-400) K/mcL MPV (9.4-12.4) fL Immature Gran % (0-4) % Seg Neutrophils % % Lymphocytes % % Monocytes % % Eosinophils % % Basophils % % Neutrophils # (1.6-8.9) K/mcL Lymphocytes # (0.6-4.6) K/mcL Monocytes # (0.0-1.3) K/mcL Eosinophils # (0.0-0.6) K/mcL Basophils # (0.0-0.2) K/mcL Nucleated RBCs/100 WBC (0) /100 WBC PT (9.4-12.1) Seconds INR APTT (26.0-36.0) Seconds Sodium (136-145) mEq/L Potassium (3.5-5.1) mEq/L Chloride (98-107) mEq/L Carbon Dioxide (23-29) mEq/L BUN (8-23) mg/dL Creatinine (0.70-1.30) mg/dL Est GFR ( Amer) (> 60) Est GFR (Non-Af Amer) (> 60) BUN/Creatinine Ratio (6-26) Glucose (70-105) mg/dL POC Glucose 217 H (58-89) Calculated Osmolality (280-300) Lactic Acid 2.9 H (0.5-2.2) mmol/L Calcium (8.6-10.3) mg/dL Total Bilirubin (0.3-1.0) mg/dL AST (13-39) Units/L ALT (7-52) Units/L Alkaline Phosphatase (34-104) Units/L Troponin I (< 0.04) ng/mL Serum Total Protein (6.4-8.9) g/dL Albumin (3.5-5.7) g/dL Globulin (2.4-3.5) g/dL Albumin/Globulin Ratio (1.1-2.2) Lipase (11-82) Units/L Blood Type AB POSITIVE Antibody Screen NEGATIVE Crossmatch See Detail - Radiology Data Radiology results reviewed: Yes I reviewed the patient's radiology results. - EKG Data EKG attestation: Yes I reviewed and interpreted this EKG. EKG results narrative: NSR with rate of 85. NO STEMI> normal intervals. occasinoal PVCs. no change from 04/27/17. 1038
[2017-05-29 11:32] LABS: Troponin I 0.04 ng/mL (< 0.04)
[2017-05-29 11:33] LABS: Alanine Aminotransferase 45 Units/L (7-52); Albumin 2.8 g/dL (3.5-5.7); Alkaline Phosphatase 64 Units/L (34-104); Aspartate Amino Transferase 19 Units/L (13-39); BUN/Creatinine Ratio 43 (6-26); Bilirubin,Total 0.4 mg/dL (0.3-1.0); Blood Urea Nitrogen 37 mg/dL (8-23); Calcium 8.2 mg/dL (8.6-10.3); Carbon Dioxide 28 mEq/L (23-29); Chloride 102 mEq/L (98-107); Globulin 2.7 g/dL (2.4-3.5); Glucose 208 mg/dL (70-105); Lipase 77 Units/L (11-82); Osmolality,Calculated 303 (280-300); Potassium 3.7 mEq/L (3.5-5.1); Sodium 139 mEq/L (136-145); Total Protein 5.5 g/dL (6.4-8.9); eGFR For African Americans > 60 (> 60); eGFR For Non-African Americans > 60 (> 60)
[2017-05-29] MEDS ORDERED: 0.9 % Sodium Chloride 250 ML ONE ×3 (12:27→23:36)
[2017-05-29] MEDS ORDERED: Naloxone 0.4 MG/ML INJ IVP PRN (13:47)
--- NOTE | 2017-05-29 14:14 | Internal Med History&Physical ---
Date of Encounter: 05/29/17 Time of Encounter: 14:00 Assessment and Plan (1) Acute blood loss anemia Current visit: Yes Status: Acute Patient presenting with acute blood loss anemia. Hemoglobin 6 today. Will transfuse PRBC. Consult GI. Discussed patient's case with GI. Recommended to keep nothing by mouth after midnight. Plan for upper GI endoscopy and colonoscopy tomorrow. High risk for complications. Continue IV PPI. (2) Peptic ulcer disease Current visit: Yes Status: Acute Gastric and duodenal ulcers. Previously nonbleeding but now presenting with acute blood loss anemia. Continue IV PPI. GI consult. (3) CAD (coronary artery disease) Current visit: Yes Status: Chronic No chest pain. Continue home medications but hold aspirin for now. Qualifiers: Coronary Disease-Associated Artery/Lesion type: [place] artery [place] vs. transplanted heart: [place] heart Associated angina: without angina Qualified Code(s): I25.10 - Atherosclerotic heart disease of [place] coronary artery without angina pectoris (4) CHF (congestive heart failure) Current visit: Yes Status: Chronic Chronic. Not in acute exacerbation. Continue oral Lasix from tomorrow. Qualifiers: Heart failure type: diastolic Heart failure chronicity: acute on chronic Qualified Code(s): I50.33 - Acute on chronic diastolic (congestive) heart failure (5) COPD (chronic obstructive pulmonary disease) Current visit: Yes Status: Chronic Stable. Not in acute exacerbation. Use bronchodilators as needed. O2 supplementation as needed. Qualifiers: COPD type: emphysema Emphysema type: unspecified Qualified Code(s): J43.9 - Emphysema, unspecified (6) DVT prophylaxis Current visit: Yes Status: Acute With SCDs Internal Medicine - H&P: HPI Chief complaint: GI bleed Admitted From: Emergency Dept Plans for Post Hospital Care: Home History of present illness: Mr. Sapp is a 81 year old male patient with a history of coronary artery disease, COPD, CHF, prior CVA, recent back surgery for vertebral fracture at T8 with posterior spinal fusion T5-T12 was currently residing at [facility]ial presented to the ER with complaints of melena and low hemoglobin levels. Patient reports that on Sunday he felt very sick and had multiple episodes of emesis and dark chocolate-colored stools. He denies any abdominal pain but has back pain at site of his surgery. He also reports that he had fallen while being transferred on his way here and has pain in his back as a result. He did eat breakfast this morning without any difficulty. His last bowel movement was last night. Patient was hospitalized here between 04/27 and 05/17/17 following his vertebral fracture. During that hospitalization, he had been diagnosed with duodenitis and underwent upper GI endoscopy. This showed multiple nonbleeding gastric and duodenal ulcers. Pathology results were negative for Helicobacter pylori. Patient was discharged on Protonix 40 mg by mouth daily. He had undergone colonoscopy in 2014 for screening and was found to have 4 polyps with moderate diverticulosis. Past Med Surg Social Fam HX - Past Medical History Attestation: Yes The following information was validated with the patient. Source: patient Medical history: CHF, COPD, coronary artery disease, CVA, hypertension, other Psychiatric history: no psych history - Past Surgical History Surgical History: cholecystectomy, other (Spine fusion) - Social History Smoking Status: Former smoker Smokeless Tobacco Status: No Alcohol use: occasionally Drug use: none - Family History Father Family Member Ethnicity: Non- Living Status: Hx Family Cardiac Disorders: Yes (ND) Brother Family Member Ethnicity: Non- Living Status: Still Living Sister Family Member Ethnicity: Non- Living Status: Still Living Mother Family Member Ethnicity: Non- Living Status: Hx Family Cardiac Disorders: Yes Hx Family Cancer: Yes Hx Family Neurologic Disorders: Yes (Alzheimer's disease) Internal Medicine - H&P: Meds Albuterol Sulfate [Proair [place]] 2 puff IH Q4H PRN 03/03/15 [History] Ascorbic Acid [Vitamin C] 500 mg PO DAILY 03/03/15 [History] Simvastatin [Zocor] 40 mg PO QPM 03/03/15 [History] Carvedilol [Coreg] 25 mg PO BID #60 tablet 03/06/15 [Rx] Aspirin Enteric Coated [Aspirin EC] 81 mg PO 3XW 04/27/17 [History] Cranberry 500 mg PO DAILY 04/27/17 [History] Furosemide [Lasix] 40 mg PO BID 04/27/17 [History] Losartan [Cozaar] 25 mg PO DAILY 04/27/17 [History] Multivitamin [One Daily Essential] 1 each PO DAILY 04/27/17 [History] Umeclidinium [place] [Incruse Ellipt[place]] 62.5 mcg IH DAILY 04/27/17 [History] Docusate [Colace] 100 mg PO BID PRN #60 capsule 05/17/17 [Rx] HYDROcodone/Acet 5/325 mg [[place] 5-325 mg] 1 tab PO Q6HR PRN 5 Days #20 tablet 05/17/17 [Rx] Polyethylene Glycol 3350 [MiraLAX] 17 gm PO BID #60 powd.pack 05/17/17 [Rx] Acetaminophen [Tylenol] 650 mg PO Q6HR PRN 05/29/17 [History] Ipratropium/Albuterol Neb [Duoneb] 3 ml IH Q6HR PRN 05/29/17 [History] LORazepam [Ativan] 0.5 mg PO BID 05/29/17 [History] Loperamide [Imodium] 2 mg PO Q4HR PRN 05/29/17 [History] Melatonin 10 mg PO HS 05/29/17 [History] Pantoprazole Sodium [Protonix] 40 mg PO BID 05/29/17 [History] predniSONE [PredniSONE] 20 mg PO DAILY 05/29/17 [History] 3 Allergy/AdvReac Type Severity Reaction Status Date / Time Penicillins [PCN] Allergy Rash Verified 05/29/17 10:31 hydrocodone AdvReac Severe Agitated Verified 05/29/17 10:31 Oxycodone AdvReac See Verified 05/29/17 10:31 Comments All Systems PM: A 10-system review of systems was performed and is negative for pertinent findings except as documented above in the HPI. - Constitutional Constitutional: malaise, no chills, no fever(s), no night sweats - EENT Eyes: no change in vision, no discharge, no pain, no photophobia Ears: no ear discharge, no ear pain, no tinnitus Nose, mouth and throat: no dysphagia, no nasal discharge, no neck pain, no sore throat - Cardiovascular Cardiovascular ROS IM: no chest pain, no diaphoresis, no dyspnea, no lightheadedness, no palpitations, no syncope - Respiratory Respiratory: no cough, no dyspnea, no wheezing, no excessive phlegm production - Gastrointestinal Gastrointestinal: no abdominal pain, no diarrhea, no hematemesis, no hematochezia, no melena, no nausea, no vomiting - Musculoskeletal Musculoskeletal ROS IM: no numbness, no tingling - Integumentary Integumentary IM: no rash, no unusual bruising - Neurological Neurological ROS: no confusion, no convulsions, no focal weakness, no numbness, no tingling, no tremor(s) - Hematologic/Lymphatic Hematologic/Lymphatic: no easy bruising - Constitutional Vitals: Temp Pulse Resp BP Pulse Ox 97.1 F L 81 16 87/60 97 05/29/17 12:54 05/29/17 12:54 05/29/17 12:54 05/29/17 12:54 05/29/17 12:54 General appearance: Present: cooperative, mild distress, A&O X 3, pleasant, obese, answers questions appropriately - Neck Neck exam general surgery: Present: supple, trachea midline. Absent: lymphadenopathy - Respiratory Respiratory exam: Present: CTAB. Absent: accessory muscle use, rales, rhonchi, wheezes - Cardiovascular Cardiovascular exam: Present: RRR, +S1, +S2. Absent: diastolic murmur, gallop, rubs, systolic murmur - GI/Abdominal GI/Abdominal exam: Present: normal bowel sounds, soft, no peritoneal signs. Absent: distended, tenderness - Extremities Exam Extremities exam: Present: warm, radial pulses palpable and symmetrical. Absent : calf tenderness, cyanotic, pedal edema - Neurological Exam Neurological exam: Present: alert, oriented X3, no focal deficits. Absent: facial droop, speech deficit - Skin Skin exam: Present: dry, intact Internal Med - H&P Results - Labs CBC & Chem 7: 05/29/17 10:46 05/29/17 10:46 Labs: Short CBC 05/29/17 Range/Units 10:46 WBC 10.0 (4.3-11.1) K/mcL Hgb 6.0 L* (12.9-16.9) g/dL Hct 19.3 L (37.5-50.1) % Plt Count 252 (140-400) K/mcL Neutrophils # 7.9 (1.6-8.9) K/mcL BMP 05/29/17 10:46 Sodium 139 Potassium 3.7 Chloride 102 Carbon Dioxide 28 BUN 37 H Creatinine 0.87 Glucose 208 H Calcium 8.2 L Cardiac Enzymes 05/29/17 Range/Units 10:46 Troponin I 0.04 H* (< 0.04) ng/mL Liver Function 05/29/17 Range/Units 10:46 Total Bilirubin 0.4 (0.3-1.0) mg/dL AST 19 (13-39) Units/L ALT 45 (7-52) Units/L Alkaline Phosphatase 64 (34-104) Units/L Albumin 2.8 L (3.5-5.7) g/dL - Impressions ITS Impressions Abdomen/Pelvis CT 05/29/17 10:26 IMPRESSION: Right lower lobe pulmonary opacity may represent atelectasis and/or aspiration. Recommend radiographic follow-up to complete resolution. Colonic diverticulosis. No CT evidence of acute diverticulitis. No intra-abdominal free air to suggest perforation. Previously seen inflammation fluid adjacent to the descending duodenum has resolved. Findings suggestive of ankylosing spondylitis as detailed above. Enlarged prostate gland measuring 5.3 cm. Correlate with PSA levels. D/ / 05/29/2017 12:48:11 Oni Barton MD / [place] Interpreting Provider: Oni Barton MD Chest X-Ray 05/29/17 10:26 IMPRESSION: Posterior thoracic spinal fusion hardware is noted. Small bilateral pleural effusions and mild bibasilar atelectasis. D/ / Wyatt Cruz MD / Wyatt Cruz MD Interpreting Provider: Wyatt Cruz MD
[2017-05-29] MEDS ORDERED: Ipratropium/Albuterol Neb 3 ML IH PRN (14:23)
--- NOTE | 2017-05-29 14:43 | Gastroenterology Consult Note ---
<Dario Goldman - Last Filed: 05/29/17 17:05> Date of Encounter: 05/29/17 Time of Encounter: 14:41 - Assessment and plan (1) GI bleed Status: Acute Assessment and plan: Patient with dark stools and acute blood loss anemia Colonoscopy on 01/05/15 revealed four polyps and moderate diverticulosis. 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 EGD on 05/14/17 revealed multiple non-bleeding gastric and duodenal ulcers. Pathology reports revealed mild acute and chronic inflammation with focal erosion and foveolar hyperplasia. Negative for Helicobacter Continue Protonix drip Two large bore IVs in place. Continue IVF prn hypertension. Clear liquid diet, NPO after midnight. Anticipate EGD tomorrow. Qualifiers: GI bleed type/associated pathology: unspecified gastrointestinal hemorrhage type Qualified Code(s): K92.2 - Gastrointestinal hemorrhage, unspecified (2) Acute blood loss anemia Status: Acute Assessment and plan: Symptomatic anemia with hemoglobin level of 6.0 on admission, baseline HGB around 14 Repeat hemoglobin level pending after 1 unit of PRBCs transfused in the ED. Continue to monitor HGB level and transfuse prn HGB <7 (3) Duodenal ulcer Status: Acute Assessment and plan: 05/14/17 EGD revealed multiple non-bleeding gastric and duodenal ulcers. Pathology reports revealed mild acute and chronic inflammation with focal erosion and foveolar hyperplasia. Negative for Helicobacter. Continue Protonix drip (4) Peptic ulcer disease Status: Acute Assessment and plan: 05/14/17 EGD revealed multiple non-bleeding gastric and duodenal ulcers. Pathology reports revealed mild acute and chronic inflammation with focal erosion and foveolar hyperplasia. Negative for Helicobacter Continue Protonix drip - Time Spent With Patient Total time spent is greater than 50% in coordination of care (as documented) at patient's floor/unit and/or counseling patient: GI History of Present Illness - Data of Consult Patient: known to practice within the last 3 years Consult date: 05/29/17 Requesting Physician: Sandee Haines MD - Consult Narrative Reason for consult: GI bleed History of present illness: Mr. Sapp is a 81 year old male with a history of CAD, COPD, CHF, CVA, and recent admission between 04/27/17 and 05/17/17 for back surgery with posterior spinal fusion T5-T12 that [facility] who presented to the ER with complaints of dark chocolate colored stool for the past 3 days and low hemoglobin level of 5.9. He denies any abdominal pain but reports back pain at site of his surgery worse after falling while being transferred. He denies blood thinner use and takes Aspirin 81mg PO daily. He ate breakfast this morning without difficulty and reports his last bowel movement was last night. During most recent hospitalization, he underwent EGD on 05/14/17 which revealed multiple non-bleeding gastric and duodenal ulcers. Pathology reports revealed mild acute and chronic inflammation with focal erosion and foveolar hyperplasia. Pathology results were negative for Helicobacter pylori. Patient has been on Protonix 40mg PO BID since that time. His last colonoscopy on 01/05/15 revealed four polyps and moderate diverticulosis. 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 Colonoscopy: 01/05/15 Colonoscopy revealed four polyps and moderate diverticulosis EGD: 05/14/17 EGD revealed multiple non-bleeding gastric and duodenal ulcers Past Med Surg Social Fam HX - Past Medical History Medical history: CHF, COPD, coronary artery disease, CVA, hypertension, other Psychiatric history: no psych history - Past Surgical History Surgical History: cholecystectomy, other (Spine fusion) - Social History Smoking Status: Former smoker Smokeless Tobacco Status: No Alcohol use: occasionally Drug use: none - Family History Father Family Member Ethnicity: Non- Living Status: Hx Family Cardiac Disorders: Yes (CA) Brother Family Member Ethnicity: Non- Living Status: Still Living Sister Family Member Ethnicity: Non- Living Status: Still Living Mother Family Member Ethnicity: Non- Living Status: Hx Family Cardiac Disorders: Yes Hx Family Cancer: Yes Hx Family Neurologic Disorders: Yes (Alzheimer's disease) - Gastrointestinal Gastrointestinal: Present: melena, nausea, vomiting. Absent: abdominal pain, change in bowel habits, coffee ground emesis, constipation, diarrhea, dyspepsia , hematemesis, hematochezia - Constitutional Constitutional: fatigue, no fever(s), no weight gain, no weight loss - EENT Nose, mouth and throat: Absent: dysphagia, sore throat - Cardiovascular Cardiovascular ROS: Absent: chest pain, palpitations - Respiratory Respiratory IM: Absent: cough, dyspnea - Genitourinary Genitourinary: Absent: change in color, Urinary frequency - Neurological ROS Neurological GI: Present: dizziness, frequent falls, weakness. Absent: confusion, memory loss - Hematologic/Lymphatic Hematologic/Lymphatic pediatric: Present: as per HPI, easy bleeding - Musculoskeletal Musculoskeletal ROS GI: Present: back pain. Absent: joint swelling - Integumentary Integumentary GI: Absent: jaundice, pruritis, rash - Psychiatric ROS Psychiatric GI: Absent: anxiety, depression - Endocrine Endocrine IM: Present: fatigue. Absent: cold intolerance, heat intolerance - Constitutional Vitals: Temp Pulse Resp BP Pulse Ox 97.1 F L 81 16 87/60 97 05/29/17 12:54 05/29/17 12:54 05/29/17 12:54 05/29/17 12:54 05/29/17 12:54 General appearance: Present: cooperative, A&O X 1, pleasant, no acute distress, obese, answers questions appropriately - Head Head exam: Present: atraumatic, normocephalic - Eye Eye exam: Present: normal appearance, sclera anicteric - Neck Neck exam general surgery: Present: normal inspection, trachea midline - Respiratory Respiratory exam: Present: CTAB - Cardiovascular Cardiovascular exam: Present: RRR, +S1, +S2 - GI/Abdominal GI/Abdominal exam: Present: normal bowel sounds, soft (ecchymosis on lower anterior abdomen), no peritoneal signs. Absent: distended, guarding, tenderness - Rectal Rectal exam: Present: deferred - Extremities Exam Extremities exam: Present: warm. Absent: pedal edema - Neurological Exam Neurological exam: Present: alert, oriented X3 - Psychiatric Psychiatric exam: Present: normal affect, normal mood - Skin Skin exam: Present: dry, intact, normal color (ecchymosis on lower anterior abdomen), warm Results - Labs CBC & Chem 7: 05/29/17 10:46 05/29/17 10:46 Labs: Last Result Calcium 8.2 mg/dL (8.6-10.3) L 05/29/17 10:46 Troponin I 0.04 ng/mL (< 0.04) H* 05/29/17 10:46 Entire Visit Hgb 6.0 g/dL (12.9-16.9) L* 05/29/17 10:46 Hct 19.3 % (37.5-50.1) L 05/29/17 10:46 PT 11.8 Seconds (9.4-12.1) 05/29/17 10:46 Total Bilirubin 0.4 mg/dL (0.3-1.0) 05/29/17 10:46 AST 19 Units/L (13-39) 05/29/17 10:46 ALT 45 Units/L (7-52) 05/29/17 10:46 Lipase 77 Units/L (11-82) 05/29/17 10:46 - ABG ABG results: PT/INR, D-dimer PT 11.8 Seconds (9.4-12.1) 05/29/17 10:46 - Impressions Impressions Abdomen/Pelvis CT 05/29/17 10:26 IMPRESSION: Right lower lobe pulmonary opacity may represent atelectasis and/or aspiration. Recommend radiographic follow-up to complete resolution. Colonic diverticulosis. No CT evidence of acute diverticulitis. No intra-abdominal free air to suggest perforation. Previously seen inflammation fluid adjacent to the descending duodenum has resolved. Findings suggestive of ankylosing spondylitis as detailed above. Enlarged prostate gland measuring 5.3 cm. Correlate with PSA levels. D/ / 05/29/2017 12:48:11 Oni Barton MD / [email or web address] Interpreting Provider: Oni Barton MD Chest X-Ray 05/29/17 10:26 IMPRESSION: Posterior thoracic spinal fusion hardware is noted. Small bilateral pleural effusions and mild bibasilar atelectasis. D/ / Wyatt Cruz MD / Wyatt Cruz MD Interpreting Provider: Wyatt Cruz MD Consult Discharge Plan - Plan Instructions: Ciprofloxacin (By mouth), Iron Supplements (By mouth), Metronidazole (By mouth), Pantoprazole (By mouth), Heart Failure (DC), Acute Respiratory Distress Syndrome (DC), Diverticulitis (DC), Chronic Obstructive Pulmonary Disease (DC), Alcohol Intoxication (DC), Alcohol Intoxication (GEN), Chronic Hypertension (DC), Anemia (GEN), Pneumonia (DC) Additional Instructions: Recheck BMP and magnesium in 1 week (maintain K > 4.0 and Mag > 2.0). Follow up with cardiology as directed. Referrals: Dex Higuera Jr, MD [Primary Care Provider] - 06/08/17 9:15 am Prescriptions: Ciprofloxacin [Cipro] 500 mg PO BID 5 Days #10 tablet Ferrous Sulfate 325 mg PO DAILY@0800 30 Days #30 tablet metroNIDAZOLE [Flagyl] 500 mg PO BID 5 Days #10 tablet Pantoprazole Sodium [Protonix] 40 mg PO BID 30 Days #60 tablet. <Ced Browne - Last Filed: 06/07/17 13:00> Date of Encounter: 05/29/17 - Time Spent With Patient Total time spent is greater than 50% in coordination of care (as documented) at patient's floor/unit and/or counseling patient: GI History of Present Illness - Data of Consult Requesting Physician: Eric Seaman - Consult Narrative History of present illness: Mr. Sapp is a 81 year old male - Constitutional Vitals: Temp Pulse Resp BP Pulse Ox 97.9 F 84 17 138/67 93 06/05/17 07:00 06/05/17 07:00 06/05/17 07:00 06/05/17 07:00 06/05/17 07:00 Results - Labs CBC & Chem 7: 06/05/17 06:26 06/05/17 08:48 Labs: Last Result Calcium 8.1 mg/dL (8.6-10.3) L 06/05/17 08:48 Troponin I < 0.03 ng/mL (< 0.04) 06/05/17 08:48 Entire Visit Hgb 8.6 g/dL (12.9-16.9) L 06/05/17 06:26 Hct 27.1 % (37.5-50.1) L 06/05/17 06:26 PT 11.8 Seconds (9.4-12.1) 05/29/17 10:46 Total Bilirubin 0.5 mg/dL (0.3-1.0) 06/03/17 04:09 AST 22 Units/L (13-39) 06/03/17 04:09 ALT 26 Units/L (7-52) 06/03/17 04:09 Lipase 77 Units/L (11-82) 05/29/17 10:46 - ABG ABG results: PT/INR, D-dimer PT 11.8 Seconds (9.4-12.1) 05/29/17 10:46 - Attending Attestation Patient with melena and severe anemia. Agree with proceeding with EGD I examined this patient and my medical decision-making was reviewed with the Resident Physician. I agree with the documented findings, disposition and treatment plan as described except to the extent set forth below.
[2017-05-29] MEDS: Pantoprazole 40 MG in 0.9 % Sodium Chloride Mini Bag 100 ML IVC SCH (18:22)
[2017-05-29] MEDS: Acetaminophen 325 MG TABLET PO PRN (21:24)
[2017-05-29] MEDS: *HR* LORazepam 0.5 MG TABLET PO SCH (21:25)
[2017-05-29] MEDS: Melatonin 3 MG TABLET PO SCH (21:25)
[2017-05-29 21:42] LABS: Hematocrit 21.2 % (37.5-50.1)
[2017-05-30] MEDS: Ringers Solution, Lactated 1,000 ML IVC SCH ×2 (00:16→19:41)
[2017-05-30] MEDS: Pantoprazole 40 MG in 0.9 % Sodium Chloride Mini Bag 100 ML IVC SCH ×4 (00:17→19:43)
[2017-05-30] MEDS ORDERED: Furosemide 20 MG/2 ML VIAL IVP ONE (04:40)
[2017-05-30] MEDS ORDERED: 0.9 % Sodium Chloride 250 ML ONE (05:03)
[2017-05-30 05:16] LABS: BUN/Creatinine Ratio 43 (6-26); Blood Urea Nitrogen 33 mg/dL (8-23); Calcium 7.7 mg/dL (8.6-10.3); Carbon Dioxide 28 mEq/L (23-29); Chloride 107 mEq/L (98-107); Glucose 109 mg/dL (70-105); Osmolality,Calculated 298 (280-300); Potassium 3.6 mEq/L (3.5-5.1); Sodium 140 mEq/L (136-145); eGFR For African Americans > 60 (> 60); eGFR For Non-African Americans > 60 (> 60)
[2017-05-30 07:31] LABS: Basophils % 0.2 %; Eosinophils # 0.2 K/mcL (0.0-0.6); Eosinophils % 2.8 %; Hematocrit 23.9 % (37.5-50.1); Immature Granulocytes % 4.4 % (0-4); Lymphocytes # 1.5 K/mcL (0.6-4.6); Lymphocytes % 18.2 %; Mean Corpuscular HGB Conc 33.5 g/dL (31.6-35.5); Mean Corpuscular Hemoglobin 30.2 pg (28.0-33.3); Mean Corpuscular Volume 90.2 fL (83.0-100.0); Mean Platelet Volume 8.9 fL (9.4-12.4); Monocytes # 0.7 K/mcL (0.0-1.3); Monocytes % 8.6 %; Neutrophils # 5.6 K/mcL (1.6-8.9); Nucleated Red Blood Cells 0.6 /100 WBC (0); Platelet Count 198 K/mcL (140-400); Red Blood Count 2.65 M/mcL (4.19-5.50); Red Cell Distribution Width 17.1 % (11.5-14.5); Segmented Neutrophils % 65.8 %
[2017-05-30] MEDS ORDERED: Furosemide 40 MG TABLET PO SCH (09:00)
[2017-05-30] MEDS: Ascorbic Acid 500 MG TABLET PO SCH (10:15)
[2017-05-30] MEDS: Multivit/Ca/Min/Fe/FA 1 TAB TABLET PO SCH (10:15)
[2017-05-30] MEDS: *HR* LORazepam 0.5 MG TABLET PO SCH (10:15)
[2017-05-30] MEDS: (Umeclidinium Bromide [Incruse Ellipta] 62.5 MCG) IH SCH (10:17)
--- NOTE | 2017-05-30 11:25 | Internal Med Progress Note ---
Date of Encounter: 05/30/17 Time of Encounter: 11:24 - Subjective Interval history: (1) GI bleed Upper GIB suspected 05/14/17 EGD showed multiple non-bleeding gastric and duodenal ulcers. Bx negative for Helicobacter. NPO EGD planned today Protonix drip 1 unit PRBC transfused (2) Acute blood loss anemia Serial Hgb Transfuse RBC to maintain Hgb > 7 EGD today - Constitutional Vitals: Temp Pulse Resp BP Pulse Ox 98 F 70 20 128/65 98 05/30/17 10:33 05/30/17 10:33 05/30/17 09:40 05/30/17 10:33 05/30/17 10:33 General appearance: Present: cooperative, A&O X 3, pleasant, answers questions appropriately - Head Head exam: Present: atraumatic, normocephalic - Eye Eye exam: Present: PERRL, conjuntiva pink, sclera anicteric Pupils: Present: PERRL - Neck Neck exam general surgery: Present: supple, trachea midline. Absent: lymphadenopathy - Respiratory Respiratory exam: Present: CTAB. Absent: accessory muscle use, rales, rhonchi, wheezes - Cardiovascular Cardiovascular exam: Present: RRR, +S1, +S2. Absent: diastolic murmur, gallop, rubs, systolic murmur - GI/Abdominal GI/Abdominal exam: Present: normal bowel sounds, soft, no peritoneal signs. Absent: distended, tenderness - Extremities Exam Extremities exam: Present: warm. Absent: calf tenderness, cyanotic, pedal edema - Neurological Exam Neurological exam: Present: CN II-XII intact, oriented X3, no focal deficits. Absent: pronater drift, facial droop, speech deficit - Psychiatric Psychiatric exam: Present: normal affect, normal mood - Skin Skin exam: Present: dry, intact Internal Medicine: Result - Labs CBC & Chem 7: 05/30/17 20:22 05/30/17 04:09 Labs: Short CBC 05/29/17 05/30/17 Range/Units 21:26 04:30 WBC 8.5 (4.3-11.1) K/mcL Hgb 7.0 L 8.0 L (12.9-16.9) g/dL Hct 21.2 L 23.9 L (37.5-50.1) % Plt Count 198 (140-400) K/mcL Neutrophils # 5.6 (1.6-8.9) K/mcL BMP 05/30/17 04:09 Sodium 140 Potassium 3.6 Chloride 107 Carbon Dioxide 28 BUN 33 H Creatinine 0.76 Glucose 109 H Calcium 7.7 L - ABG Interpretation ABG results: PT/INR, D-dimer PT 11.8 Seconds (9.4-12.1) 05/29/17 10:46 Consult Discharge Plan - Plan Referrals: Dex Higuera Jr, MD [Primary Care Provider] -
[2017-05-30 11:28] LABS: Hemoglobin 9.8 g/dL (12.9-16.9)
[2017-05-30] MEDS ORDERED: Propofol 500 MG/50 ML INFUS..BTL ONE (15:37)
[2017-05-30] MEDS ORDERED: Lidocaine -MPF 2% 2 ML VIAL ONE (15:37)
[2017-05-30] MEDS ORDERED: *HR* Propofol 200 MG/20 ML VIAL IVP ONE (15:37)
--- NOTE | 2017-05-30 16:22 | Anesthesia Evaluation PreOp ---
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: CVA Other Medical History: Denies Any Significant HX Anesthesia History: No Prior Anesthetic Complications Alcohol Use: occasionally Drug use: none Medications and Allergies Albuterol Sulfate [Proair Respiclick] 2 puff IH Q4H PRN 03/03/15 [History] Ascorbic Acid [Vitamin C] 500 mg PO DAILY 03/03/15 [History] Simvastatin [Zocor] 40 mg PO QPM 03/03/15 [History] Carvedilol [Coreg] 25 mg PO BID #60 tablet 03/06/15 [Rx] Aspirin Enteric Coated [Aspirin EC] 81 mg PO 3XW 04/27/17 [History] Cranberry 500 mg PO DAILY 04/27/17 [History] Furosemide [Lasix] 40 mg PO BID 04/27/17 [History] Losartan [Cozaar] 25 mg PO DAILY 04/27/17 [History] Multivitamin [One Daily Essential] 1 each PO DAILY 04/27/17 [History] Umeclidinium [place] [Incruse Ellipta] 62.5 mcg IH DAILY 04/27/17 [History] Docusate [Colace] 100 mg PO BID PRN #60 capsule 05/17/17 [Rx] HYDROcodone/Acet 5/325 mg [[place] 5-325 mg] 1 tab PO Q6HR PRN 5 Days #20 tablet 05/17/17 [Rx] Polyethylene Glycol 3350 [MiraLAX] 17 gm PO BID #60 powd.pack 05/17/17 [Rx] Acetaminophen [Tylenol] 650 mg PO Q6HR PRN 05/29/17 [History] Ipratropium/Albuterol Neb [Duoneb] 3 ml IH Q6HR PRN 05/29/17 [History] LORazepam [Ativan] 0.5 mg PO BID 05/29/17 [History] Loperamide [Imodium] 2 mg PO Q4HR PRN 05/29/17 [History] Melatonin 10 mg PO HS 05/29/17 [History] Pantoprazole Sodium [Protonix] 40 mg PO BID 05/29/17 [History] predniSONE [PredniSONE] 20 mg PO DAILY 05/29/17 [History] 3 Allergy/AdvReac Type Severity Reaction Status Date / Time Penicillins [PCN] Allergy Rash Verified 05/29/17 10:31 hydrocodone AdvReac Severe Agitated Verified 05/29/17 10:31 Oxycodone AdvReac See Verified 05/29/17 10:31 Comments - Meds/Allergy Pre-op Review Medications Reviewed: Yes Allergies Reviewed: Yes Beta Blockers on Current Med List: No Anesthesia Results - Labs 05/30/17 10:26 05/30/17 04:09 Laboratory Tests 12/18/14 05/29/17 05/30/17 09:24 10:46 04:09 Hgb Hct Plt Count PT 11.8 INR 1.1 APTT 22.5 L Sodium 140 Potassium 3.6 BUN 33 H POC Creatinine 0.90 05/30/17 05/30/17 04:30 10:26 Hgb 9.8 L D Hct 29.0 L Plt Count 198 PT INR APTT Sodium Potassium BUN POC Creatinine - Imaging EKG: report reviewed (SR) Additional studies: EF 60%, severe dilated left atrium, no , no pulm htn Anesthesia Exam O2 Sat Weight 93.7 kg O2 Sat by Pulse Oximetry 98 O2 Sat by Pulse Oximetry 96 O2 Sat by Pulse Oximetry 97 O2 Sat by Pulse Oximetry 96 O2 Sat by Pulse Oximetry 97 O2 Sat by Pulse Oximetry 96 O2 Sat by Pulse Oximetry 97 O2 Sat by Pulse Oximetry 100 O2 Sat by Pulse Oximetry 100 O2 Sat by Pulse Oximetry 100 O2 Sat by Pulse Oximetry 100 O2 Sat by Pulse Oximetry 99 O2 Sat by Pulse Oximetry 98 Vital Signs Pulse Ox 100 05/29/17 10:22 Height: 5'8 Weight: 206 lbs NPO (# of Hours): MN Pain Scale: 0 - HEENT Pupil (Motor): Pupils equal, EOMI Mallampati: II Teeth: Normal Oral Opening: Greater than 3 - REFRACTORY REPAIRER LOC: Oriented REFRACTORY REPAIRER Motor: Normal RUE, Normal LUE, Normal RLE, Normal LLE, Normal Face REFRACTORY REPAIRER Sensory: Normal: RUE, LUE, RLE, LLE, Face - Cardiac Rhythm: Regular Murmur: None JVD: No Carotid Bruit: No - Pulmonary Breath Sounds: bilateral Clear Respiratory Effort: Symmetrical Anesthesia Assess/Plan ASA Score: 3 (HTN COPD Anemia) Modified [place] Scale for Level of Consciousness: Cooperative, oriented, and tranquil Anesthetic Plan: MAC Monitoring Plan: Standard Monitors Recovery Plan: Other (Discussed MAC, agrees to proceed)
[2017-05-30] MEDS ORDERED: 0.9 % Sodium Chloride 1,000 ML IVC SCH (17:00)
--- NOTE | 2017-05-30 17:30 | Anesthesia Evaluation Post Op ---
Date of Encounter: 05/30/17 Time of Encounter: 17:30 - Vital Signs Vital Signs: Vital Signs/O2 Sat/Glucose, Most Current Temp Pulse Resp BP 05/30/17 16:51 98.0 F 68 97 124/64 05/30/17 15:04 98 F 66 123/67 - Lungs Lungs: Clear Ascult./Percussion - Airway Airway: Non-obstructed - Cardiovascular Regular Rate - Mental Status Mental Status: Alert & Oriented, Answers Appropriately - Pain Pain Scale: 0 - Nausea Vomiting Nausea Vomiting: Not Present - Hydration Hydration: NPO - Discharge PostOp Status: Transfer Patient to floor
[2017-05-30] MEDS ORDERED: SODIUM CHLORIDE/NAHCO3/KCL/PEG 4,000 ML SOLN.RECON PO ONE (17:31)
[2017-05-30] MEDS: Furosemide 40 MG TABLET PO SCH (19:04)
--- NOTE | 2017-05-30 19:34 | Electrocardiograph Report ---
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
[2017-05-30 20:34] LABS: Hematocrit 31.4 % (37.5-50.1); Hemoglobin 10.2 g/dL (12.9-16.9)
[2017-05-31] MEDS: Pantoprazole 40 MG in 0.9 % Sodium Chloride Mini Bag 100 ML IVC SCH ×4 (00:46→15:58)
[2017-05-31] MEDS: Melatonin 3 MG TABLET PO SCH ×2 (00:47→21:12)
[2017-05-31] MEDS: *HR* LORazepam 0.5 MG TABLET PO SCH ×3 (00:47→21:12)
[2017-05-31 05:08] LABS: BUN/Creatinine Ratio 29 (6-26); Blood Urea Nitrogen 21 mg/dL (8-23); Calcium 7.9 mg/dL (8.6-10.3); Carbon Dioxide 25 mEq/L (23-29); Chloride 106 mEq/L (98-107); Glucose 84 mg/dL (70-105); Osmolality,Calculated 292 (280-300); Potassium 3.8 mEq/L (3.5-5.1); Sodium 140 mEq/L (136-145); eGFR For African Americans > 60 (> 60); eGFR For Non-African Americans > 60 (> 60)
[2017-05-31] MEDS: Ascorbic Acid 500 MG TABLET PO SCH (08:56)
[2017-05-31] MEDS: Furosemide 40 MG TABLET PO SCH ×2 (08:56→15:58)
[2017-05-31] MEDS: Multivit/Ca/Min/Fe/FA 1 TAB TABLET PO SCH (08:56)
[2017-05-31] MEDS: Ringers Solution, Lactated 1,000 ML IVC SCH (09:10)
[2017-05-31] MEDS: (Umeclidinium Bromide [Incruse Ellipta] 62.5 MCG) IH SCH (09:23)
--- NOTE | 2017-05-31 11:41 | Internal Med Progress Note ---
Date of Encounter: 05/31/17 Time of Encounter: 11:31 - Subjective Interval history: (1) GI bleed Upper GIB suspected 05/14/17 EGD showed multiple non-bleeding gastric and duodenal ulcers. Bx negative for Helicobacter. NPO EGD planned today Protonix drip 1 unit PRBC transfused (2) Acute blood loss anemia Serial Hgb Transfuse RBC to maintain Hgb > 7 EGD today - Constitutional Vitals: Temp Pulse Resp BP Pulse Ox 97.6 F 66 18 94/52 95 05/31/17 10:50 05/31/17 10:50 05/31/17 10:50 05/31/17 10:50 05/31/17 10:50 General appearance: Present: cooperative, A&O X 3, pleasant, answers questions appropriately - Head Head exam: Present: atraumatic, normocephalic - Eye Eye exam: Present: PERRL, conjuntiva pink, sclera anicteric Pupils: Present: PERRL - Neck Neck exam general surgery: Present: supple, trachea midline. Absent: lymphadenopathy - Respiratory Respiratory exam: Present: CTAB. Absent: accessory muscle use, rales, rhonchi, wheezes - Cardiovascular Cardiovascular exam: Present: RRR, +S1, +S2. Absent: diastolic murmur, gallop, rubs, systolic murmur - GI/Abdominal GI/Abdominal exam: Present: normal bowel sounds, soft, no peritoneal signs. Absent: distended, tenderness - Extremities Exam Extremities exam: Present: warm, radial pulses palpable and symmetrical. Absent : calf tenderness, cyanotic, pedal edema - Neurological Exam Neurological exam: Present: CN II-XII intact, oriented X3, no focal deficits. Absent: pronater drift, facial droop, speech deficit - Psychiatric Psychiatric exam: Present: flat affect - Skin Skin exam: Present: dry, intact Internal Medicine: Result - Labs CBC & Chem 7: 05/30/17 20:22 05/31/17 04:34 Labs: Short CBC 05/30/17 Range/Units 20:22 Hgb 10.2 L (12.9-16.9) g/dL Hct 31.4 L (37.5-50.1) % BMP 05/31/17 04:34 Sodium 140 Potassium 3.8 Chloride 106 Carbon Dioxide 25 BUN 21 Creatinine 0.72 Glucose 84 Calcium 7.9 L - ABG Interpretation ABG results: PT/INR, D-dimer PT 11.8 Seconds (9.4-12.1) 05/29/17 10:46 - VTE Documentation of Mechanical Device: Intermittent pneumatic compression device Consult Discharge Plan - Plan Referrals: Dex Higuera Jr, MD [Primary Care Provider] -
[2017-05-31] MEDS ORDERED: *HR* Midazolam HCl 5 MG/5 ML VIAL IVP ONE (18:03)
[2017-05-31] MEDS ORDERED: *HR* FentaNYL (PF) 100 MCG/2 ML VIAL ONE (18:04)
[2017-05-31] MEDS ORDERED: Simethicone 40 MG/0.6 ML MLS IR ONE (18:33)
[2017-05-31] MEDS ORDERED: *HR* FentaNYL (PF) 100 MCG/2 ML VIAL IVP ONE (18:33)
[2017-05-31] MEDS ORDERED: *HR* Midazolam HCl 2 MG/2 ML VIAL IVP ONE (18:33)
[2017-05-31] MEDS: metroNIDAZOLE 500 MG TABLET PO SCH (21:12)
[2017-06-01] MEDS: Ringers Solution, Lactated 1,000 ML IVC SCH (01:45)
[2017-06-01] MEDS: Pantoprazole 40 MG in 0.9 % Sodium Chloride Mini Bag 100 ML IVC SCH ×3 (01:46→09:03)
[2017-06-01 05:34] LABS: Basophils % 0.2 %; Eosinophils # 0.4 K/mcL (0.0-0.6); Eosinophils % 4.9 %; Hematocrit 27.7 % (37.5-50.1); Hemoglobin 8.8 g/dL (12.9-16.9); Immature Granulocytes % 3.6 % (0-4); Lymphocytes # 1.3 K/mcL (0.6-4.6); Lymphocytes % 16.7 %; Mean Corpuscular HGB Conc 31.8 g/dL (31.6-35.5); Mean Corpuscular Hemoglobin 29.8 pg (28.0-33.3); Mean Corpuscular Volume 93.9 fL (83.0-100.0); Mean Platelet Volume 8.7 fL (9.4-12.4); Monocytes # 0.6 K/mcL (0.0-1.3); Monocytes % 7.5 %; Neutrophils # 5.4 K/mcL (1.6-8.9); Platelet Count 191 K/mcL (140-400); Red Blood Count 2.95 M/mcL (4.19-5.50); Red Cell Distribution Width 17.4 % (11.5-14.5); Segmented Neutrophils % 67.1 %
[2017-06-01] MEDS: traMADol 50 MG TABLET PO PRN ×2 (05:40→21:00)
[2017-06-01 05:49] LABS: BUN/Creatinine Ratio 21 (6-26); Blood Urea Nitrogen 15 mg/dL (8-23); Calcium 7.5 mg/dL (8.6-10.3); Carbon Dioxide 25 mEq/L (23-29); Chloride 105 mEq/L (98-107); Glucose 99 mg/dL (70-105); Osmolality,Calculated 287 (280-300); Potassium 3.3 mEq/L (3.5-5.1); Sodium 138 mEq/L (136-145); eGFR For African Americans > 60 (> 60); eGFR For Non-African Americans > 60 (> 60)
--- NOTE | 2017-06-01 08:40 | Gastroenterology Progress Note ---
Date of Encounter: 06/01/17 Time of Encounter: 08:36 - Assessment and plan (1) Diverticulitis large intestine w/o perforation or abscess w/bleeding Current Visit: Yes Status: Acute Assessment and plan: 06/01/17 Colonoscopy revealed focal diverticulitis with no active source of bleeding. Continue Cipro 500mg PO BID and Flagyl 50mg PO BID for 7 days (2) GI bleed Current Visit: Yes Status: Acute Assessment and plan: Patient with dark stools and iron deficiency anemia secondary to chronic blood loss 06/01/17 Colonoscopy revealed focal diverticulitis with no active bleeding and mucosal ulceration. Pathology results pending. Qualifiers: GI bleed type/associated pathology: unspecified gastrointestinal hemorrhage type Qualified Code(s): K92.2 - Gastrointestinal hemorrhage, unspecified (3) Acute blood loss anemia Current Visit: Yes Status: Chronic Assessment and plan: Iron deficiency anemia secondary to chronic blood loss Symptomatic anemia with hemoglobin level of 6.0 on admission, baseline HGB around 14 Repeat hemoglobin level stable after 4 units of PRBCs transfused. Will need continued HGB level monitoring (4) Duodenal ulcer Current Visit: Yes Status: Acute Assessment and plan: 05/30/17 EGD revealed non-bleeding gastric ulcers. Pathology results pending Continue PPI 40mg daily (5) Peptic ulcer disease Current Visit: Yes Status: Acute Assessment and plan: 05/30/17 EGD revealed non-bleeding gastric ulcers. Pathology results pending Continue PPI 40mg daily (6) Esophageal dysmotility Current Visit: Yes Status: Chronic Assessment and plan: EGD on 05/30/17 revealed abnormal esophageal motility Patient is asymptomatic. Continue regular/ soft diet as tolerated - Time Spent With Patient Total time spent is greater than 50% in coordination of care (as documented) at patient's floor/unit and/or counseling patient: - Subjective Interval history: Patient seen and examined resting comfortably in bed eating breakfast. He reports no abdominal discomfort and denies dysphagia or melena. HGB remains stable. - Constitutional Vitals: Temp Pulse Resp BP Pulse Ox 98 F 74 18 129/65 97 06/01/17 06:00 06/01/17 06:00 06/01/17 06:00 06/01/17 06:00 06/01/17 06:00 General appearance: Present: cooperative, pleasant, no acute distress, obese, answers questions appropriately - Head Head exam: Present: atraumatic, normocephalic - Eye Eye exam: Present: normal appearance, sclera anicteric - Neck Neck exam general surgery: Present: normal inspection, trachea midline - Respiratory Respiratory exam: Present: CTAB - Cardiovascular Cardiovascular exam: Present: RRR, +S1, +S2 - GI/Abdominal GI/Abdominal exam: Present: normal bowel sounds, soft, no peritoneal signs. Absent: tenderness - Rectal Rectal exam: Present: deferred - Extremities Exam Extremities exam: Present: warm - Neurological Exam Neurological exam: Present: alert, no focal deficits. Absent: altered - Psychiatric Psychiatric exam: Present: normal affect, normal mood - Skin Skin exam: Present: dry, intact (surgical incision posterior spine well healed) , normal color, warm Results - Labs CBC & Chem 7: 06/01/17 04:34 06/01/17 04:34 Labs: Last Result Calcium 7.5 mg/dL (8.6-10.3) L 06/01/17 04:34 Troponin I 0.04 ng/mL (< 0.04) H* 05/29/17 10:46 Entire Visit Hgb 8.8 g/dL (12.9-16.9) L 06/01/17 04:34 Hct 27.7 % (37.5-50.1) L 06/01/17 04:34 PT 11.8 Seconds (9.4-12.1) 05/29/17 10:46 Total Bilirubin 0.4 mg/dL (0.3-1.0) 05/29/17 10:46 AST 19 Units/L (13-39) 05/29/17 10:46 ALT 45 Units/L (7-52) 05/29/17 10:46 Lipase 77 Units/L (11-82) 05/29/17 10:46 - ABG ABG results: PT/INR, D-dimer PT 11.8 Seconds (9.4-12.1) 05/29/17 10:46 - VTE Documentation of Mechanical Device: Intermittent pneumatic compression device Consult Discharge Plan - Plan Referrals: Dex Higuera Jr, MD [Primary Care Provider] -
[2017-06-01] MEDS: metroNIDAZOLE 500 MG TABLET PO SCH ×2 (09:02→21:00)
[2017-06-01] MEDS: Furosemide 40 MG TABLET PO SCH ×2 (09:02→17:10)
[2017-06-01] MEDS: *HR* LORazepam 0.5 MG TABLET PO SCH ×2 (09:02→21:00)
[2017-06-01] MEDS: Ascorbic Acid 500 MG TABLET PO SCH (09:02)
[2017-06-01] MEDS: Multivit/Ca/Min/Fe/FA 1 TAB TABLET PO SCH (09:02)
[2017-06-01] MEDS: (Umeclidinium Bromide [Incruse Ellipta] 62.5 MCG) IH SCH (09:03)
--- NOTE | 2017-06-01 12:00 | Internal Med Progress Note ---
Date of Encounter: 06/01/17 Time of Encounter: 11:55 - Subjective Interval history: Interval history: EGD and Colonoscopy yesterday Hgb stable 24 hrs C/o ant chest wall pain (1) GI bleed 4 Units of PRBC total given Hgb = 8.8 today 7.0 --> 10.2 --> 8.8 Baseline HGB around 14 05/14/17 EGD showed multiple non-bleeding gastric and duodenal ulcers. Bx negative for Helicobacter. 05/30/17 EGD revealed non-bleeding gastric ulcers. Pathology results pending Continue PPI 40mg daily 04/03/17 Colonoscopy revealed focal diverticulitis with no active source of bleeding. Continue Cipro 500mg PO BID and Flagyl 50mg PO BID for 7 days Plan: Watch hgb next 24 hrs and if stable d/c back to [facility]. (2) Acute blood loss anemia Continue to monitor H&H F/u with GI as OP (3) Weakness and debilitations: He will return to [facility] rehab to continue his inpatient rehab. - Constitutional Vitals: Temp Pulse Resp BP Pulse Ox 97.9 F 79 18 98/59 97 06/01/17 11:19 06/01/17 11:19 06/01/17 11:19 06/01/17 11:19 06/01/17 11:19 General appearance: Present: cooperative, A&O X 3, pleasant, answers questions appropriately Exam: Sitting in bedside chair. He looks very frail and weak - Head Head exam: Present: atraumatic, normocephalic - Eye Eye exam: Present: PERRL, conjuntiva pink, sclera anicteric Pupils: Present: PERRL - Neck Neck exam general surgery: Present: supple, trachea midline. Absent: lymphadenopathy - Respiratory Respiratory exam: Present: rales. Absent: accessory muscle use, rhonchi, wheezes Additional comments: Fine rales at both bases - Cardiovascular Cardiovascular exam: Present: RRR, +S1, +S2. Absent: diastolic murmur, gallop, rubs, systolic murmur - GI/Abdominal GI/Abdominal exam: Present: normal bowel sounds, soft, no peritoneal signs. Absent: distended, guarding, tenderness - Extremities Exam Extremities exam: Present: warm, radial pulses palpable and symmetrical. Absent : calf tenderness, cyanotic, pedal edema - Neurological Exam Neurological exam: Present: CN II-XII intact, oriented X3, no focal deficits. Absent: pronater drift, facial droop, speech deficit - Psychiatric Psychiatric exam: Present: normal affect, normal mood - Skin Skin exam: Present: dry, intact Internal Medicine: Result - Labs CBC & Chem 7: 06/01/17 04:34 06/01/17 04:34 Labs: Short CBC 06/01/17 Range/Units 04:34 WBC 8.0 (4.3-11.1) K/mcL Hgb 8.8 L (12.9-16.9) g/dL Hct 27.7 L (37.5-50.1) % Plt Count 191 (140-400) K/mcL Neutrophils # 5.4 (1.6-8.9) K/mcL BMP 06/01/17 04:34 Sodium 138 Potassium 3.3 L Chloride 105 Carbon Dioxide 25 BUN 15 Creatinine 0.71 Glucose 99 Calcium 7.5 L - ABG Interpretation ABG results: PT/INR, D-dimer PT 11.8 Seconds (9.4-12.1) 05/29/17 10:46 - VTE Documentation of Mechanical Device: Intermittent pneumatic compression device Consult Discharge Plan - Plan Referrals: Dex Higuera Jr, MD [Primary Care Provider] -
[2017-06-01] MEDS: Melatonin 3 MG TABLET PO SCH (21:00)
[2017-06-02 04:06] LABS: Basophils % 0.2 %; Eosinophils # 0.5 K/mcL (0.0-0.6); Eosinophils % 5.5 %; Hematocrit 26.8 % (37.5-50.1); Hemoglobin 8.6 g/dL (12.9-16.9); Immature Granulocytes % 2.8 % (0-4); Lymphocytes # 1.4 K/mcL (0.6-4.6); Lymphocytes % 17.5 %; Mean Corpuscular HGB Conc 32.1 g/dL (31.6-35.5); Mean Corpuscular Volume 93.4 fL (83.0-100.0); Mean Platelet Volume 9.1 fL (9.4-12.4); Monocytes # 0.6 K/mcL (0.0-1.3); Monocytes % 7.8 %; Neutrophils # 5.4 K/mcL (1.6-8.9); Platelet Count 176 K/mcL (140-400); Red Blood Count 2.87 M/mcL (4.19-5.50); Red Cell Distribution Width 16.9 % (11.5-14.5); Segmented Neutrophils % 66.2 %
[2017-06-02 04:24] LABS: BUN/Creatinine Ratio 20 (6-26); Blood Urea Nitrogen 15 mg/dL (8-23); Calcium 7.5 mg/dL (8.6-10.3); Carbon Dioxide 28 mEq/L (23-29); Chloride 103 mEq/L (98-107); Glucose 123 mg/dL (70-105); Osmolality,Calculated 286 (280-300); Potassium 3.2 mEq/L (3.5-5.1); Sodium 137 mEq/L (136-145); eGFR For African Americans > 60 (> 60); eGFR For Non-African Americans > 60 (> 60)
[2017-06-02] MEDS: traMADol 50 MG TABLET PO PRN ×2 (04:49→21:03)
[2017-06-02] MEDS: metroNIDAZOLE 500 MG TABLET PO SCH ×2 (09:48→20:58)
[2017-06-02] MEDS: Furosemide 40 MG TABLET PO SCH ×2 (09:48→16:52)
[2017-06-02] MEDS: Ascorbic Acid 500 MG TABLET PO SCH (09:48)
[2017-06-02] MEDS: Multivit/Ca/Min/Fe/FA 1 TAB TABLET PO SCH (09:48)
[2017-06-02] MEDS: *HR* LORazepam 0.5 MG TABLET PO SCH ×2 (09:49→20:58)
[2017-06-02] MEDS: (Umeclidinium Bromide [Incruse Ellipta] 62.5 MCG) IH SCH (10:27)
[2017-06-02] MEDS: Pantoprazole 40 MG in 0.9 % Sodium Chloride Mini Bag 100 ML IVC SCH ×2 (10:28→18:07)
--- NOTE | 2017-06-02 12:26 | Internal Med Progress Note ---
Date of Encounter: 06/02/17 Time of Encounter: 12:19 - Subjective Interval history: Interval history: 06/01/2017: EGD and Colonoscopy yesterday Hgb stable 24 hrs C/o ant chest wall pain : Still feels very weak Hgb stable No melana or BRBPR (1) GI bleed 4 Units of PRBC total given Hgb = 8.8 today 7.0 --> 10.2 --> 8.8 Baseline HGB around 14 05/14/17 EGD showed multiple non-bleeding gastric and duodenal ulcers. Bx negative for Helicobacter. 05/30/17 EGD revealed non-bleeding gastric ulcers. Pathology results pending Continue PPI 40mg daily 04/03/17 Colonoscopy revealed focal diverticulitis with no active source of bleeding. Continue Cipro 500mg PO BID and Flagyl 50mg PO BID for 7 days Hopefully back to [facility] Sunday (2) Acute blood loss anemia Continue to monitor H&H F/u with GI as OP (3) Weakness and debilitations: He will return to [facility] rehab to continue his inpatient rehab. - Constitutional Vitals: Temp Pulse Resp BP Pulse Ox 98.1 F 80 19 106/87 96 06/02/17 07:00 06/02/17 11:00 06/02/17 11:00 06/02/17 11:00 06/02/17 11:00 General appearance: Present: cooperative, A&O X 3, pleasant, no acute distress, answers questions appropriately - Head Head exam: Present: atraumatic, normocephalic - Eye Eye exam: Present: PERRL, conjuntiva pink, sclera anicteric Pupils: Present: PERRL - Neck Neck exam general surgery: Present: supple, trachea midline. Absent: lymphadenopathy - Respiratory Respiratory exam: Present: CTAB. Absent: accessory muscle use, rales, rhonchi, wheezes - Cardiovascular Cardiovascular exam: Present: RRR, +S1, +S2. Absent: diastolic murmur, gallop, rubs, systolic murmur - GI/Abdominal GI/Abdominal exam: Present: normal bowel sounds, soft, no peritoneal signs. Absent: distended, tenderness - Extremities Exam Extremities exam: Present: pedal edema, warm, radial pulses palpable and symmetrical. Absent: calf tenderness, cyanotic - Neurological Exam Neurological exam: Present: CN II-XII intact, oriented X3, no focal deficits. Absent: pronater drift, facial droop, speech deficit - Psychiatric Psychiatric exam: Present: depressed - Skin Skin exam: Present: dry, intact Internal Medicine: Result - Labs CBC & Chem 7: 06/02/17 03:26 06/02/17 03:26 Labs: Short CBC 06/02/17 Range/Units 03:26 WBC 8.2 (4.3-11.1) K/mcL Hgb 8.6 L (12.9-16.9) g/dL Hct 26.8 L (37.5-50.1) % Plt Count 176 (140-400) K/mcL Neutrophils # 5.4 (1.6-8.9) K/mcL BMP 06/02/17 03:26 Sodium 137 Potassium 3.2 L Chloride 103 Carbon Dioxide 28 BUN 15 Creatinine 0.76 Glucose 123 H Calcium 7.5 L - ABG Interpretation ABG results: PT/INR, D-dimer PT 11.8 Seconds (9.4-12.1) 05/29/17 10:46 - VTE Documentation of Mechanical Device: Intermittent pneumatic compression device Consult Discharge Plan - Plan Referrals: Dex Higuera Jr, MD [Primary Care Provider] -
[2017-06-02] MEDS: Ringers Solution, Lactated 1,000 ML IVC SCH ×2 (18:08)
[2017-06-02] MEDS: Melatonin 3 MG TABLET PO SCH (20:56)
[2017-06-03 04:25] LABS: Basophils % 0.4 %; Eosinophils # 0.4 K/mcL (0.0-0.6); Eosinophils % 4.5 %; Immature Granulocytes % 3.7 % (0-4); Lymphocytes # 1.8 K/mcL (0.6-4.6); Lymphocytes % 22.4 %; Mean Corpuscular Hemoglobin 29.7 pg (28.0-33.3); Mean Corpuscular Volume 95.7 fL (83.0-100.0); Monocytes # 0.7 K/mcL (0.0-1.3); Monocytes % 8.3 %; Platelet Count 174 K/mcL (140-400); Red Blood Count 3.03 M/mcL (4.19-5.50); Red Cell Distribution Width 16.7 % (11.5-14.5); Segmented Neutrophils % 60.7 %
[2017-06-03 05:01] LABS: Alanine Aminotransferase 26 Units/L (7-52); Albumin 2.5 g/dL (3.5-5.7); Albumin/Globulin Ratio 1.1 (1.1-2.2); Alkaline Phosphatase 51 Units/L (34-104); Aspartate Amino Transferase 22 Units/L (13-39); BUN/Creatinine Ratio 15 (6-26); Bilirubin,Total 0.5 mg/dL (0.3-1.0); Blood Urea Nitrogen 13 mg/dL (8-23); Calcium 7.3 mg/dL (8.6-10.3); Carbon Dioxide 26 mEq/L (23-29); Chloride 103 mEq/L (98-107); Globulin 2.3 g/dL (2.4-3.5); Glucose 105 mg/dL (70-105); Osmolality,Calculated 282 (280-300); Potassium 3.7 mEq/L (3.5-5.1); Sodium 136 mEq/L (136-145); Total Protein 4.8 g/dL (6.4-8.9); eGFR For African Americans > 60 (> 60); eGFR For Non-African Americans > 60 (> 60)
[2017-06-03] MEDS: traMADol 50 MG TABLET PO PRN ×2 (05:36→18:44)
[2017-06-03] MEDS: Furosemide 40 MG TABLET PO SCH ×2 (08:21→18:22)
[2017-06-03] MEDS: metroNIDAZOLE 500 MG TABLET PO SCH ×2 (08:21→21:43)
[2017-06-03] MEDS: *HR* LORazepam 0.5 MG TABLET PO SCH (08:22)
[2017-06-03] MEDS: Multivit/Ca/Min/Fe/FA 1 TAB TABLET PO SCH (08:22)
[2017-06-03] MEDS: Ascorbic Acid 500 MG TABLET PO SCH (08:22)
[2017-06-03] MEDS: (Umeclidinium Bromide [Incruse Ellipta] 62.5 MCG) IH SCH (08:24)
--- NOTE | 2017-06-03 16:42 | Internal Med Progress Note ---
Date of Encounter: 06/03/17 Time of Encounter: 16:27 - Subjective Interval history: Interval history: 06/01/2017: EGD and Colonoscopy yesterday Hgb stable 24 hrs C/o ant chest wall pain 06/02/2017: Still feels very weak Hgb stable No melana or BRBPR 06/03/2017 Hgb still stable w/o melana or BRBPR Breathing comfortably Ready to discharge Back to [facility] (1) GI bleed 4 Units of PRBC total given Hgb = 9.0 today 7.0 --> 10.2 --> 8.8--> 9.0 Baseline HGB around 14 Continue oral iron supplement Recent endoscopy studies: 05/14/17 EGD showed multiple non-bleeding gastric and duodenal ulcers. Bx negative for Helicobacter. 05/30/17 EGD revealed non-bleeding gastric ulcers. Pathology results pending Continue PPI 40mg daily 06/01/17 Colonoscopy revealed focal diverticulitis with no active source of bleeding. Continue Cipro 500mg PO BID and Flagyl 50mg PO BID for 7 days (2) Acute blood loss anemia Continue to monitor H&H F/u with GI as OP (3) Weakness and debilitations: He will return to [facility] rehab to continue his inpatient rehab. - Constitutional Vitals: Temp Pulse Resp BP Pulse Ox 97.9 F 80 15 105/59 90 06/03/17 15:42 06/03/17 15:42 06/03/17 15:42 06/03/17 15:42 06/03/17 15:42 General appearance: Present: cooperative, A&O X 3, pleasant, no acute distress, answers questions appropriately - Head Head exam: Present: atraumatic, normocephalic - Eye Eye exam: Present: EOMI, PERRL, conjuntiva pink, sclera anicteric Pupils: Present: PERRL - Neck Neck exam general surgery: Present: supple, trachea midline. Absent: lymphadenopathy - Respiratory Respiratory exam: Present: CTAB. Absent: accessory muscle use, rales, rhonchi, wheezes - Cardiovascular Cardiovascular exam: Present: RRR, +S1, +S2. Absent: diastolic murmur, gallop, rubs, systolic murmur - GI/Abdominal GI/Abdominal exam: Present: normal bowel sounds, soft, no peritoneal signs. Absent: distended, firm, guarding, rebound, rigid, tenderness - Extremities Exam Extremities exam: Present: pedal edema, warm. Absent: cyanotic - Neurological Exam Neurological exam: Present: CN II-XII intact, oriented X3, no focal deficits. Absent: pronater drift, facial droop, speech deficit - Skin Skin exam: Present: dry, intact, warm Internal Medicine: Result - Labs CBC & Chem 7: 06/03/17 04:09 06/03/17 04:09 Labs: Short CBC 06/03/17 Range/Units 04:09 WBC 8.2 (4.3-11.1) K/mcL Hgb 9.0 L (12.9-16.9) g/dL Hct 29.0 L (37.5-50.1) % Plt Count 174 (140-400) K/mcL Neutrophils # 5.0 (1.6-8.9) K/mcL BMP 06/03/17 04:09 Sodium 136 Potassium 3.7 Chloride 103 Carbon Dioxide 26 BUN 13 Creatinine 0.88 Glucose 105 Calcium 7.3 L Liver Function 06/03/17 Range/Units 04:09 Total Bilirubin 0.5 (0.3-1.0) mg/dL AST 22 (13-39) Units/L ALT 26 (7-52) Units/L Alkaline Phosphatase 51 (34-104) Units/L Albumin 2.5 L (3.5-5.7) g/dL - ABG Interpretation ABG results: PT/INR, D-dimer PT 11.8 Seconds (9.4-12.1) 05/29/17 10:46 - VTE Documentation of Mechanical Device: Intermittent pneumatic compression device Consult Discharge Plan - Plan Referrals: Dex Higuera Jr, MD [Primary Care Provider] -
[2017-06-03] MEDS: Acetaminophen 325 MG TABLET PO PRN (21:49)
[2017-06-04] MEDS: Melatonin 3 MG TABLET PO SCH ×2 (00:39→22:56)
[2017-06-04] MEDS: *HR* LORazepam 0.5 MG TABLET PO SCH ×3 (00:39→22:56)
[2017-06-04] MEDS: traMADol 50 MG TABLET PO PRN ×4 (00:40→20:47)
[2017-06-04 03:45] LABS: Basophils # 0.1 K/mcL (0.0-0.2); Basophils % 0.6 %; Eosinophils # 0.4 K/mcL (0.0-0.6); Eosinophils % 4.1 %; Hematocrit 28.6 % (37.5-50.1); Hemoglobin 9.1 g/dL (12.9-16.9); Immature Granulocytes % 2.1 % (0-4); Lymphocytes # 2.1 K/mcL (0.6-4.6); Lymphocytes % 24.3 %; Mean Corpuscular HGB Conc 31.8 g/dL (31.6-35.5); Mean Corpuscular Hemoglobin 30.1 pg (28.0-33.3); Mean Corpuscular Volume 94.7 fL (83.0-100.0); Mean Platelet Volume 9.2 fL (9.4-12.4); Monocytes # 0.9 K/mcL (0.0-1.3); Monocytes % 10.2 %; Platelet Count 201 K/mcL (140-400); Red Blood Count 3.02 M/mcL (4.19-5.50); Red Cell Distribution Width 16.4 % (11.5-14.5); Segmented Neutrophils % 58.7 %
[2017-06-04] MEDS: metroNIDAZOLE 500 MG TABLET PO SCH ×2 (08:18→20:46)
[2017-06-04] MEDS: Multivit/Ca/Min/Fe/FA 1 TAB TABLET PO SCH (08:18)
[2017-06-04] MEDS: Ascorbic Acid 500 MG TABLET PO SCH (08:18)
[2017-06-04] MEDS: (Umeclidinium Bromide [Incruse Ellipta] 62.5 MCG) IH SCH (08:19)
[2017-06-04] MEDS: Furosemide 40 MG TABLET PO SCH ×2 (08:19→15:56)
--- NOTE | 2017-06-04 08:37 | Discharge Summary ---
- NOTES TO OUTPATIENT PROVIDER Notes to Outpatient Provider: Patient to f/u with GI as directed by GI. Biopsy results to be forwarded to GI. Recommend repeat cbc within 1-2 weeks with results to go to PCP and/or GI. Continue taking Cipro + Flagyl through July 09 (7 day course) Orders not resulted at time of discharge: Pending orders 05/31/17 18:54 Surgical Pathology [PTH] Routine Date of Encounter: 06/05/17 Time of Encounter: 08:35 - Discharge Diagnosis (1) GI bleed Priority: Primary Status: Acute Qualifiers: GI bleed type/associated pathology: unspecified gastrointestinal hemorrhage type Qualified Code(s): K92.2 - Gastrointestinal hemorrhage, unspecified (2) Acute blood loss anemia Priority: Primary Status: Acute Code(s): D62 - Acute posthemorrhagic anemia (3) Diverticulitis large intestine w/o perforation or abscess w/bleeding Priority: Primary Status: Acute Code(s): K57.33 - Diverticulitis of large intestine without perforation or abscess with bleeding (4) Peptic ulcer disease Priority: Primary Status: Chronic Code(s): K27.9 - Peptic ulcer, site unspecified, unspecified as acute or chronic, without hemorrhage or perforation (5) CAD (coronary artery disease) Priority: Secondary Status: Chronic Qualifiers: Coronary Disease-Associated Artery/Lesion type: [place] artery [place] vs. transplanted heart: solomon heart Associated angina: without angina Qualified Code(s): I25.10 - Atherosclerotic heart disease of solomon coronary artery without angina pectoris (6) Ventricular tachycardia Priority: Secondary Status: Acute Code(s): I47.2 - Ventricular tachycardia Hospital course: Hospital course: Mr. Sapp is a 81 year old male patient with a history of coronary artery disease, COPD, CHF, prior CVA, recent back surgery for vertebral fracture at T8 with posterior spinal fusion T5-T12 was currently residing at shelter presented to the ER with complaints of melena and low hemoglobin levels. He had multiple episodes of emesis and dark chocolate-colored stools. He denied any abdominal pain but has back pain at site of his surgery. He also reports that he had fallen while being transferred on his way here and has pain in his back as a result. . During that hospitalization, he had been diagnosed with duodenitis and underwent upper GI endoscopy. This showed multiple nonbleeding gastric and duodenal ulcers. Pathology results were negative for Helicobacter pylori. He was discharged on Protonix 40 mg by mouth daily. He had also undergone colonoscopy in 2014 for screening and was found to have 4 polyps with moderate diverticulosis. He was given a total of 4 Units of PRBCs during this hospitalization. He had and EGD and colonoscopy showing non-bleeding gastric ulcers and diverticulitis. His Hgb was stable for 72 hrs prior to discharge. He was started on aa 7 day course of Cipro and Flagyl. Prior to discharge today he had a 10 beat run of asx V-Tack and his subsequent ECG showed A-Fib. Cardiology was consulted and determined no further w/u was needed. He is currently in NSR and no anticoagulation was started due to his recent GI bleeding. His Mag was found to be mildly low and was relplace. He was kept overnight to monitor him and recheck his Mag in the am. If still stable [facility]'s to [facility] Endoscopy studies during this admission: 05/30/17 EGD revealed non-bleeding gastric ulcers. Pathology results pending Continue PPI 40mg twice daily 06/01/17 Colonoscopy revealed focal diverticulitis with no active source of bleeding. Continue Cipro 500mg PO BID and Flagyl 50mg PO BID for 7 days Discharge diagnoses: GI bleed Acute blood loss anemia Diverticulitis Non-bleeding PUD Weakness and debilitations Asymptomatic V-Tach Atrial-Fibrillation (new) Discharge discussed with: patient, nurse, case management Time spent discussing smoking cessation with patient: more than 10 minutes - Time Spent with Patient Total time spent providing and/or coordinating discharge services: Greater than 30 minutes - Discharge Medications Prescriptions: Ciprofloxacin [Cipro] 500 mg PO BID 5 Days #10 tablet Ferrous Sulfate 325 mg PO DAILY@0800 30 Days #30 tablet metroNIDAZOLE [Flagyl] 500 mg PO BID 5 Days #10 tablet Pantoprazole Sodium [Protonix] 40 mg PO BID 30 Days #60 tablet.dr Adan Medications: Albuterol Sulfate [Proair Respiclick] 2 puff IH Q4H PRN 03/03/15 [History] Ascorbic Acid [Vitamin C] 500 mg PO DAILY 03/03/15 [History] Simvastatin [Zocor] 40 mg PO QPM 03/03/15 [History] Carvedilol [Coreg] 25 mg PO BID #60 tablet 03/06/15 [Rx] Aspirin Enteric Coated [Aspirin EC] 81 mg PO 3XW 04/27/17 [History] Cranberry 500 mg PO DAILY 04/27/17 [History] Furosemide [Lasix] 40 mg PO BID 04/27/17 [History] Losartan [Cozaar] 25 mg PO DAILY 04/27/17 [History] Multivitamin [One Daily Essential] 1 each PO DAILY 04/27/17 [History] Umeclidinium [place] [Incruse Ellipta] 62.5 mcg IH DAILY 04/27/17 [History] Docusate [Colace] 100 mg PO BID PRN #60 capsule 05/17/17 [Rx] HYDROcodone/Acet 5/325 mg [[place] 5-325 mg] 1 tab PO Q6HR PRN 5 Days #20 tablet 05/17/17 [Rx] Polyethylene Glycol 3350 [MiraLAX] 17 gm PO BID #60 powd.pack 05/17/17 [Rx] Acetaminophen [Tylenol] 650 mg PO Q6HR PRN 05/29/17 [History] Ipratropium/Albuterol Neb [Duoneb] 3 ml IH Q6HR PRN 05/29/17 [History] LORazepam [Ativan] 0.5 mg PO BID 05/29/17 [History] Loperamide [Imodium] 2 mg PO Q4HR PRN 05/29/17 [History] Melatonin 10 mg PO HS 05/29/17 [History] Ciprofloxacin [Cipro] 500 mg PO BID 5 Days #10 tablet 06/04/17 [Rx] Ferrous Sulfate 325 mg PO DAILY@0800 30 Days #30 tablet 06/04/17 [Rx] Pantoprazole Sodium [Protonix] 40 mg PO BID 30 Days #60 tablet. 06/04/17 [Rx] metroNIDAZOLE [Flagyl] 500 mg PO BID 5 Days #10 tablet 06/04/17 [Rx] Allergies/Adverse Reactions: 3 Allergy/AdvReac Type Severity Reaction Status Date / Time Penicillins [PCN] Allergy Rash Verified 05/29/17 10:31 hydrocodone AdvReac Severe Agitated Verified 05/29/17 10:31 Oxycodone AdvReac See Verified 05/29/17 10:31 Comments Date of admission: 05/29/17 15:12 Primary care physician: Dex Higuera Jr, MD Consults: 05/29/17 17:22 Consult to Nutrition [CONS] Routine Comment: Consulting Provider: NUTRITION Reason for Dietary Consult: MST Score 05/29/17 17:23 Consult to Transfer Specialist [CONS] Routine Reason for SW Consult: patient from [facility] Discharging clinician: Austin Thomas - Constitutional Vitals: Temp Pulse Resp BP Pulse Ox 98.0 F 76 17 139/75 96 06/04/17 06:58 06/04/17 06:58 06/04/17 06:58 06/04/17 06:58 06/04/17 06:58 General appearance: Present: cooperative, A&O X 3, pleasant, no acute distress, answers questions appropriately - Head Head exam: Present: atraumatic, normocephalic - Eye Eye exam: Present: PERRL, conjuntiva pink, sclera anicteric Pupils: Present: PERRL - Neck Neck exam general surgery: Present: supple, trachea midline. Absent: lymphadenopathy - Respiratory Respiratory exam: Present: CTAB. Absent: accessory muscle use, rales, rhonchi, wheezes - Cardiovascular Cardiovascular exam: Present: RRR, +S1, +S2. Absent: diastolic murmur, gallop, rubs, systolic murmur - GI/Abdominal GI/Abdominal exam: Present: normal bowel sounds, soft, no peritoneal signs. Absent: distended, firm, guarding, rebound, rigid, tenderness - Extremities Exam Extremities exam: Present: warm, radial pulses palpable and symmetrical. Absent : calf tenderness, cyanotic, pedal edema - Neurological Exam Neurological exam: Present: CN II-XII intact, oriented X3, no focal deficits. Absent: pronater drift, facial droop, speech deficit - Skin Skin exam: Present: dry, intact - Patient Status Disposition: Transfer Inpatient Rehab Fac Condition: Fair Functional capacity at discharge: uses cane/walker Overall status at discharge: patient is back to baseline - Discharge Instructions Instructions: Ciprofloxacin (By mouth), Iron Supplements (By mouth), Metronidazole (By mouth), Pantoprazole (By mouth), Heart Failure (DC), Acute Respiratory Distress Syndrome (DC), Diverticulitis (DC), Chronic Obstructive Pulmonary Disease (DC), Alcohol Intoxication (DC), Alcohol Intoxication (GEN), Chronic Hypertension (DC), Anemia (GEN), Pneumonia (DC) Follow Up With: Dex Higuera Jr, MD [Primary Care Provider] - 06/08/17 9:15 am - VTE Documentation of Mechanical Device: Intermittent pneumatic compression device
--- NOTE | 2017-06-04 09:37 | Physician Discharge Referral ---
ExtendedCare Referral Info Transfer To: [facility] Provider in Charge: Martha - Diagnosis (1) GI bleed Priority: Primary Status: Acute (2) Acute blood loss anemia Priority: Primary Status: Acute (3) Diverticulitis large intestine w/o perforation or abscess w/bleeding Priority: Primary Status: Acute (4) Peptic ulcer disease Priority: Secondary Status: Chronic (5) CAD (coronary artery disease) Priority: Secondary Status: Chronic - Transfer Medications Prescriptions: Ciprofloxacin [Cipro] 500 mg PO BID 5 Days #10 tablet Ferrous Sulfate 325 mg PO DAILY@0800 30 Days #30 tablet metroNIDAZOLE [Flagyl] 500 mg PO BID 5 Days #10 tablet Pantoprazole Sodium [Protonix] 40 mg PO BID 30 Days #60 tablet.dr Home Medications: Albuterol Sulfate [Proair Respiclick] 2 puff IH Q4H PRN 03/03/15 [History] Ascorbic Acid [Vitamin C] 500 mg PO DAILY 03/03/15 [History] Simvastatin [Zocor] 40 mg PO QPM 03/03/15 [History] Carvedilol [Coreg] 25 mg PO BID #60 tablet 03/06/15 [Rx] Aspirin Enteric Coated [Aspirin EC] 81 mg PO 3XW 04/27/17 [History] Cranberry 500 mg PO DAILY 04/27/17 [History] Furosemide [Lasix] 40 mg PO BID 04/27/17 [History] Losartan [Cozaar] 25 mg PO DAILY 04/27/17 [History] Multivitamin [One Daily Essential] 1 each PO DAILY 04/27/17 [History] Umeclidinium [place] [Incruse Ellipta] 62.5 mcg IH DAILY 04/27/17 [History] Docusate [Colace] 100 mg PO BID PRN #60 capsule 05/17/17 [Rx] HYDROcodone/Acet 5/325 mg [[place] 5-325 mg] 1 tab PO Q6HR PRN 5 Days #20 tablet 05/17/17 [Rx] Polyethylene Glycol 3350 [MiraLAX] 17 gm PO BID #60 powd.pack 05/17/17 [Rx] Acetaminophen [Tylenol] 650 mg PO Q6HR PRN 05/29/17 [History] Ipratropium/Albuterol Neb [Duoneb] 3 ml IH Q6HR PRN 05/29/17 [History] LORazepam [Ativan] 0.5 mg PO BID 05/29/17 [History] Loperamide [Imodium] 2 mg PO Q4HR PRN 05/29/17 [History] Melatonin 10 mg PO HS 05/29/17 [History] Ciprofloxacin [Cipro] 500 mg PO BID 5 Days #10 tablet 06/04/17 [Rx] Ferrous Sulfate 325 mg PO DAILY@0800 30 Days #30 tablet 06/04/17 [Rx] Pantoprazole Sodium [Protonix] 40 mg PO BID 30 Days #60 tablet. 06/04/17 [Rx] metroNIDAZOLE [Flagyl] 500 mg PO BID 5 Days #10 tablet 06/04/17 [Rx] Allergies/Adverse Reactions: 3 Allergy/AdvReac Type Severity Reaction Status Date / Time Penicillins [PCN] Allergy Rash Verified 05/29/17 10:31 hydrocodone AdvReac Severe Agitated Verified 05/29/17 10:31 Oxycodone AdvReac See Verified 05/29/17 10:31 Comments - Respiratory Orders Smoking Cessation: Smoking cessation has been advised. For more information, call the [place] Tobacco Quit Line at 6-690-GZBUNOW. CERTIFICATION: I certify that the transfer of the above named patient to an Extended Care Facility is necessary for the continuing treatment of the diagnosis listed. The above information is true and accurate reflection of patient's current condition. Confidential - Redisclosure prohibited without a patient's written consent.
[2017-06-04 11:25] LABS: Magnesium 1.5 mg/dL (1.6-2.6); Potassium 3.8 mEq/L (3.5-5.1)
[2017-06-04 11:26] LABS: Troponin I < 0.03 ng/mL (< 0.04)
--- NOTE | 2017-06-04 14:25 | Cardiology Consult Note ---
Date of Encounter: 06/04/17 Time of Encounter: 14:00 Assessment and Plan (1) GI bleed Current Visit: Yes Status: Acute Per cardiology: -Admitted with acute GI bleed, Hemoglobin 5.9 on admission. -Management per primary and GI services. Qualifiers: GI bleed type/associated pathology: unspecified gastrointestinal hemorrhage type Qualified Code(s): K92.2 - Gastrointestinal hemorrhage, unspecified (2) Non-sustained ventricular tachycardia Current Visit: Yes Status: Acute Per cardiology: -One episode of non-sustained VT noted per telemetry. -Mg 1.5. -Troponin negative. -Reports chest discomfort while coughing, otherwise denies chest pain. -On beta genie, coreg 25mg BID. -TTE 04/2017 with LVEF 60-65%, moderate concentric LVH, mild diastolic dysfunction, severely dilated left atrium, no segmental wall motion abnormalities. -Recommend Mg level greater than 2. -Not a candidate for invasive cardiac work up due to acute blood loss anemia. -Can consider outpatient stress test. (3) Hypomagnesemia Current Visit: Yes Status: Acute Per cardiology: -Mg 1.5 today -Being replaced by primary service. -Recommend Mg greater than 2. (4) CAD (coronary artery disease) Current Visit: Yes Status: Chronic Per cardiology: -Reported remote PCI previously. -On beta genie and statin. -Not on ASA due to acute blood loss anemia. -Now follows with [place] cardiology. -Consider outpatient stress test. Qualifiers: Coronary Disease-Associated Artery/Lesion type: [place] artery [place] vs. transplanted heart: [place] heart Associated angina: without angina Qualified Code(s): I25.10 - Atherosclerotic heart disease of [place] coronary artery without angina pectoris Discussion w patient/family: The assessment and plan as outlined above was discussed with the patient and/or family members who expressed understanding and agreement. All questions were answered. Thank you for involving us in the care of your patient. Please call with any questions. Discussed and reviewed with . History of Present Illness Consult date: 06/04/17 Requesting physician: Austin Thomas Consult reason: non-sustained VTV Chief complaint: GI bleed History of present illness: Mr. Sapp is a 81 year old male with presented to [facility] with complaints of low hemoglobin of 5.9 at care home. Patient has been transfused 4units of PRBCs and has been evaluated by GI. Patient was being prepped for discharge back to care home when he had a 9 beat run of non-sustained ventricular tachycardia. Patient reports has some chest discomfort when coughing. Denies exertional chest pain. Denies increased shortness of breath. Denies palpitations/ fluttering. Denies dizziness, lightheadedness, syncope, or near syncope. Past Med Surg Social Fam HX - Past Medical History Attestation: Yes The following information was validated with the patient. Source: patient, old records reviewed Medical history: CHF, COPD, coronary artery disease, CVA, hypertension, other Psychiatric history: no psych history - Past Surgical History Surgical History: cholecystectomy, other (Spine fusion) - Social History Smoking Status: Former smoker Smokeless Tobacco Status: No Alcohol use: occasionally Drug use: none - Family History Father Family Member Ethnicity: Non- Living Status: Age at : 65 Cause of : [place] Hx Family Cardiac Disorders: Yes ([place]) Brother Family Member Ethnicity: Non- Living Status: Still Living Sister Family Member Ethnicity: Non- Living Status: Still Living Mother Family Member Ethnicity: Non- Living Status: Age at : 88 Cause of : Alz Dementia, Cancer Hx Family Cardiac Disorders: Yes Hx Family Cancer: Yes Hx Family Neurologic Disorders: Yes (Alzheimer's disease) Medications and Allergies Albuterol Sulfate [Proair Respiclick] 2 puff IH Q4H PRN 03/03/15 [History] Ascorbic Acid [Vitamin C] 500 mg PO DAILY 03/03/15 [History] Simvastatin [Zocor] 40 mg PO QPM 03/03/15 [History] Carvedilol [Coreg] 25 mg PO BID #60 tablet 03/06/15 [Rx] Aspirin Enteric Coated [Aspirin EC] 81 mg PO 3XW 04/27/17 [History] Cranberry 500 mg PO DAILY 04/27/17 [History] Furosemide [Lasix] 40 mg PO BID 04/27/17 [History] Losartan [Cozaar] 25 mg PO DAILY 04/27/17 [History] Multivitamin [One Daily Essential] 1 each PO DAILY 04/27/17 [History] Umeclidinium [place] [Incruse Ellipta] 62.5 mcg IH DAILY 04/27/17 [History] Docusate [Colace] 100 mg PO BID PRN #60 capsule 05/17/17 [Rx] HYDROcodone/Acet 5/325 mg [[place] 5-325 mg] 1 tab PO Q6HR PRN 5 Days #20 tablet 05/17/17 [Rx] Polyethylene Glycol 3350 [MiraLAX] 17 gm PO BID #60 powd.pack 05/17/17 [Rx] Acetaminophen [Tylenol] 650 mg PO Q6HR PRN 05/29/17 [History] Ipratropium/Albuterol Neb [Duoneb] 3 ml IH Q6HR PRN 05/29/17 [History] LORazepam [Ativan] 0.5 mg PO BID 05/29/17 [History] Loperamide [Imodium] 2 mg PO Q4HR PRN 05/29/17 [History] Melatonin 10 mg PO HS 05/29/17 [History] Ciprofloxacin [Cipro] 500 mg PO BID 5 Days #10 tablet 06/04/17 [Rx] Ferrous Sulfate 325 mg PO DAILY@0800 30 Days #30 tablet 06/04/17 [Rx] Pantoprazole Sodium [Protonix] 40 mg PO BID 30 Days #60 tablet. 06/04/17 [Rx] metroNIDAZOLE [Flagyl] 500 mg PO BID 5 Days #10 tablet 06/04/17 [Rx] 3 Allergy/AdvReac Type Severity Reaction Status Date / Time Penicillins [PCN] Allergy Rash Verified 05/29/17 10:31 hydrocodone AdvReac Severe Agitated Verified 05/29/17 10:31 Oxycodone AdvReac See Verified 05/29/17 10:31 Comments All Systems Review: The remainder of the systems were reviewed and are negative - Cardiovascular Cardiovascular: as per HPI Physical Examination Vital Signs O2 Sat by Pulse Oximetry 100 05/29/17 10:22 Temperature 97.9 F 06/04/17 10:00 Pulse Rate 73 06/04/17 10:00 Respiratory Rate 16 06/04/17 10:00 Blood Pressure 107/85 06/04/17 10:00 O2 Sat by Pulse Oximetry 96 06/04/17 10:00 Oxygen Delivery Oxygen Delivery Nasal Cannula General: Conversant, No Apparent Distress HEENT: Atraumatic, Normocephaly, Mucus Membranes Moist Neck: No JVD, Normal carotid pulses Cardiac: Reg Rate and Rhythm, Normal S1 and S2, No Murmur Lungs: Other (Inspiratory wheezes noted. ) Neuro: Alert and responsive, No focal deficits noted Abdomen: Soft, Non-Tender Skin: No rashes noted on visualized skin Musculoskeletal: No Chest Wall Tenderness Extremities: No Clubbing, No Cyanosis, Normal Pulses, Other (Mild bilateral pedal edema noted. ) Results 06/04/17 02:47 06/04/17 10:36 Lab Results Active Medications Acetaminophen (Tylenol) 650 mg PO Q6HR PRN PRN Reason: Pain Stop: 11/28/17 14:24 Last Admin: 06/03/17 21:49 Dose: 650 mg Albuterol Sulfate (Albuterol Inhaler) 2 puff IH Q4H PRN PRN Reason: Shortness Of Breath Last Admin: 06/03/17 13:42 Dose: 2 puff Albuterol/Ipratropium (Duoneb) 3 ml IH Q6HR PRN PRN Reason: Dyspnea Stop: 11/28/17 14:24 Last Admin: 06/03/17 15:26 Dose: 3 ml Ascorbic Acid (Vitamin C) 500 mg PO DAILY [facility] Stop: 11/29/17 09:01 Last Admin: 06/04/17 08:18 Dose: 500 mg Carvedilol (Coreg) 25 mg PO BIDWM [facility]AN PRN Reason: Protocol Stop: 11/28/17 21:01 Last Admin: 06/04/17 08:18 Dose: 25 mg Ciprofloxacin HCl (Cipro) 500 mg PO BID ROMAN Stop: 06/07/17 21:01 Last Admin: 06/04/17 08:18 Dose: 500 mg Docusate Sodium (Colace) 100 mg PO BID PRN; Protocol PRN Reason: Constipation Stop: 11/28/17 14:24 Ferrous Sulfate (Ferrous Sulfate) 325 mg PO DAILY@0800 [facility] Stop: 12/03/17 08:01 Last Admin: 06/04/17 08:18 Dose: 325 mg Furosemide (Lasix) 40 mg PO BIDDIURETIC ROMAN Stop: 11/29/17 09:01 Last Admin: 06/04/17 08:19 Dose: 40 mg Loperamide HCl (Imodium) 2 mg PO Q4HR PRN PRN Reason: Diarrhea Stop: 11/28/17 14:24 Lorazepam (Ativan) 0.5 mg PO BID ROMAN Stop: 11/28/17 21:01 Last Admin: 06/04/17 08:18 Dose: 0.5 mg Losartan Potassium (Cozaar) 25 mg PO DAILY [facility]AN PRN Reason: Protocol Stop: 11/29/17 09:01 Last Admin: 06/04/17 08:18 Dose: 25 mg Melatonin (Melatonin) 9 mg PO HS ROMAN Stop: 11/28/17 21:01 Last Admin: 06/04/17 00:39 Dose: 9 mg Metronidazole (Flagyl) 500 mg PO BID ROMAN PRN Reason: Protocol Stop: 06/07/17 21:01 Last Admin: 06/04/17 08:18 Dose: 500 mg Multivitamins/Calcium (Thera M Plus) 1 tab PO DAILY ROMAN Stop: 11/29/17 09:01 Last Admin: 06/04/17 08:18 Dose: 1 tab Naloxone HCl (Narcan) 0.4 mg IVP Q2MIN PRN PRN Reason: SEE COMMENTS Stop: 11/28/17 13:48 Omeprazole (Prilosec) 40 mg PO DAILY@0630 [facility] PRN Reason: Protocol Stop: 12/02/17 06:31 Last Admin: 06/04/17 06:29 Dose: 40 mg Pharmacy Profile Note (Patient Taking Own Medication) 0 each IH DAILY [facility] Stop: 11/29/17 09:01 Last Admin: 06/04/17 08:19 Dose: Not Given Polyethylene Glycol (Miralax) 17 gm PO BID [facility] Stop: 11/28/17 21:01 Last Admin: 06/04/17 08:19 Dose: Not Given Simvastatin (Zocor) 40 mg PO QPM [facility] PRN Reason: Protocol Stop: 11/28/17 18:01 Last Admin: 06/03/17 18:22 Dose: 40 mg Tramadol HCl (Ultram) 50 mg PO Q6HR PRN PRN Reason: Moderate Pain Stop: 11/28/17 14:26 Last Admin: 06/04/17 14:13 Dose: 50 mg Laboratory Tests 06/03/17 06/03/17 06/04/17 04:09 04:09 02:47 Hgb 9.0 L 9.1 L Potassium Creatinine 0.88 Magnesium 06/04/17 10:36 Hgb Potassium 3.8 Creatinine Magnesium 1.5 L - Imaging and Cardiology Chest Xray: report reviewed Echo: report reviewed - EKG Interpretation EKG results cardiology: personally reviewed (ECG with SR, frequent PACs.), other (Telemetry reviewed with average HR previous 12 hours noted to be 75, SR. One run of non-sustained ventricular tachycardia noted.) Consult Discharge Plan - Plan Instructions: Ciprofloxacin (By mouth), Iron Supplements (By mouth), Metronidazole (By mouth), Pantoprazole (By mouth), Heart Failure (DC), Acute Respiratory Distress Syndrome (DC), Diverticulitis (DC), Chronic Obstructive Pulmonary Disease (DC), Alcohol Intoxication (DC), Alcohol Intoxication (GEN), Chronic Hypertension (DC), Anemia (GEN), Pneumonia (DC) Referrals: Dex Higuera Jr, MD [Primary Care Provider] - 06/08/17 9:15 am Prescriptions: Ciprofloxacin [Cipro] 500 mg PO BID 5 Days #10 tablet Ferrous Sulfate 325 mg PO DAILY@0800 30 Days #30 tablet metroNIDAZOLE [Flagyl] 500 mg PO BID 5 Days #10 tablet Pantoprazole Sodium [Protonix] 40 mg PO BID 30 Days #60 tablet.
[2017-06-04] MEDS: Acetaminophen 325 MG TABLET PO PRN (18:53)
[2017-06-05] MEDS: traMADol 50 MG TABLET PO PRN ×2 (06:02→13:58)
[2017-06-05 06:39] LABS: Basophils % 0.4 %; Eosinophils # 0.4 K/mcL (0.0-0.6); Hematocrit 27.1 % (37.5-50.1); Hemoglobin 8.6 g/dL (12.9-16.9); Immature Granulocytes % 2.2 % (0-4); Lymphocytes # 2.6 K/mcL (0.6-4.6); Lymphocytes % 26.7 %; Mean Corpuscular HGB Conc 31.7 g/dL (31.6-35.5); Mean Corpuscular Hemoglobin 30.1 pg (28.0-33.3); Mean Corpuscular Volume 94.8 fL (83.0-100.0); Mean Platelet Volume 9.4 fL (9.4-12.4); Monocytes # 0.9 K/mcL (0.0-1.3); Monocytes % 9.4 %; Neutrophils # 5.6 K/mcL (1.6-8.9); Platelet Count 209 K/mcL (140-400); Red Blood Count 2.86 M/mcL (4.19-5.50); Segmented Neutrophils % 57.3 %
[2017-06-05 07:35] VITALS: BP 138/67
--- NOTE | 2017-06-05 08:29 | Event Note ---
Date of Encounter: 06/05/17 Time of Encounter: 08:27 - Cardiology Event Note Telemetry reviewed with rare single PVCs noted. Short runs of atrial tachcyardia noted, longest lasting 6 beats. Cardiology will sign off and will follow in outpatient setting.
[2017-06-05 09:34] LABS: BUN/Creatinine Ratio 17 (6-26); Blood Urea Nitrogen 12 mg/dL (8-23); Calcium 8.1 mg/dL (8.6-10.3); Carbon Dioxide 27 mEq/L (23-29); Chloride 104 mEq/L (98-107); Glucose 149 mg/dL (70-105); Magnesium 1.6 mg/dL (1.6-2.6); Osmolality,Calculated 285 (280-300); Potassium 3.8 mEq/L (3.5-5.1); Sodium 136 mEq/L (136-145); eGFR For African Americans > 60 (> 60); eGFR For Non-African Americans > 60 (> 60)
[2017-06-05] MEDS: (Umeclidinium Bromide [Incruse Ellipta] 62.5 MCG) IH SCH (10:02)
[2017-06-05] MEDS: Ascorbic Acid 500 MG TABLET PO SCH (10:16)
[2017-06-05] MEDS: Acetaminophen 325 MG TABLET PO PRN (10:16)
[2017-06-05] MEDS: Multivit/Ca/Min/Fe/FA 1 TAB TABLET PO SCH (10:17)
[2017-06-05] MEDS: metroNIDAZOLE 500 MG TABLET PO SCH (10:17)
[2017-06-05] MEDS: *HR* LORazepam 0.5 MG TABLET PO SCH (10:17)
[2017-06-05] MEDS: Furosemide 40 MG TABLET PO SCH (10:17)
[2017-06-05 10:52] LABS: Troponin I < 0.03 ng/mL (< 0.04)
[2017-06-05] MEDS ORDERED: *HR* Magnesium Sulfate 1 GM/2 ML VIAL IM STA (11:12)
--- NOTE | 2017-06-05 11:17 | Discharge Summary ---
- NOTES TO OUTPATIENT PROVIDER Notes to Outpatient Provider: Recheck BMP and magnesium in 1 week (maintain K > 4.0 and Mag > 2.0). Follow up with cardiology as directed. Date of Encounter: 06/05/17 Time of Encounter: 11:15 - Discharge Diagnosis (1) GI bleed Priority: Primary Status: Resolved Qualifiers: GI bleed type/associated pathology: unspecified gastrointestinal hemorrhage type Qualified Code(s): K92.2 - Gastrointestinal hemorrhage, unspecified (2) Acute blood loss anemia Priority: Secondary Status: Acute (3) Diverticulitis large intestine w/o perforation or abscess w/bleeding Priority: Secondary Status: Acute (4) Peptic ulcer disease Priority: Secondary Status: Chronic (5) CAD (coronary artery disease) Priority: Secondary Status: Chronic Qualifiers: Coronary Disease-Associated Artery/Lesion type: [place] artery [place] vs. transplanted heart: [place] heart Associated angina: without angina Qualified Code(s): I25.10 - Atherosclerotic heart disease of [place] coronary artery without angina pectoris (6) Ventricular tachycardia Priority: Secondary Status: Resolved Hospital course: Mr. Sapp is a 81 year old male patient with a history of coronary artery disease, COPD, CHF, prior CVA, recent back surgery for vertebral fracture at T8 with posterior spinal fusion T5-T12 was currently residing at group home presented to the ER with complaints of melena and low hemoglobin levels. He had multiple episodes of emesis and dark chocolate-colored stools. He denied any abdominal pain but has back pain at site of his surgery. He also reports that he had fallen while being transferred on his way here and has pain in his back as a result. During that hospitalization, he had been diagnosed with duodenitis and underwent upper GI endoscopy. This showed multiple nonbleeding gastric and duodenal ulcers. Pathology results were negative for Helicobacter pylori. He was discharged on Protonix 40 mg by mouth daily. He had also undergone colonoscopy in 2014 for screening and was found to have 4 polyps with moderate diverticulosis. He was given a total of 4 Units of PRBCs during this hospitalization. He had and EGD and colonoscopy showing non-bleeding gastric ulcers and diverticulitis. His Hgb was stable for 72 hrs prior to discharge. He was started on a 7 day course of Cipro and Flagyl. Prior to discharge yesterday he had a 10 beat run of asx V-Tach and his subsequent ECG showed A-Fib. Cardiology was consulted and determined no further w/u was needed. He is currently in NSR and no anticoagulation was started due to his recent GI bleeding. His Mag was found to be mildly low and was replaced. He was kept overnight to monitor him and recheck his Mag in the AM. This morning, his K and Mag were WNL. He was given a dose of KCl 40 mEq PO and magnesium sulfate 2 gram IM as cardiology recommended keeping his K > 4.0 and Mag > 2.0. BMP and magnesium can be rechecked at 1 week. Patient has met maximum benefit of this hospitalization and will be discharged to [facility] for rehab in stable condition. Endoscopy studies during this admission: 05/30/17 EGD revealed non-bleeding gastric ulcers. Pathology results pending Continue PPI 40mg twice daily 06/01/17 Colonoscopy revealed focal diverticulitis with no active source of bleeding. Continue Cipro 500mg PO BID and Flagyl 50mg PO BID for 7 days Discharge discussed with: patient, family, nurse - Time Spent with Patient Total time spent providing and/or coordinating discharge services: Greater than 30 minutes - Discharge Medications Prescriptions: Ciprofloxacin [Cipro] 500 mg PO BID 5 Days #10 tablet Ferrous Sulfate 325 mg PO DAILY@0800 30 Days #30 tablet metroNIDAZOLE [Flagyl] 500 mg PO BID 5 Days #10 tablet Pantoprazole Sodium [Protonix] 40 mg PO BID 30 Days #60 tablet.dr Home Medications: Albuterol Sulfate [Proair Respiclick] 2 puff IH Q4H PRN 03/03/15 [History] Ascorbic Acid [Vitamin C] 500 mg PO DAILY 03/03/15 [History] Simvastatin [Zocor] 40 mg PO QPM 03/03/15 [History] Carvedilol [Coreg] 25 mg PO BID #60 tablet 03/06/15 [Rx] Aspirin Enteric Coated [Aspirin EC] 81 mg PO 3XW 04/27/17 [History] Cranberry 500 mg PO DAILY 04/27/17 [History] Furosemide [Lasix] 40 mg PO BID 04/27/17 [History] Losartan [Cozaar] 25 mg PO DAILY 04/27/17 [History] Multivitamin [One Daily Essential] 1 each PO DAILY 04/27/17 [History] Umeclidinium [place] [Incruse Ellipta] 62.5 mcg IH DAILY 04/27/17 [History] Docusate [Colace] 100 mg PO BID PRN #60 capsule 05/17/17 [Rx] HYDROcodone/Acet 5/325 mg [[place] 5-325 mg] 1 tab PO Q6HR PRN 5 Days #20 tablet 05/17/17 [Rx] Polyethylene Glycol 3350 [MiraLAX] 17 gm PO BID #60 powd.pack 05/17/17 [Rx] Acetaminophen [Tylenol] 650 mg PO Q6HR PRN 05/29/17 [History] Ipratropium/Albuterol Neb [Duoneb] 3 ml IH Q6HR PRN 05/29/17 [History] LORazepam [Ativan] 0.5 mg PO BID 05/29/17 [History] Loperamide [Imodium] 2 mg PO Q4HR PRN 05/29/17 [History] Melatonin 10 mg PO HS 05/29/17 [History] Ciprofloxacin [Cipro] 500 mg PO BID 5 Days #10 tablet 06/04/17 [Rx] Ferrous Sulfate 325 mg PO DAILY@0800 30 Days #30 tablet 06/04/17 [Rx] Pantoprazole Sodium [Protonix] 40 mg PO BID 30 Days #60 tablet. 06/04/17 [Rx] metroNIDAZOLE [Flagyl] 500 mg PO BID 5 Days #10 tablet 06/04/17 [Rx] Allergies/Adverse Reactions: 3 Allergy/AdvReac Type Severity Reaction Status Date / Time Penicillins [PCN] Allergy Rash Verified 05/29/17 10:31 hydrocodone AdvReac Severe Agitated Verified 05/29/17 10:31 Oxycodone AdvReac See Verified 05/29/17 10:31 Comments Date of admission: 05/29/17 15:12 Primary care physician: Dex Higuera Jr, MD Consults: 05/29/17 17:22 Consult to Nutrition [CONS] Routine Comment: Consulting Provider: NUTRITION Reason for Dietary Consult: MST Score 05/29/17 17:23 Consult to [employer] Designer [CONS] Routine Reason for SW Consult: patient from traditions 06/04/17 10:39 Consult to Cardiology [CONS] Routine Comment: Consulting Provider: Cardiology [place] Reason for Consult: 10 beats of VT Time Notified: 10:40 Call Completed: No Discharging clinician: Hi Muniz Anticipated date of discharge: 06/05/17 - Constitutional Vitals: Temp Pulse Resp BP Pulse Ox 97.9 F 84 17 138/67 93 06/05/17 07:00 06/05/17 07:00 06/05/17 07:00 06/05/17 07:00 06/05/17 07:00 General appearance: Present: cooperative, A&O X 3, pleasant, no acute distress, obese, answers questions appropriately - Respiratory Respiratory exam: Present: CTAB. Absent: accessory muscle use, rales, rhonchi, wheezes Additional comments: Normal WOB - Cardiovascular Cardiovascular exam: Present: RRR, +S1, +S2. Absent: diastolic murmur, gallop, rubs, systolic murmur Additional comments: No BLE edema - GI/Abdominal GI/Abdominal exam: Present: normal bowel sounds, soft. Absent: distended, hepatomegaly, mass, splenomegaly, tenderness - Psychiatric Psychiatric exam: Present: normal affect, normal mood. Absent: anxious, depressed - Skin Skin exam: Present: dry, intact, warm. Absent: cyanosis, rash - Patient Status Disposition: Transfer Inpatient Rehab Fac Condition: Fair Overall status at discharge: patient is progressing back to baseline - Discharge Instructions Instructions: Ciprofloxacin (By mouth), Iron Supplements (By mouth), Metronidazole (By mouth), Pantoprazole (By mouth), Heart Failure (DC), Acute Respiratory Distress Syndrome (DC), Diverticulitis (DC), Chronic Obstructive Pulmonary Disease (DC), Alcohol Intoxication (DC), Alcohol Intoxication (GEN), Chronic Hypertension (DC), Anemia (GEN), Pneumonia (DC) Follow Up With: Dex Higuera Jr, MD [Primary Care Provider] - 06/08/17 9:15 am Additional Instructions: Recheck BMP and magnesium in 1 week (maintain K > 4.0 and Mag > 2.0). Follow up with cardiology as directed. - Diet and Activity Activity: as per physical therapy Diet: other (Cardiac) - VTE Reasons for not Prescribing Prophylaxis: Medical contraindication (GI Bleed) Documentation of Mechanical Device: Intermittent pneumatic compression device
--- NOTE | 2017-06-05 11:26 | Physician Discharge Referral ---
ExtendedCare Referral Info Transfer To: [facility] Institutional Level of Care: Skilled - Diagnosis (1) GI bleed Priority: Primary Status: Resolved (2) Acute blood loss anemia Priority: Secondary Status: Acute (3) Diverticulitis large intestine w/o perforation or abscess w/bleeding Priority: Secondary Status: Acute (4) Peptic ulcer disease Priority: Secondary Status: Chronic (5) CAD (coronary artery disease) Priority: Secondary Status: Chronic (6) Ventricular tachycardia Priority: Secondary Status: Resolved Prognosis: Fair Aware of Diagnosis: Patient, Family Aware of Prognosis: Patient, Family - Transfer Medications Prescriptions: Ciprofloxacin [Cipro] 500 mg PO BID 5 Days #10 tablet Ferrous Sulfate 325 mg PO DAILY@0800 30 Days #30 tablet metroNIDAZOLE [Flagyl] 500 mg PO BID 5 Days #10 tablet Pantoprazole Sodium [Protonix] 40 mg PO BID 30 Days #60 tablet.dr Home Medications: Albuterol Sulfate [Proair Respiclick] 2 puff IH Q4H PRN 03/03/15 [History] Ascorbic Acid [Vitamin C] 500 mg PO DAILY 03/03/15 [History] Simvastatin [Zocor] 40 mg PO QPM 03/03/15 [History] Carvedilol [Coreg] 25 mg PO BID #60 tablet 03/06/15 [Rx] Aspirin Enteric Coated [Aspirin EC] 81 mg PO 3XW 04/27/17 [History] Cranberry 500 mg PO DAILY 04/27/17 [History] Furosemide [Lasix] 40 mg PO BID 04/27/17 [History] Losartan [Cozaar] 25 mg PO DAILY 04/27/17 [History] Multivitamin [One Daily Essential] 1 each PO DAILY 04/27/17 [History] Umeclidinium [place] [Incruse Ellipta] 62.5 mcg IH DAILY 04/27/17 [History] Docusate [Colace] 100 mg PO BID PRN #60 capsule 05/17/17 [Rx] HYDROcodone/Acet 5/325 mg [[place] 5-325 mg] 1 tab PO Q6HR PRN 5 Days #20 tablet 05/17/17 [Rx] Polyethylene Glycol 3350 [MiraLAX] 17 gm PO BID #60 powd.pack 05/17/17 [Rx] Acetaminophen [Tylenol] 650 mg PO Q6HR PRN 05/29/17 [History] Ipratropium/Albuterol Neb [Duoneb] 3 ml IH Q6HR PRN 05/29/17 [History] LORazepam [Ativan] 0.5 mg PO BID 05/29/17 [History] Loperamide [Imodium] 2 mg PO Q4HR PRN 05/29/17 [History] Melatonin 10 mg PO HS 05/29/17 [History] Ciprofloxacin [Cipro] 500 mg PO BID 5 Days #10 tablet 06/04/17 [Rx] Ferrous Sulfate 325 mg PO DAILY@0800 30 Days #30 tablet 06/04/17 [Rx] Pantoprazole Sodium [Protonix] 40 mg PO BID 30 Days #60 tablet. 06/04/17 [Rx] metroNIDAZOLE [Flagyl] 500 mg PO BID 5 Days #10 tablet 06/04/17 [Rx] Allergies/Adverse Reactions: 3 Allergy/AdvReac Type Severity Reaction Status Date / Time Penicillins [PCN] Allergy Rash Verified 05/29/17 10:31 hydrocodone AdvReac Severe Agitated Verified 05/29/17 10:31 Oxycodone AdvReac See Verified 05/29/17 10:31 Comments - Respiratory Orders Oxygen / L per min (2L NC) Smoking Cessation: Smoking cessation has been advised. For more information, call the [place] Tobacco Quit Line at 2-005-BAJU-NOW. - Mobility Orders Other (Per physical therapy) - Rehabiliation Orders Rehab Potential: Fair Rehab Orders: Evaluation for Physical Therapy, Evaluation for Occupational Therapy - Diet Orders Cardiac CERTIFICATION: I certify that the transfer of the above named patient to an Extended Care Facility is necessary for the continuing treatment of the diagnosis listed. The above information is true and accurate reflection of patient's current condition. Confidential - Redisclosure prohibited without a patient's written consent.
--- NOTE | 2017-06-06 06:21 | Electrocardiograph Report ---
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
== END 2017-06-05 16:01 | DRG 378 ==
LOC: EMEROO 10:20 → 2NENU 15:12
PROVIDERS: ADMIT Internal Medicine; ATTEND Internal Medicine
PROC: ENDOEBX (2017-05-30 14:30)
PROC: ENDOCBX (2017-05-31 17:00)